=== PATIENT | male | born 1960 | race Caucasian/White ===

== ENCOUNTER 2017-02-09 11:28 | Emergency (ER) | payer OTHER, BC, MEDICARE ==
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
[2017-02-09 14:09] VITALS: BP 132/72; PULSE 70; RESP 18; TEMP 97.9
== END 2017-02-09 14:09 | disposition home or self-care (01) ==
LOC: EC 11:28
DX: S62.101A Fracture of unspecified carpal bone, right wrist, initial encounter for closed fracture (principal); E11.9 Type 2 diabetes mellitus without complications; E78.5 Hyperlipidemia, unspecified; I10 Essential (primary) hypertension; F17.200 Nicotine dependence, unspecified, uncomplicated; Z79.82 Long term (current) use of aspirin; Z79.84 Long term (current) use of oral hypoglycemic drugs; Z79.899 Other long term (current) drug therapy; Z88.1 Allergy status to other antibiotic agents; Z88.5 Allergy status to narcotic agent; V29.40XA Motorcycle driver injured in collision with unspecified motor vehicles in traffic accident, initial encounter; Y92.410 Unspecified street and highway as the place of occurrence of the external cause
CPT/HCPCS: 29125; 99283

== ENCOUNTER 2018-05-29 07:56 | Inpatient (IN) | payer BC, MEDICARE ==
[2018-05-29] MEDS ORDERED: ASPIRIN 81 MG PO STA (08:04)
[2018-05-29] MEDS ORDERED: HYDROmorphone 0.5 MG/0.5 ML SYRINGE IVP STA (08:12)
[2018-05-29] MEDS: ONDANSETRON 4 MG/2 ML VIAL IVP STA ×2 (08:29→10:37)
--- NOTE | 2018-05-29 08:40 | XR ---
EXAMINATION TYPE: XR chest 1V portable DATE OF EXAM: 05/29/2018 HISTORY: Pain. REFERENCE: Previous study dated 03/25/2016. FINDINGS: There are patchy bilateral infiltrates. Heart size upper limits of normal. Pleural spaces a re clear. IMPRESSION: PATCHY BILATERAL INFILTRATES COMPATIBLE WITH BILATERAL AREAS OF PNEUMONIA.
--- NOTE | 2018-05-29 08:46 | ED ---
Chest Pain HPI - General Source: patient, RN notes reviewed Mode of arrival: wheelchair Limitations: no limitations <William Carl - Last Filed: 05/29/18 10:11> <Robbin Rhodes - Last Filed: 05/29/18 10:44> - General Chief Complaint: Chest Pain Stated Complaint: chest pain Time Seen by Provider: 05/29/18 08:04 - History of Present Illness Initial Comments: 57-year-old male presents emergency Department chief complaint of chest pain, back pain. Patient states started with some mid to low back pain last night developed chest pain, diaphoresis this morning. Patient states she just does not feel well. Patient states she's nauseated. Patient states he had a stent placed in his right RCA last year. 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 Young. Patient does admit to shortness of breath. Patient does have a history of hypertension , hyperlipidemia, diabetes, smoking history. Patient states these are similar symptoms to his prior heart attack. Patient denies any recent URI symptoms no fevers no chills. (William Carl) - Related Data Home Medications Medication Instructions Recorded Confirmed ALPRAZolam [Alprazolam] 0.25 mg PO QID 03/25/16 05/29/18 Aspirin EC [Ecotrin Low Dose] 81 mg PO DAILY 03/25/16 05/29/18 Hydrocodone/Acetaminophen 1 tab PO Q6H PRN 03/25/16 05/29/18 [Hydrocodone-Acetamin 7.5-325] Atorvastatin [Lipitor] 20 mg PO DAILY 02/09/17 05/29/18 Lisinopril [Zestril] 10 mg PO DAILY 02/09/17 05/29/18 Artificial Tears-Hypromellose 1 drop BOTH EYES QID PRN 05/29/18 05/29/18 [Artificial Tear Drops] Nitroglycerin Sl Tabs [Nitrostat] 0.4 mg PO DIRECTED 05/29/18 05/29/18 metFORMIN HCL [Glucophage] 500 mg PO BID 05/29/18 05/29/18 Previous Rx's Medication Instructions Recorded Metoprolol Tartrate [Lopressor] 50 mg PO BID #60 tab 03/28/16 Allergies Allergy/AdvReac Type Severity Reaction Status Date / Time cephalexin [From Keflex] Allergy Unknown Verified 05/29/18 10:37 meperidine [From Demerol] Allergy Unknown Verified 05/29/18 10:37 morphine Allergy Unknown Verified 05/29/18 10:37 Review of Systems ROS Other: All systems not noted in ROS Statement are negative. <William Carl - Last Filed: 05/29/18 10:11> ROS Other: All systems not noted in ROS Statement are negative. <Robbin Rhodes - Last Filed: 05/29/18 10:44> ROS Statement: Those systems with pertinent positive or pertinent negative responses have been documented in the HPI. EKG Findings - EKG Comments: EKG Findings:: EKG performed 8:14 normal sinus rhythm with nonspecific ST and T- wave abnormality with a rate of 88 OH 162 QRS 84 QT/QTC 374/452 normal intervals <William Carl - Last Filed: 05/29/18 10:11> Past Medical History Past Medical History: Diabetes Mellitus, Hyperlipidemia, Hypertension Additional Past Medical History / Comment(s): pericarditis History of Any Multi-Drug Resistant Organisms: None Reported Past Surgical History: Back Surgery, Orthopedic Surgery Additional Past Surgical History / Comment(s): B hip replacements Past Anesthesia/Blood Transfusion Reactions: No Reported Reaction Past Psychological History: Depression Smoking Status: Current every day smoker Past Alcohol Use History: None Reported Past Drug Use History: Marijuana - Past Family History Father History Unknown: Yes Mother Family Medical History: Diabetes Mellitus, Hypertension Additional Family Medical History / Comment(s): passed in '08 from complications r/t DM <William Carl - Last Filed: 05/29/18 10:11> General Exam Limitations: no limitations General appearance: alert, in no apparent distress, other (Diaphoretic) Head exam: Present: atraumatic, normocephalic, normal inspection Eye exam: Present: normal appearance, PERRL, EOMI. Absent: scleral icterus, conjunctival injection, periorbital swelling ENT exam: Present: normal exam, normal oropharynx, mucous membranes moist Neck exam: Present: normal inspection, full ROM. Absent: tenderness, meningismus, lymphadenopathy Respiratory exam: Present: normal lung sounds bilaterally. Absent: respiratory distress, wheezes, rales, rhonchi, stridor Cardiovascular Exam: Present: regular rate, normal rhythm, normal heart sounds. Absent: systolic murmur, diastolic murmur, rubs, gallop, clicks GI/Abdominal exam: Present: soft, normal bowel sounds. Absent: distended, tenderness, guarding, rebound, rigid Back exam: Present: full ROM. Absent: tenderness, paraspinal tenderness, vertebral tenderness Neurological exam: Present: alert, oriented X3, CN II-XII intact Skin exam: Present: warm, dry, intact, normal color. Absent: rash <William Carl - Last Filed: 05/29/18 10:11> Course <William Carl - Last Filed: 05/29/18 10:11> <Robbin Rhodes - Last Filed: 05/29/18 10:44> Vital Signs 05/29/18 05/29/18 05/29/18 07:59 08:30 08:45 Temperature 97.9 F Pulse Rate 84 84 84 Respiratory 18 11 L 24 Rate Blood Pressure 169/80 161/88 151/83 O2 Sat by Pulse 100 100 99 Oximetry 05/29/18 09:15 Temperature Pulse Rate 74 Respiratory Rate Blood Pressure 149/71 O2 Sat by Pulse 95 Oximetry - Reevaluation(s) Reevaluation #1: 05/29/18 10:04 Patient reevaluated and reexamined by myself, Dr. Rhodes. Patient resting comfortably in bed. Patient states discomfort has nearly resolved at this point. Patient does complain of some sciatic type pain. Patient has had previously. Patient states he did have chest discomfort started around 5 AM described as tightness with radiation to the upper back. Patient did have associated nausea and dyspnea and sweating. Patient still is mildly nauseated. Patient and family updated on results and plan. CT report reviewed. Case discussed in detail with Dr. Reeves, who will admit his patient. I did review and agree with truong findings. This includes all diagnostic interpretations and treatment plan. 05/29/18 10:44 Case was discussed with Dr. Hammond earlier. (Robbin Rhodes) Chest Pain MDM <William Carl - Last Filed: 05/29/18 10:11> <Robbin Rhodes - Last Filed: 05/29/18 10:44> - MDM 57-year-old male present emergency department for chest pain. Patient did have lab work, EKG, chest x-ray, CT of aorta. There is no evidence of dissection. Patient had chest x-ray shows bilateral pneumonia will be started on antibiotics. Patient also has a mild elevated troponin. There is no acute EKG changes. Patient has had prior stenting. Patient was started on heparin, aspirin was given. Patient is stable and will be admitted for cardiology evaluation and further treatment. (William Carl) Disposition <William Carl - Last Filed: 05/29/18 10:11> <Robbin Rhodes - Last Filed: 05/29/18 10:44> Clinical Impression: Chest pain, Elevated troponin, Bilateral pneumonia Disposition: ADMITTED IP TO THIS HOSP Condition: Fair
[2018-05-29 08:47] LABS: Basophils # (A) 0.1 k/uL (0-0.2); Basophils % (A) 0 %; Eosinophils # (A) 0.3 k/uL (0-0.7); Eosinophils % (A) 1 %; HCT 40.4 % (39.0-53.0); HGB 13.5 gm/dL (13.0-17.5); Lymphocytes # (A) 1.9 k/uL (1.0-4.8); Lymphocytes % (A) 10 %; MCH 31.2 pg (25.0-35.0); MCHC 33.5 g/dL (31.0-37.0); Mean Platelet Volume 7.3; Monocytes # (A) 0.6 k/uL (0-1.0); Monocytes % (A) 3 %; Neutrophils # (A) 15.9 k/uL (1.3-7.7); Neutrophils % (A) 85 %; Platelet Count 316 k/uL (150-450); RBC 4.33 m/uL (4.30-5.90); WBC 18.9 k/uL (3.8-10.6)
[2018-05-29 08:54] LABS: MCV 93.2 fL (80.0-100.0)
[2018-05-29 08:58] LABS: Albumin 4.6 g/dL (3.5-5.0); INR 0.9 (<1.2); Magnesium 1.9 mg/dL (1.6-2.3); Partial Thromboplastin Time 23.8 sec (22.0-30.0); Potassium 5.5 mmol/L (3.5-5.1); Prothrombin Time 9.7 sec (9.0-12.0); Total Bilirubin 0.7 mg/dL (0.2-1.3); Total Protein 7.7 g/dL (6.3-8.2)
[2018-05-29] MEDS ORDERED: SODIUM CHLORIDE 0.9% 1,000 ML IV ONE ×2 (09:11→23:55)
[2018-05-29 09:19] LABS: Creatine Kinase MB 1.6 ng/mL (0.0-2.4)
--- NOTE | 2018-05-29 09:47 | CT ---
EXAMINATION TYPE: CT angio thor/abd pel aorta DATE OF EXAM: 05/29/2018 COMPARISON: Previous CT scan of the abdomen and pelvis dated 03/25/2016. HISTORY: Chest pain, back pain, abdominal pain CT DLP: 1491.5 mGycm. Automated Exposure Control for Dose Reduction was Utilized. CONTRAST: CT scan of the thorax, abdomen and pelvis is performed with IV Contrast, patient injected with 370 mL of Isovue 300. FINDINGS: There is dependent atelectasis in the dependent portions of the lungs. There is some shotty adenopathy within the mediastinum. There is no definite hilar adenopathy. There is no evidence of pulmonary embolus. The aorta is normal in caliber without evidence of dissection. There is some eccentric thrombus withi n the distal thoracic aorta. There is also eccentric thrombus and calcification in the distal abdomin al aorta. There is no evidence of aneurysm. There is atheromatous irregularity of the common iliac ve ssels. Both the internal and external iliac vessels are patent. The celiac, SMA and EZRA vessels are patent. Both renal arteries are patent. The heart is not enlarged. There is a small, sliding hiatal hernia present. Within the abdomen, the liver, spleen and gallbladder are unremarkable. Both adrenal glands are normal. Both kidneys demonstrate function and appear morphologically normal. The pancreas is unremarkable. There is no significant retroperitoneal, iliac or inguinal adenopathy. Bilateral hip prostheses are causing moderate streak artifact within the pelvis. It does appear to be some calcification of the prostate gland. The bladder appears unremarkable. There are scattered diverticula present in the sigmoid region. There is no radiographic evidence of d iverticulitis. The appendix is not visualized with certainty. Small bowel loops are of normal caliber. There is no free fluid and no free air. There is mild degenerative disc disease, facet arthropathy and hypertrophic spondylosis within the sp ine. IMPRESSION: 1. NO EVIDENCE OF PULMONARY EMBOLUS. 2. MILD ATHEROMATOUS IRREGULARITY OF THE DISTAL ABDOMINAL AORTA AND ILIAC VESSELS. 3. NO EVIDENCE OF AORTIC ANEURYSM OR DISSECTION.
[2018-05-29 09:52] LABS: Troponin I 0.387 ng/mL (0.000-0.034)
[2018-05-29] MEDS ORDERED: HEPARIN SODIUM,PORCINE 5,000 UNIT/ML 1 ML VIAL IV ONE (09:58)
[2018-05-29] MEDS ORDERED: HEPARIN SODIUM,PORCINE 5,000 UNIT/ML 1 ML VIAL IV PRN (09:58)
[2018-05-29] MEDS ORDERED: HEPARIN SOD,PORK IN 0.45% NACL 25,000 UNIT in 0.45% NACL 1 250ML.BAG IV SCH (10:00)
[2018-05-29] MEDS ORDERED: LEVOFLOXACIN 750MG-D5W PMX 750 MG in DEXTROSE/WATER 1 150ML.BAG IVPB STA (10:02)
[2018-05-29] MEDS ORDERED: HYDROcodone/APAP 7.5-325MG 1 EACH TAB PO ONE (11:12)
[2018-05-29] MEDS ORDERED: fentaNYL (PF) 50 MCG/ML 2 ML AMP IV ONE ×2 (11:35→13:50)
--- NOTE | 2018-05-29 12:12 | CONS ---
CONSULTATION Mr. Bolton is a 57-year-old gentleman who came to the emergency room with a complaint of nausea, sweating and back pain as well as the left hip pain. The patient gives a history that this morning he woke up and he was sweaty and slightly nauseated. The patient also had been having hip pain and the back pain. He complained of also mild chest discomfort. At present, patient is not having any chest pain. The patient had a CT scan of the chest as well as abdomen which was unremarkable. Patient has a known history of coronary artery disease with a prior history of stent to the right coronary artery in 2016. The patient is being followed by Dr. Young. He still smokes about 1 pack per day. The patient denies any history of peptic ulcer disease, any blood in the stool or black stool. Patient claims he is taking his medications regularly. The EKG shows some minimal ST changes, not significantly changed from the previous EKG. The first troponin is 0.3. PAST MEDICAL HISTORY: Prior history of coronary artery disease with a history of a stent to the RCA. Patient has a calcified coronary artery disease. History of hypertension and hyperlipidemia. REVIEW OF SYSTEMS: The review of the system is otherwise unremarkable except the patient has been having back pain and hip pain. The patient has a past history of back surgery as well as a bilateral hip replacement. PHYSICAL EXAMINATION: Physical examination at present reveals a 57-year-old gentleman who is not in any acute distress. He is not having any chest pain. Blood pressure is 130/80 mmHg. Head/ENT examination is negative. Neck is supple. There is no increase in jugular venous pressure. Both the carotid pulses are felt. There is no bruit. Chest is symmetrical. HEART: The PMI is not felt. First and second heart sounds are normal. There is no evidence of any murmur. Lungs are clinically clear to auscultation and percussion. Abdomen is negative. EXTREMITIES: Peripheral pulses are 2+. The patient's CT scan of the abdomen and chest is negative. FINAL IMPRESSION: This patient is admitted with nausea, sweating, back pain and hip pain. The patient had mild chest discomfort. First troponin is 0.3. Rule out any evidence of acute coronary syndrome. RECOMMENDATIONS: We will continue the patient's cardiac medications. Serial EKGs and cardiac enzymes will be obtained. If the cardiac enzymes are suggestive of acute coronary syndrome, patient will be considered for further evaluation with a cardiac catheterization. Echo and Doppler study will be obtained. MMESTUARDO / KARLAN: [id number] /
[2018-05-29] MEDS ORDERED: VERAPAMIL SYRINGE (5 MG/10 ML) INTRAARTER ONE ×2 (12:53→13:53)
[2018-05-29] MEDS: NITROGLYCERIN SL TABS 0.4 MG TAB SUBLINGUAL PRN ×3 (13:01→13:11)
[2018-05-29] MEDS ORDERED: VERAPAMIL 2.5 MG/ML 2 ML AMP ONE (13:28)
[2018-05-29] MEDS ORDERED: LIDOCAINE 1% INJ 10MG/ML (20 ML MDV) ONE (13:28)
[2018-05-29] MEDS ORDERED: fentaNYL (PF) 50 MCG/ML 2 ML AMP ONE (13:47)
[2018-05-29] MEDS ORDERED: LIDOCAINE 1% INJ 10MG/ML (20 ML MDV) SQ ONE (13:52)
[2018-05-29] MEDS ORDERED: IV FLUID CONTINUATION 1,000 ML IV ONE (13:53)
[2018-05-29] MEDS ORDERED: HEPARIN SODIUM 1,000 UN/ML (10ML VL) IV ONE (14:01)
[2018-05-29] MEDS ORDERED: MIDAZOLAM 2 MG/2 ML VIAL IV ONE (14:05)
[2018-05-29] MEDS ORDERED: IOPAMIDOL-370 125ML BTL INJ ONE (14:12)
[2018-05-29] MEDS ORDERED: RX INFO: IV CONTRAST WAS GIVEN 1 EACH MISC MISCELLANE PRN (14:16)
[2018-05-29] MEDS ORDERED: SODIUM CHLORIDE 0.9% 1,000 ML IV SCH (14:30)
[2018-05-29 14:58] VITALS: BMI 24.3
--- NOTE | 2018-05-29 15:17 | P.HPIM ---
History of Present Illness H&P Date: 05/29/18 Johnson Bolton is a 57-year-old male who presented to [facility] emergency room with a chief complaint of chest pain patient describes a pressure in the middle of his chest with diaphoresis and shortness of breath he was evaluated in emergency room troponin level was elevated at 0.387 patient has a known history of coronary artery disease with previous history of angioplasty and stent placement to the right coronary artery last year, patient was started on IV heparin he was evaluated by cardiology and due to his elevated troponin they proceeded with cardiac catheterization which did not reveal any critical stenosis recommendation was to continue with medical management. On presentation patient had a chest x-ray that revealed evidence of patchy bilateral infiltrates suggestive of pneumonia his white blood count was elevated at 18.9 he was started on IV Levaquin in the emergency room Patient is admitted to telemetry floor for further evaluation and treatment Past Medical History Past Medical History: Diabetes Mellitus, Hyperlipidemia, Hypertension Additional Past Medical History / Comment(s): pericarditis History of Any Multi-Drug Resistant Organisms: None Reported Past Surgical History: Back Surgery, Orthopedic Surgery Additional Past Surgical History / Comment(s): B hip replacements Past Anesthesia/Blood Transfusion Reactions: No Reported Reaction Smoking Status: Current every day smoker - Past Family History Father History Unknown: Yes Mother Family Medical History: Diabetes Mellitus, Hypertension Additional Family Medical History / Comment(s): passed in from complications r/t DM Medications and Allergies Home Medications Medication Instructions Recorded Confirmed Type ALPRAZolam [Alprazolam] 0.25 mg PO QID 03/25/16 05/29/18 History Aspirin EC [Ecotrin Low Dose] 81 mg PO DAILY 03/25/16 05/29/18 History Hydrocodone/Acetaminophen 1 tab PO Q6H PRN 03/25/16 05/29/18 History [Hydrocodone-Acetamin 7.5-325] Metoprolol Tartrate [Lopressor] 50 mg PO BID #60 tab 03/28/16 05/29/18 Rx Atorvastatin [Lipitor] 20 mg PO DAILY 02/09/17 05/29/18 History Lisinopril [Zestril] 10 mg PO DAILY 02/09/17 05/29/18 History Artificial Tears-Hypromellose 1 drop BOTH EYES QID PRN 01/05/19 01/05/19 History [Artificial Tear Drops] Nitroglycerin Sl Tabs [Nitrostat] 0.4 mg PO DIRECTED 05/29/18 05/29/18 History metFORMIN HCL [Glucophage] 500 mg PO BID 05/29/18 05/29/18 History Allergies Allergy/AdvReac Type Severity Reaction Status Date / Time cephalexin [From Keflex] Allergy Unknown Verified 05/29/18 10:37 meperidine [From Demerol] Allergy Unknown Verified 05/29/18 10:37 morphine Allergy Unknown Verified 05/29/18 10:37 Physical Exam Vitals: Vital Signs Temp Pulse Pulse Resp BP BP Pulse Ox 05/29/18 14:44 99.3 F 122 H 16 164/91 90 L 05/29/18 13:00 97.8 F 111 H 22 175/95 95 05/29/18 12:00 99 16 148/93 94 L 05/29/18 10:00 82 18 162/92 95 05/29/18 09:15 74 149/71 95 05/29/18 08:45 84 24 151/83 99 05/29/18 08:30 84 11 L 161/88 100 05/29/18 07:59 97.9 F 84 18 169/80 100 Intake and Output 05/29/18 05/29/18 05/29/18 06:59 14:59 22:59 Intake Total 50 Balance 50 Intake: IV 50 Other: Weight 74.843 kg HEENT head normocephalic and atraumatic Neck is supple no JVD no goiter no lymphadenopathy Chest exam reveals a few scattered crackles bilaterally no wheezing Cardiac exam reveals regular heart sounds S1 and S2 no gallops no murmurs Abdomen is soft nontender no organomegaly with normal bowel sounds Extremity exam reveals no edema no cyanosis or clubbing Neurological examination reveals no gross focal deficit Results CBC & Chem 7: 05/29/18 08:17 05/29/18 08:17 Labs: Abnormal Lab Results - Last 24 Hours (Table) 05/29/18 05/29/18 05/29/18 Range/Units 08:17 08:17 08:17 WBC 18.9 H (3.8-10.6) k/uL Neutrophils # 15.9 H (1.3-7.7) k/uL Potassium 5.5 H (3.5-5.1) mmol/L BUN 31 H (9-20) mg/dL Creatinine 1.35 H (0.66-1.25) mg/dL Glucose 194 H (74-99) mg/dL Troponin I 0.387 H* (0.000-0.034) ng/mL Assessment and Plan Plan: #1 episode of chest pain, with elevated troponin level at 0.387 patient underwent cardiac catheterization on admission there was no evidence of any critical stenosis recommendation were to continue with medical management #2 evidence of bilateral pneumonia with patchy infiltrates in both lung guillen and leukocytosis patient was started on IV Levaquin will continue #3 underlying history of hypertension #4 underlying history of hyperlipidemia #5 chronic back pain with severe degenerative disc disease #6 acute kidney injury BUN 31 creatinine 1.35 baseline creatinine 0.8 Will hydrate patient gently and monitor blood pressure #7 underlying history of diabetes mellitus [id number] Will monitor glucose closely will check hemoglobin A1c Patient is admitted to telemetry floor cardiology and pulmonary consultation requested will follow closely
[2018-05-29 16:19] LABS: Creatine Kinase MB 9.3 ng/mL (0.0-2.4)
[2018-05-29 16:28] LABS: Troponin I 3.74 ng/mL (0.000-0.034)
[2018-05-29 16:47] LABS: Glucose,Whole Blood 156 mg/dL (75-99)
[2018-05-29] MEDS ORDERED: ONDANSETRON 4 MG/2 ML VIAL IVP PRN (19:44)
[2018-05-29] MEDS ORDERED: ONDANSETRON 4 MG/2 ML VIAL ONE (20:01)
[2018-05-29 20:03] LABS: Glucose,Whole Blood 201 mg/dL (75-99)
[2018-05-29] MEDS ORDERED: KETOROLAC 30 MG/ML 1 ML VIAL IVP STA (20:05)
[2018-05-29 20:44] LABS: Basophils # (A) 0.1 k/uL (0-0.2); Basophils % (A) 0 %; Eosinophils % (A) 0 %; HCT 44.3 % (39.0-53.0); HGB 13.8 gm/dL (13.0-17.5); Lymphocytes # (A) 1.7 k/uL (1.0-4.8); Lymphocytes % (A) 9 %; MCH 30.2 pg (25.0-35.0); MCHC 31.1 g/dL (31.0-37.0); MCV 97.1 fL (80.0-100.0); Monocytes # (A) 0.8 k/uL (0-1.0); Monocytes % (A) 4 %; Neutrophils # (A) 16.2 k/uL (1.3-7.7); Neutrophils % (A) 85 %; Platelet Count 358 k/uL (150-450); RBC 4.56 m/uL (4.30-5.90); RDW 13.1 % (11.5-15.5)
[2018-05-29 21:11] LABS: Creatine Kinase MB 13.5 ng/mL (0.0-2.4)
[2018-05-29 21:21] LABS: Troponin I 4.91 ng/mL (0.000-0.034)
[2018-05-29] MEDS: CLOPIDOGREL 75 MG TAB PO SCH (21:21)
[2018-05-29] MEDS: ALPRAZolam 0.25 MG TAB PO SCH (21:21)
[2018-05-29] MEDS: METOPROLOL TARTRATE 50 MG TAB PO SCH (21:21)
[2018-05-29] MEDS: HYDROcodone/APAP 7.5-325MG 1 EACH TAB PO PRN (21:21)
--- NOTE | 2018-05-29 21:21 | CC ---
CARDIAC CATHETERIZATION REPORT Mr. Bolton is a 57-year-old male with a known history of coronary artery disease status post stenting of the right coronary artery in 2016, history of hypertension, hyperlipidemia, chronic tobacco use and diabetes mellitus who presented with symptoms of back discomfort, chest discomfort, nausea and vomiting and had mild elevation of troponin with recurrent episode of chest discomfort. He was evaluated by Dr. Mar Hammond and recommendation was made regarding cardiac catheterization. The procedure as well as risks and complications were discussed with the patient who was in full understanding and agreement. 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 Using Xylocaine anesthesia and Seldinger, a 6-Sol[place] Islander sheath was introduced in the right radial artery, selective right and left coronary angiography was performed using 5-Sol[place] Islander 3 and half bend right and left Jyotsna catheter. Multiple views of the right coronary artery including hemiaxial views obtained. Following that, 5-[place] Islander tight pigtail catheter was introduced in the left ventricle and pressures were calculated. Following that, catheter and sheath were removed. Hemostasis was obtained with deployment of a TR band. There was no immediate complication. Patient was returned to his room in stable condition. Of note, the patient received 3000 units of intravenous heparin as well as intra-arterial verapamil. FINDINGS: Left main: This is a short size vessel bifurcating in the left circumflex, left anterior descending artery, left main coronary artery has no evidence of high-grade stenosis. Left anterior descending coronary artery: This is a large-sized vessel reaching toward the apex with a wraparound apex segment giving rise to two diagonal branches of moderate caliber. The left anterior descending artery as well as branches have no evidence of obstructive coronary artery disease. Left circumflex: This is a large nondominant vessel giving rise to a distal obtuse marginal branch. The left circumflex branch proximally has 20% plaque. The rest of the vessel has no high-grade stenosis. RIGHT CORONARY ARTERY: This is a large dominant vessel bifurcating distally into PDA and posterolateral segment branches. The right coronary artery in the proximal segment is stented and patent. There is about 10%-20% plaque distal to it without any evidence of high-grade stenosis. LEFT VENTRICULOGRAM: The ventriculogram was not performed. HEMODYNAMICS: There was no gradient across the aortic valve. The left ventricular end-diastolic pressure was 32 mmHg. CONCLUSION: 1. Mild obstructive disease involving the left circumflex and right coronary artery. 2. Patent stent to the right coronary artery. 3. Elevated left ventricular end-diastolic pressure. RECOMMENDATION: In view of findings and anatomy, I recommended continuing medical therapy with the aggressive coronary risk modifications that have been initiated. Those findings and recommendations were discussed with the patient and his family who are in full understanding and agreement. Duration of procedure is 15 minutes. MMESTUARDO / KARLAN: [id number] /
[2018-05-29] MEDS ORDERED: METOPROLOL TARTRATE 25 MG TAB PO STA (22:15)
[2018-05-29 23:14] LABS: Hemoglobin A1C 6.6 % (4.0-6.0)
[2018-05-29] MEDS: DILTIAZEM ORAL 30 MG TAB PO SCH (23:34)
--- NOTE | 2018-05-30 00:26 | XR ---
EXAMINATION TYPE: XR chest 1V portable DATE OF EXAM: 05/30/2018 COMPARISON: 05/29/2018 HISTORY: Vomiting TECHNIQUE: Single frontal view of the chest is obtained. FINDINGS: Heart and mediastinum are normal. There are chest leads. There is coarse pulmonary interst itial infiltrates and subsegmental atelectasis. There is no sign of pleural effusion. IMPRESSION: There is increasing pulmonary interstitial edema compared to yesterday. This could be de veloping RDS or heart failure.
[2018-05-30] MEDS ORDERED: FUROSEMIDE 10 MG/ML 4 ML VIAL IV STA (00:48)
[2018-05-30 00:59] LABS: Glucose,Whole Blood 201 mg/dL (75-99)
[2018-05-30] MEDS: ALPRAZolam 0.25 MG TAB PO SCH ×4 (02:29→21:16)
[2018-05-30 03:50] LABS: Basophils % (A) 0 %; Eosinophils # (A) 0.1 k/uL (0-0.7); Eosinophils % (A) 0 %; HCT 47.6 % (39.0-53.0); HGB 15.1 gm/dL (13.0-17.5); Lymphocytes # (A) 1.5 k/uL (1.0-4.8); Lymphocytes % (A) 6 %; MCH 30.5 pg (25.0-35.0); MCHC 31.6 g/dL (31.0-37.0); MCV 96.5 fL (80.0-100.0); Mean Platelet Volume 7.2; Monocytes # (A) 1.1 k/uL (0-1.0); Monocytes % (A) 4 %; Neutrophils # (A) 23.5 k/uL (1.3-7.7); Neutrophils % (A) 90 %; Platelet Count 340 k/uL (150-450); RBC 4.93 m/uL (4.30-5.90); RDW 13.3 % (11.5-15.5); WBC 26.2 k/uL (3.8-10.6)
[2018-05-30] MEDS ORDERED: NALOXONE 0.4 MG/ML 1 ML VIAL IV PRN (03:59)
[2018-05-30 04:00] LABS: Albumin 4.2 g/dL (3.5-5.0); Calcium 8.9 mg/dL (8.4-10.2); Total Bilirubin 0.7 mg/dL (0.2-1.3); Total Protein 7.3 g/dL (6.3-8.2)
[2018-05-30 04:23] LABS: Magnesium 1.9 mg/dL (1.6-2.3); Phosphorus 3.9 mg/dL (2.5-4.5)
[2018-05-30] MEDS: HYDROcodone/APAP 7.5-325MG 1 EACH TAB PO PRN ×3 (05:08→14:33)
[2018-05-30] MEDS: MAGNESIUM SULFATE-D5W PMX 1 GM in DEXTROSE/WATER 1 100ML.BAG IVPB SCH ×2 (06:57→10:06)
[2018-05-30 06:58] LABS: Glucose,Whole Blood 247 mg/dL (75-99)
--- NOTE | 2018-05-30 06:58 | XR ---
EXAMINATION TYPE: XR chest 1V DATE OF EXAM: 05/30/2018 HISTORY: shortness of breath. REFERENCE: Previous study dated 05/30/2018. FINDINGS: Lung volumes are prominent. Heart size is within normal limits. There is vascular congestio n and both interstitial and alveolar airspace disease. I cannot exclude a small left effusion. IMPRESSION: 1. COPD. 2. WORSENING CHANGES OF INTERSTITIAL EDEMA AND ALVEOLAR AIRSPACE DISEASE. THIS MAY BE SECONDARY TO CO NGESTIVE HEART FAILURE. OTHER INTERSTITIAL DISEASES SUCH ATYPICAL PNEUMONIA WOULD ALSO HAVE TO BE EXCLUDED.
[2018-05-30] MEDS ORDERED: INSULIN ASPART 100 UNIT/ML 1 ML 10 ML VIAL SQ SCH (07:30)
[2018-05-30 08:14] LABS: Appearance,Urine Clear (Clear); Bilirubin,Urine Negative (Negative); Blood,Urine Moderate (Negative); Color,Urine Yellow; Glucose,Urine (UA) 3+ (Negative); Hyaline Casts,Urine 7 /lpf (0-2); Leukocyte Esterase,Urine Trace (Negative); Mucus,Urine Few /hpf; Nitrite,Urine Negative (Negative); PH, Urine 5.5 (5.0-8.0); Protein,Urine 1+ (Negative); RBC,Urine 37 /hpf (0-5); Sperm,Urine Rare /hpf; Squamous Epithelial Cell,Urine <1 /hpf (0-4); Urobilinogen,Urine <2.0 mg/dL (<2.0)
[2018-05-30 08:22] LABS: Ketones,Urine 2+ (Negative)
--- NOTE | 2018-05-30 08:27 | P.PN ---
Subjective Progress Note Date: 05/30/18 Principal diagnosis: Pneumonia Johnson Bolton is a 57-year-old male who presented to [facility] emergency room with a chief complaint of chest pain patient describes a pressure in the middle of his chest with diaphoresis and shortness of breath he was evaluated in emergency room troponin level was elevated at 0.387 patient has a known history of coronary artery disease with previous history of angioplasty and stent placement to the right coronary artery last year, patient was started on IV heparin he was evaluated by cardiology and due to his elevated troponin they proceeded with cardiac catheterization which did not reveal any critical stenosis recommendation was to continue with medical management. On presentation patient had a chest x-ray that revealed evidence of patchy bilateral infiltrates suggestive of pneumonia his white blood count was elevated at 18.9 he was started on IV Levaquin in the emergency room Patient is admitted to telemetry floor for further evaluation and treatment. On 05/30/2018 patient was seen and examined in ICU he is alert and oriented 3 , currently maintained on BiPAP, he had significant difficulty throughout the night with worsening shortness of breath, hypotension and tachycardia lactic acid was elevated at 3.7 he received IV fluid boluses and was transferred to intensive care unit. Patient is still complaining of shortness of breath he is complaining of cough, there is no fever or chills no headache or dizziness no chest pain at this time no nausea or vomiting no abdominal pain no diarrhea and no urinary symptoms. Objective - Vital Signs Vital signs: Vital Signs Temp 98.3 F 05/30/18 08:00 Pulse 113 H 05/30/18 08:00 Resp 7 L 05/30/18 08:00 BP 118/84 05/30/18 08:00 Pulse Ox 95 05/30/18 08:00 Intake & Output 05/29/18 05/30/18 05/30/18 18:59 06:59 18:59 Intake Total 200 1374 75 Output Total 830 32 Balance 200 544 43 Weight 74.843 kg Intake: IV 50 1374 75 Sodium Chloride 0.9% 1, 375 75 000 ml @ 75 mls/hr IV . [id number] [facility] Rx#:[id number] Sodium Chloride 0.9% 1, 999 000 ml @ 999 mls/hr IV . Q1H1M [facility] Rx#:[id number] Intake, IV Titration 150 Amount Sodium Chloride 0.9% 1, 150 000 ml @ 75 mls/hr IV . [id number] [facility] Rx#:[id number] Oral 0 Output: Urine 830 32 Other: Voiding Method Indwelling Catheter - Exam HEENT head normocephalic and atraumatic Neck is supple no JVD no goiter no lymphadenopathy Chest exam reveals a few scattered crackles bilaterally no wheezing Cardiac exam reveals regular heart sounds S1 and S2 no gallops no murmurs Abdomen is soft nontender no organomegaly with normal bowel sounds Extremity exam reveals no edema no cyanosis or clubbing Neurological examination reveals no gross focal deficit - Labs CBC & Chem 7: 05/30/18 03:34 05/30/18 03:34 Labs: Abnormal Lab Results - Last 24 Hours (Table) 05/29/18 05/29/18 05/29/18 Range/Units 08:17 08:17 08:17 WBC 18.9 H (3.8-10.6) k/uL Neutrophils # 15.9 H (1.3-7.7) k/uL Monocytes # (0-1.0) k/uL APTT (22.0-30.0) sec D-Dimer (<0.60) mg/L FEU Potassium 5.5 H (3.5-5.1) mmol/L Chloride (98-107) mmol/L Carbon Dioxide (22-30) mmol/L BUN 31 H (9-20) mg/dL Creatinine 1.35 H (0.66-1.25) mg/dL Glucose 194 H (74-99) mg/dL POC Glucose (mg/dL) (75-99) mg/dL Hemoglobin A1c (4.0-6.0) % Plasma Lactic Acid Seamus (0.7-2.0) mmol/L Total Creatine Kinase (55-170) U/L CK-MB (CK-2) (0.0-2.4) ng/mL Troponin I 0.387 H* (0.000-0.034) ng/mL Urine Protein (Negative) Urine Glucose (UA) (Negative) Urine Blood (Negative) Ur Leukocyte Esterase (Negative) Urine RBC (0-5) /hpf Hyaline Casts (0-2) /lpf Urine Mucus (None) /hpf 05/29/18 05/29/18 05/29/18 Range/Units 15:14 15:14 16:42 WBC (3.8-10.6) k/uL Neutrophils # (1.3-7.7) k/uL Monocytes # (0-1.0) k/uL APTT 71.0 H (22.0-30.0) sec D-Dimer (<0.60) mg/L FEU Potassium (3.5-5.1) mmol/L Chloride (98-107) mmol/L Carbon Dioxide (22-30) mmol/L BUN (9-20) mg/dL Creatinine (0.66-1.25) mg/dL Glucose (74-99) mg/dL POC Glucose (mg/dL) 156 H (75-99) mg/dL Hemoglobin A1c (4.0-6.0) % Plasma Lactic Acid Seamus (0.7-2.0) mmol/L Total Creatine Kinase 187 H (55-170) U/L CK-MB (CK-2) 9.3 H (0.0-2.4) ng/mL Troponin I 3.740 H* (0.000-0.034) ng/mL Urine Protein (Negative) Urine Glucose (UA) (Negative) Urine Blood (Negative) Ur Leukocyte Esterase (Negative) Urine RBC (0-5) /hpf Hyaline Casts (0-2) /lpf Urine Mucus (None) /hpf 05/29/18 05/29/18 05/29/18 Range/Units 19:44 19:44 19:47 WBC (3.8-10.6) k/uL Neutrophils # (1.3-7.7) k/uL Monocytes # (0-1.0) k/uL APTT (22.0-30.0) sec D-Dimer (<0.60) mg/L FEU Potassium (3.5-5.1) mmol/L Chloride (98-107) mmol/L Carbon Dioxide (22-30) mmol/L BUN (9-20) mg/dL Creatinine (0.66-1.25) mg/dL Glucose (74-99) mg/dL POC Glucose (mg/dL) 201 H (75-99) mg/dL Hemoglobin A1c 6.6 H (4.0-6.0) % Plasma Lactic Acid Seamus (0.7-2.0) mmol/L Total Creatine Kinase 288 H (55-170) U/L CK-MB (CK-2) 13.5 H (0.0-2.4) ng/mL Troponin I 4.910 H* (0.000-0.034) ng/mL Urine Protein (Negative) Urine Glucose (UA) (Negative) Urine Blood (Negative) Ur Leukocyte Esterase (Negative) Urine RBC (0-5) /hpf Hyaline Casts (0-2) /lpf Urine Mucus (None) /hpf 05/29/18 05/29/18 05/29/18 Range/Units 20:00 20:00 20:00 WBC 19.0 H (3.8-10.6) k/uL Neutrophils # 16.2 H (1.3-7.7) k/uL Monocytes # (0-1.0) k/uL APTT (22.0-30.0) sec D-Dimer 1.50 H (<0.60) mg/L FEU Potassium (3.5-5.1) mmol/L Chloride (98-107) mmol/L Carbon Dioxide (22-30) mmol/L BUN (9-20) mg/dL Creatinine (0.66-1.25) mg/dL Glucose (74-99) mg/dL POC Glucose (mg/dL) (75-99) mg/dL Hemoglobin A1c (4.0-6.0) % Plasma Lactic Acid Seamus 3.7 H* (0.7-2.0) mmol/L Total Creatine Kinase (55-170) U/L CK-MB (CK-2) (0.0-2.4) ng/mL Troponin I (0.000-0.034) ng/mL Urine Protein (Negative) Urine Glucose (UA) (Negative) Urine Blood (Negative) Ur Leukocyte Esterase (Negative) Urine RBC (0-5) /hpf Hyaline Casts (0-2) /lpf Urine Mucus (None) /hpf 05/30/18 05/30/18 05/30/18 Range/Units 00:55 03:34 03:34 WBC 26.2 H (3.8-10.6) k/uL Neutrophils # 23.5 H (1.3-7.7) k/uL Monocytes # 1.1 H (0-1.0) k/uL APTT (22.0-30.0) sec D-Dimer (<0.60) mg/L FEU Potassium (3.5-5.1) mmol/L Chloride 111 H (98-107) mmol/L Carbon Dioxide 18 L (22-30) mmol/L BUN 37 H (9-20) mg/dL Creatinine 1.61 H (0.66-1.25) mg/dL Glucose 250 H (74-99) mg/dL POC Glucose (mg/dL) 201 H (75-99) mg/dL Hemoglobin A1c (4.0-6.0) % Plasma Lactic Acid Seamus (0.7-2.0) mmol/L Total Creatine Kinase (55-170) U/L CK-MB (CK-2) (0.0-2.4) ng/mL Troponin I (0.000-0.034) ng/mL Urine Protein (Negative) Urine Glucose (UA) (Negative) Urine Blood (Negative) Ur Leukocyte Esterase (Negative) Urine RBC (0-5) /hpf Hyaline Casts (0-2) /lpf Urine Mucus (None) /hpf 05/30/18 05/30/18 05/30/18 Range/Units 03:34 06:55 07:41 WBC (3.8-10.6) k/uL Neutrophils # (1.3-7.7) k/uL Monocytes # (0-1.0) k/uL APTT (22.0-30.0) sec D-Dimer (<0.60) mg/L FEU Potassium (3.5-5.1) mmol/L Chloride (98-107) mmol/L Carbon Dioxide (22-30) mmol/L BUN (9-20) mg/dL Creatinine (0.66-1.25) mg/dL Glucose (74-99) mg/dL POC Glucose (mg/dL) 247 H (75-99) mg/dL Hemoglobin A1c (4.0-6.0) % Plasma Lactic Acid Seamus 2.1 H* (0.7-2.0) mmol/L Total Creatine Kinase (55-170) U/L CK-MB (CK-2) (0.0-2.4) ng/mL Troponin I (0.000-0.034) ng/mL Urine Protein 1+ H (Negative) Urine Glucose (UA) 3+ H (Negative) Urine Blood Moderate H (Negative) Ur Leukocyte Esterase Trace H (Negative) Urine RBC 37 H (0-5) /hpf Hyaline Casts 7 H (0-2) /lpf Urine Mucus Few H (None) /hpf Microbiology - Last 24 Hours (Table) 05/30/18 00:30 Gram Stain - Preliminary Sputum Sputum Culture - Preliminary Assessment and Plan Plan: #1 episode of chest pain, with elevated troponin level at 0.387 patient underwent cardiac catheterization on admission there was no evidence of any critical stenosis recommendation were to continue with medical management #2 evidence of bilateral pneumonia with patchy infiltrates in both lung guillen and leukocytosis patient was started on IV Levaquin will continue #3 sepsis as evidenced by leukocytosis, hypotension, tachycardia, and elevated lactic acid patient received IV fluid boluses lactic acid came down from 3.7 to 2.1 currently maintained on IV Levaquin white blood count is more elevated today at 26.2 consultation for infectious disease for antibiotic management was initiated, blood culture urine culture and sputum culture were sent to the lab results are still pending #4 underlying history of hyperlipidemia #5 chronic back pain with severe degenerative disc disease #6 acute kidney injury BUN 31 creatinine 1.35 baseline creatinine 0.8 Will hydrate patient gently and monitor blood pressure, kidney function is worsening today with BUN up to 37 and creatinine up to 1.61 #7 underlying history of diabetes mellitus [id number] Will monitor glucose closely will check hemoglobin A1c #8 underlying history of hypertension Patient was transferred to ICU throughout last night due to difficulty breathing hypotension and tachycardia currently he is maintained on BiPAP he received IV fluid boluses throughout the night his condition has a [place] eyes this morning Consultations for cardiology, pulmonary critical care, and infectious disease in place
--- NOTE | 2018-05-30 08:30 | P.PN ---
Progress Note - Text Progress Note Date: 05/30/18 Records of family meeting: Date of meeting is 05/30/2018 time of meeting his 8:10 This morning I met with family of Mr. Johnson Bolton in the waiting room of the intensive care unit, patient was transferred to ICU last night due to shortness of breath, hypotension and tachycardia, he received fluid boluses and is maintained on BiPAP Condition explained to his family in details, questions answered to their satisfaction. At this time patient will remain in ICU, he does not require intubation or mechanical ventilation at this present moment, continue with current management. Consultations for pulmonary critical care, cardiology and infectious disease are in place.
[2018-05-30] MEDS ORDERED: ASPIRIN 325 MG TAB PO SCH (09:00)
[2018-05-30] MEDS: FUROSEMIDE 10 MG/ML 4 ML VIAL IV SCH ×2 (09:24→16:19)
[2018-05-30] MEDS: PANTOPRAZOLE 40 MG TABLET PO SCH (09:38)
[2018-05-30] MEDS: CLOPIDOGREL 75 MG TAB PO SCH (09:39)
[2018-05-30] MEDS: ASPIRIN 81 MG PO SCH (09:39)
[2018-05-30] MEDS: ATORVASTATIN 40 MG TAB PO SCH (09:39)
[2018-05-30] MEDS: METOPROLOL TARTRATE 50 MG TAB PO SCH ×2 (09:41→21:16)
[2018-05-30] MEDS: HYDROmorphone 0.5 MG/0.5 ML SYRINGE IVP PRN ×3 (09:43→22:17)
[2018-05-30] MEDS ORDERED: PIPERACILLIN-TAZOBACTAM 3.375 GM in SODIUM CHLORIDE 0.9% 100 ML IVPB SCH (09:45)
[2018-05-30] MEDS ORDERED: LEVOFLOXACIN 500MG-D5W PMX 500 MG in DEXTROSE/WATER 1 100ML.BAG IVPB SCH (10:00)
--- NOTE | 2018-05-30 11:09 | P.NPCON ---
History of Present Illness - Reason for Consult Consult date: 05/30/18 acute renal failure - Chief Complaint Acute kidney injury, status post cardiac cath and CTA - History of Present Illness This is a 57-year-old male who came in because of chest pain and slightly elevated troponins are 0.3 and underwent cardiac cath as well as CTA yesterday 05/29/2018. His creatinine is up slightly but is making fair amount of urine this morning. His chest x-ray has deteriorated from being normal to bilateral diffuse alveolar edema. A cardiac cath showed no significant disease, seems it was nearly normal coronary . CTA was normal. He is currently on BiPAP, overnight he has been given IV fluids and this morning he received 40 of Lasix IV and has put out about 700 mL of urine so for over the last 3-4 hours. He denies any chest pain fever chills cough nausea vomiting. No abdominal pain, no pain in his feet. His past history significant for diabetes hypertension and history of pericarditis. He had hip replacement back surgery. Chronic daily smoker. Past Medical History Past Medical History: Diabetes Mellitus, Hyperlipidemia, Hypertension Additional Past Medical History / Comment(s): pericarditis History of Any Multi-Drug Resistant Organisms: None Reported Past Surgical History: Back Surgery, Orthopedic Surgery Additional Past Surgical History / Comment(s): B hip replacements Past Anesthesia/Blood Transfusion Reactions: No Reported Reaction Past Psychological History: Depression Smoking Status: Current every day smoker Past Alcohol Use History: None Reported - Past Family History Father History Unknown: Yes Mother Family Medical History: Diabetes Mellitus, Hypertension Additional Family Medical History / Comment(s): passed in from complications r/t DM Medications and Allergies Home Medications Medication Instructions Recorded Confirmed Type ALPRAZolam [Alprazolam] 0.25 mg PO QID 03/25/16 05/29/18 History Aspirin EC [Ecotrin Low Dose] 81 mg PO DAILY 03/25/16 05/29/18 History Hydrocodone/Acetaminophen 1 tab PO Q6H PRN 03/25/16 05/29/18 History [Hydrocodone-Acetamin 7.5-325] Metoprolol Tartrate [Lopressor] 50 mg PO BID #60 tab 03/28/16 05/29/18 Rx Atorvastatin [Lipitor] 20 mg PO DAILY 02/09/17 05/29/18 History Lisinopril [Zestril] 10 mg PO DAILY 02/09/17 05/29/18 History Artificial Tears-Hypromellose 1 drop BOTH EYES QID PRN 05/29/18 05/29/18 History [Artificial Tear Drops] Nitroglycerin Sl Tabs [Nitrostat] 0.4 mg PO DIRECTED 05/29/18 05/29/18 History metFORMIN HCL [Glucophage] 500 mg PO BID 05/29/18 05/29/18 History Allergies Allergy/AdvReac Type Severity Reaction Status Date / Time cephalexin [From Keflex] Allergy Unknown Verified 05/29/18 10:37 meperidine [From Demerol] Allergy Unknown Verified 05/29/18 10:37 morphine Allergy Unknown Verified 05/29/18 10:37 Physical Exam Vitals: Vital Signs Temp Pulse Pulse Pulse Pulse Resp BP 05/30/18 10:00 109 H 14 111/81 05/30/18 09:00 102 H 9 L 106/84 05/30/18 08:00 98.3 F 113 H 7 L 118/84 05/30/18 07:00 121 H 31 H 125/86 05/30/18 06:00 124 H 30 H 122/98 05/30/18 05:00 128 H 28 H 123/87 05/30/18 04:00 98.4 F 134 H 122 H 30 H 148/106 05/30/18 03:00 137 H 36 H 147/104 05/30/18 02:00 98.7 F 142 H 36 H 157/112 05/30/18 01:21 131 H 49 H 141/105 05/30/18 01:00 152 H 36 H 05/29/18 23:13 149 H 22 05/29/18 23:09 97.9 F 149 H 22 05/29/18 20:21 126 H 20 05/29/18 20:11 132 H 19 05/29/18 20:00 126 H 20 05/29/18 19:55 139 H 19 05/29/18 19:50 98.2 F 130 H 19 05/29/18 18:01 110 H 16 05/29/18 16:53 103 H 16 05/29/18 16:01 116 H 16 05/29/18 16:00 16 05/29/18 15:31 114 H 16 05/29/18 15:01 115 H 16 05/29/18 14:44 99.3 F 122 H 16 05/29/18 13:00 97.8 F 111 H 22 175/95 05/29/18 12:00 99 16 148/93 BP Pulse Ox 05/30/18 10:00 97 05/30/18 09:00 97 05/30/18 08:00 95 05/30/18 07:00 96 05/30/18 06:00 96 05/30/18 05:00 96 05/30/18 04:00 97 05/30/18 03:00 96 05/30/18 02:00 97 05/30/18 01:21 99 05/30/18 01:00 05/29/18 23:13 05/29/18 23:09 157/96 90 L 05/29/18 20:21 158/99 91 L 05/29/18 20:11 153/96 91 L 05/29/18 20:00 159/96 92 L 05/29/18 19:55 168/96 92 L 05/29/18 19:50 170/92 93 L 05/29/18 18:01 124/73 05/29/18 16:53 129/78 05/29/18 16:01 126/72 05/29/18 16:00 05/29/18 15:31 129/55 05/29/18 15:01 154/91 05/29/18 14:44 164/91 90 L 05/29/18 13:00 95 05/29/18 12:00 94 L Intake and Output 05/29/18 05/30/18 05/30/18 22:59 06:59 14:59 Intake Total 150 1374 225 Output Total 830 332 Balance 150 544 -107 Intake: IV 1374 225 Sodium Chloride 0.9% 1, 375 225 000 ml @ 75 mls/hr IV . [id number] [facility] Rx#:[id number] Sodium Chloride 0.9% 1, 999 000 ml @ 999 mls/hr IV . Q1H1M [facility] Rx#:[id number] Intake, IV Titration 150 Amount Sodium Chloride 0.9% 1, 150 000 ml @ 75 mls/hr IV . [id number] [facility] Rx#:[id number] Oral 0 Output: Urine 830 332 Other: Voiding Method Toilet Indwelling Catheter Indwelling Catheter Urinal On examination is awake alert oriented. He is on BiPAP. Blood pressure is stable around 110, mean arterial pressure is around 80 His desaturating off of the BiPAP HEENT exam no JVP neck is supple no facial asymmetry Lungs are significant for bilateral end expiratory wheezing and occasional coarse crackles. Good air entry bilaterally Heart sounds are unremarkable for any murmur rub gallop He is in normal sinus rhythm Abdomen soft nontender no organomegaly ascites masses Extremity exam was no edema Neurologically awake alert oriented comfortable. Results - Lab Results Most recent lab results Calcium 8.9 mg/dL (8.4-10.2) 05/30/18 03:34 Phosphorus 3.9 mg/dL (2.5-4.5) 05/30/18 03:34 Magnesium 1.9 mg/dL (1.6-2.3) 05/30/18 03:34 05/30/18 03:34 05/30/18 03:34 Assessment and Plan Assessment: Impression 1. Acute kidney injury secondary to dye and ATN creatinine went up from 1.3- 1.6. He has good urine output after being given IV fluids and Lasix. 2. Chronic kidney disease stage II, nephrosclerosis with possible diabetic nephropathy. Baseline creatinine, 1.2, GFR is 60 mg/m dated 03/29/2018 and 1.1 dated 12/28/2017. Prior to this last creatinine available is from 03/28/2016 when it was 0.8. A urinalysis done this morning shows 1+ protein specific gravity 10:30. RBCs 37 WBC 7. 3. Mild degree of non-gap acidosis secondary to acute kidney injury, bicarb is 18 this morning with anion gap of 13 4. Acute lung injury versus pulmonary edema. 5. Status post cardiac cath and CTA which were negative dated 05/29/2018, 6. History of diabetes mellitus. 7. History of smoking. Recommendation. 1. Discussed with Dr. Smith him a will diurese him. 2. Discontinue IV fluids. 3. Reassess every few hours how much diuretic needs based on urine output blood pressure mean artery pressure and his respiratory status. 1. Cover with antibiotics for pneumonia as he has leukocytosis and watch for sepsis. 5. Avoid nephrotoxic medication and avoid his home medication that included metformin. 6. Hold MARKUS inhibitor is for right now. 7. Maintain blood pressure in the 110-120 range. Watch blood pressure medications not to be given if there is below 120
[2018-05-30] MEDS: LISINOPRIL 5 MG TAB PO SCH (11:19)
[2018-05-30] MEDS: DILTIAZEM ORAL 30 MG TAB PO SCH ×3 (11:19→21:17)
[2018-05-30 12:00] LABS: Glucose,Whole Blood 232 mg/dL (75-99)
[2018-05-30] MEDS: PIPERACILLIN-TAZOBACTAM 3.375 GM in SODIUM CHLORIDE 0.9% 100 ML IVPB SCH ×2 (12:10→21:16)
[2018-05-30] MEDS: INSULIN ASPART 100 UNIT/ML 1 ML 10 ML VIAL SQ SCH ×3 (12:12→21:16)
[2018-05-30] MEDS: SODIUM BICARBONATE TAB 650 MG TAB PO SCH ×3 (12:16→21:17)
--- NOTE | 2018-05-30 13:51 | P.CNPUL ---
History of Present Illness Consult date: 05/30/18 Requesting physician: Ayush Reeves Reason for consult: dyspnea Chief complaint: Chest pain and shortness of breath. History of present illness: This is a 57-year-old white male with history of hypertension, diabetes, hyperlipidemia, previous documented coronary artery disease and previous stent in the RCA. Patient presented to the ER with acute substernal chest pain. Described as pressure in the middle of the chest, he was also diaphoretic, and complaining of shortness of breath. Seen in the ER, his initial troponin was elevated at 0.387, patient was admitted, started on IV heparin for acute coronary syndrome, history troponin to a significant rise over a period of hours from admission, and the patient was having more pain. He was also developing more shortness of breath at night, and a chest x-ray showed worsening pulmonary edema. Patient underwent cardiac catheterization, and according to the inspector and adjuster golf club head there was no evidence of critical stenosis and recommended mostly medical management. Overnight, his pulmonary condition got worse, his chest x-ray showed interstitial edema, given Lasix, however the patient was developing a picture of acute kidney injury, leukocytosis, his urine was noted to be infected, and patient was felt to be possibly septic. At any rate admitted to the ICU, placed on BiPAP, fluid is at 75 mL/h, considering the worsening of his pulmonary status and his chest x-ray, more Lasix was given. He was seen by many consultants so far including nephrology, cardiology , and I saw him on consultation, reviewed his chest x-ray, and clearly felt that the patient has clearly pulmonary edema. And considering his elevated troponin, I felt this is cardiac unless for otherwise, although the possibility of noncardiogenic pulmonary edema is not entirely ruled out, but at this point it's felt to be less likely. My only concern is the patient does have bacteriuria and pyuria, he does have significant leukocytosis, and he is developing a picture of acute metabolic acidosis with elevated lactic acid. Hence antibiotics were added empirically, cultures were ordered, and all of them are pending. After evaluating the patient in the ICU, discussed his condition with his family, and I am interested to see the echocardiogram on this patient to evaluate his LV function. Practically speaking, patient developed worsening interstitial edema basically overnight. His initial CT of the chest did not show any significant abnormalities, and there was negative thromboembolic disease. During my evaluation, the patient had no headache no blurred vision no dizziness, denies any chest pain, no nausea no vomiting no abdominal pain, he does have some vague aches and pains. Denies any dysuria frequency urgency, no hematuria. Review of Systems 14 point review of systems were obtained, please refer to pertinent positives in HPI, otherwise remaining systems are negative. Past Medical History Past Medical History: Diabetes Mellitus, Hyperlipidemia, Hypertension Additional Past Medical History / Comment(s): pericarditis History of Any Multi-Drug Resistant Organisms: None Reported Past Surgical History: Back Surgery, Orthopedic Surgery Additional Past Surgical History / Comment(s): B hip replacements Past Anesthesia/Blood Transfusion Reactions: No Reported Reaction Past Psychological History: Depression Smoking Status: Current every day smoker Past Alcohol Use History: None Reported - Past Family History Father History Unknown: Yes Mother Family Medical History: Diabetes Mellitus, Hypertension Additional Family Medical History / Comment(s): passed in from complications r/t DM Medications and Allergies Home Medications Medication Instructions Recorded Confirmed Type ALPRAZolam [Alprazolam] 0.25 mg PO QID 03/25/16 05/29/18 History Aspirin EC [Ecotrin Low Dose] 81 mg PO DAILY 03/25/16 05/29/18 History Hydrocodone/Acetaminophen 1 tab PO Q6H PRN 03/25/16 05/29/18 History [Hydrocodone-Acetamin 7.5-325] Metoprolol Tartrate [Lopressor] 50 mg PO BID #60 tab 03/28/16 05/29/18 Rx Atorvastatin [Lipitor] 20 mg PO DAILY 02/09/17 05/29/18 History Lisinopril [Zestril] 10 mg PO DAILY 02/09/17 05/29/18 History Artificial Tears-Hypromellose 1 drop BOTH EYES QID PRN 05/29/18 05/29/18 History [Artificial Tear Drops] Nitroglycerin Sl Tabs [Nitrostat] 0.4 mg PO DIRECTED 05/29/18 05/29/18 History metFORMIN HCL [Glucophage] 500 mg PO BID 05/29/18 05/29/18 History Allergies Allergy/AdvReac Type Severity Reaction Status Date / Time cephalexin [From Keflex] Allergy Unknown Verified 05/29/18 10:37 meperidine [From Demerol] Allergy Unknown Verified 05/29/18 10:37 morphine Allergy Unknown Verified 05/29/18 10:37 Physical Exam Vitals: Vital Signs Temp Pulse Pulse Pulse Pulse Resp BP 05/30/18 13:00 90 8 L 102/72 05/30/18 12:00 98.1 F 88 8 L 95/72 05/30/18 11:00 98 12 103/77 05/30/18 10:00 109 H 14 111/81 05/30/18 09:00 102 H 9 L 106/84 05/30/18 08:00 98.3 F 113 H 7 L 118/84 05/30/18 07:00 121 H 31 H 125/86 05/30/18 06:00 124 H 30 H 122/98 05/30/18 05:00 128 H 28 H 123/87 05/30/18 04:00 98.4 F 134 H 122 H 30 H 148/106 05/30/18 03:00 137 H 36 H 147/104 05/30/18 02:00 98.7 F 142 H 36 H 157/112 05/30/18 01:21 131 H 49 H 141/105 05/30/18 01:00 152 H 36 H 05/29/18 23:13 149 H 22 05/29/18 23:09 97.9 F 149 H 22 05/29/18 20:21 126 H 20 05/29/18 20:11 132 H 19 05/29/18 20:00 126 H 20 05/29/18 19:55 139 H 19 05/29/18 19:50 98.2 F 130 H 19 05/29/18 18:01 110 H 16 05/29/18 16:53 103 H 16 05/29/18 16:01 116 H 16 05/29/18 16:00 16 05/29/18 15:31 114 H 16 05/29/18 15:01 115 H 16 05/29/18 14:44 99.3 F 122 H 16 BP Pulse Ox 05/30/18 13:00 96 05/30/18 12:00 96 05/30/18 11:00 96 05/30/18 10:00 97 05/30/18 09:00 97 05/30/18 08:00 95 05/30/18 07:00 96 05/30/18 06:00 96 05/30/18 05:00 96 05/30/18 04:00 97 05/30/18 03:00 96 05/30/18 02:00 97 05/30/18 01:21 99 05/30/18 01:00 05/29/18 23:13 05/29/18 23:09 157/96 90 L 05/29/18 20:21 158/99 91 L 05/29/18 20:11 153/96 91 L 05/29/18 20:00 159/96 92 L 05/29/18 19:55 168/96 92 L 05/29/18 19:50 170/92 93 L 05/29/18 18:01 124/73 05/29/18 16:53 129/78 05/29/18 16:01 126/72 05/29/18 16:00 05/29/18 15:31 129/55 05/29/18 15:01 154/91 05/29/18 14:44 164/91 90 L Intake and Output 05/29/18 05/30/18 05/30/18 22:59 06:59 14:59 Intake Total 150 1374 320 Output Total 830 832 Balance 150 544 -512 Intake: IV 1374 320 Sodium Chloride 0.9% 1, 375 320 000 ml @ 75 mls/hr IV . [id number] [facility] Rx#:[id number] Sodium Chloride 0.9% 1, 999 000 ml @ 999 mls/hr IV . Q1H1M [facility] Rx#:[id number] Intake, IV Titration 150 Amount Sodium Chloride 0.9% 1, 150 000 ml @ 75 mls/hr IV . [id number] [facility] Rx#:[id number] Oral 0 Output: Urine 830 832 Other: Voiding Method Toilet Indwelling Catheter Indwelling Catheter Urinal Physical Exam: Revealed a 57-year-old white male in no distress. On BiPAP at IPAP of 15 EPAP of 7, and 70% FiO2. Head: Atraumatic, normocephalic. HEENT:[Neck is supple.] [No neck masses.] [No thyromegaly.] [No JVD.] Chest: [Ackles and rhonchi at the bases bilaterally. Symmetrical chest expansion, no chest wall tenderness.] Cardiac Exam: [Normal S1 and S2, no S3 gallop, no murmur.] Abdomen: [Soft, nontender, no megaly, no rebound, no guarding, normal bowel sounds.] Extremities: [No clubbing, no edema, no cyanosis.] Neurological Exam: [No focal neurologic deficit.] Skin: No rashes. Psychiatric: Normal mood, affect and mental status examination. Results - Laboratory Findings CBC and BMP: 05/30/18 03:34 05/30/18 03:34 PT/INR, D-dimer PT 9.7 sec (9.0-12.0) 05/29/18 08:17 INR 0.9 (<1.2) 05/29/18 08:17 D-Dimer 1.50 mg/L FEU (<0.60) H 05/29/18 20:00 Abnormal lab findings: Abnormal Labs 05/29/18 05/29/18 05/29/18 08:17 08:17 08:17 WBC 18.9 H Neutrophils # 15.9 H Monocytes # APTT D-Dimer Potassium 5.5 H Chloride Carbon Dioxide BUN 31 H Creatinine 1.35 H Glucose 194 H POC Glucose (mg/dL) Hemoglobin A1c Plasma Lactic Acid [place] Total Creatine Kinase CK-MB (CK-2) Troponin I 0.387 H* Urine Protein Urine Glucose (UA) Urine Ketones Urine Blood Ur Leukocyte Esterase Urine RBC Urine WBC Hyaline Casts Urine Mucus 05/29/18 05/29/18 05/29/18 15:14 15:14 16:42 WBC Neutrophils # Monocytes # APTT 71.0 H D-Dimer Potassium Chloride Carbon Dioxide BUN Creatinine Glucose POC Glucose (mg/dL) 156 H Hemoglobin A1c Plasma Lactic Acid [place] Total Creatine Kinase 187 H CK-MB (CK-2) 9.3 H Troponin I 3.740 H* Urine Protein Urine Glucose (UA) Urine Ketones Urine Blood Ur Leukocyte Esterase Urine RBC Urine WBC Hyaline Casts Urine Mucus 05/29/18 05/29/18 05/29/18 19:44 19:44 19:47 WBC Neutrophils # Monocytes # APTT D-Dimer Potassium Chloride Carbon Dioxide BUN Creatinine Glucose POC Glucose (mg/dL) 201 H Hemoglobin A1c 6.6 H Plasma Lactic Acid [place] Total Creatine Kinase 288 H CK-MB (CK-2) 13.5 H Troponin I 4.910 H* Urine Protein Urine Glucose (UA) Urine Ketones Urine Blood Ur Leukocyte Esterase Urine RBC Urine WBC Hyaline Casts Urine Mucus 05/29/18 05/29/18 05/29/18 20:00 20:00 20:00 WBC 19.0 H Neutrophils # 16.2 H Monocytes # APTT D-Dimer 1.50 H Potassium Chloride Carbon Dioxide BUN Creatinine Glucose POC Glucose (mg/dL) Hemoglobin A1c Plasma Lactic Acid [place] 3.7 H* Total Creatine Kinase CK-MB (CK-2) Troponin I Urine Protein Urine Glucose (UA) Urine Ketones Urine Blood Ur Leukocyte Esterase Urine RBC Urine WBC Hyaline Casts Urine Mucus 05/30/18 05/30/18 05/30/18 00:55 03:34 03:34 WBC 26.2 H Neutrophils # 23.5 H Monocytes # 1.1 H APTT D-Dimer Potassium Chloride 111 H Carbon Dioxide 18 L BUN 37 H Creatinine 1.61 H Glucose 250 H POC Glucose (mg/dL) 201 H Hemoglobin A1c Plasma Lactic Acid [place] Total Creatine Kinase CK-MB (CK-2) Troponin I Urine Protein Urine Glucose (UA) Urine Ketones Urine Blood Ur Leukocyte Esterase Urine RBC Urine WBC Hyaline Casts Urine Mucus 05/30/18 05/30/18 05/30/18 03:34 06:55 07:41 WBC Neutrophils # Monocytes # APTT D-Dimer Potassium Chloride Carbon Dioxide BUN Creatinine Glucose POC Glucose (mg/dL) 247 H Hemoglobin A1c Plasma Lactic Acid [place] 2.1 H* Total Creatine Kinase CK-MB (CK-2) Troponin I Urine Protein 1+ H Urine Glucose (UA) 3+ H Urine Ketones 2+ H Urine Blood Moderate H Ur Leukocyte Esterase Trace H Urine RBC 37 H Urine WBC 7 H Hyaline Casts 7 H Urine Mucus Few H 05/30/18 11:57 WBC Neutrophils # Monocytes # APTT D-Dimer Potassium Chloride Carbon Dioxide BUN Creatinine Glucose POC Glucose (mg/dL) 232 H Hemoglobin A1c Plasma Lactic Acid [place] Total Creatine Kinase CK-MB (CK-2) Troponin I Urine Protein Urine Glucose (UA) Urine Ketones Urine Blood Ur Leukocyte Esterase Urine RBC Urine WBC Hyaline Casts Urine Mucus - Diagnostic Findings Chest x-ray: image reviewed (Chest x-ray is mostly consistent with pulmonary edema, could be cardiogenic, or noncardiogenic, possibility of underlying infiltrate is not entirely ruled out, but felt to be less likely since CT of the chest on admission was basically unremarkable.) Assessment and Plan Assessment: Impression: 1 acute hypoxic respiratory failure secondary to pulmonary edema, cardiogenic unless for otherwise, however the possible tilt noncardiogenic pulmonary edema secondary to sepsis is not entirely ruled out. 2 suspect sepsis with lactic acidosis, acute kidney injury, leukocytosis, likely sources could be urine, could be lungs, but this is felt to be less likely, or his lactic acidosis could be related to metformin. In the meantime I 'm recommending that we continue IV fluids, continue insulin as per protocol, may consider insulin drip, patient does have positive ketones in the urine. Continue antibiotics. 3 acute kidney injury secondary to sepsis although could be cardiorenal in nature. 4 history of diabetes and possible acute diabetic ketoacidosis 5 chronic back pain and severe degenerative disc disease. 6 history of hypertension. 7 acute kidney injury could be related to his cardiac catheterization and contrast media. 8 history of underlying COPD and smoking. 9 elevated troponins, possible acute non-ST elevation myocardial infarction. Recommendation: Continue diuretics, continue antibiotics, await echocardiogram report, avoid nephrotoxic drugs, check cultures including blood and urine, maintained the patient on BiPAP with IPAP of 15 and EPAP of 7, treat hyperglycemia with insulin drip if needed titrate the FiO2 accordingly. Reassess fluid status hourly, monitor urine output closely, discontinue metformin. Discussed his condition with family at bedside, it seems to be quite confusing to me that the patient had basically a normal cardiac catheterization, but the whole presentation was felt to be cardiac unless proven otherwise. The elevation in troponin is again cardiac unless proven otherwise. Cardiology is addressing this situation. Will monitor the patient closely in the ICU, discussed his condition with multiple consultants on the case. Time with Patient: Greater than 30
[2018-05-30 16:42] LABS: Glucose,Whole Blood 144 mg/dL (75-99)
--- NOTE | 2018-05-30 17:26 | ECHOF ---
Referral Reason:chest pain MEASUREMENTS -------- HEIGHT: 175.3 cm WEIGHT: 74.8 kg BP: 162/92 RVIDd: 3.5 cm (< 3.3) IVSd: 1.1 cm (0.6 - 1.1) LVIDd: 4.6 cm (3.9 - 5.3) LVPWd: 1.2 cm (0.6 - 1.1) IVSs: 1.4 cm LVIDs: 4.3 cm LVPWs: 1.4 cm LA Diam: 3.7 cm (2.7 - 3.8) LAESV Index (A-L): 29.48 ml/m Ao Diam: 3.2 cm (2.0 - 3.7) AV Cusp: 2.0 cm (1.5 - 2.6) EPSS: 1.6 cm MV E Jake: 1.40 m/s MV DecT: 88 ms MV A Jake: 0.56 m/s MV E/A Ratio: 2.49 AR PHT: 394 ms RAP: 5.00 mmHg RVSP: 48.97 mmHg MV EF SLOPE: 133.67 mm/s (70 - 150) MV EXCURSION: 1.24 cm (> 18.000) FINDINGS -------- Sinus rhythm. This was a technically adequate study. The left ventricular size is normal. There is borderline concentric left ventricular hypertrophy. Overall left ventricular systolic function is low-normal with, an EF between 50 - 55 %. Basal infe rior LV wall motion is hypokinetic. Basal inferoseptal LV wall motion is hypokinetic. The right ventricle is mildly enlarged. LA is midly dilated 29-33ml/m2. The right atrium is normal in size. There is mild aortic valve sclerosis. There is mild aortic regurgitation. [id number] mitral regurgitation is present. Mild tricuspid regurgitation present. There is moderate pulmonary hypertension. The right ventric ular systolic pressure, as measured by Doppler, is 48.97mmHg. Trace/mild (physiologic) pulmonic regurgitation. The aortic root size is normal. Normal inferior vena cava with normal inspiratory collapse consistent with estimated right atrial pre ssure of 5 mmHg. There is no pericardial effusion. CONCLUSIONS -------- 1. Sinus rhythm. 2. This was a technically adequate study. 3. The left ventricular size is normal. 4. There is borderline concentric left ventricular hypertrophy. 5. Overall left ventricular systolic function is low-normal with, an EF between 50 - 55 %. 6. Basal inferior LV wall motion is hypokinetic. 7. Basal inferoseptal LV wall motion is hypokinetic. 8. The right ventricle is mildly enlarged. 9. LA is midly dilated 29-33ml/m2. 10. The right atrium is normal in size. 11. There is mild aortic valve sclerosis. 12. There is mild aortic regurgitation. 13. Klgljkmy-mi-viocpm mitral regurgitation is present. 14. Mild tricuspid regurgitation present. 15. There is moderate pulmonary hypertension. 16. The right ventricular systolic pressure, as measured by Doppler, is 48.97mmHg. 17. Trace/mild (physiologic) pulmonic regurgitation. 18. The aortic root size is normal. 19. Normal inferior vena cava with normal inspiratory collapse consistent with estimated right atrial pressure of 5 mmHg. 20. There is no pericardial effusion. ROLLER VARNISHER: GENEVIEVE Jimenez
--- NOTE | 2018-05-30 18:58 | CONS ---
CONSULTATION DATE OF SERVICE: 05/30/2018 REASON FOR CONSULTATION: Infectious disease. HISTORY OF PRESENT ILLNESS: The patient is a 57-year-old male with a past medical history significant for coronary artery disease. The patient is status post PTCA and stenting to the RCA. The patient presenting to the ER at [facility] yesterday morning with chief complaints of increasing shortness of breath and chest pain. The patient describes the pain to be in the middle of the chest, more of a sharp, at times, pressure-like with this almost 5 to 6/10, and no radiation. The patient did have an episode of nausea and vomiting along with a course of diaphoresis. The patient did have a chronic cough from his smoking and bringing up some sputum, but denies having any hemoptysis. No nausea. No diarrhea. No abdominal pain. With these symptoms, the patient presented to the ER. On arrival to the ER, the patient has been afebrile. Subsequently he did have a low grade fever of 99.3 on admission. The patient initial white count was 18.2, however, that is up to 26.2. The patient also had a UA that shows trace leukocyte esterase, . The patient did have influenza serology that was negative. The patient noticed to have a jump in his 3rd troponin that the patient was taken to the clinical lab assistant and status post cardiac cath. However, apparently no evidence of any obstruction. All night the patient went into respiratory distress and had to be transferred down to the ICU with repeat x-ray done early this morning did show worsening changes of interstitial edema and space disease secondary to congestive heart failure or other interstitial disease such as atypical pneumonia would be a consideration. The patient has been treated with Zosyn and Levaquin. Infectious Disease was consulted for further recommendations regarding antibiotic therapy. At the time of my evaluation, the patient breathing has improved. He has been taken off the BiPAP. The patient denies any further chest pain to me at this point. The main thing symptoms has remained to be cough at times bringing up some sputum. No further nausea or vomiting. No abdominal pain and no diarrhea. REVIEW OF SYSTEMS: CONSTITUTIONAL: Positive for weakness and some cold sweat but no high-grade fever. EYES: No complaint. ENT: No complaint. RESPIRATORY: As per HPI. CARDIOVASCULAR as per HPI. GENITOURINARY: No complaint. GASTROINTESTINAL: As per HPI. MUSCULOSKELETAL: No clubbing deformity. INTEGUMENTARY: No complaint. PSYCHOLOGICAL: No complaint. ENDOCRINE: No complaint. NEUROLOGIC no complaint. PAST MEDICAL HISTORY: Diabetes mellitus, hypertension, hyperlipidemia, pericarditis, coronary artery disease. PAST SURGICAL HISTORY: Bilateral hip replacement, did have a PTCA and stenting to the RCA. SOCIAL HISTORY: Patient current everyday smoker with more than 40 pack smoker. Denies drinking or drug use. FAMILY HISTORY: Father history of diabetes and hypertension. ALLERGIES: TO CEPHALEXIN, MEPERIDINE, and MORPHINE. MEDICATION: Medications include the patient currently on [place], Xanax, aspirin, Lipitor, Plavix, diltiazem, Dilaudid, NovoLog, Levaquin 500 daily. He is on Zestril, Lopressor, Narcan, Nitrostat, Zofran, Protonix, and Zosyn. PHYSICAL EXAMINATION: Blood pressure is 110/60 with a pulse of 83, temperature 98. He is 93% on 6 L nasal cannula. General description is a middle-aged male lying in bed in no distress. No tachypnea or accessory muscles of respiration use. HEENT: Shows no pallor or scleral icterus. Oral mucosal membranes are dry. No pharyngeal erythema or thrush. NECK: Trachea central. No thyromegaly. LUNGS unlabored breathing with few crackles at the bases bilaterally. No wheeze. Heart S1, S2. Regular rate and rhythm. ABDOMEN: Soft, no tenderness. No guarding. No rigidity. EXTREMITIES: No edema of the feet. Skin examination: No rash or mass palpable. NEUROLOGICAL: Patient is awake, alert, oriented times three. Mood and affect normal. LABS: Hemoglobin is 15.9, white count 6.2, BUN of 37, creatinine 1.61. Electrolytes have been normal. Lactic acid 2.1. [place] [address]. Urine with trace leukocyte esterases, only 7 WBC. Influenza serology has been negative. Chest x- ray report as mentioned earlier. DIAGNOSTIC IMPRESSION AND PLAN: Patient with significant leukocytosis in this patient admitted to the hospital with chest pain, shortness of breath. The patient did have rather acute worsening of his x- ray findings with concern for possible cardiogenic edema with likely reactive leukocytosis. However underlying pneumonia not entirely excluded. The patient did have mildly positive UA however no significant urinary symptoms. Underlying urinary tract infection less likely responsible for his symptomatology. PLAN: 1. We will obtain sputum for Gram stain culture and sensitivity. 2. Obtain urine for Legionella antigen. 3. Zosyn 3.375 q.8 along with Levaquin to provide adequate coverage for underlying pneumonia, or atypical. 4. We will follow up on his clinical condition and culture to further adjust medication if needed. Thank you for this consultation. We will follow the patient along with you. MMODL / IJN: [id number] /
[2018-05-30 21:05] LABS: Glucose,Whole Blood 174 mg/dL (75-99)
[2018-05-30 23:45] LABS: Glucose,Whole Blood 116 mg/dL (75-99)
[2018-05-31] MEDS: INSULIN ASPART 100 UNIT/ML 1 ML 10 ML VIAL SQ SCH ×6 (00:59→20:51)
[2018-05-31] MEDS: NICOTINE 21MG/24HR PATCH TRANSDERM SCH ×2 (01:03→08:04)
[2018-05-31] MEDS: PIPERACILLIN-TAZOBACTAM 3.375 GM in SODIUM CHLORIDE 0.9% 100 ML IVPB SCH (04:20)
[2018-05-31 04:28] LABS: Glucose,Whole Blood 123 mg/dL (75-99)
[2018-05-31 05:43] LABS: Basophils % (A) 0 %; Eosinophils # (A) 0.2 k/uL (0-0.7); Eosinophils % (A) 1 %; HGB 12.5 gm/dL (13.0-17.5); Lymphocytes # (A) 2.1 k/uL (1.0-4.8); Lymphocytes % (A) 16 %; MCH 30.3 pg (25.0-35.0); MCHC 32.1 g/dL (31.0-37.0); MCV 94.4 fL (80.0-100.0); Mean Platelet Volume 7.4; Monocytes # (A) 0.7 k/uL (0-1.0); Monocytes % (A) 5 %; Neutrophils # (A) 9.7 k/uL (1.3-7.7); Neutrophils % (A) 75 %; Platelet Count 278 k/uL (150-450); RBC 4.14 m/uL (4.30-5.90); RDW 13.3 % (11.5-15.5)
[2018-05-31 06:03] LABS: Calcium 8.3 mg/dL (8.4-10.2); Magnesium 2.3 mg/dL (1.6-2.3); Phosphorus 3.3 mg/dL (2.5-4.5); Potassium 3.4 mmol/L (3.5-5.1)
[2018-05-31] MEDS: HYDROcodone/APAP 7.5-325MG 1 EACH TAB PO PRN ×2 (06:41→16:05)
[2018-05-31] MEDS: POTASSIUM CHLORIDE ER 20 MEQ TAB.ER PO SCH ×2 (06:41→08:12)
--- NOTE | 2018-05-31 07:32 | XR ---
EXAMINATION TYPE: XR chest 1V DATE OF EXAM: 05/31/2018 CLINICAL HISTORY: Difficulty breathing progress study. TECHNIQUE: Single AP portable upright view of the chest is obtained. COMPARISON: Chest x-ray from one day earlier and older studies. FINDINGS: There is interval improvement in bilateral alveolar and interstitial opacities. No large p leural effusion or pneumothorax is evident. Cardiac silhouette size is stable and within normal limit s. Osseous structures are intact. IMPRESSION: Improving bilateral alveolar and interstitial edema and/or infiltrates.
[2018-05-31 07:56] LABS: Glucose,Whole Blood 208 mg/dL (75-99)
[2018-05-31] MEDS: SODIUM BICARBONATE TAB 650 MG TAB PO SCH ×4 (08:04→22:09)
[2018-05-31] MEDS: METOPROLOL TARTRATE 50 MG TAB PO SCH ×2 (08:04→20:51)
[2018-05-31] MEDS: PANTOPRAZOLE 40 MG TABLET PO SCH (08:04)
[2018-05-31] MEDS: DILTIAZEM ORAL 30 MG TAB PO SCH (08:04)
[2018-05-31] MEDS: ASPIRIN 81 MG PO SCH (08:04)
[2018-05-31] MEDS: ATORVASTATIN 40 MG TAB PO SCH (08:04)
[2018-05-31] MEDS: CLOPIDOGREL 75 MG TAB PO SCH (08:04)
[2018-05-31] MEDS: ALPRAZolam 0.25 MG TAB PO SCH ×4 (08:04→22:09)
[2018-05-31] MEDS: LISINOPRIL 5 MG TAB PO SCH (08:04)
[2018-05-31] MEDS: HYDROmorphone 0.5 MG/0.5 ML SYRINGE IVP PRN ×3 (08:58→22:10)
--- NOTE | 2018-05-31 09:37 | P.PN ---
Subjective Progress Note Date: 05/31/18 Principal diagnosis: Acute hypoxic respiratory failure secondary to pulmonary edema likely cardiogenic This is a 57-year-old white male with history of hypertension, diabetes, hyperlipidemia, previous documented coronary artery disease and previous stent in the RCA. Patient presented to the ER with acute substernal chest pain. Described as pressure in the middle of the chest, he was also diaphoretic, and complaining of shortness of breath. Seen in the ER, his initial troponin was elevated at 0.387, patient was admitted, started on IV heparin for acute coronary syndrome, history troponin to a significant rise over a period of hours from admission, and the patient was having more pain. He was also developing more shortness of breath at night, and a chest x-ray showed worsening pulmonary edema. Patient underwent cardiac catheterization, and according to the oncologist there was no evidence of critical stenosis and recommended mostly medical management. Overnight, his pulmonary condition got worse, his chest x-ray showed interstitial edema, given Lasix, however the patient was developing a picture of acute kidney injury, leukocytosis, his urine was noted to be infected, and patient was felt to be possibly septic. At any rate admitted to the ICU, placed on BiPAP, fluid is at 75 mL/h, considering the worsening of his pulmonary status and his chest x-ray, more Lasix was given. He was seen by many consultants so far including nephrology, cardiology , and I saw him on consultation, reviewed his chest x-ray, and clearly felt that the patient has clearly pulmonary edema. And considering his elevated troponin, I felt this is cardiac unless for otherwise, although the possibility of noncardiogenic pulmonary edema is not entirely ruled out, but at this point it's felt to be less likely. My only concern is the patient does have bacteriuria and pyuria, he does have significant leukocytosis, and he is developing a picture of acute metabolic acidosis with elevated lactic acid. Hence antibiotics were added empirically, cultures were ordered, and all of them are pending. After evaluating the patient in the ICU, discussed his condition with his family, and I am interested to see the echocardiogram on this patient to evaluate his LV function. Practically speaking, patient developed worsening interstitial edema basically overnight. His initial CT of the chest did not show any significant abnormalities, and there was negative thromboembolic disease. During my evaluation, the patient had no headache no blurred vision no dizziness, denies any chest pain, no nausea no vomiting no abdominal pain, he does have some vague aches and pains. Denies any dysuria frequency urgency, no hematuria. On 10/29/2018 patient seen in follow-up in the intensive care unit. He is awake and alert, in no acute distress, currently on 6 L per nasal cannula with a pulse ox of 96%, he is afebrile, hemodynamically stable, denies any difficulty breathing, denies any chest pain. Patient had a heart catheterization yesterday which showed mild obstructive disease involving the left circumflex and right coronary artery, patent stent to the right coronary artery, and elevated left ventricular end-diastolic pressure. His chest x-ray has been reviewed with Dr. Johnson, shows improving bilateral alveolar and interstitial edema and/or infiltrates. Patient did receive a dose of IV Lasix yesterday, he did require BiPAP support, with improvement of his respiratory status, currently tolerating nasal cannula, no acute distress, she was -1817 mL over the last 24 hours, blood, sputum and urine cultures are negative thus far , final cultures are pending, no fever or chills, lung sounds are positive for crackles and rhonchi at the bases bilaterally. Occasional nonproductive cough, he is on empiric antibiotic coverage in the form of Zosyn and Levaquin. Objective - Vital Signs Vital signs: Vital Signs Temp 97.9 F 05/31/18 08:00 Pulse 90 05/31/18 09:00 Resp 9 L 05/31/18 09:00 BP 93/51 05/31/18 09:00 Pulse Ox 96 05/31/18 08:00 Intake & Output 05/30/18 05/31/18 05/31/18 18:59 06:59 18:59 Intake Total 440 220 240 Output Total 1752 725 60 Balance -1312 -505 180 Weight 75.1 kg Intake: IV 440 220 40 Sodium Chloride 0.9% 1, 440 000 ml @ 75 mls/hr IV . [id number] ESPERANZA Rx#:[id number] normal saline 220 40 Intake, IV Titration 100 Amount Piperacillin-Tazobactam 3 100 .375 gm In Sodium Chloride 0.9% 100 ml @ 25 mls/hr IVPB Q8H ESPERANZA Rx#: [id number] Oral 100 Output: Urine 1752 725 60 Other: Voiding Method Indwelling Catheter Indwelling Catheter Indwelling Catheter - Exam Physical Exam: Revealed a 57-year-old white male in no distress. On BiPAP at IPAP of 15 EPAP of 7, and 70% FiO2. Head: Atraumatic, normocephalic. HEENT:[Neck is supple.] [No neck masses.] [No thyromegaly.] [No JVD.] Chest: [Ackles and rhonchi at the bases bilaterally. Symmetrical chest expansion, no chest wall tenderness.] Cardiac Exam: [Normal S1 and S2, no S3 gallop, no murmur.] Abdomen: [Soft, nontender, no megaly, no rebound, no guarding, normal bowel sounds.] Extremities: [No clubbing, no edema, no cyanosis.] Neurological Exam: [No focal neurologic deficit.] Skin: No rashes. Psychiatric: Normal mood, affect and mental status examination. - Labs CBC & Chem 7: 05/31/18 04:44 05/31/18 04:44 Labs: Abnormal Lab Results - Last 24 Hours (Table) 05/30/18 05/30/18 05/30/18 Range/Units 11:57 16:22 21:02 WBC (3.8-10.6) k/uL RBC (4.30-5.90) m/uL Hgb (13.0-17.5) gm/dL Neutrophils # (1.3-7.7) k/uL Potassium (3.5-5.1) mmol/L BUN (9-20) mg/dL Creatinine (0.66-1.25) mg/dL Glucose (74-99) mg/dL POC Glucose (mg/dL) 232 H 144 H 174 H (75-99) mg/dL Calcium (8.4-10.2) mg/dL 05/30/18 05/31/18 05/31/18 Range/Units 23:43 04:13 04:44 WBC 13.0 H (3.8-10.6) k/uL RBC 4.14 L (4.30-5.90) m/uL Hgb 12.5 L (13.0-17.5) gm/dL Neutrophils # 9.7 H (1.3-7.7) k/uL Potassium (3.5-5.1) mmol/L BUN (9-20) mg/dL Creatinine (0.66-1.25) mg/dL Glucose (74-99) mg/dL POC Glucose (mg/dL) 116 H 123 H (75-99) mg/dL Calcium (8.4-10.2) mg/dL 05/31/18 05/31/18 Range/Units 04:44 07:53 WBC (3.8-10.6) k/uL RBC (4.30-5.90) m/uL Hgb (13.0-17.5) gm/dL Neutrophils # (1.3-7.7) k/uL Potassium 3.4 L (3.5-5.1) mmol/L BUN 43 H (9-20) mg/dL Creatinine 1.43 H (0.66-1.25) mg/dL Glucose 120 H (74-99) mg/dL POC Glucose (mg/dL) 208 H (75-99) mg/dL Calcium 8.3 L (8.4-10.2) mg/dL Microbiology - Last 24 Hours (Table) 05/29/18 20:00 Blood Culture - Preliminary Blood No Growth after 24 hours 05/30/18 07:41 Urine Culture - Preliminary Urine,Voided 05/30/18 00:30 Gram Stain - Preliminary Sputum Sputum Culture - Preliminary Assessment and Plan Plan: 1 acute hypoxic respiratory failure secondary to pulmonary edema, cardiogenic unless for otherwise, however the possible tilt noncardiogenic pulmonary edema secondary to sepsis is not entirely ruled out. 2 suspect sepsis with lactic acidosis, acute kidney injury, leukocytosis, likely sources could be urine, could be lungs, but this is felt to be less likely, or his lactic acidosis could be related to metformin. In the meantime I 'm recommending that we continue IV fluids, continue insulin as per protocol, may consider insulin drip, patient does have positive ketones in the urine. Continue antibiotics. 3 acute kidney injury secondary to sepsis although could be cardiorenal in nature. 4 history of diabetes and possible acute diabetic ketoacidosis 5 chronic back pain and severe degenerative disc disease. 6 history of hypertension. 7 acute kidney injury could be related to his cardiac catheterization and contrast media. 8 history of underlying COPD and smoking. 9 elevated troponins, possible acute non-ST elevation myocardial infarction. Plan: Patient breathing easier, tolerating nasal cannula, did require BiPAP support yesterday, he is diuresed with a dose of Lasix, today's chest x-ray was reviewed with Dr. Cee, showed improving bilateral alveolar and interstitial edema and/or infiltrates. Fever or chills, no further cultures are negative, we will de-escalate his antibiotics, and continue with oral Levaquin only, discontinue Zosyn, continue nebulized bronchodilators. From pulmonary perspective patient is stable to go out of intensive care to selective care today. I performed a history & physical examination of the patient and discussed their management with my nurse practitioner, Heather Ramos. I reviewed the nurse practitioner's note and agree with the documented findings and plan of care. Lung sounds are positive for diffuse rhonchi and crackles. The findings and the impression was discussed with the patient. I attest to the documentation by the nurse practitioner. Time with Patient: Less than 30
[2018-05-31] MEDS: FUROSEMIDE 20 MG TAB PO SCH (10:59)
[2018-05-31] MEDS: LEVOFLOXACIN 500 MG TAB PO SCH (10:59)
--- NOTE | 2018-05-31 11:59 | CDI ---
Documentation Clarification Form Date: 05/31/2018 11:33:05 AM From: Shivani Rachel RN, CCDS Admit Date: 05/29/2018 10:01:00 AM Patient Name: Johnson Bolton Visit Number: [id number] ATTENTION: The Clinical Documentation Specialists (CDI) and [facility] Coding Staff appreciate your assistance in clarifying documentation. Please respond to the clarification below the line at the bottom and electronically sign. The CDI & [facility] Coding staff will review the response and follow-up if needed. Please note: Queries are made part of the Legal Health Record. If you have any questions, please contact the author of this message via ITS. Dr. Ayush Reeves History/Risk Factors: DM2, HTN, Stent to RCA, pericarditis, smoker Clinical Indicators: 05/30 ID: HPI: "congestive heart failure or other interstitial disease such as atypical pneumonia would be a consideration." 05/31 Pulmonary Progress Note: "Acute hypoxic respiratory failure secondary to pulmonary edema likely cardiogenic He was also developing more shortness of breath at night, and a chest x-ray showed worsening pulmonary edema. Acute hypoxic respiratory failure secondary to pulmonary edema, cardiogenic unless for otherwise, however the possible tilt noncardiogenic pulmonary edema secondary to sepsis is not entirely ruled out. " VS/Pulse OX: temp 97.9, HR 89, RR 18, B/P 169/80, spo2 100% ra BNP: 17,800 05/29 Echocardiogram Results: "EF 50-55%, basal inferior and inferioseptal LV wall motion is hypokinetic. Moderate pulmonary HTN." 05/30/17 Chest X Ray:"THIS MAY BE SECONDARY TO CONGESTIVE HEART FAILURE." Treatment: Lasix 40 mg IVP x 1 followed by 20 mg IVP q 8 hrs, changed to 20 po daily today 05/29 Pt received 2 L IVF bolus In your professional opinion, can you please clarify the acuity and type of CHF if known? Systolic Heart Failure: Acute Chronic Acute on Chronic Diastolic Heart Failure: Acute Chronic Acute on Chronic Systolic & Diastolic Heart Failure: Acute Chronic Acute on Chronic Heart Failure Unable to Determine Other, please specify (Last Revision: August 2017) MTDD
[2018-05-31 12:21] LABS: Glucose,Whole Blood 119 mg/dL (75-99)
--- NOTE | 2018-05-31 12:27 | CDI ---
Documentation Clarification Form Date: 05/31/2018 12:01:13 PM From: Shivani Rachel RN, CCDS Admit Date: 05/29/2018 10:01:00 AM Patient Name: Johnson Bolton Visit Number: [id number] ATTENTION: The Clinical Documentation Specialists (CDI) and [facility] Coding Staff appreciate your assistance in clarifying documentation. Please respond to the clarification below the line at the bottom and electronically sign. The CDI & [facility] Coding staff will review the response and follow-up if needed. Please note: Queries are made part of the Legal Health Record. If you have any questions, please contact the author of this message via ITS. Dr. Mary Tirado Pneumonia was documented in the H&P, Consults, and Progress Notes and requires further specificity. History/Risk Factors: DM2, CAD with stent, HTN Clinical Indicators: 05/30 ID Consult: congestive heart failure or other interstitial disease such as atypical pneumonia would be a consideration. DIAGNOSTIC IMPRESSION AND PLAN: However underlying pneumonia not entirely excluded. PLAN: Zosyn 3.375 q.8 along with Levaquin to provide adequate coverage for underlying pneumonia, or atypical. 05/30 Nephro Consult: "Cover with antibiotics for pneumonia as he has leukocytosis and watch for sepsis." Vital signs: Temp 97.9, hr 84, RR 18, B/P 169/80, spo2 100% ra WBC: 19/26.2/13 Left shift: 16.2/23.5/9.7 CXR: "bilateral alveolar and interstitial edema and/or infiltrates." 05/31 Pulmonary: Lung/Breathing assessment: Chest: "Crackles and rhonchi at the bases bilaterally. Symmetrical chest expansion, no chest wall tenderness." Treatment: Antibiotics: Zosyn 3.375 gm IVPB Q 8 hrs x 3 doses, Levaquin 750 mg IVPB x 1 dose followed by 500 mg Q 24 hrs, changed to PO Today O2: room air, increased to 2L nasal cannula to 100% bipap weaned back down to 5L nasal cannula Breathing TX: none ordered In order to capture the severity of condition, please clarify if the condition signifies and you are treating for: Aspiration Pneumonia, identify if: Due to solids or liquids Bacterial Pneumonia, specify causal organism (if known) Gram Negative Pneumonia Due to Strep Due to Staph Due to E. coli Other bacteria (please specify) Viral Pneumonia, specify casual organism (if known) Other, please specify Unable to determine (Last Revision: August 2017) MTDD
--- NOTE | 2018-05-31 13:04 | P.PN ---
Subjective Progress Note Date: 05/31/18 Johnson Bolton is a 57-year-old male who presented to [facility] emergency room with a chief complaint of chest pain patient describes a pressure in the middle of his chest with diaphoresis and shortness of breath he was evaluated in emergency room troponin level was elevated at 0.387 patient has a known history of coronary artery disease with previous history of angioplasty and stent placement to the right coronary artery last year, patient was started on IV heparin he was evaluated by cardiology and due to his elevated troponin they proceeded with cardiac catheterization which did not reveal any critical stenosis recommendation was to continue with medical management. On presentation patient had a chest x-ray that revealed evidence of patchy bilateral infiltrates suggestive of pneumonia his white blood count was elevated at 18.9 he was started on IV Levaquin in the emergency room Patient is admitted to telemetry floor for further evaluation and treatment. On 05/30/2018 patient was seen and examined in ICU he is alert and oriented 3 , currently maintained on BiPAP, he had significant difficulty throughout the night with worsening shortness of breath, hypotension and tachycardia lactic acid was elevated at 3.7 he received IV fluid boluses and was transferred to intensive care unit. Patient is still complaining of shortness of breath he is complaining of cough, there is no fever or chills no headache or dizziness no chest pain at this time no nausea or vomiting no abdominal pain no diarrhea and no urinary symptoms. 05/31/2018 patient currently remains in the ICU. He is on 6 L of oxygen satting at 96%. He has not required BiPAP through the night or this morning. White count has decreased from 26.2 down to 13.0 creatinine improved from 1.61 down to 1.43. Urine culture and sputum culture are pending. Pulmonary has discontinue the Zosyn and place patient on Levaquin. Influenza screen is negative. Chest x-ray showing improving edema and/or infiltrate. Lactic acid down to 2.1. Patient lying in bed comfortably. Still having some wheezing and coarse breath sounds. Denies any chest pain. Denies any nausea or vomiting. Reports one bowel movement yesterday. Has Golden catheter in place. Did receive a dose of IV Lasix yesterday. Patient will possibly transferred out of the ICU later today. Potassium was replaced. Objective - Vital Signs Vital signs: Vital Signs Temp 97.9 F 05/31/18 12:00 Pulse 79 05/31/18 12:00 Resp 25 H 05/31/18 12:00 BP 89/56 05/31/18 12:00 Pulse Ox 96 05/31/18 12:00 Intake & Output 05/30/18 05/31/18 05/31/18 18:59 06:59 18:59 Intake Total 440 220 300 Output Total 1752 725 320 Balance -1312 -505 -20 Weight 75.1 kg Intake: IV 440 220 100 Sodium Chloride 0.9% 1, 440 000 ml @ 75 mls/hr IV . [id number] ESPERANZA Rx#:[id number] normal saline 220 100 Intake, IV Titration 100 Amount Piperacillin-Tazobactam 3 100 .375 gm In Sodium Chloride 0.9% 100 ml @ 25 mls/hr IVPB Q8H ESPERANZA Rx#: [id number] Oral 100 Output: Urine 1752 725 320 Other: Voiding Method Indwelling Catheter Indwelling Catheter Indwelling Catheter - Exam Head normocephalic Neck supple Lungs wheezing and coarse breath sounds noted bilaterally Heart regular rate and rhythm S1-S2, no rub or gallop Abdomen is soft nontender nondistended positive bowel sounds no hepatosplenomegaly Extremities no edema Neuro alert and orientated to 3 - Labs CBC & Chem 7: 05/31/18 04:44 05/31/18 04:44 Labs: Abnormal Lab Results - Last 24 Hours (Table) 05/30/18 05/30/18 05/30/18 Range/Units 16:22 21:02 23:43 WBC (3.8-10.6) k/uL RBC (4.30-5.90) m/uL Hgb (13.0-17.5) gm/dL Neutrophils # (1.3-7.7) k/uL Potassium (3.5-5.1) mmol/L BUN (9-20) mg/dL Creatinine (0.66-1.25) mg/dL Glucose (74-99) mg/dL POC Glucose (mg/dL) 144 H 174 H 116 H (75-99) mg/dL Calcium (8.4-10.2) mg/dL 05/31/18 05/31/18 05/31/18 Range/Units 04:13 04:44 04:44 WBC 13.0 H (3.8-10.6) k/uL RBC 4.14 L (4.30-5.90) m/uL Hgb 12.5 L (13.0-17.5) gm/dL Neutrophils # 9.7 H (1.3-7.7) k/uL Potassium 3.4 L (3.5-5.1) mmol/L BUN 43 H (9-20) mg/dL Creatinine 1.43 H (0.66-1.25) mg/dL Glucose 120 H (74-99) mg/dL POC Glucose (mg/dL) 123 H (75-99) mg/dL Calcium 8.3 L (8.4-10.2) mg/dL 05/31/18 05/31/18 Range/Units 07:53 12:18 WBC (3.8-10.6) k/uL RBC (4.30-5.90) m/uL Hgb (13.0-17.5) gm/dL Neutrophils # (1.3-7.7) k/uL Potassium (3.5-5.1) mmol/L BUN (9-20) mg/dL Creatinine (0.66-1.25) mg/dL Glucose (74-99) mg/dL POC Glucose (mg/dL) 208 H 119 H (75-99) mg/dL Calcium (8.4-10.2) mg/dL Microbiology - Last 24 Hours (Table) 05/30/18 07:41 Urine Culture - Final Urine,Voided 05/29/18 20:00 Blood Culture - Preliminary Blood No Growth after 24 hours 05/30/18 00:30 Gram Stain - Preliminary Sputum Sputum Culture - Preliminary Assessment and Plan Assessment: #1 episode of chest pain, with elevated troponin level at 0.387 patient underwent cardiac catheterization on admission there was no evidence of any critical stenosis recommendation were to continue with medical management. Computed tomography scan showed no evidence of PE #2 acute hypoxic respiratory failure secondary to pulmonary edema. Patient did receive a dose of IV Lasix. Currently on 6 L nasal cannula. No longer requiring BiPAP. #3 evidence of possible bilateral bacterial pneumonia : Chest x-ray showing improvement. White count trending down. Awaiting sputum culture. Continue Levaquin. #4 sepsis possibly due to UTI or pneumonia. Continue antibiotics. She monitoring blood cultures. ID following. Patient currently on Levaquin. Lactic acid has shown improvement. White count trending down. #4 underlying history of hyperlipidemia #5 chronic back pain with severe degenerative disc disease #6 acute kidney injury : Secondary to dye from heart catheterization and CAT scan and ATN. Creatinine improving down to 1.43. Nephrology following. Currently off of IV fluids. metformin on hold #7 underlying history of diabetes mellitus 2, [id number] . A1c 6.6. Continue sliding scale coverage #8 underlying history of hypertension #9 chronic kidney disease stage II. #10 metabolic acidosis secondary to acute kidney injury. Nephrology has placed patient on sodium bicarb. #11 hypokalemia. Patient receiving potassium supplement. Continue to monitor #12 acute diastolic CHF exacerbation contributing to patient's pulmonary edema. Patient was given a dose of IV Lasix. Echo shows an EF of 50-55% GI prophylaxis Protonix and DVT prophylaxis DVT prophylaxis subcu heparin I performed an examination of the patient and discussed their management with the physician Bank Note Designer. I have reviewed the Physician Bank Note Designer's notes and agree with the documented findings and plan of care
--- NOTE | 2018-05-31 14:40 | US ---
EXAMINATION TYPE: US gallbladder DATE OF EXAM: 05/31/2018 COMPARISON: CTA aorta 2 days ago. CLINICAL HISTORY: r/o infection. Patient states having an infection but doesn't know where EXAM MEASUREMENTS: Liver Length: 14.5 cm Gallbladder Wall: 0.2 cm CBD: 0.4 cm CHD: 0.4 cm Right Kidney: 10.5 x 5.3 x 6.0 cm Pancreas: Appears heterogenous. Head and tail obscured by overlying bowel gas. Main pancreatic duct - 2.6 mm. Liver: wnl Gallbladder: Possible focal wall thickening at fundal region = 4.6 mm Evidence for sonographic Reina's sign: neg CBD: wnl CHD: wnl Right Kidney: Prominent pyramids Visualized portion of pancreas is heterogeneous without suspicious mass or ductal dilatation. Visuali zed liver is homogeneous without worrisome mass or ductal dilatation. Small scattered calcifications on CT are less well seen on ultrasound images saved. Gallbladder is identified without mobile shadowi ng gallstones. Focal thickening gallbladder wall responders could reflect focal adenomyosis. IMPRESSION: No shadowing mobile gallstones or secondary ultrasound evidence for acute cholecystitis.
--- NOTE | 2018-05-31 15:13 | PN ---
PROGRESS NOTE Johnson is a 57-year-old gentleman who was admitted to hospital with chest pain and had elevated troponin. Underwent cardiac catheterization by Dr. Connolly that revealed mild nonobstructive coronary artery disease with patent stent of the right coronary artery. After the heart catheterization patient became unstable, became short of breath, fluid overloaded and developed lactic acidosis. He was transferred to ICU. He initially was on a BiPAP, received IV Lasix with significant improvement in his symptoms. Pulmonary Critical Care doctors believed that his symptom complex was related to fluid overload and hypoxia. They do not believe he had any infection. Lactic acid is getting better. He was on IV antibiotics initially but they switched him to p.o. Levaquin. From cardiac standpoint he is feeling better. Oxygenation is improving. He is currently on 6 L of nasal O2 and O2 sat is 96%. On exam heart rate is 80 beats per minute, blood pressure is 96/67. Chest exam reveals good air entry bilaterally. No crackles or rhonchi. Heart exam reveals first and second heart sounds. No gallop. Exam of extremities did not reveal any edema. Peripheral pulses are felt. Labs show a hemoglobin of 12.5, platelet count is 278, potassium is 3.4, creatinine is 1.48. ASSESSMENT: 1. Acute respiratory failure probably secondary to pulmonary edema related to fluid overload. 2. Non ST-segment elevation myocardial infarction status post catheterization. No significant coronary artery disease. PLAN: Patient will continue with the current medical therapy. He is stable to be transferred to selective care once oxygenation settles down. MMODL / IJN: [id number] /
--- NOTE | 2018-05-31 15:34 | PN ---
PROGRESS NOTE DATE OF SERVICE: 05/30/2018 This patient was admitted yesterday with complaint of nausea, vomiting, chest discomfort, back pain and hip pain. The patient underwent cardiac catheterization. The stent was patent and there was no significant obstructive coronary artery disease detected. The patient was advised medical treatment. Subsequent lab tests showed that the patient had a evidence of lactic acid of 3.7, suggestive of possible underlying sepsis. The patient was treated with intravenous fluids. This morning patient is short of breath and requires BiPAP. Chest x-ray is suggestive of congestive cardiac failure. The patient's white count on admission was 19,000. Patient's CT scan of the chest and abdomen is negative for any infectious process. Exact etiology of the patient's sepsis is unclear. The patient is comfortable. He denies any chest pain. Patient was tachycardic yesterday, but now the heart rate is in 90s. Blood pressure is 100/80 mmHg. First and second heart sounds are normal. Lungs examination reveals bilateral scattered rhonchi and wheezes. Chest x-ray suggestive of congestive cardiac failure. ASSESSMENT AND PLAN: 1. The patient is admitted with chest pain. No significant obstructive coronary artery disease was detected. The patient's maximum troponin is 4.0, which could be secondary to type 2 myocardial infarction associated with either sepsis exact etiology. Underlying infectious process is unclear. 2. Patient has developed now heart failure which may be secondary to fluid overload. Patient's echocardiogram reveals a small area of inferior basal hypokinesia with a moderate degree of mitral regurgitation. RECOMMENDATIONS: The patient's blood cultures are pending. Patient is currently getting IV antibiotics. We will also do the ultrasound of the gallbladder and depending upon the patient's course, further recommendations will be made. MMODL / IJN: [id number] /
[2018-05-31 16:05] LABS: Glucose,Whole Blood 219 mg/dL (75-99)
--- NOTE | 2018-05-31 16:59 | PN ---
PROGRESS NOTE Patient is awake, comfortable. He is being seen for followup for acute kidney injury. He denies any significant complaints. Patient is currently being treated with antibiotics for pneumonia. He also had IV Lasix for CHF. Patient is not on any IV fluids. Lasix is 20 mg p.o. daily. He is maintained on small dose of MARKUS inhibitors as well. Yesterday the Lasix was at 40 mg q.8 hours. On examination today, blood pressure was this morning 93/51, heart rate of about 80 per minute. Patient is afebrile. EXAMINATION OF THE HEART: S1, S2. EXAMINATION OF LUNGS: Bilateral breath sounds are heard. ABDOMEN: Soft, non-tender. Examination of lower extremities shows no significant edema. 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 Labs show sodium 138, potassium 3.4, chloride 100, BUN 43, serum creatinine 1.43 , hemoglobin 12.5 g/dL. ASSESSMENT: 1. Acute kidney injury secondary to contrast nephropathy, currently improved. Creatinine stable at about 1.4. Patient has good urine output. Lasix has been switched from IV to p.o., which is appropriate. 2. Chronic kidney disease, stage II, secondary to nephrosclerosis and diabetic nephropathy. Previous creatinine has been 1.1 to 1.2 mg/dL. 3. Mild non-gap metabolic acidosis secondary to renal failure, maintained on oral sodium bicarb. 4. Status post cardiac catheterization done on 05/29/2018. PLAN: Continue with oral diuretics. Repeat labs in a.m. MMODL / IJN: [id number] / MTDD
[2018-05-31 20:15] LABS: Glucose,Whole Blood 150 mg/dL (75-99)
[2018-05-31] MEDS: HEPARIN SODIUM,PORCINE 5,000 UNIT/ML 1 ML VIAL SQ SCH (20:51)
--- NOTE | 2018-05-31 22:38 | PN ---
PROGRESS NOTE DATE OF SERVICE: 05/31/2018. REASON FOR FOLLOWUP: Possible pneumonia. INTERVAL HISTORY: The patient is currently afebrile. He is breathing more comfortably. The patient did have a cough with some blood-tinged sputum. No nausea, no vomiting. No abdominal pain. No diarrhea. PHYSICAL EXAMINATION: His blood pressure is 120/83, pulse 81, temperature 97.7. He is 93% on 1 L nasal cannula. GENERAL DESCRIPTION: A middle-aged male lying in bed in no distress. RESPIRATORY SYSTEM: Unlabored breathing with decreased breath sounds in the bases. No wheeze. HEART: S1, S2. Regular rate and rhythm. ABDOMEN: Soft, no tenderness. EXTREMITIES: No edema of the feet. LABS: Hemoglobin 12.5, white count now 13,000 with a BUN of 43, creatinine 1.43. Sputum cultures are currently pending. Blood culture has been negative. DIAGNOSTIC IMPRESSION AND PLAN: Patient with leukocytosis. The patient did have possible thrush and pulmonary edema, however, component of pneumonia not entirely excluded with significant and sputum. The patient is currently on Levaquin. Zosyn was discontinued by pulmonary. We will watch sputum culture closely. Family present at bedside. Continue supportive care. MMODL / IJN: [id number] /
[2018-06-01 00:23] LABS: Glucose,Whole Blood 98 mg/dL (75-99)
[2018-06-01] MEDS: INSULIN ASPART 100 UNIT/ML 1 ML 10 ML VIAL SQ SCH ×6 (00:26→21:20)
[2018-06-01] MEDS: HYDROcodone/APAP 7.5-325MG 1 EACH TAB PO PRN ×3 (00:30→15:19)
[2018-06-01] MEDS: HYDROmorphone 0.5 MG/0.5 ML SYRINGE IVP PRN ×2 (03:03→12:14)
[2018-06-01 04:01] LABS: Glucose,Whole Blood 104 mg/dL (75-99)
[2018-06-01] MEDS: PANTOPRAZOLE 40 MG TABLET PO SCH (07:05)
[2018-06-01 07:57] LABS: Basophils # (A) 0.1 k/uL (0-0.2); Basophils % (A) 1 %; Eosinophils # (A) 0.6 k/uL (0-0.7); Eosinophils % (A) 8 %; HCT 34.1 % (39.0-53.0); HGB 11.6 gm/dL (13.0-17.5); Lymphocytes # (A) 1.9 k/uL (1.0-4.8); Lymphocytes % (A) 23 %; MCH 31.7 pg (25.0-35.0); MCHC 33.9 g/dL (31.0-37.0); MCV 93.4 fL (80.0-100.0); Mean Platelet Volume 7.3; Monocytes # (A) 0.6 k/uL (0-1.0); Monocytes % (A) 7 %; Neutrophils # (A) 4.7 k/uL (1.3-7.7); Neutrophils % (A) 58 %; Platelet Count 219 k/uL (150-450); RBC 3.65 m/uL (4.30-5.90); RDW 13.3 % (11.5-15.5)
[2018-06-01 08:09] LABS: Glucose,Whole Blood 101 mg/dL (75-99)
[2018-06-01 08:11] LABS: Calcium 8.3 mg/dL (8.4-10.2); Magnesium 2.3 mg/dL (1.6-2.3); Phosphorus 2.6 mg/dL (2.5-4.5); Potassium 4.2 mmol/L (3.5-5.1)
[2018-06-01] MEDS: SODIUM BICARBONATE TAB 650 MG TAB PO SCH ×4 (08:59→21:20)
[2018-06-01] MEDS: METOPROLOL TARTRATE 50 MG TAB PO SCH ×2 (08:59→21:20)
[2018-06-01] MEDS: HEPARIN SODIUM,PORCINE 5,000 UNIT/ML 1 ML VIAL SQ SCH ×2 (08:59→21:20)
[2018-06-01] MEDS: NICOTINE 21MG/24HR PATCH TRANSDERM SCH (08:59)
[2018-06-01] MEDS: CLOPIDOGREL 75 MG TAB PO SCH (08:59)
[2018-06-01] MEDS: ATORVASTATIN 40 MG TAB PO SCH (08:59)
[2018-06-01] MEDS: FUROSEMIDE 20 MG TAB PO SCH (08:59)
[2018-06-01] MEDS: ALPRAZolam 0.25 MG TAB PO SCH ×4 (08:59→21:20)
[2018-06-01] MEDS: ASPIRIN 81 MG PO SCH (08:59)
[2018-06-01] MEDS: LISINOPRIL 5 MG TAB PO SCH (08:59)
--- NOTE | 2018-06-01 10:05 | XR ---
EXAMINATION TYPE: XR chest 1V DATE OF EXAM: 06/01/2018 COMPARISON: 05/31/2018 HISTORY: 57 year-old male shortness of breath TECHNIQUE: Single frontal view of the chest is obtained. FINDINGS: Heart normal size. Mild hyperinflation and mild interstitial prominence is unchanged. There is new pa tchy left basilar opacity with trace left effusion. IMPRESSION: Possible underlying COPD. There is new trace left pleural effusion with patchy left basilar atelectas is or infiltrate.
--- NOTE | 2018-06-01 11:47 | CDI ---
Documentation Clarification Form 2nd Request Date: 05/31/2018 11:33:05 AM From: Shivani Rachel RN, CCDS Admit Date: 05/29/2018 10:01:00 AM Patient Name: Johnson Bolton Visit Number: [id number] ATTENTION: The Clinical Documentation Specialists (CDI) and [facility] Coding Staff appreciate your assistance in clarifying documentation. Please respond to the clarification below the line at the bottom and electronically sign. The CDI & [facility] Coding staff will review the response and follow-up if needed. Please note: Queries are made part of the Legal Health Record. If you have any questions, please contact the author of this message via ITS. Dr. Ayush Reeves History/Risk Factors: DM2, HTN, Stent to RCA, pericarditis, smoker Clinical Indicators: 05/30 ID: HPI: "congestive heart failure or other interstitial disease such as atypical pneumonia would be a consideration." 05/31 Pulmonary Progress Note: "Acute hypoxic respiratory failure secondary to pulmonary edema likely cardiogenic He was also developing more shortness of breath at night, and a chest x-ray showed worsening pulmonary edema. Acute hypoxic respiratory failure secondary to pulmonary edema, cardiogenic unless for otherwise, however the possible tilt noncardiogenic pulmonary edema secondary to sepsis is not entirely ruled out. " VS/Pulse OX: temp 97.9, HR 89, RR 18, B/P 169/80, spo2 100% ra BNP: 17,800 05/29 Echocardiogram Results: "EF 50-55%, basal inferior and inferioseptal LV wall motion is hypokinetic. Moderate pulmonary HTN." 05/30/17 Chest X Ray:"THIS MAY BE SECONDARY TO CONGESTIVE HEART FAILURE." Treatment: Lasix 40 mg IVP x 1 followed by 20 mg IVP q 8 hrs, changed to 20 po daily today 05/29 Pt received 2 L IVF bolus In your professional opinion, can you please clarify the acuity and type of CHF if known? Systolic Heart Failure: Acute Chronic Acute on Chronic Diastolic Heart Failure: Acute Chronic Acute on Chronic Systolic & Diastolic Heart Failure: Acute Chronic Acute on Chronic Heart Failure Unable to Determine Other, please specify (Last Revision: August 2017) MTDD
[2018-06-01 11:51] LABS: Glucose,Whole Blood 109 mg/dL (75-99)
[2018-06-01] MEDS: LEVOFLOXACIN 500 MG TAB PO SCH (12:15)
--- NOTE | 2018-06-01 12:38 | P.PN ---
Subjective Progress Note Date: 06/01/18 This is a 57-year-old gentleman who initially presented to the hospital with symptoms of nausea vomiting and chest discomfort. He also had associated back pain and hip pain. He underwent a cardiac catheterization which revealed a patent stent with no significant obstructive coronary artery disease detected. He was advised medical treatment, subsequent blood tests revealed lactic acid of 3.7 stress of possible underlying sepsis. He was treated with IV fluids. Patient then developed significant difficulty in breathing. Chest x-ray was suggestive of congestive heart failure. Echocardiogram with Doppler study was performed which revealed a small area of inferior basal hypokinesia with moderate degree of mitral regurgitation. Blood cultures have remained negative. Sputum culture showed few gram-positive cocci , rare Gram negative bacilli and rare gram-positive bacilli. Repeat chest x- ray of today showed underlying COPD with new trace left pleural effusion, patchy left basilar atelectasis and infiltrate. Gallbladder ultrasound was performed which did not reveal any gallstones or evidence of cholecystitis. Patient was seen and examined this morning, lying comfortably in bed. Continues to have some wheezing and coarse breath sounds. Denies any chest discomfort. Objective - Vital Signs Vital signs: Vital Signs Temp 97.6 F 06/01/18 11:17 Pulse 74 06/01/18 11:17 Resp 16 06/01/18 11:17 BP 101/45 06/01/18 12:07 Pulse Ox 98 06/01/18 11:17 Intake & Output 05/31/18 06/01/18 06/01/18 18:59 06:59 18:59 Intake Total 740 200 Output Total 795 190 Balance -55 10 Intake: IV 240 80 normal saline 240 80 Intake, IV Titration 100 Amount Piperacillin-Tazobactam 3 100 .375 gm In Sodium Chloride 0.9% 100 ml @ 25 mls/hr IVPB Q8H [facility] Rx#: [id number] Oral 400 120 Output: Urine 795 190 Other: Voiding Method Indwelling Catheter Indwelling Catheter - Exam Physical Exam: Revealed a 57-year-old white male in no distress. On BiPAP at IPAP of 15 EPAP of 7, and 70% FiO2. Head: Atraumatic, normocephalic. HEENT:[Neck is supple.] [No neck masses.] [No thyromegaly.] [No JVD.] Chest: [Ackles and rhonchi at the bases bilaterally. Symmetrical chest expansion, no chest wall tenderness.] Cardiac Exam: [Normal S1 and S2, no S3 gallop, no murmur.] Abdomen: [Soft, nontender, no megaly, no rebound, no guarding, normal bowel sounds.] Extremities: [No clubbing, no edema, no cyanosis.] Neurological Exam: [No focal neurologic deficit.] Skin: No rashes. Psychiatric: Normal mood, affect and mental status examination. - Labs CBC & Chem 7: 06/01/18 07:06 06/01/18 07:06 Labs: Abnormal Lab Results - Last 24 Hours (Table) 05/31/18 05/31/18 05/31/18 Range/Units 12:18 16:01 20:11 RBC (4.30-5.90) m/uL Hgb (13.0-17.5) gm/dL Hct (39.0-53.0) % BUN (9-20) mg/dL POC Glucose (mg/dL) 119 H 219 H 150 H (75-99) mg/dL Calcium (8.4-10.2) mg/dL 06/01/18 06/01/18 06/01/18 Range/Units 03:59 07:06 07:06 RBC 3.65 L (4.30-5.90) m/uL Hgb 11.6 L (13.0-17.5) gm/dL Hct 34.1 L (39.0-53.0) % BUN 35 H (9-20) mg/dL POC Glucose (mg/dL) 104 H (75-99) mg/dL Calcium 8.3 L (8.4-10.2) mg/dL 06/01/18 06/01/18 Range/Units 07:41 11:45 RBC (4.30-5.90) m/uL Hgb (13.0-17.5) gm/dL Hct (39.0-53.0) % BUN (9-20) mg/dL POC Glucose (mg/dL) 101 H 109 H (75-99) mg/dL Calcium (8.4-10.2) mg/dL Microbiology - Last 24 Hours (Table) 05/30/18 00:30 Gram Stain - Final Sputum Sputum Culture - Final 05/29/18 20:00 Blood Culture - Preliminary Blood No Growth after 48 hours 05/30/18 07:41 Urine Culture - Final Urine,Voided Assessment and Plan Plan: Assessment and plan: #1 episode of chest pain, with elevated troponin level at 0.387 patient underwent cardiac catheterization on admission there was no evidence of any significant obstructive coronary artery disease , continue with medical management. Computed tomography scan showed no evidence of PE #2 acute hypoxic respiratory failure secondary to pulmonary edema. Patient did receive a dose of IV Lasix. Currently on 6 L nasal cannula. #3 evidence of possible bilateral bacterial pneumonia : Chest x-ray showing improvement. White count trending down. #4 sepsis possibly due to UTI or pneumonia. Blood cultures negative #4 underlying history of hyperlipidemia #5 chronic back pain with severe degenerative disc disease #6 acute kidney injury #7 underlying history of diabetes mellitus 2, [id number] #8 underlying history of hypertension #9 chronic kidney disease stage II. #10 metabolic acidosis secondary to acute kidney injury. Nephrology following. #11 hypokalemia. Patient receiving potassium supplement. #12 acute diastolic CHF exacerbation contributing to patient's pulmonary edema. A dose of IV Lasix was given. Echo shows an EF of 50-55%. Plan From cardiology's perspective, we'll continue the patient on his current medications. DNP note has been reviewed, I agree with a documented findings and plan of care. Patient was seen and examined.
--- NOTE | 2018-06-01 13:56 | P.PN ---
Subjective Progress Note Date: 06/01/18 Johnson Bolton is a 57-year-old male who presented to [facility] emergency room with a chief complaint of chest pain patient describes a pressure in the middle of his chest with diaphoresis and shortness of breath he was evaluated in emergency room troponin level was elevated at 0.387 patient has a known history of coronary artery disease with previous history of angioplasty and stent placement to the right coronary artery last year, patient was started on IV heparin he was evaluated by cardiology and due to his elevated troponin they proceeded with cardiac catheterization which did not reveal any critical stenosis recommendation was to continue with medical management. On presentation patient had a chest x-ray that revealed evidence of patchy bilateral infiltrates suggestive of pneumonia his white blood count was elevated at 18.9 he was started on IV Levaquin in the emergency room Patient is admitted to telemetry floor for further evaluation and treatment. On 05/30/2018 patient was seen and examined in ICU he is alert and oriented 3 , currently maintained on BiPAP, he had significant difficulty throughout the night with worsening shortness of breath, hypotension and tachycardia lactic acid was elevated at 3.7 he received IV fluid boluses and was transferred to intensive care unit. Patient is still complaining of shortness of breath he is complaining of cough, there is no fever or chills no headache or dizziness no chest pain at this time no nausea or vomiting no abdominal pain no diarrhea and no urinary symptoms. 05/31/2018 patient currently remains in the ICU. He is on 6 L of oxygen satting at 96%. He has not required BiPAP through the night or this morning. White count has decreased from 26.2 down to 13.0 creatinine improved from 1.61 down to 1.43. Urine culture and sputum culture are pending. Pulmonary has discontinue the Zosyn and place patient on Levaquin. Influenza screen is negative. Chest x-ray showing improving edema and/or infiltrate. Lactic acid down to 2.1. Patient lying in bed comfortably. Still having some wheezing and coarse breath sounds. Denies any chest pain. Denies any nausea or vomiting. Reports one bowel movement yesterday. Has Golden catheter in place. Did receive a dose of IV Lasix yesterday. Patient will possibly transferred out of the ICU later today. Potassium was replaced. 06/01/2018 patient was transferred out of the ICU yesterday. He is complaining of lower back pain and left hip pain with pain radiating down the left leg as well as numbness going down the leg and onto the top of the foot. Patient also reports when he went to walk that he felt that his left foot was kind of flapping. X-ray of the lumbar spine and left hip have been ordered. Consult placed for Dr. siddharth jasso. Patient's white count has improved from 13 down to 8. Kidney functions have improved from 1.43-1.21. He is currently on oral Lasix. Currently on Levaquin for possible pneumonia and UTI. He did have some hypotension earlier with a blood pressure of 87/40 5 repeat blood pressures are showing improvement of 101/45. Patient denies any dental dizziness, chest pain , shortness of breath. Denies any nausea or vomiting. Reports having bowel movements. Denies any difficulty urinating. Objective - Vital Signs Vital signs: Vital Signs Temp 97.6 F 06/01/18 11:17 Pulse 74 06/01/18 11:17 Resp 16 06/01/18 11:17 BP 101/45 06/01/18 12:07 Pulse Ox 98 06/01/18 11:17 Intake & Output 05/31/18 06/01/18 06/01/18 18:59 06:59 18:59 Intake Total 740 200 Output Total 795 190 Balance -55 10 Intake: IV 240 80 normal saline 240 80 Intake, IV Titration 100 Amount Piperacillin-Tazobactam 3 100 .375 gm In Sodium Chloride 0.9% 100 ml @ 25 mls/hr IVPB Q8H [facility] Rx#: [id number] Oral 400 120 Output: Urine 795 190 Other: Voiding Method Indwelling Catheter Indwelling Catheter - Exam Head normocephalic Neck supple Lungs wheezing and coarse breath sounds noted bilaterally Heart regular rate and rhythm S1-S2, no rub or gallop Abdomen is soft nontender nondistended positive bowel sounds no hepatosplenomegaly Extremities no edema Neuro alert and orientated to 3 - Labs CBC & Chem 7: 06/01/18 07:06 06/01/18 07:06 Labs: Abnormal Lab Results - Last 24 Hours (Table) 05/31/18 05/31/18 06/01/18 Range/Units 16:01 20:11 03:59 RBC (4.30-5.90) m/uL Hgb (13.0-17.5) gm/dL Hct (39.0-53.0) % BUN (9-20) mg/dL POC Glucose (mg/dL) 219 H 150 H 104 H (75-99) mg/dL Calcium (8.4-10.2) mg/dL 06/01/18 06/01/18 06/01/18 Range/Units 07:06 07:06 07:41 RBC 3.65 L (4.30-5.90) m/uL Hgb 11.6 L (13.0-17.5) gm/dL Hct 34.1 L (39.0-53.0) % BUN 35 H (9-20) mg/dL POC Glucose (mg/dL) 101 H (75-99) mg/dL Calcium 8.3 L (8.4-10.2) mg/dL 06/01/18 Range/Units 11:45 RBC (4.30-5.90) m/uL Hgb (13.0-17.5) gm/dL Hct (39.0-53.0) % BUN (9-20) mg/dL POC Glucose (mg/dL) 109 H (75-99) mg/dL Calcium (8.4-10.2) mg/dL Microbiology - Last 24 Hours (Table) 05/30/18 00:30 Gram Stain - Final Sputum Sputum Culture - Final 05/29/18 20:00 Blood Culture - Preliminary Blood No Growth after 48 hours 05/30/18 07:41 Urine Culture - Final Urine,Voided Assessment and Plan Assessment: #1 episode of chest pain, with elevated troponin level at 0.387 patient underwent cardiac catheterization on admission there was no evidence of any critical stenosis recommendation were to continue with medical management. Computed tomography scan showed no evidence of PE #2 acute hypoxic respiratory failure secondary to pulmonary edema. Patient did receive a dose of IV Lasix. Currently on oral Lasix 20 mg daily. Off of nasal cannula and on room air. #3 evidence of possible bilateral bacterial pneumonia : Chest x-ray showing improvement. Check sputum culture #4 sepsis possibly due to UTI or pneumonia. Continue antibiotics. She monitoring blood cultures. ID following. Patient currently on Levaquin. Lactic acid has shown improvement. White count normalized. Urine culture negative. Sputum culture normal respiratory renetta #4 underlying history of hyperlipidemia #5 chronic back pain with severe degenerative disc disease #6 acute kidney injury : Secondary to dye from heart catheterization and CAT scan and ATN. Creatinine improving down to 1.21. Nephrology following. Currently off of IV fluids. metformin on hold #7 underlying history of diabetes mellitus 2, [id number] . A1c 6.6. Continue sliding scale coverage #8 underlying history of hypertension #9 chronic kidney disease stage II. #10 metabolic acidosis secondary to acute kidney injury. Nephrology has placed patient on sodium bicarb. #11 hypokalemia. Resolved after supplement #12 acute diastolic CHF exacerbation contributing to patient's pulmonary edema. Patient was given a dose of IV Lasix. Echo shows an EF of 50-55%. Continue Lasix 20 mg by mouth daily #13 mild non-anion gap metabolic acidosis secondary to renal failure. Currently on sodium bicarbonate. Nephrology following #14 lower back pain and left hip pain radiating down the left leg with numbness and tingling. X-ray of the lumbar spine and left hip ordered. Consult Dr. Dickerson. Continue Marston for pain control GI prophylaxis Protonix and DVT prophylaxis DVT prophylaxis subcu heparin I performed an examination of the patient and discussed their management with the physician Innersole Maker. I have reviewed the Physician Innersole Maker's notes and agree with the documented findings and plan of care
--- NOTE | 2018-06-01 14:27 | PN ---
PROGRESS NOTE Patient is seen for followup for acute kidney injury, he is currently doing well. Patient denies any significant complaints. This morning, blood pressure was 101/45, which was a low blood pressure documented at 87/45 and a heart rate 74 per minute. Patient denies any significant complaints. PHYSICAL EXAMINATION: Examination of the heart, S1, S2. Examination of the lungs, bilateral breath sounds are heard. Abdomen is soft, nontender. Examination of the lower extremities shows no evidence of edema. 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 LABS: Show sodium of 139, potassium 4.2, chloride 105, BUN 35, serum creatinine 1.2, hemoglobin 11.6 g/dL. ASSESSMENT: 1. Acute kidney injury secondary to contrast nephropathy, currently improved. Patient is maintained on oral Lasix, which we can continue. 2. Chronic kidney disease stage II secondary to nephrosclerosis and diabetic nephropathy. Baseline creatinine 1.1-1.2 mg/dL. 3. Status post cardiac catheterization. 4. Acute diastolic heart failure. Ejection fraction 50%-55% Currently improved. Continue with current dose of Lasix. PLAN: To continue with the oral diuretics. Patient is stable for discharge from Nephrology standpoint. MMODL / IJN: [id number] /
[2018-06-01 16:37] LABS: Glucose,Whole Blood 132 mg/dL (75-99)
--- NOTE | 2018-06-01 16:49 | XR ---
EXAMINATION TYPE: XR lumbar spine 3V, XR Hip Complete 2 views LT DATE OF EXAM: 06/01/2018 COMPARISON: NONE HISTORY: 57-year-old male with pain FINDINGS: Lumbar spine: 5 lumbar type vertebral bodies. Status post laminectomy changes L4-L5 levels. Mild to moderate degene rative disc disease mid to lower lumbar spine with mild disc space narrowing and endplate spondylosis . Trace grade 1 retrolisthesis at L3-L4. Facet arthropathy lower lumbar spine. Vertebral body heights are preserved. Left hip: Acetabular cup and femoral stem components of the prosthesis appear well seated without perinephric f racture. There is 3 mm of lucency along the stem component at the level of the greater trochanter on the frog-leg lateral view. Alignment grossly anatomic. IMPRESSION: 1. Lumbar spine: Status post L4 and L5 laminectomies. Mild to moderate multilevel degenerative disc d isease. Facet arthropathy lower lumbar spine. Trace grade 1 retrolisthesis at L3-L4. No vertebral com pression collapse. 2. Left hip: Left hip total arthroplasty without periprosthetic fracture. There is small amount of 3 mm lucency along the stem component at the level of the greater trochanter. This may be normal posts urgical appearance in this patient. Correlate with any available outside priors to ensure stability a nd exclude early lucency such as relating to particle disease.
--- NOTE | 2018-06-01 16:57 | P.PN ---
Subjective Progress Note Date: 06/01/18 Principal diagnosis: Acute hypoxic respiratory failure secondary to pulmonary edema likely cardiogenic This is a 57-year-old white male with history of hypertension, diabetes, hyperlipidemia, previous documented coronary artery disease and previous stent in the RCA. Patient presented to the ER with acute substernal chest pain. Described as pressure in the middle of the chest, he was also diaphoretic, and complaining of shortness of breath. Seen in the ER, his initial troponin was elevated at 0.387, patient was admitted, started on IV heparin for acute coronary syndrome, history troponin to a significant rise over a period of hours from admission, and the patient was having more pain. He was also developing more shortness of breath at night, and a chest x-ray showed worsening pulmonary edema. Patient underwent cardiac catheterization, and according to the cyber ops planner there was no evidence of critical stenosis and recommended mostly medical management. Overnight, his pulmonary condition got worse, his chest x-ray showed interstitial edema, given Lasix, however the patient was developing a picture of acute kidney injury, leukocytosis, his urine was noted to be infected, and patient was felt to be possibly septic. At any rate admitted to the ICU, placed on BiPAP, fluid is at 75 mL/h, considering the worsening of his pulmonary status and his chest x-ray, more Lasix was given. He was seen by many consultants so far including nephrology, cardiology , and I saw him on consultation, reviewed his chest x-ray, and clearly felt that the patient has clearly pulmonary edema. And considering his elevated troponin, I felt this is cardiac unless for otherwise, although the possibility of noncardiogenic pulmonary edema is not entirely ruled out, but at this point it's felt to be less likely. My only concern is the patient does have bacteriuria and pyuria, he does have significant leukocytosis, and he is developing a picture of acute metabolic acidosis with elevated lactic acid. Hence antibiotics were added empirically, cultures were ordered, and all of them are pending. After evaluating the patient in the ICU, discussed his condition with his family, and I am interested to see the echocardiogram on this patient to evaluate his LV function. Practically speaking, patient developed worsening interstitial edema basically overnight. His initial CT of the chest did not show any significant abnormalities, and there was negative thromboembolic disease. During my evaluation, the patient had no headache no blurred vision no dizziness, denies any chest pain, no nausea no vomiting no abdominal pain, he does have some vague aches and pains. Denies any dysuria frequency urgency, no hematuria. On 10/29/2018 patient seen in follow-up in the intensive care unit. He is awake and alert, in no acute distress, currently on 6 L per nasal cannula with a pulse ox of 96%, he is afebrile, hemodynamically stable, denies any difficulty breathing, denies any chest pain. Patient had a heart catheterization yesterday which showed mild obstructive disease involving the left circumflex and right coronary artery, patent stent to the right coronary artery, and elevated left ventricular end-diastolic pressure. His chest x-ray has been reviewed with Dr. Johnson, shows improving bilateral alveolar and interstitial edema and/or infiltrates. Patient did receive a dose of IV Lasix yesterday, he did require BiPAP support, with improvement of his respiratory status, currently tolerating nasal cannula, no acute distress, she was -1817 mL over the last 24 hours, blood, sputum and urine cultures are negative thus far , final cultures are pending, no fever or chills, lung sounds are positive for crackles and rhonchi at the bases bilaterally. Occasional nonproductive cough, he is on empiric antibiotic coverage in the form of Zosyn and Levaquin. On 06/01/2018 patient seen in follow-up on selective care unit, he is awake and alert, resting comfortably in the chair, in no acute distress, denies any chest pain or dyspnea. Room air pulse ox is 94%, he is afebrile, hemodynamically stable. Today's labs were reviewed, white blood cell count is 8.0, hemoglobin was 11.6, electrolyte are within normal limits, BUN is 35 and creatinine is 1.21. No fever or chills, patient is on Levaquin for antibiotic coverage, sputum, blood and urine showed no growth. Lung sounds reveal a few rhonchi, overall much improved, no significant wheezing. Objective - Vital Signs Vital signs: Vital Signs Temp 97.7 F 06/01/18 15:56 Pulse 79 06/01/18 15:56 Resp 16 06/01/18 15:56 BP 95/59 06/01/18 15:56 Pulse Ox 94 L 06/01/18 15:56 Intake & Output 0106/01/18 06/01/18 18:59 06:59 18:59 Intake Total 740 200 Output Total 795 190 Balance -55 10 Intake: IV 240 80 normal saline 240 80 Intake, IV Titration 100 Amount Piperacillin-Tazobactam 3 100 .375 gm In Sodium Chloride 0.9% 100 ml @ 25 mls/hr IVPB Q8H [facility] Rx#: [id number] Oral 400 120 Output: Urine 795 190 Other: Voiding Method Indwelling Catheter Indwelling Catheter - Exam Physical Exam: Revealed a 57-year-old white male in no distress. Currently on room air Head: Atraumatic, normocephalic. HEENT:[Neck is supple.] [No neck masses.] [No thyromegaly.] [No JVD.] Chest: [ rhonchi at the bases bilaterally. Symmetrical chest expansion, no chest wall tenderness.] Cardiac Exam: [Normal S1 and S2, no S3 gallop, no murmur.] Abdomen: [Soft, nontender, no megaly, no rebound, no guarding, normal bowel sounds.] Extremities: [No clubbing, no edema, no cyanosis.] Neurological Exam: [No focal neurologic deficit.] Skin: No rashes. Psychiatric: Normal mood, affect and mental status examination. - Labs CBC & Chem 7: 06/01/18 07:06 06/01/18 07:06 Labs: Abnormal Lab Results - Last 24 Hours (Table) 05/31/18 06/01/18 06/01/18 Range/Units 20:11 03:59 07:06 RBC 3.65 L (4.30-5.90) m/uL Hgb 11.6 L (13.0-17.5) gm/dL Hct 34.1 L (39.0-53.0) % BUN (9-20) mg/dL POC Glucose (mg/dL) 150 H 104 H (75-99) mg/dL Calcium (8.4-10.2) mg/dL 06/01/18 06/01/18 06/01/18 Range/Units 07:06 07:41 11:45 RBC (4.30-5.90) m/uL Hgb (13.0-17.5) gm/dL Hct (39.0-53.0) % BUN 35 H (9-20) mg/dL POC Glucose (mg/dL) 101 H 109 H (75-99) mg/dL Calcium 8.3 L (8.4-10.2) mg/dL 06/01/18 Range/Units 16:27 RBC (4.30-5.90) m/uL Hgb (13.0-17.5) gm/dL Hct (39.0-53.0) % BUN (9-20) mg/dL POC Glucose (mg/dL) 132 H (75-99) mg/dL Calcium (8.4-10.2) mg/dL Microbiology - Last 24 Hours (Table) 05/30/18 00:30 Gram Stain - Final Sputum Sputum Culture - Final 05/29/18 20:00 Blood Culture - Preliminary Blood No Growth after 48 hours 05/30/18 07:41 Urine Culture - Final Urine,Voided Assessment and Plan Plan: 1 acute hypoxic respiratory failure secondary to pulmonary edema, cardiogenic unless for otherwise, however the possible noncardiogenic pulmonary edema secondary to sepsis is not entirely ruled out. 2 suspect sepsis with lactic acidosis, acute kidney injury, leukocytosis, likely sources could be urine, could be lungs, but this is felt to be less likely, or his lactic acidosis could be related to metformin. In the meantime I 'm recommending that we continue IV fluids, continue insulin as per protocol, may consider insulin drip, patient does have positive ketones in the urine. Continue antibiotics. 3 acute kidney injury secondary to sepsis although could be cardiorenal in nature. 4 history of diabetes and possible acute diabetic ketoacidosis 5 chronic back pain and severe degenerative disc disease. 6 history of hypertension. 7 acute kidney injury could be related to his cardiac catheterization and contrast media. 8 history of underlying COPD and smoking. 9 elevated troponins, possible acute non-ST elevation myocardial infarction. Plan: Patient is doing well, afebrile, denies any dyspnea, denies any chest discomfort , continue with oral Levaquin, sputum, urine and blood cultures are negative thus far, patient was started on oral Lasix, continue with nebulized bronchodilators. From pulmonary perspective patient is stable for discharge home once cleared by cardiology. We'll follow on as-needed basis, although per Dr. Smith in the office. I performed a history & physical examination of the patient and discussed their management with my nurse practitioner, Heather Ramos. I reviewed the nurse practitioner's note and agree with the documented findings and plan of care. Lung sounds are positive for scattered rhonchi. The findings and the impression was discussed with the patient. I attest to the documentation by the nurse practitioner. Time with Patient: Less than 30
[2018-06-01 20:50] LABS: Glucose,Whole Blood 160 mg/dL (75-99)
--- NOTE | 2018-06-02 03:12 | PN ---
PROGRESS NOTE DATE OF SERVICE: 06/01/2018 REASON FOR FOLLOWUP: Possible pneumonia. INTERVAL HISTORY: The patient is afebrile. He is breathing more comfortably. He continues to have some cough and bringing up some blood-streaked sputum, but no chest pain, no abdominal pain, no diarrhea. PHYSICAL EXAMINATION: Blood pressure 95/59, pulse of 79, temperature is 97.7. He is 94% on room air. General description is a middle-aged male lying in bed in no distress. RESPIRATORY SYSTEM: Unlabored breathing with decreased intensity of breath sounds. No wheeze. HEART: S1, S2. Regular rate and rhythm. ABDOMEN: Soft. No tenderness. LABS: Hemoglobin is 11.6, white count 8.0, BUN of 35, creatinine is 1.21. The sputum is so far negative. DIAGNOSTIC IMPRESSION AND PLAN: Patient admitted to hospital with acute respiratory symptoms which are likely multifactorial with possible fluid overload. Pneumonia less likely but not entirely excluded. Currently on oral Levaquin, to continue for another few days to finish his course of therapy. Family present at the bedside. Questions were answered. MMODL / IJN: [id number] /
[2018-06-02 03:13] LABS: Glucose,Whole Blood 111 mg/dL (75-99)
[2018-06-02] MEDS: INSULIN ASPART 100 UNIT/ML 1 ML 10 ML VIAL SQ SCH ×3 (04:00→07:45)
[2018-06-02 05:23] LABS: Glucose,Whole Blood 125 mg/dL (75-99)
[2018-06-02 06:33] LABS: Basophils % (A) 0 %; Eosinophils # (A) 0.7 k/uL (0-0.7); Eosinophils % (A) 10 %; HCT 35.3 % (39.0-53.0); HGB 12.1 gm/dL (13.0-17.5); Lymphocytes # (A) 1.4 k/uL (1.0-4.8); Lymphocytes % (A) 20 %; MCH 32.2 pg (25.0-35.0); MCHC 34.2 g/dL (31.0-37.0); MCV 94.1 fL (80.0-100.0); Mean Platelet Volume 7.2; Monocytes # (A) 0.5 k/uL (0-1.0); Monocytes % (A) 7 %; Neutrophils # (A) 4.4 k/uL (1.3-7.7); Neutrophils % (A) 61 %; Platelet Count 203 k/uL (150-450); RBC 3.75 m/uL (4.30-5.90); RDW 13.2 % (11.5-15.5); WBC 7.3 k/uL (3.8-10.6)
[2018-06-02 06:54] LABS: Calcium 8.6 mg/dL (8.4-10.2); Magnesium 2.2 mg/dL (1.6-2.3); Phosphorus 3.3 mg/dL (2.5-4.5); Potassium 4.4 mmol/L (3.5-5.1)
--- NOTE | 2018-06-02 07:26 | XR ---
EXAMINATION TYPE: XR chest 1V DATE OF EXAM: 06/02/2018 COMPARISON: 06/01/2018 HISTORY: Shortness of breath TECHNIQUE: Single frontal view of the chest is obtained. FINDINGS: There is no focal consolidation, pleural effusion, or pneumothorax seen. There is redemon stration of interstitial prominence. Pulmonary hyperinflation suggests underlying COPD. Left basilar atelectasis tents the hemidiaphragm. Along the left heart border there is a curvilinear density that could represent a spiculated pulmonary nodule or atelectasis. Attention on follow-up exams. The cardi ac silhouette size is within normal limits. The osseous structures are intact. IMPRESSION: 1. Stable diffuse interstitial prominence may relate to underlying interstitial lung disease. 2. Curvilinear density along the left cardiac border could represent atelectasis as other areas of le ft basilar subsegmental atelectasis are seen, or pulmonary nodule. Attention on follow-up exams.
[2018-06-02] MEDS: ASPIRIN 81 MG PO SCH (07:53)
[2018-06-02] MEDS: ATORVASTATIN 40 MG TAB PO SCH (07:53)
[2018-06-02] MEDS: HYDROcodone/APAP 7.5-325MG 1 EACH TAB PO PRN (07:53)
[2018-06-02] MEDS: CLOPIDOGREL 75 MG TAB PO SCH (07:53)
[2018-06-02] MEDS: PANTOPRAZOLE 40 MG TABLET PO SCH (07:54)
[2018-06-02] MEDS: NICOTINE 21MG/24HR PATCH TRANSDERM SCH (07:54)
[2018-06-02] MEDS: LISINOPRIL 5 MG TAB PO SCH (07:54)
[2018-06-02] MEDS: FUROSEMIDE 20 MG TAB PO SCH (07:54)
[2018-06-02] MEDS: ALPRAZolam 0.25 MG TAB PO SCH ×2 (07:54→12:30)
[2018-06-02] MEDS: METOPROLOL TARTRATE 50 MG TAB PO SCH (07:54)
[2018-06-02] MEDS: SODIUM BICARBONATE TAB 650 MG TAB PO SCH ×2 (07:54→12:30)
[2018-06-02] MEDS: HEPARIN SODIUM,PORCINE 5,000 UNIT/ML 1 ML VIAL SQ SCH (07:54)
[2018-06-02 08:55] LABS: Glucose,Whole Blood 235 mg/dL (75-99)
[2018-06-02 09:17] VITALS: RESP 18
[2018-06-02 11:16] LABS: Glucose,Whole Blood 140 mg/dL (75-99)
[2018-06-02 11:35] VITALS: BP 135/65; PULSE 79; TEMP 96.4
--- NOTE | 2018-06-02 11:50 | P.CNOR ---
History of Present Illness - [facility] Consult date: 06/02/18 Requesting physician: Azeb Tyson Consult reason: low back pain, other (Left lower extremity radiculopathy with weakness) History of present illness: Patient is a pleasant 57-year-old male who is seen and examined at the bedside after consultation was placed for low back pain and left lower extremity radiculopathy with weakness. Patient states on 05/28/2018 he bent forward in his house to pick something up and experienced a sharp pain radiating down the left lower extremity. He states the pain radiates from the buttock down the posterior thigh, towards the calf and radiating over the top of the left foot. Since that time he has had increased weakness of the left lower extremity. He states his foot has been slapping the floor during ambulation. He states he did not have difficulty with weakness prior to this time. He does have a history of previous multilevel laminectomy performed at L4-5 and L5-S1 at [facility] approximately 30 years ago. Since that time he has been able to continue managing his low back pain. He denies any right lower extremity radiculopathy or weakness. He denies specific injury other than when he was bending forward to pick something up. He denies any falls. X-rays of the lumbosacral spine were taken during his admission to the hospital. He originally presented to the emergency department on 05/29/2018 with chest pain and back pain. At his presentation to the hospital he was found to have EKG abnormality as well as elevated troponin level. He also had elevated plasma lactic acid. He has been seen and examined by cardiology, pulmonology and medicine. He was in the ICU during this admission and is currently in selective care. Patient does have a history of stent placement in the RCA last year. He continues to follow with Dr. Young in cardiology. He has a history of bilateral total hip arthroplasty performed by Dr. Rehman. He is being worked up for possible bilateral pneumonia. He has been using a cane to aid in ambulation and has been working with therapy. Past Medical History Past Medical History: Diabetes Mellitus, Hyperlipidemia, Hypertension Additional Past Medical History / Comment(s): pericarditis History of Any Multi-Drug Resistant Organisms: None Reported Past Surgical History: Back Surgery, Orthopedic Surgery Additional Past Surgical History / Comment(s): B hip replacements Past Anesthesia/Blood Transfusion Reactions: No Reported Reaction Past Psychological History: Depression Smoking Status: Current every day smoker Past Alcohol Use History: None Reported - Past Family History Father History Unknown: Yes Mother Family Medical History: Diabetes Mellitus, Hypertension Additional Family Medical History / Comment(s): passed in ' from complications r/t DM Medications and Allergies Home Medications Medication Instructions Recorded Confirmed Type ALPRAZolam [Alprazolam] 0.25 mg PO QID 03/25/16 05/29/18 History Aspirin EC [Ecotrin Low Dose] 81 mg PO DAILY 03/25/16 05/29/18 History Hydrocodone/Acetaminophen 1 tab PO Q6H PRN 03/25/16 05/29/18 History [Hydrocodone-Acetamin 7.5-325] Metoprolol Tartrate [Lopressor] 50 mg PO BID #60 tab 03/28/16 05/29/18 Rx Atorvastatin [Lipitor] 20 mg PO DAILY 02/09/17 05/29/18 History Lisinopril [Zestril] 10 mg PO DAILY 02/09/17 05/29/18 History Artificial Tears-Hypromellose 1 drop BOTH EYES QID PRN 05/29/18 05/29/18 History [Artificial Tear Drops] Nitroglycerin Sl Tabs [Nitrostat] 0.4 mg PO DIRECTED 05/29/18 05/29/18 History metFORMIN HCL [Glucophage] 500 mg PO BID 05/29/18 05/29/18 History Allergies Allergy/AdvReac Type Severity Reaction Status Date / Time cephalexin [From Keflex] Allergy Unknown Verified 05/29/18 10:37 meperidine [From Demerol] Allergy Unknown Verified 05/29/18 10:37 morphine Allergy Unknown Verified 05/29/18 10:37 Physical Examination Physical exam: Patient is awake, alert, and oriented 3 Vital signs stable Good chest excursion with deep inspiration and expiration Examination of lumbar spine reveals skin is intact with no abrasions, lacerations, or bruises; no erythema, purulence or signs of infection No significant pain with palpation of the lumbosacral spine Evidence of a well-healed incision along the midline of the lumbosacral spine Dorsiflexion, plantarflexion, and extensor hallucis longus positive sustained bilaterally Lower extremity strength 5/5 on the right Left lower extremity strength 5/5 including hip flexion and knee extension Patient is able to lift legs off the bed independently without significant difficulty Motor strength of the lower extremity is 3/5 including dorsiflexion Motor strength of the lower extremity is 4-/5 including extensor hallucis longus Motor strength of the lower extremity is 4/5 including plantarflexion Patellar reflex 1+ bilaterally and Achilles reflexes 0+ bilaterally No lower extremity hyperreflexia bilaterally Straight leg test negative bilateral lower extremities Negative Lasegue's test bilaterally No signs or symptoms of DVT; no calf pain No pain with internal and external rotation of the hips bilaterally Neurovascularly intact Results Pertinent studies: X-rays of the lumbosacral spine: X-rays of laminectomy defect at L4 and L5; overall alignment appears to be fairly well maintained; mild to moderate degenerative disc disease mid to lower lumbar spine; facet arthropathy lower lumbar spine; no evidence of vertebral body compression fracture X-rays left hip taken on 06/02/2018: Evidence of left total hip arthroplasty without periprosthetic fracture - Labs Labs: Abnormal Lab Results - Last 24 Hours (Table) 06/01/18 06/01/18 06/01/18 Range/Units 11:45 16:27 20:49 RBC (4.30-5.90) m/uL Hgb (13.0-17.5) gm/dL Hct (39.0-53.0) % BUN (9-20) mg/dL Glucose (74-99) mg/dL POC Glucose (mg/dL) 109 H 132 H 160 H (75-99) mg/dL 06/02/18 06/02/18 06/02/18 Range/Units 00:25 05:22 05:22 RBC 3.75 L (4.30-5.90) m/uL Hgb 12.1 L (13.0-17.5) gm/dL Hct 35.3 L (39.0-53.0) % BUN 31 H (9-20) mg/dL Glucose 115 H (74-99) mg/dL POC Glucose (mg/dL) 111 H (75-99) mg/dL 06/02/18 06/02/18 06/02/18 Range/Units 05:22 08:09 11:13 RBC (4.30-5.90) m/uL Hgb (13.0-17.5) gm/dL Hct (39.0-53.0) % BUN (9-20) mg/dL Glucose (74-99) mg/dL POC Glucose (mg/dL) 125 H 235 H 140 H (75-99) mg/dL Microbiology - Last 24 Hours (Table) 05/29/18 20:00 Blood Culture - Preliminary Blood No Growth after 72 hours 05/30/18 00:30 Gram Stain - Final Sputum Sputum Culture - Final H & H 05/29/18 05/29/18 05/30/18 Range/Units 08:17 20:00 03:34 Hgb 13.5 13.8 15.1 (13.0-17.5) gm/dL Hct 40.4 44.3 47.6 (39.0-53.0) % 05/31/18 06/01/18 06/02/18 Range/Units 04:44 07:06 05:22 Hgb 12.5 L 11.6 L 12.1 L (13.0-17.5) gm/dL Hct 39.0 34.1 L 35.3 L (39.0-53.0) % Coagulation 05/29/18 Range/Units 08:17 INR 0.9 (<1.2) Result Diagrams: 06/02/18 05:22 06/02/18 05:22 Assessment and Plan Assessment: Assessment: Low back pain Left lower extremity radiculopathy with weakness Lumbar degenerative disc disease Lumbar facet spondylosis History of multilevel laminectomies with laminectomy defect at L4 and L5 History of bilateral total hip arthroplasty Acute hypoxic respiratory failure secondary to pulmonary edema Evidence of possible bilateral axial pneumonia Elevated troponins Suspected sepsis with lactic acidosis, acute kidney injury, and leukocytosis History of COPD History of hypertension History of diabetes mellitus (1) Left leg weakness Current Visit: Yes Status: Acute Code(s): R29.898 - OTH SYMPTOMS AND SIGNS INVOLVING THE MUSCULOSKELETAL SYSTEM SNOMED Code(s): 749176764 (2) Lumbar back pain with radiculopathy affecting left lower extremity Current Visit: Yes Status: Acute Code(s): M54.16 - RADICULOPATHY, LUMBAR REGION SNOMED Code(s): 796582380 (3) Lumbar degenerative disc disease Current Visit: Yes Status: Acute Code(s): M51.36 - OTHER INTERVERTEBRAL DISC DEGENERATION, LUMBAR REGION SNOMED Code(s): 17083495 (4) Lumbar facet arthropathy Current Visit: Yes Status: Acute Code(s): M47.816 - SPONDYLOSIS W/O MYELOPATHY OR RADICULOPATHY, LUMBAR REGION SNOMED Code(s): 735426306 (5) History of lumbar laminectomy Current Visit: Yes Status: Acute Code(s): Z98.890 - OTHER SPECIFIED POSTPROCEDURAL STATES SNOMED Code(s): 901103986 (6) History of hip replacement, total Current Visit: Yes Status: Acute Code(s): Z96.649 - PRESENCE OF UNSPECIFIED ARTIFICIAL HIP JOINT SNOMED Code(s): 540097152839 (7) History of COPD Current Visit: Yes Status: Acute Code(s): Z87.09 - PERSONAL HISTORY OF OTHER DISEASES OF THE RESPIRATORY SYSTEM SNOMED Code(s): 783723389 (8) History of hypertension Current Visit: Yes Status: Acute Code(s): Z86.79 - PERSONAL HISTORY OF OTHER DISEASES OF THE CIRCULATORY SYSTEM SNOMED Code(s): 738449823 (9) Elevated troponin Current Visit: Yes Status: Acute Code(s): R74.8 - ABNORMAL LEVELS OF OTHER SERUM ENZYMES SNOMED Code(s): 114273208 (10) Type 2 diabetes mellitus Current Visit: Yes Status: Acute Code(s): E11.9 - TYPE 2 DIABETES MELLITUS WITHOUT COMPLICATIONS SNOMED Code(s): 27514829 Plan: Plan: 1. In regards to his lumbosacral spine, patient does have evidence of degenerative changes at his lumbosacral spine with history of multilevel laminectomy and decompression performed at L4-5 and L5-S1. On 05/28/2018 patient began to experience acute symptoms with significant left lower extremity radiculopathy radiating down the posterior leg, to the calf, and over the top of the left foot along with weakness with the left lower extremity. He is having increased difficulty with ambulation due to his weakness. He states his foot slaps the ground during ambulation. He has been using a cane to aid in ambulation. We discussed given his acute symptoms including significant lower extremity weakness and lower extremity radiculopathy with a history of previous surgical intervention, we would plan to obtain an MRI of the lumbar spine for further evaluation. He states he has been told he is planning for discharge home as early as today. He states he would like to be discharged and follow-up in the outpatient setting to get further workup at that time. We discussed our plan to see him in the office in approximately 1 week after discharge and that time we will plan to obtain an MRI of the lumbar spine for further treatment and evaluation. Patient feels this is a good plan of care. We also discussed he should continue using a cane to aid in ambulation. He states he was told he will be provided a cane at discharge. 2. Patient will continue to be seen by medicine, cardiology, pulmonology, and other medical providers for his other significant medical diagnoses 3. Following discharge, patient may follow-up with Juan David Sherwood PA-C or Dr. Gianni Dickerson at [facility] in approximately 1 week for further evaluation 4. Patient has been discussed in detail with Dr. Gianni Dickerson and he agrees with this plan Time with Patient: Less than 30
[2018-06-02] MEDS: LEVOFLOXACIN 500 MG TAB PO SCH (12:30)
--- NOTE | 2018-06-02 12:33 | P.PN ---
Subjective Progress Note Date: 06/02/18 This is a 57-year-old gentleman who initially presented to the hospital with symptoms of nausea vomiting and chest discomfort. He also had associated back pain and hip pain. He underwent a cardiac catheterization which revealed a patent stent with no significant obstructive coronary artery disease detected. He was advised medical treatment, subsequent blood tests revealed lactic acid of 3.7 stress of possible underlying sepsis. He was treated with IV fluids. Patient then developed significant difficulty in breathing. Chest x-ray was suggestive of congestive heart failure. Echocardiogram with Doppler study was performed which revealed a small area of inferior basal hypokinesia with moderate degree of mitral regurgitation. Blood cultures have remained negative. Sputum culture showed few gram-positive cocci , rare Gram negative bacilli and rare gram-positive bacilli. Repeat chest x- ray of today showed underlying COPD with new trace left pleural effusion, patchy left basilar atelectasis and infiltrate. Gallbladder ultrasound was performed which did not reveal any gallstones or evidence of cholecystitis. Patient was seen and examined this morning, lying comfortably in bed. Continues to have some wheezing and coarse breath sounds. Denies any chest discomfort. 06/02/2018 Patient seen and examined this morning, overall doing well. No complaints. Denies any chest pain in his breathing is stable. Blood pressure 134/60 with a heart rate in the 70s, 96% on room air. White blood cell count 7.3, hemoglobin 12.1, platelet count 203. Sodium 137, potassium 4.4, BUN 31 and creatinine 1.1 , magnesium 2.2. Objective - Vital Signs Vital signs: Vital Signs Temp 96.4 F L 06/02/18 11:33 Pulse 79 06/02/18 11:33 Resp 18 06/02/18 11:33 BP 135/65 06/02/18 11:33 Pulse Ox 96 06/02/18 11:33 Intake & Output 06/01/18 06/02/18 06/02/18 18:59 06:59 18:59 Other: Voiding Method Indwelling Catheter Indwelling Catheter - Exam Physical Exam: Revealed a 57-year-old white male in no distress. On BiPAP at IPAP of 15 EPAP of 7, and 70% FiO2. Head: Atraumatic, normocephalic. HEENT:[Neck is supple.] [No neck masses.] [No thyromegaly.] [No JVD.] Chest: [Ackles and rhonchi at the bases bilaterally. Symmetrical chest expansion, no chest wall tenderness.] Cardiac Exam: [Normal S1 and S2, no S3 gallop, no murmur.] Abdomen: [Soft, nontender, no megaly, no rebound, no guarding, normal bowel sounds.] Extremities: [No clubbing, no edema, no cyanosis.] Neurological Exam: [No focal neurologic deficit.] Skin: No rashes. Psychiatric: Normal mood, affect and mental status examination. - Labs CBC & Chem 7: 06/02/18 05:22 06/02/18 05:22 Labs: Abnormal Lab Results - Last 24 Hours (Table) 06/01/18 06/01/18 06/02/18 Range/Units 16:27 20:49 00:25 RBC (4.30-5.90) m/uL Hgb (13.0-17.5) gm/dL Hct (39.0-53.0) % BUN (9-20) mg/dL Glucose (74-99) mg/dL POC Glucose (mg/dL) 132 H 160 H 111 H (75-99) mg/dL 06/02/18 06/02/18 06/02/18 Range/Units 05:22 05:22 05:22 RBC 3.75 L (4.30-5.90) m/uL Hgb 12.1 L (13.0-17.5) gm/dL Hct 35.3 L (39.0-53.0) % BUN 31 H (9-20) mg/dL Glucose 115 H (74-99) mg/dL POC Glucose (mg/dL) 125 H (75-99) mg/dL 06/02/18 06/02/18 Range/Units 08:09 11:13 RBC (4.30-5.90) m/uL Hgb (13.0-17.5) gm/dL Hct (39.0-53.0) % BUN (9-20) mg/dL Glucose (74-99) mg/dL POC Glucose (mg/dL) 235 H 140 H (75-99) mg/dL Microbiology - Last 24 Hours (Table) 05/29/18 20:00 Blood Culture - Preliminary Blood No Growth after 72 hours 05/30/18 00:30 Gram Stain - Final Sputum Sputum Culture - Final Assessment and Plan Plan: Assessment and plan: #1 episode of chest pain, with elevated troponin level at 0.387 patient underwent cardiac catheterization on admission there was no evidence of any significant obstructive coronary artery disease , continue with medical management. Computed tomography scan showed no evidence of PE #2 acute hypoxic respiratory failure secondary to pulmonary edema. Patient did receive a dose of IV Lasix. Currently on 6 L nasal cannula. #3 evidence of possible bilateral bacterial pneumonia : Chest x-ray showing improvement. White count trending down. #4 sepsis possibly due to UTI or pneumonia. Blood cultures negative #4 underlying history of hyperlipidemia #5 chronic back pain with severe degenerative disc disease #6 acute kidney injury #7 underlying history of diabetes mellitus 2, [id number] #8 underlying history of hypertension #9 chronic kidney disease stage II. #10 metabolic acidosis secondary to acute kidney injury. Nephrology following. #11 hypokalemia. Patient receiving potassium supplement. #12 acute diastolic CHF exacerbation contributing to patient's pulmonary edema. A dose of IV Lasix was given. Echo shows an EF of 50-55%. Plan From cardiology's perspective, we'll continue the patient on his current medications. He may be able to be discharged home, follow-up appointment will be made in the office post discharge. DNP note has been reviewed, I agree with a documented findings and plan of care. Patient was seen and examined.
--- NOTE | 2018-06-02 13:40 | P.DS ---
Providers Date of admission: 05/29/18 10:01 Expected date of discharge: 06/02/18 Attending physician: Ayush Reeves Consults: 05/29/18 10:01 Consult Physician Urgent Consulting Provider: Anderson Young Consult Reason/Comments: chest pain Do you want consulting provider notified?: Yes 05/29/18 15:09 Consult Physician Routine Consulting Provider: Rudolph Hernandez Consult Reason/Comments: pneumonia Do you want consulting provider notified?: Yes 05/30/18 09:28 Consult Physician Routine Consulting Provider: Toña Kelley Consult Reason/Comments: kye Do you want consulting provider notified?: Yes, Notify in am 05/30/18 16:41 Consult Physician Urgent Consulting Provider: Crispin Simons Consult Reason/Comments: infectous disease Do you want consulting provider notified?: Already Contacted 06/01/18 13:45 Consult Physician Routine Consulting Provider: Dung Dickerson Consult Reason/Comments: lower back and left leg pain with numbness Do you want consulting provider notified?: Yes Primary care physician: Ayush Reeves Hospital Course: Discharge Diagnosis #1 episode of chest pain, with elevated troponin level at 0.387 patient underwent cardiac catheterization on admission there was no evidence of any critical stenosis recommendation were to continue with medical management. Computed tomography scan showed no evidence of PE. Patient has been cleared for discharge from cardiology. Cardiac meds per cardiology services. #2 acute hypoxic respiratory failure secondary to pulmonary edema. Patient did receive a dose of IV Lasix. Currently on oral Lasix 20 mg daily. Off of nasal cannula and on room air. #3 evidence of possible bilateral bacterial pneumonia : repeat chest x-ray showing stable diffuse interstitial prominence may relate to underlying interstitial lung disease. Cortisone the near density along the left cardiac border could represent atelectasis other areas of left basilar subsegmental atelectasis are seen, or pulmonary nodule. Patient will follow-up outpatient with primary care provider and consulting providers. Discussed case with infectious disease. Patient will be DC'd on Levaquin for 5 more days #4 sepsis possibly due to UTI or pneumonia. Continue antibiotics. She monitoring blood cultures. ID following. Patient currently on Levaquin. Lactic acid has shown improvement. White count normalized. Urine culture negative. Sputum culture normal respiratory renetta. discussed case with ID. Patient will be DC'd on Levaquin for 5 more days #4 underlying history of hyperlipidemia #5 chronic back pain with severe degenerative disc disease #6 acute kidney injury : Secondary to dye from heart catheterization and CAT scan and ATN. Creatinine improving down to 1.21. Nephrology following. Currently off of IV fluids. creat improving to 1.17. metformin to restart on Thursday #7 underlying history of diabetes mellitus 2, [id number] . A1c 6.6. Continue sliding scale coverage. metformin to peak restarted 06/04/18. #8 underlying history of hypertension #9 chronic kidney disease stage II. #10 metabolic acidosis secondary to acute kidney injury. Nephrology has placed patient on sodium bicarb. #11 hypokalemia. Resolved after supplement #12 acute diastolic CHF exacerbation contributing to patient's pulmonary edema. Patient was given a dose of IV Lasix. Echo shows an EF of 50-55%. Continue Lasix 20 mg by mouth daily #13 mild non-anion gap metabolic acidosis secondary to renal failure. Currently on sodium bicarbonate. Nephrology following #14 lower back pain and left hip pain radiating down the left leg with numbness and tingling. X-ray of the lumbar spine and left hip ordered. Consult Dr. Dickerson. Continue [place] for pain control. per orthopedic services will plan to obtain MRI of the lumbar spine for further treatment and evaluation. Patient to follow-up outpatient Hospital course Johnson Bolton is a 57-year-old male who presented to [facility] emergency room with a chief complaint of chest pain patient describes a pressure in the middle of his chest with diaphoresis and shortness of breath he was evaluated in emergency room troponin level was elevated at 0.387 patient has a known history of coronary artery disease with previous history of angioplasty and stent placement to the right coronary artery last year, patient was started on IV heparin he was evaluated by cardiology and due to his elevated troponin they proceeded with cardiac catheterization which did not reveal any critical stenosis recommendation was to continue with medical management. On presentation patient had a chest x-ray that revealed evidence of patchy bilateral infiltrates suggestive of pneumonia his white blood count was elevated at 18.9 he was started on IV Levaquin in the emergency room Patient is admitted to telemetry floor for further evaluation and treatment. On 05/30/2018 patient was seen and examined in ICU he is alert and oriented 3 , currently maintained on BiPAP, he had significant difficulty throughout the night with worsening shortness of breath, hypotension and tachycardia lactic acid was elevated at 3.7 he received IV fluid boluses and was transferred to intensive care unit. Patient is still complaining of shortness of breath he is complaining of cough, there is no fever or chills no headache or dizziness no chest pain at this time no nausea or vomiting no abdominal pain no diarrhea and no urinary symptoms. 05/31/2018 patient currently remains in the ICU. He is on 6 L of oxygen satting at 96%. He has not required BiPAP through the night or this morning. White count has decreased from 26.2 down to 13.0 creatinine improved from 1.61 down to 1.43. Urine culture and sputum culture are pending. Pulmonary has discontinue the Zosyn and place patient on Levaquin. Influenza screen is negative. Chest x-ray showing improving edema and/or infiltrate. Lactic acid down to 2.1. Patient lying in bed comfortably. Still having some wheezing and coarse breath sounds. Denies any chest pain. Denies any nausea or vomiting. Reports one bowel movement yesterday. Has Golden catheter in place. Did receive a dose of IV Lasix yesterday. Patient will possibly transferred out of the ICU later today. Potassium was replaced. 06/01/2018 patient was transferred out of the ICU yesterday. He is complaining of lower back pain and left hip pain with pain radiating down the left leg as well as numbness going down the leg and onto the top of the foot. Patient also reports when he went to walk that he felt that his left foot was kind of flapping. X-ray of the lumbar spine and left hip have been ordered. Consult placed for Dr. messina up. Patient's white count has improved from 13 down to 8. Kidney functions have improved from 1.43-1.21. He is currently on oral Lasix. Currently on Levaquin for possible pneumonia and UTI. He did have some hypotension earlier with a blood pressure of 87/40 5 repeat blood pressures are showing improvement of 101/45. Patient denies any dental dizziness, chest pain , shortness of breath. Denies any nausea or vomiting. Reports having bowel movements. Denies any difficulty urinating. on 06/02/2018 patient is currently resting comfortably in bed. Patient has been up ambulating on room air. Patient has been cleared by cardiology, respiratory and infectious disease. cardiac meds per cardiology services. Patient will be DC'd on Levaquin for 5 more days. Patient also started on Lasix 20 mg daily. Creatinine has normalized. Patient to follow-up with primary care provider and consulting providers. Patient denies chest pain or shortness breath. Patient denies nausea vomiting or diarrhea. Patient denies any urinary burning or frequency. repeat chest x-ray06/02/18 completed showing stable diffuse interstitial prominence may relate to underlying interstitial lung disease. Curvilinear density along the left cardiac border could represent atelectasis with other areas of left basilar subsegmental atelectasis are seen, or pulmonary nodule. follow-up with PCP and pulmonary services I performed an examination of the patient and discussed their management with the Nurse Practitioner. I have reviewed the Nurse Practitioner's notes and agree with the documented findings and plan of care Patient Condition at Discharge: Stable Plan - Discharge Summary New Discharge Prescriptions: New Atorvastatin [Lipitor] 40 mg PO DAILY #30 tab Clopidogrel [Plavix] 75 mg PO DAILY #30 tab Lisinopril [Zestril] 5 mg PO DAILY #30 tab Nicotine 21Mg/24Hr Patch [Habitrol] 1 patch TRANSDERM DAILY #30 patch Furosemide [Lasix] 20 mg PO DAILY 30 Days #30 tab Levofloxacin [Levaquin] 500 mg PO Q24H 5 Days #5 tab Continue Hydrocodone/Acetaminophen [Hydrocodone-Acetamin 7.5-325] 1 tab PO Q6H PRN PRN Reason: Pain Aspirin EC [Ecotrin Low Dose] 81 mg PO DAILY ALPRAZolam [Alprazolam] 0.25 mg PO QID Metoprolol Tartrate [Lopressor] 50 mg PO BID #60 tab Artificial Tears-Hypromellose [Artificial Tear Drops] 1 drop BOTH EYES QID PRN PRN Reason: DRY EYES Nitroglycerin Sl Tabs [Nitrostat] 0.4 mg PO DIRECTED #25 tab metFORMIN HCL [Glucophage] 500 mg PO BID #0 Discontinued Atorvastatin [Lipitor] 20 mg PO DAILY Lisinopril [Zestril] 10 mg PO DAILY Discharge Medication List ALPRAZolam [Alprazolam] 0.25 mg PO QID 03/25/16 [History] Aspirin EC [Ecotrin Low Dose] 81 mg PO DAILY 11/01/16 [History] Hydrocodone/Acetaminophen [Hydrocodone-Acetamin 7.5-325] 1 tab PO Q6H PRN [History] Metoprolol Tartrate [Lopressor] 50 mg PO BID #60 tab 03/28/16 [Rx] Artificial Tears-Hypromellose [Artificial Tear Drops] 1 drop BOTH EYES QID PRN 05/29/18 [History] Atorvastatin [Lipitor] 40 mg PO DAILY #30 tab 06/02/18 [Rx] Clopidogrel [Plavix] 75 mg PO DAILY #30 tab 06/02/18 [Rx] Furosemide [Lasix] 20 mg PO DAILY 30 Days #30 tab 06/02/18 [Rx] Levofloxacin [Levaquin] 500 mg PO Q24H 5 Days #5 tab 06/02/18 [Rx] Lisinopril [Zestril] 5 mg PO DAILY #30 tab 06/02/18 [Rx] Nicotine 21Mg/24Hr Patch [Habitrol] 1 patch TRANSDERM DAILY #30 patch 06/02/18 [ Rx] Nitroglycerin Sl Tabs [Nitrostat] 0.4 mg PO DIRECTED #25 tab 06/02/18 [Rx] metFORMIN HCL [Glucophage] 500 mg PO BID #0 06/02/18 [Rx] Follow up Appointment(s)/Referral(s): Rudolph Hernandez MD [STAFF PHYSICIAN] - 1 Week (No answer. Please call to make appointment) Dung Dickerson DO [Doctor of Osteopathic Medicine] - 1 Week Anderson Young MD [STAFF PHYSICIAN] - 06/07/18 3:45 pm (Thursday) [facility] [NON-STAFF] - 1 Week [facility], [NON-STAFF] - 1-2 Days Ayush Reeves MD [Primary Care Provider] - 06/07/18 4:00 pm (Thursday) Activity/Diet/Wound Care/Special Instructions: MRI to be done outpatient after follow-up with Dr. Dickerson Please hold metformin until thursday diet heart healthy activity as tolerated. Discharge Disposition: HOME SELF-CARE
--- NOTE | 2018-06-02 16:25 | PN ---
PROGRESS NOTE DATE OF SERVICE: 06/02/2018 REASON FOR FOLLOWUP: Possible pneumonia. INTERVAL HISTORY: The patient was seen on rounds earlier this afternoon. The patient has been afebrile. He is breathing more comfortably on room air. The patient does have a cough and is bringing up some sputum; however, it is clearing out now with no more blood in it. No chest pain. No abdominal pain. No diarrhea. PHYSICAL EXAMINATION: Blood pressure is 135/65, pulse of 79, temperature 96.4. He is 96% on room air. General description is a middle-aged male lying in bed in no distress. RESPIRATORY SYSTEM: Unlabored breathing. Clear to auscultation anteriorly. HEART: S1, S2. Regular rate and rhythm. ABDOMEN: Soft. No tenderness. LABS: Hemoglobin 12.9, white count 7.3, BUN of 31, creatinine 1.17. Sputum has been usual respiratory renetta. Blood culture has been negative. DIAGNOSTIC IMPRESSION AND PLAN: Patient with component of pneumonia, likely community-acquired. Sputum has been negative for any resistant pathogen. To finish therapy with a short course of oral Levaquin and close outpatient followup. Plan of care was discussed with the nurse practitioner for the primary team. MMODL / IJN: [id number] /
== END 2018-06-02 14:35 | disposition home or self-care (01) | DRG 871 ==
LOC: EC 07:56 → 3SCARD 10:01 → 2SICU 05-30 01:01 → 3SCARD 05-31 23:44
PROVIDERS: ADMIT Internal Medicine; ATTEND Internal Medicine
PROC: 4A023N7 Measurement of Cardiac Sampling and Pressure, Left Heart, Percutaneous Approach (ICD-10-PCS; principal; 2018-05-29 13:20)
PROC: B2111ZZ Fluoroscopy of Multiple Coronary Arteries using Low Osmolar Contrast (ICD-10-PCS; principal; 2018-05-29 13:20)
DX: A41.9 Sepsis, unspecified organism (principal); I50.33 Acute on chronic diastolic (congestive) heart failure; J96.01 Acute respiratory failure with hypoxia; N17.0 Acute kidney failure with tubular necrosis; I21.A1 Myocardial infarction type 2; J15.9 Unspecified bacterial pneumonia; E87.2 Acidosis; I13.0 Hypertensive heart and chronic kidney disease with heart failure and stage 1 through stage 4 chronic kidney disease, or unspecified chronic kidney disease; J44.0 Chronic obstructive pulmonary disease with (acute) lower respiratory infection; J84.9 Interstitial pulmonary disease, unspecified; M51.06 Intervertebral disc disorders with myelopathy, lumbar region; N39.0 Urinary tract infection, site not specified; E11.21 Type 2 diabetes mellitus with diabetic nephropathy; E11.22 Type 2 diabetes mellitus with diabetic chronic kidney disease; E78.5 Hyperlipidemia, unspecified; E87.6 Hypokalemia; F17.210 Nicotine dependence, cigarettes, uncomplicated; G89.29 Other chronic pain; I25.10 Atherosclerotic heart disease of native coronary artery without angina pectoris; I25.2 Old myocardial infarction; I34.0 Nonrheumatic mitral (valve) insufficiency; M46.96 Unspecified inflammatory spondylopathy, lumbar region; M47.9 Spondylosis, unspecified; M51.16 Intervertebral disc disorders with radiculopathy, lumbar region; N14.1 Nephropathy induced by other drugs, medicaments and biological substances; N18.2 Chronic kidney disease, stage 2 (mild); T50.8X5A Adverse effect of diagnostic agents, initial encounter; Z79.82 Long term (current) use of aspirin; Z79.84 Long term (current) use of oral hypoglycemic drugs; Z79.899 Other long term (current) drug therapy; Z82.49 Family history of ischemic heart disease and other diseases of the circulatory system; Z83.3 Family history of diabetes mellitus; Z95.5 Presence of coronary angioplasty implant and graft; Z96.643 Presence of artificial hip joint, bilateral; Z88.1 Allergy status to other antibiotic agents; Z88.5 Allergy status to narcotic agent
CPT/HCPCS: 36415; 71045; 71275; 72100; 73502; 74174; 76705; 80048; 80053; 80061; 81001; 82550; 82553; 83036; 83605; 83735; 83880; 84100; 84132; 84484; 85025; 85379; 85610; 85730; 87040; 87070; 87086; 87205; 87449; 87502; 93005; 93306; 93458; 94660; 96361; 96365; 96366; 96368; 96374; 96375; 96376; 99285

== ENCOUNTER 2019-05-05 12:43 | Inpatient (IN) | payer MEDICARE, OTHER ==
[2019-05-05] MEDS ORDERED: PANTOPRAZOLE 40 MG/10 ML VIAL IVP STA (12:56)
[2019-05-05] MEDS ORDERED: HYDROmorphone 1 MG/ML 1 ML SYRINGE IVP STA ×2 (12:56→15:15)
[2019-05-05] MEDS ORDERED: ONDANSETRON 4 MG/2 ML VIAL IVP STA (12:56)
--- NOTE | 2019-05-05 13:12 | ED ---
General Adult HPI - General Chief complaint: Chest Pain Stated complaint: CHEST PAIN Time Seen by Provider: 05/05/19 12:44 Source: patient, RN notes reviewed, old records reviewed Mode of arrival: EMS Limitations: no limitations - History of Present Illness Initial comments: 58-year-old male history of CAD and COPD as well as current smoker presenting f or evaluation of chest pain and abdominal pain. Symptoms began this morning has bilateral upper chest pain. He felt generalized abdominal pain with nausea and vomiting. He vomited approximately 10 times. He has some persistent abdominal discomfort and nausea. Denies any symptoms in the preceding days. He has been on Plavix which she takes for previous diagnosed CAD with stenting. He has his tory of COPD and reports baseline mild cough and dyspnea. No fever or chills. Denies diarrhea. States his last bowel movement was yesterday and was normal. - Related Data Home Medications Medication Instructions Recorded Confirmed ALPRAZolam [Alprazolam] 0.25 mg PO Q6H 03/25/16 05/05/19 Aspirin EC [Ecotrin Low Dose] 81 mg PO DAILY 03/25/16 05/05/19 Hydrocodone/Acetaminophen 1 tab PO Q6H PRN 03/25/16 05/05/19 [Hydrocodone-Acetamin 7.5-325] Atorvastatin [Lipitor] 40 mg PO HS 05/05/19 05/05/19 Lisinopril [Zestril] 2.5 mg PO DAILY 05/05/19 05/05/19 Metoprolol Tartrate [Lopressor] 50 mg PO DAILY 05/05/19 05/05/19 Nitroglycerin Sl Tabs [Nitrostat] 0.4 mg PO Q5M PRN 05/05/19 05/05/19 Previous Rx's Medication Instructions Recorded Clopidogrel [Plavix] 75 mg PO DAILY #30 tab 06/02/18 Furosemide [Lasix] 20 mg PO DAILY 30 Days #30 tab 06/02/18 Nicotine 21Mg/24Hr Patch [Habitrol] 1 patch TRANSDERM DAILY #30 patch 06/02/18 metFORMIN HCL [Glucophage] 500 mg PO BID #0 06/02/18 Allergies Allergy/AdvReac Type Severity Reaction Status Date / Time cephalexin [From Keflex] Allergy Unknown Verified 05/05/19 13:35 meperidine [From Demerol] Allergy Unknown Verified 05/05/19 13:35 morphine Allergy Unknown Verified 05/05/19 13:35 Review of Systems ROS Statement: Those systems with pertinent positive or pertinent negative responses have been documented in the HPI. ROS Other: All systems not noted in ROS Statement are negative. Past Medical History Past Medical History: Diabetes Mellitus, Hyperlipidemia, Hypertension, Myocardial Infarction ([place]) Additional Past Medical History / Comment(s): pericarditis History of Any Multi-Drug Resistant Organisms: None Reported Past Surgical History: Back Surgery, Heart Catheterization With Stent, Orthopedic Surgery Additional Past Surgical History / Comment(s): B hip replacements Past Anesthesia/Blood Transfusion Reactions: No Reported Reaction Past Psychological History: Anxiety, Depression Smoking Status: Current every day smoker Past Alcohol Use History: None Reported Past Drug Use History: None Reported - Past Family History Father History Unknown: Yes Mother Family Medical History: Diabetes Mellitus, Hypertension Additional Family Medical History / Comment(s): passed in ' from complications r/t DM General Exam Limitations: no limitations General appearance: alert, in no apparent distress Head exam: Present: atraumatic, normocephalic Eye exam: Present: normal appearance, PERRL, EOMI ENT exam: Present: mucous membranes dry Neck exam: Present: normal inspection. Absent: tenderness, meningismus Respiratory exam: Present: wheezes, decreased breath sounds. Absent: respiratory distress Cardiovascular Exam: Present: regular rate, normal rhythm GI/Abdominal exam: Present: soft. Absent: distended, tenderness Extremities exam: Present: normal inspection, normal capillary refill, other (Bilateral radial pulses 2+, symmetric, lower extremities warm, normal cap refill). Absent: pedal edema Neurological exam: Present: alert, oriented X3, CN II-XII intact. Absent: motor sensory deficit Psychiatric exam: Present: normal affect, normal mood Skin exam: Present: warm, dry, intact. Absent: cyanosis, diaphoretic Course Vital Signs 05/05/19 05/05/19 12:48 13:05 Temperature 97.9 F Pulse Rate 84 86 Respiratory 20 20 Rate Blood Pressure 158/110 188/88 O2 Sat by Pulse 100 100 Oximetry EKG Findings - EKG Comments: EKG Findings:: EKG: Normal sinus rhythm, rate 74, NC interval 156, QRS duration 74, QTC 477, no ST segment elevation Medical Decision Making - Medical Decision Making 58-year-old male presenting with chest pain, abdominal pain and vomiting. Patient initially is significantly hypertensive, given his acute onset of symptoms, CT angiography is obtained in the emergency department which is negative for dissection. Patient has EKG showing sinus rhythm with no ST segment elevation. Chest x-ray negative for acute cardiopulmonary disease. Mild leukocytosis, hemoglobin 12.9 which is improved from previous. Mild lactic acid of 2.5. Initial troponin negative. Patient has upper bilateral chest pressure. He is given aspirin, nitroglycerin, started on heparin. He will be admitted for serial cardiac enzymes, cardiology consultation. Diagnosis: Chest pain, unstable angina - Lab Data Result diagrams: 05/05/19 13:00 05/05/19 13:00 Lab Results 05/05/19 05/05/19 05/05/19 Range/Units 13:00 13:00 13:00 WBC 11.4 H (3.8-10.6) k/uL RBC 4.15 L (4.30-5.90) m/uL Hgb 12.9 L (13.0-17.5) gm/dL Hct 38.2 L (39.0-53.0) % MCV 92.0 (80.0-100.0) fL MCH 31.0 (25.0-35.0) pg MCHC 33.8 (31.0-37.0) g/dL RDW 13.0 (11.5-15.5) % Plt Count 321 (150-450) k/uL Neutrophils % 84 % Lymphocytes % 11 % Monocytes % 3 % Eosinophils % 1 % Basophils % 0 % Neutrophils # 9.5 H (1.3-7.7) k/uL Lymphocytes # 1.3 (1.0-4.8) k/uL Monocytes # 0.4 (0-1.0) k/uL Eosinophils # 0.1 (0-0.7) k/uL Basophils # 0.0 (0-0.2) k/uL PT (9.0-12.0) sec INR (<1.2) APTT (22.0-30.0) sec Sodium 141 (137-145) mmol/L Potassium 4.6 (3.5-5.1) mmol/L Chloride 103 (98-107) mmol/L Carbon Dioxide 22 (22-30) mmol/L Anion Gap 16 mmol/L BUN 40 H (9-20) mg/dL Creatinine 1.18 (0.66-1.25) mg/dL Est GFR (CKD-EPI)AfAm 77 (>60 ml/min/1.73 sqM) Est GFR (CKD-EPI)NonAf 67 (>60 ml/min/1.73 sqM) Glucose 179 H (74-99) mg/dL Plasma Lactic Acid Seamus 2.5 H* (0.7-2.0) mmol/L Calcium 10.4 H (8.4-10.2) mg/dL Magnesium 1.9 (1.6-2.3) mg/dL Total Bilirubin 0.8 (0.2-1.3) mg/dL AST 20 (17-59) U/L ALT 15 (4-49) U/L Alkaline Phosphatase 78 (38-126) U/L Troponin I (0.000-0.034) ng/mL NT-Pro-B Natriuret Pep pg/mL Total Protein 7.9 (6.3-8.2) g/dL Albumin 4.9 (3.5-5.0) g/dL Lipase 66 (23-300) U/L 05/05/19 05/05/19 05/05/19 Range/Units 13:00 13:00 13:00 WBC (3.8-10.6) k/uL RBC (4.30-5.90) m/uL Hgb (13.0-17.5) gm/dL Hct (39.0-53.0) % MCV (80.0-100.0) fL MCH (25.0-35.0) pg MCHC (31.0-37.0) g/dL RDW (11.5-15.5) % Plt Count (150-450) k/uL Neutrophils % % Lymphocytes % % Monocytes % % Eosinophils % % Basophils % % Neutrophils # (1.3-7.7) k/uL Lymphocytes # (1.0-4.8) k/uL Monocytes # (0-1.0) k/uL Eosinophils # (0-0.7) k/uL Basophils # (0-0.2) k/uL PT 9.8 (9.0-12.0) sec INR 0.9 (<1.2) APTT 23.7 (22.0-30.0) sec Sodium (137-145) mmol/L Potassium (3.5-5.1) mmol/L Chloride (98-107) mmol/L Carbon Dioxide (22-30) mmol/L Anion Gap mmol/L BUN (9-20) mg/dL Creatinine (0.66-1.25) mg/dL Est GFR (CKD-EPI)AfAm (>60 ml/min/1.73 sqM) Est GFR (CKD-EPI)NonAf (>60 ml/min/1.73 sqM) Glucose (74-99) mg/dL Plasma Lactic Acid [place] (0.7-2.0) mmol/L Calcium (8.4-10.2) mg/dL Magnesium (1.6-2.3) mg/dL Total Bilirubin (0.2-1.3) mg/dL AST (17-59) U/L ALT (4-49) U/L Alkaline Phosphatase (38-126) U/L Troponin I <0.012 (0.000-0.034) ng/mL NT-Pro-B Natriuret Pep 185 pg/mL Total Protein (6.3-8.2) g/dL Albumin (3.5-5.0) g/dL Lipase (23-300) U/L Critical Care Time Critical Care Time: Yes Total Critical Care Time: 35 Disposition Clinical Impression: Hypertensive crisis, History of COPD, Unstable angina pectoris Disposition: ADMITTED IP TO THIS [facility] Condition: Stable Is patient prescribed a controlled substance at d/c from ED?: No Referrals: Ayush Reeves MD [Primary Care Provider] - 1-2 days Decision to Admit Reason: Admit from EC Decision Date: 05/05/19 Decision Time: 15:20
[2019-05-05 13:21] LABS: Basophils % (A) 0 %; Eosinophils # (A) 0.1 k/uL (0-0.7); Eosinophils % (A) 1 %; HCT 38.2 % (39.0-53.0); HGB 12.9 gm/dL (13.0-17.5); Lymphocytes # (A) 1.3 k/uL (1.0-4.8); Lymphocytes % (A) 11 %; MCHC 33.8 g/dL (31.0-37.0); Mean Platelet Volume 7.6; Monocytes # (A) 0.4 k/uL (0-1.0); Monocytes % (A) 3 %; Neutrophils # (A) 9.5 k/uL (1.3-7.7); Neutrophils % (A) 84 %; Platelet Count 321 k/uL (150-450); RBC 4.15 m/uL (4.30-5.90); WBC 11.4 k/uL (3.8-10.6)
[2019-05-05 13:37] LABS: Albumin 4.9 g/dL (3.5-5.0); Calcium 10.4 mg/dL (8.4-10.2); Magnesium 1.9 mg/dL (1.6-2.3); Potassium 4.6 mmol/L (3.5-5.1); Total Bilirubin 0.8 mg/dL (0.2-1.3); Total Protein 7.9 g/dL (6.3-8.2)
[2019-05-05] MEDS ORDERED: SODIUM CHLORIDE 0.9% 500 ML 500 ML IV ONE ×2 (13:40→19:12)
--- NOTE | 2019-05-05 13:40 | XR ---
EXAMINATION TYPE: XR chest 1V portable DATE OF EXAM: 05/05/2019 HISTORY: Shortness of breath. COMPARISON: 06/02/2018 TECHNIQUE: Single view of the chest is submitted. FINDINGS: Demonstrated are scattered senescent parenchymal change. There is no evidence for focal infiltrate. The heart is stable. Hilar and mediastinal structures are within normal limits. Degenerative changes are seen of the dorsal spine. IMPRESSION: 1. Chronic changes without evidence for acute pulmonary disease.
[2019-05-05 13:49] LABS: INR 0.9 (<1.2); Partial Thromboplastin Time 23.7 sec (22.0-30.0); Prothrombin Time 9.8 sec (9.0-12.0)
--- NOTE | 2019-05-05 14:57 | CT ---
EXAMINATION TYPE: CT angio thor/abd pel aorta DATE OF EXAM: 05/05/2019 COMPARISON: CT angiogram thoracic and abdominal aorta 05/29/2018 HISTORY: Chest pain, Dissection CT DLP: 1215.6 mGycm. Automated Exposure Control for Dose Reduction was Utilized. CONTRAST: CT scan of the thorax, abdomen and pelvis is performed without and with IV Contrast, patient injected with 100 ml mL of Isovue 370. Three-dimensional reconstructions on an alternate workstation. FINDINGS: LUNGS: The lungs are grossly clear, there is no concerning parenchymal mass or nodule identified. T here is no pleural effusion or pneumothorax seen. The tracheobronchial tree is patent. MEDIASTINUM: There are no greater than 1 cm hilar or mediastinal lymph nodes. No pericardial effusi on is seen. There are coronary calcifications. The aorta shows no dissection. Atheromatous changes are present within the aorta and iliac vasculatur e. Aorta is patent. The superior mesenteric artery, celiac axis, renal arteries are patent. The infer ior mesenteric artery may be occluded proximally and reconstituted, partial enhancement is noted. Lum inal plaque is present within the aortoiliac distribution. The common iliac, internal and extra iliac arteries are patent. The common femoral, proximal deep and superficial femoral arteries are patent. No evident thoracic aortic aneurysm. For super in branch vessels are present. LIVER/GB: No significant interval change is appreciated. PANCREAS: No significant abnormality is seen. SPLEEN: No significant abnormality is seen. ADRENALS: No significant abnormality is seen. KIDNEYS: No significant abnormality is seen. BOWEL: No significant abnormality is seen. Small hiatal hernia noted. Appendix is normal. GENITAL ORGANS: No gross abnormality seen. LYMPH NODES: No greater than 1cm abdominal or pelvic lymph nodes are appreciated. OSSEOUS STRUCTURES: Postop changes are noted to the hips. OTHER: No significant additional abnormalit y is seen. IMPRESSION: No evident aortic aneurysm or dissection, findings essentially stable compared to prior C T angiogram 05/29/2018
[2019-05-05] MEDS ORDERED: ASPIRIN 325 MG TAB PO STA ×2 (15:03→15:15)
[2019-05-05] MEDS: SODIUM CHLORIDE 0.9% 1,000 ML IV SCH (15:04)
[2019-05-05] MEDS ORDERED: NITROGLYCERIN OINT 1 INCH/GM PACKET TOPICAL STA (15:04)
[2019-05-05] MEDS ORDERED: DEXAMETHASONE SOD PHOSPHATE 10 MG/ML 1 ML VIAL IV STA (15:15)
[2019-05-05] MEDS ORDERED: NALOXONE 0.4 MG/ML 1 ML VIAL IV PRN (15:16)
[2019-05-05] MEDS ORDERED: HEPARIN SODIUM,PORCINE 5,000 UNIT/ML 1 ML VIAL IV ONE (15:16)
[2019-05-05] MEDS ORDERED: HEPARIN SODIUM,PORCINE 5,000 UNIT/ML 1 ML VIAL IV PRN (15:16)
[2019-05-05] MEDS ORDERED: ACETAMINOPHEN TAB 325 MG TAB PO PRN (15:16)
[2019-05-05] MEDS ORDERED: ONDANSETRON 4 MG/2 ML VIAL IVP PRN (15:16)
[2019-05-05] MEDS ORDERED: ALBUTEROL NEBULIZED 2.5 MG/3 ML INHALATION STA (15:23)
[2019-05-05] MEDS: HEPARIN SOD,PORK IN 0.45% NACL 25,000 UNIT in 0.45% NACL 1 250ML.BAG IV SCH (15:30)
[2019-05-05 17:00] LABS: Glucose,Whole Blood 186 mg/dL (75-99)
[2019-05-05] MEDS: ALPRAZolam 0.25 MG TAB PO SCH ×2 (18:02→22:12)
[2019-05-05] MEDS: HYDROcodone/APAP 7.5-325MG 1 EACH TAB PO PRN ×2 (18:02→22:12)
[2019-05-05] MEDS ORDERED: LEVOFLOXACIN 500MG-D5W PMX 500 MG in DEXTROSE/WATER 1 100ML.BAG IVPB SCH (20:00)
[2019-05-05 20:07] LABS: Glucose,Whole Blood 257 mg/dL (75-99)
[2019-05-05] MEDS: INSULIN ASPART (NovoLOG) 100 UNIT/ML VIAL SQ SCH (21:16)
[2019-05-05] MEDS: ATORVASTATIN 40 MG TAB PO SCH (21:16)
[2019-05-05] MEDS: ALBUTEROL NEBULIZED 2.5 MG/3 ML INHALATION PRN (22:01)
[2019-05-05 23:00] LABS: Appearance,Urine Clear (Clear); Bilirubin,Urine Negative (Negative); Blood,Urine Negative (Negative); Color,Urine Yellow; Glucose,Urine (UA) 4+ (Negative); Ketones,Urine 1+ (Negative); Leukocyte Esterase,Urine Negative (Negative); Nitrite,Urine Negative (Negative); PH, Urine 6.5 (5.0-8.0); Protein,Urine Trace (Negative); Urobilinogen,Urine <2.0 mg/dL (<2.0)
[2019-05-06] MEDS: ALPRAZolam 0.25 MG TAB PO SCH ×4 (05:04→22:39)
[2019-05-06] MEDS: SODIUM CHLORIDE 0.9% 1,000 ML IV SCH ×2 (05:05→16:59)
[2019-05-06 06:43] LABS: Basophils % (A) 0 %; Eosinophils % (A) 0 %; HCT 32.9 % (39.0-53.0); HGB 10.9 gm/dL (13.0-17.5); Lymphocytes # (A) 1.3 k/uL (1.0-4.8); Lymphocytes % (A) 9 %; MCH 31.2 pg (25.0-35.0); MCHC 33.2 g/dL (31.0-37.0); MCV 93.9 fL (80.0-100.0); Mean Platelet Volume 7.6; Monocytes # (A) 0.9 k/uL (0-1.0); Monocytes % (A) 6 %; Neutrophils # (A) 12.5 k/uL (1.3-7.7); Neutrophils % (A) 84 %; Platelet Count 272 k/uL (150-450); RDW 12.9 % (11.5-15.5); WBC 14.8 k/uL (3.8-10.6)
[2019-05-06 07:11] LABS: Glucose,Whole Blood 161 mg/dL (75-99)
[2019-05-06] MEDS: INSULIN ASPART (NovoLOG) 100 UNIT/ML VIAL SQ SCH ×4 (08:02→21:34)
--- NOTE | 2019-05-06 08:03 | P.CRDCN ---
History of Present Illness Consult date: 05/06/19 Chief complaint: chest pain/abdominal pain History of present illness: This is a pleasant 58-year-old gentleman with a past medical history significant for coronary artery disease and prior stenting of the RCA, diabetes, hypertension, dyslipidemia, and history of smoking, presented to the hospital complaining of chest discomfort. He was in his usual state of health until yesterday when he woke up in the morning complaining of abdominal discomfort to start with subsequently chest discomfort. The symptoms were associated with cold sweats. No dizziness or lightheadedness or syncope. The EKG showed sinus rhythm without any ischemic ST or T-wave abnormalities. The first set of troponin came in to be unremarkable but the toe subsequent 2 sets came in to be abnormal and consistent with acute coronary event. The patient underwent heart catheterizationin May 2018 when he presented with a chest discomfort and at that point the heart catheterization revealed patent stent in the RCA was mild disease. Currently the patient is chest pain-free. He is in process of getting an ultrasound of the abdomen to rule out intra-abdominal process. Beside that he is on heparin IV. He stated that he cut down on smoking significantly. Past Medical History Past Medical History: Diabetes Mellitus, Hyperlipidemia, Hypertension, Myocardial Infarction ([place]) Additional Past Medical History / Comment(s): pericarditis, left side carotid stenosis Last Myocardial Infarction Date:: 03/2016 History of Any Multi-Drug Resistant Organisms: None Reported Past Surgical History: Back Surgery, Heart Catheterization With Stent, Orthopedic Surgery Additional Past Surgical History / Comment(s): [place] hip replacements, 1 cardiac stent, leaky valve per pt. Past Anesthesia/Blood Transfusion Reactions: No Reported Reaction Date of Last Stent Placement:: 03/2016 Past Psychological History: Anxiety, Depression Smoking Status: Current every day smoker Past Alcohol Use History: None Reported Past Drug Use History: None Reported - Past Family History Father History Unknown: Yes Mother Family Medical History: Diabetes Mellitus, Hypertension Additional Family Medical History / Comment(s): passed in from complications r/t DM Medications and Allergies Home Medications Medication Instructions Recorded Confirmed Type ALPRAZolam [Alprazolam] 0.25 mg PO Q6H 03/25/16 05/05/19 History Aspirin EC [Ecotrin Low Dose] 81 mg PO DAILY 03/25/16 05/05/19 History Hydrocodone/Acetaminophen 1 tab PO Q6H PRN 03/25/16 05/05/19 History [Hydrocodone-Acetamin 7.5-325] Clopidogrel [Plavix] 75 mg PO DAILY #30 tab 06/02/18 05/05/19 Rx Furosemide [Lasix] 20 mg PO DAILY 30 Days #30 tab 06/02/18 05/05/19 Rx Nicotine 21Mg/24Hr Patch [Habitrol] 1 patch TRANSDERM DAILY #30 patch 06/02/18 05/05/19 Rx metFORMIN HCL [Glucophage] 500 mg PO BID #0 06/02/18 05/05/19 Rx Atorvastatin [Lipitor] 40 mg PO HS 05/05/19 05/05/19 History Lisinopril [Zestril] 2.5 mg PO DAILY 05/05/19 05/05/19 History Metoprolol Tartrate [Lopressor] 50 mg PO DAILY 05/05/19 05/05/19 History Nitroglycerin Sl Tabs [Nitrostat] 0.4 mg PO Q5M PRN 05/05/19 05/05/19 History Allergies Allergy/AdvReac Type Severity Reaction Status Date / Time cephalexin [From Keflex] Allergy Unknown Verified 05/05/19 13:35 meperidine [From Demerol] Allergy Unknown Verified 05/05/19 13:35 morphine Allergy Unknown Verified 05/05/19 13:35 Physical Exam Vitals: Vital Signs Temp Pulse Pulse Resp BP BP BP 05/06/19 07:57 97.9 F 95 18 154/72 05/06/19 04:00 98.3 F 88 18 147/67 05/05/19 23:44 98.5 F 112 H 18 123/68 05/05/19 22:09 100 16 05/05/19 22:01 110 H 16 05/05/19 19:24 97.9 F 94 18 132/66 05/05/19 17:19 97.8 F 53 L 18 104/49 05/05/19 16:30 98.4 F 98 18 110/72 05/05/19 16:00 98 18 111/62 05/05/19 15:57 114 H 16 05/05/19 15:49 101 H 18 05/05/19 15:00 98 18 174/86 05/05/19 14:00 99 18 177/92 05/05/19 13:05 86 20 188/88 05/05/19 13:00 90 18 158/110 05/05/19 12:48 97.9 F 84 20 158/110 05/05/19 12:47 85 18 Pulse Ox 05/06/19 07:57 99 05/06/19 04:00 98 05/05/19 23:44 98 05/05/19 22:09 05/05/19 22:01 05/05/19 19:24 99 05/05/19 17:19 94 L 05/05/19 16:30 98 05/05/19 16:00 98 05/05/19 15:57 05/05/19 15:49 05/05/19 15:00 100 05/05/19 14:00 100 05/05/19 13:05 100 05/05/19 13:00 100 05/05/19 12:48 100 05/05/19 12:47 100 Intake and Output 05/05/19 05/06/19 05/06/19 22:59 06:59 14:59 Intake Total 58.205 Balance 58.205 Intake: Intake, IV Titration 58.205 Amount Heparin Sod,Pork in 0.45% 58.205 NaCl 25,000 unit In 0.45 % NaCl 1 250ml.bag @ 12 UNITS/KG/HR 8.709 mls/hr IV .Q24H [facility] Rx#: [id number] Other: Voiding Method Toilet Toilet # Voids 1 1 Weight 72.575 kg - Constitutional General appearance: no acute distress - Respiratory Respiratory: bilateral: CTA - Cardiovascular Rhythm: regular Heart sounds: normal: S1, S2 Results 05/06/19 05:34 05/05/19 15:30 Cardiac Enzymes 05/05/19 05/05/19 05/05/19 Range/Units 13:00 13:00 15:30 AST 20 34 (17-59) U/L Troponin I <0.012 (0.000-0.034) ng/mL 05/05/19 05/06/19 Range/Units 18:04 00:40 AST (17-59) U/L Troponin I 0.062 H* 0.078 H* (0.000-0.034) ng/mL Coagulation 05/05/19 05/05/19 05/06/19 Range/Units 13:00 21:04 05:34 PT 9.8 (9.0-12.0) sec APTT 23.7 44.3 H 51.7 H (22.0-30.0) sec Lipids 05/05/19 Range/Units 15:30 Triglycerides 95 (<150) mg/dL Cholesterol 256 H (<200) mg/dL HDL Cholesterol 64 H (40-60) mg/dL CBC 05/05/19 05/06/19 Range/Units 13:00 05:34 WBC 11.4 H 14.8 H (3.8-10.6) k/uL RBC 4.15 L 3.50 L (4.30-5.90) m/uL Hgb 12.9 L 10.9 L (13.0-17.5) gm/dL Hct 38.2 L 32.9 L (39.0-53.0) % Plt Count 321 272 (150-450) k/uL Comprehensive Metabolic Panel 05/05/19 05/05/19 Range/Units 13:00 15:30 Sodium 141 139 (137-145) mmol/L Potassium 4.6 5.0 (3.5-5.1) mmol/L Chloride 103 105 (98-107) mmol/L Carbon Dioxide 22 29 (22-30) mmol/L BUN 40 H 18 (9-20) mg/dL Creatinine 1.18 0.99 (0.66-1.25) mg/dL Glucose 179 H 97 (74-99) mg/dL Calcium 10.4 H 10.3 H (8.4-10.2) mg/dL AST 20 34 (17-59) U/L ALT 15 31 (4-49) U/L Alkaline Phosphatase 78 71 (38-126) U/L Total Protein 7.9 7.4 (6.3-8.2) g/dL Albumin 4.9 4.7 (3.5-5.0) g/dL Current Medications Generic Name Dose Route Start Last Admin Trade Name Freq PRN Reason Stop Dose Admin Acetaminophen 650 mg 05/05/19 15:16 Tylenol Tab PO Q6HR PRN Mild Pain or Fever > 100.5 Hydrocodone Bitart/Acetaminophen 1 each 05/05/19 17:30 05/05/19 22:12 [place] 7.5-325 PO 1 each Q6H PRN Administration Pain Albuterol Sulfate 2.5 mg 05/05/19 15:24 05/05/19 22:01 Ventolin Nebulized INHALATION 2.5 mg RT-Q2H PRN Administration Shortness Of Breath Or Wheezing Alprazolam 0.25 mg 05/05/19 17:30 05/06/19 05:04 Xanax PO 0.25 mg Q6H ESPERANZA Administration Atorvastatin Calcium 40 mg 05/05/19 21:00 05/05/19 21:16 Lipitor PO 40 mg HS ESPERANZA Administration Clopidogrel Bisulfate 75 mg 05/06/19 09:00 Plavix PO DAILY [facility] Furosemide 20 mg 05/06/19 09:00 Lasix PO DAILY [facility] Heparin Sodium (Porcine) 0 unit 05/05/19 15:16 05/05/19 22:10 Heparin IV 1,800 unit PER PROTOCOL PRN Administration Low PTT Protocol Hydromorphone HCl 0.5 mg 05/05/19 15:16 Dilaudid IVP Q3HR PRN Moderate Pain Sodium Chloride 1,000 mls @ 75 mls/hr 05/05/19 13:45 05/06/19 05:05 Saline 0.9% IV 75 mls/hr .[id number] ESPERANZA Administration Heparin Sodium/Sodium Chloride 250 mls @ 8.709 mls/hr 05/05/19 15:30 05/05/19 22:11 25,000 unit/ Sodium Chloride IV 14 units/kg/hr .Q24H [facility]ERAN[facility] 10.161 mls/hr Titration Protocol 12 UNITS/KG/HR Levofloxacin 500 mg/ IV 100 mls @ 100 mls/hr 05/05/19 20:00 05/05/19 21:16 Solution IVPB 100 mls/hr Q24H ESPERANZA Administration Insulin Aspart 0 unit 05/05/19 21:00 05/05/19 21:16 Novolog SQ 4 unit ACHS ESPERANZA Administration Protocol Lisinopril 2.5 mg 05/06/19 09:00 Zestril PO DAILY [facility] Metoprolol Tartrate 50 mg 05/06/19 09:00 Lopressor PO DAILY [facility] Naloxone HCl 0.2 mg 05/05/19 15:16 Narcan IV Q2M PRN Opioid Reversal Nicotine 1 patch 05/06/19 09:00 Habitrol 21mg/24hr Patch TRANSDERM DAILY [facility] Ondansetron HCl 4 mg 05/05/19 15:16 05/05/19 15:37 Zofran IVP 4 mg Q8HR PRN Administration Nausea And Vomiting Intake and Output 05/05/19 05/06/19 05/06/19 22:59 06:59 14:59 Intake Total 58.205 Balance 58.205 Intake: Intake, IV Titration 58.205 Amount Heparin Sod,Pork in 0.45% 58.205 NaCl 25,000 unit In 0.45 % NaCl 1 250ml.bag @ 12 UNITS/KG/HR 8.709 mls/hr IV .Q24H [facility] Rx#: [id number] Other: Voiding Method Toilet Toilet # Voids 1 1 Weight 72.575 kg 05/06/19 05:34 05/05/19 15:30 Assessment and Plan Assessment: assessment #1 acute non-ST deviation [place] #2 known history of CAD and prior stenting of the RCA #3 significant history of smoking. The patient is working on smoking cessation #4 multiple comorbid conditions including diabetes, hypertension, dyslipidemia U Plan #1 the patient ruled in for acute coronary event #2 I would recommend proceeding with coronary angiogram, giving his prior history #3 before that acute intra-abdominal process to be ruled out. He is in process of getting an ultrasound #4 obtain an echocardiogram was Doppler #5 follow-up with the patient
[2019-05-06] MEDS ORDERED: NITROGLYCERIN SL TABS 0.4 MG TAB SUBLINGUAL PRN (08:10)
[2019-05-06] MEDS: CLOPIDOGREL 75 MG TAB PO SCH (08:30)
[2019-05-06] MEDS: METOPROLOL TARTRATE 50 MG TAB PO SCH (08:30)
[2019-05-06] MEDS: LISINOPRIL 5 MG TAB PO SCH (08:30)
[2019-05-06] MEDS: FUROSEMIDE 20 MG TAB PO SCH (08:30)
[2019-05-06] MEDS: NICOTINE 21MG/24HR PATCH TRANSDERM SCH (08:31)
[2019-05-06] MEDS: HYDROcodone/APAP 7.5-325MG 1 EACH TAB PO PRN ×3 (08:40→22:42)
[2019-05-06] MEDS ORDERED: LISINOPRIL 2.5 MG TAB PO SCH (09:00)
[2019-05-06] MEDS ORDERED: ASPIRIN 325 MG TAB PO STA (09:24)
--- NOTE | 2019-05-06 10:03 | US ---
EXAMINATION TYPE: US abdomen complete DATE OF EXAM: 05/06/2019 COMPARISON: CT 05/05/2019 CLINICAL HISTORY: abd pain. Abdomen pain and N/V x couple days, exam done portable. EXAM MEASUREMENTS: Liver Length: 14.6 cm Gallbladder Wall: 0.2 cm CBD: 0.6 cm Spleen: 9.4 cm Right Kidney: 10.3 x 5.9 x 5.4 cm Left Kidney: 11.1 x 5.7 x 4.4 cm Pancreas: visualized portions wnl, limited by overlying midline bowel gas Liver: wnl Gallbladder: Slight haziness of the gallbladder wall although nonthickened. Evidence for sonographic Reina's sign: no CBD: borderline dilated, limited distally by overlying bowel gas Spleen: wnl Right Kidney: wnl Left Kidney: wnl Upper IVC: wnl Abd Aorta: visualized portions wnl, proximal portion obscured by overlying midline bowel gas The liver is homogenous. The intrahepatic portion of the IVC is within normal limits. There is no e vidence of cholelithiasis. Common bile duct is upper limits of normal. The visualized portions of t he pancreas are homogenous. The spleen is unremarkable. Kidneys are symmetric and free of hydroneph rosis. No renal lesions are seen. IMPRESSION: 1. Gallbladder wall appears slightly hazy and heterogenous although remains nonthickened and no other evidence of acute cholecystitis is seen. Common bile duct is upper limits of normal. If clinical fin dings and laboratory values are fitting HIDA scan with CCK could evaluate for biliary dyskinesia or c hronic cholecystitis. 2. Suboptimal visualization of the pancreas and aorta.
--- NOTE | 2019-05-06 10:05 | P.HPIM ---
History of Present Illness H&P Date: 05/06/19 Chief Complaint: chest pain this is a 58-year-old male patient who presented to ER with complaints of chest pain. patient also reports associated abdominal discomfort. Patient reports nausea and vomiting over the past 12 hours patient reports that he started to develop chest pain that was similar to previous episode with his heart attack. patient also reports that he's had upper respiratory symptoms over the past few days with chills. Patient does have past medical history of coronary artery disease with previous stent to RCA currently on Plavix, COPD, nicotine depende nce, diabetes mellitus, hyperlipidemia, pericarditis anxiety and depression. chest x-ray completed showing chronic changes without evidence for acute pulmonary disease. thoracic CT completed showing no evidence of aortic aneurysm or dissection. Findings essentially stable compared to prior CT angiogram.EKG completed showing normal sinus rhythm normal EKG.initial troponin 0.012. Repeat troponin 0.062 and 0.078. initial white blood cell 11.4. Patient did receive Decadron in the ER for increased wheezing. At this time cardiology services will be. influenza ordered. At this time patient reports feels significantly improved. patient denies chest pain or shortness of breath at this time. P atient denies nausea vomiting or diarrhea. Patient denies any urinary burning or frequency. Review of Systems please refer to HPI otherwise unremarkable Past Medical History Past Medical History: Diabetes Mellitus, Hyperlipidemia, Hypertension, Myocardial Infarction ([place]) Additional Past Medical History / Comment(s): pericarditis, left side carotid stenosis Last Myocardial Infarction Date:: 03/2016 History of Any Multi-Drug Resistant Organisms: None Reported Past Surgical History: Back Surgery, Heart Catheterization With Stent, Orthopedic Surgery Additional Past Surgical History / Comment(s): Biltat hip replacements, 1 cardiac stent, leaky valve per pt. Past Anesthesia/Blood Transfusion Reactions: No Reported Reaction Date of Last Stent Placement:: 03/2016 Past Psychological History: Anxiety, Depression Smoking Status: Current every day smoker Past Alcohol Use History: None Reported Past Drug Use History: None Reported - Past Family History Father History Unknown: Yes Mother Family Medical History: Diabetes Mellitus, Hypertension Additional Family Medical History / Comment(s): passed in '08 from complications r/t DM Medications and Allergies Home Medications Medication Instructions Recorded Confirmed Type ALPRAZolam [Alprazolam] 0.25 mg PO Q6H 03/25/16 05/05/19 History Aspirin EC [Ecotrin Low Dose] 81 mg PO DAILY 03/25/16 05/05/19 History Hydrocodone/Acetaminophen 1 tab PO Q6H PRN 03/25/16 05/05/19 History [Hydrocodone-Acetamin 7.5-325] Clopidogrel [Plavix] 75 mg PO DAILY #30 tab 06/02/18 05/05/19 Rx Furosemide [Lasix] 20 mg PO DAILY 30 Days #30 tab 06/02/18 05/05/19 Rx Nicotine 21Mg/24Hr Patch [Habitrol] 1 patch TRANSDERM DAILY #30 patch 06/02/18 05/05/19 Rx metFORMIN HCL [Glucophage] 500 mg PO BID #0 06/02/18 05/05/19 Rx Atorvastatin [Lipitor] 40 mg PO HS 05/05/19 05/05/19 History Lisinopril [Zestril] 2.5 mg PO DAILY 05/05/19 05/05/19 History Metoprolol Tartrate [Lopressor] 50 mg PO DAILY 05/05/19 05/05/19 History Nitroglycerin Sl Tabs [Nitrostat] 0.4 mg PO Q5M PRN 05/05/19 05/05/19 History Allergies Allergy/AdvReac Type Severity Reaction Status Date / Time cephalexin [From Keflex] Allergy Unknown Verified 05/05/19 13:35 meperidine [From Demerol] Allergy Unknown Verified 05/05/19 13:35 morphine Allergy Unknown Verified 05/05/19 13:35 Physical Exam Vitals: Vital Signs Temp Pulse Pulse Resp BP BP BP 05/06/19 08:00 95 18 05/06/19 07:57 97.9 F 95 18 154/72 05/06/19 04:00 98.3 F 88 18 147/67 05/05/19 23:44 98.5 F 112 H 18 123/68 05/05/19 22:09 100 16 05/05/19 22:01 110 H 16 05/05/19 19:24 97.9 F 94 18 132/66 05/05/19 17:19 97.8 F 53 L 18 104/49 05/05/19 16:30 98.4 F 98 18 110/72 05/05/19 16:00 98 18 111/62 05/05/19 15:57 114 H 16 05/05/19 15:49 101 H 18 05/05/19 15:00 98 18 174/86 05/05/19 14:00 99 18 177/92 05/05/19 13:05 86 20 188/88 05/05/19 13:00 90 18 158/110 05/05/19 12:48 97.9 F 84 20 158/110 05/05/19 12:47 85 18 Pulse Ox 05/06/19 08:00 05/06/19 07:57 99 05/06/19 04:00 98 05/05/19 23:44 98 05/05/19 22:09 05/05/19 22:01 05/05/19 19:24 99 05/05/19 17:19 94 L 05/05/19 16:30 98 05/05/19 16:00 98 05/05/19 15:57 05/05/19 15:49 05/05/19 15:00 100 05/05/19 14:00 100 05/05/19 13:05 100 05/05/19 13:00 100 05/05/19 12:48 100 05/05/19 12:47 100 Intake and Output 05/05/19 05/06/19 05/06/19 22:59 06:59 14:59 Intake Total 58.205 Balance 58.205 Intake: Intake, IV Titration 58.205 Amount Heparin Sod,Pork in 0.45% 58.205 NaCl 25,000 unit In 0.45 % NaCl 1 250ml.bag @ 12 UNITS/KG/HR 8.709 mls/hr IV .Q24H [facility] Rx#: [id number] Other: Voiding Method Toilet Toilet Toilet # Voids 1 1 1 Weight 72.575 kg Head normocephalic Neck supple Lungs clear to auscultation bilaterally no wheezing or crackles Heart regular rate and rhythm S1-S2, no rub or gallop Abdomen is soft nontender nondistended positive bowel sounds no hepatosplenomegaly Extremities no edema Neuro alert and orientated to 3 Results CBC & Chem 7: 05/06/19 05:34 05/05/19 15:30 Labs: Abnormal Lab Results - Last 24 Hours (Table) 05/05/19 05/05/19 05/05/19 Range/Units 13:00 13:00 13:00 WBC 11.4 H (3.8-10.6) k/uL RBC 4.15 L (4.30-5.90) m/uL Hgb 12.9 L (13.0-17.5) gm/dL Hct 38.2 L (39.0-53.0) % Neutrophils # 9.5 H (1.3-7.7) k/uL APTT (22.0-30.0) sec BUN 40 H (9-20) mg/dL Glucose 179 H (74-99) mg/dL POC Glucose (mg/dL) (75-99) mg/dL Plasma Lactic Acid Seamus 2.5 H* (0.7-2.0) mmol/L Calcium 10.4 H (8.4-10.2) mg/dL Troponin I (0.000-0.034) ng/mL Cholesterol (<200) mg/dL LDL Cholesterol, Calc (0-99) mg/dL HDL Cholesterol (40-60) mg/dL Ur Specific [place] (1.001-1.035) Urine Protein (Negative) Urine Glucose (UA) (Negative) Urine Ketones (Negative) 05/05/19 05/05/19 05/05/19 Range/Units 15:30 16:58 18:04 WBC (3.8-10.6) k/uL RBC (4.30-5.90) m/uL Hgb (13.0-17.5) gm/dL Hct (39.0-53.0) % Neutrophils # (1.3-7.7) k/uL APTT (22.0-30.0) sec BUN (9-20) mg/dL Glucose (74-99) mg/dL POC Glucose (mg/dL) 186 H (75-99) mg/dL Plasma Lactic Acid Seamus (0.7-2.0) mmol/L Calcium 10.3 H (8.4-10.2) mg/dL Troponin I 0.062 H* (0.000-0.034) ng/mL Cholesterol 256 H (<200) mg/dL LDL Cholesterol, Calc 173 H (0-99) mg/dL HDL Cholesterol 64 H (40-60) mg/dL Ur Specific [place] (1.001-1.035) Urine Protein (Negative) Urine Glucose (UA) (Negative) Urine Ketones (Negative) 05/05/19 05/05/19 05/05/19 Range/Units 18:04 20:06 21:04 WBC (3.8-10.6) k/uL RBC (4.30-5.90) m/uL Hgb (13.0-17.5) gm/dL Hct (39.0-53.0) % Neutrophils # (1.3-7.7) k/uL APTT 44.3 H (22.0-30.0) sec BUN (9-20) mg/dL Glucose (74-99) mg/dL POC Glucose (mg/dL) 257 H (75-99) mg/dL Plasma Lactic Acid Seamus 2.2 H* (0.7-2.0) mmol/L Calcium (8.4-10.2) mg/dL Troponin I (0.000-0.034) ng/mL Cholesterol (<200) mg/dL LDL Cholesterol, Calc (0-99) mg/dL HDL Cholesterol (40-60) mg/dL Ur Specific [place] (1.001-1.035) Urine Protein (Negative) Urine Glucose (UA) (Negative) Urine Ketones (Negative) 05/05/19 05/06/19 05/06/19 Range/Units 22:25 00:40 05:34 WBC 14.8 H (3.8-10.6) k/uL RBC 3.50 L (4.30-5.90) m/uL Hgb 10.9 L (13.0-17.5) gm/dL Hct 32.9 L (39.0-53.0) % Neutrophils # 12.5 H (1.3-7.7) k/uL APTT (22.0-30.0) sec BUN (9-20) mg/dL Glucose (74-99) mg/dL POC Glucose (mg/dL) (75-99) mg/dL Plasma Lactic Acid Seamus (0.7-2.0) mmol/L Calcium (8.4-10.2) mg/dL Troponin I 0.078 H* (0.000-0.034) ng/mL Cholesterol (<200) mg/dL LDL Cholesterol, Calc (0-99) mg/dL HDL Cholesterol (40-60) mg/dL Ur Specific [place] 1.040 H (1.001-1.035) Urine Protein Trace H (Negative) Urine Glucose (UA) 4+ H (Negative) Urine Ketones 1+ H (Negative) 05/06/19 05/06/19 Range/Units 05:34 07:10 WBC (3.8-10.6) k/uL RBC (4.30-5.90) m/uL Hgb (13.0-17.5) gm/dL Hct (39.0-53.0) % Neutrophils # (1.3-7.7) k/uL APTT 51.7 H (22.0-30.0) sec BUN (9-20) mg/dL Glucose (74-99) mg/dL POC Glucose (mg/dL) 161 H (75-99) mg/dL Plasma Lactic Acid Seamus (0.7-2.0) mmol/L Calcium (8.4-10.2) mg/dL Troponin I (0.000-0.034) ng/mL Cholesterol (<200) mg/dL LDL Cholesterol, Calc (0-99) mg/dL HDL Cholesterol (40-60) mg/dL Ur Specific [place] (1.001-1.035) Urine Protein (Negative) Urine Glucose (UA) (Negative) Urine Ketones (Negative) Thrombosis Risk Factor Assmnt - Choose All That Apply Any of the Below Risk Factors Present?: Yes Each Factor Represents 1 point: Age 41-60 years Other Risk Factors: No Thrombosis Risk Factor Assessment Total Risk Factor Score: 1 Thrombosis Risk Factor Assessment Level: Low Risk Assessment and Plan Assessment: 1. Chest pain secondary to acute non-ST deviation [place] .initial troponin 0.012, 0.062 0.078. Cardiology services have been consulted planning cardiac vera terization today. Patient started on heparin drip 2. Nausea vomiting and abdominal pain. Abdominal ultrasound has been ordered 3. Fever and chills at home. Influenza has been ordered. Patient started on Levaquin. Patient has been complaining of upper respiratory symptoms. Initial white blood cell 11.4. Patient did receive Decadron in ER for wheezing. Repeat WBC 14.8. Lactic acid 1.5. UA negative. chest x-ray completed showing chronic changes without evidence for acute pulmonary disease. 4. known history of coronary artery disease with prior stenting of the RCA. Patient attained on Plavix 5. Nicotine dependence. Patient educated greater then 3 minutes on smoking cessation. Nicotine patch ordered 6. History of diabetes mellitus type 2. Metformin on hold. Sliding scale insulin ordered 7. Essential hypertension. home meds ordered 8. Hyperlipidemia maintained on statin 9. History of pericarditis Time with Patient: Greater than 30 (Greater than 60% of the total time spent in counseling and coordination of care. I performed an examination of the patient and discussed their management with the Nurse Practitioner. I have reviewed the Nurse Practitioner's notes and agree with the documented findings and plan of care)
[2019-05-06 11:44] LABS: Glucose,Whole Blood 210 mg/dL (75-99)
[2019-05-06] MEDS: ALBUTEROL NEBULIZED 2.5 MG/3 ML INHALATION PRN ×2 (11:49→19:43)
[2019-05-06 17:21] LABS: Glucose,Whole Blood 261 mg/dL (75-99)
[2019-05-06] MEDS ORDERED: LEVOFLOXACIN 500 MG TAB PO SCH (20:00)
[2019-05-06] MEDS: HEPARIN SOD,PORK IN 0.45% NACL 25,000 UNIT in 0.45% NACL 1 250ML.BAG IV SCH (20:23)
[2019-05-06] MEDS: ATORVASTATIN 40 MG TAB PO SCH (20:23)
[2019-05-06 20:53] LABS: Glucose,Whole Blood 102 mg/dL (75-99)
[2019-05-07] MEDS: HYDROmorphone 0.5 MG/0.5 ML SYRINGE IVP PRN ×3 (01:12→07:17)
[2019-05-07 05:18] LABS: Basophils % (A) 0 %; Eosinophils # (A) 0.3 k/uL (0-0.7); Eosinophils % (A) 4 %; HCT 31.2 % (39.0-53.0); HGB 10.6 gm/dL (13.0-17.5); Lymphocytes # (A) 1.8 k/uL (1.0-4.8); Lymphocytes % (A) 21 %; MCH 31.8 pg (25.0-35.0); MCHC 33.9 g/dL (31.0-37.0); Mean Platelet Volume 7.8; Monocytes # (A) 0.5 k/uL (0-1.0); Monocytes % (A) 6 %; Neutrophils # (A) 5.9 k/uL (1.3-7.7); Neutrophils % (A) 69 %; Platelet Count 230 k/uL (150-450); RBC 3.32 m/uL (4.30-5.90); RDW 13.2 % (11.5-15.5); WBC 8.5 k/uL (3.8-10.6)
[2019-05-07] MEDS: FUROSEMIDE 20 MG TAB PO SCH (06:30)
[2019-05-07] MEDS: INSULIN ASPART (NovoLOG) 100 UNIT/ML VIAL SQ SCH ×3 (06:30→16:06)
[2019-05-07 06:32] LABS: Glucose,Whole Blood 140 mg/dL (75-99)
[2019-05-07] MEDS: ALPRAZolam 0.25 MG TAB PO SCH ×3 (06:33→16:06)
[2019-05-07] MEDS: METOPROLOL TARTRATE 50 MG TAB PO SCH (06:33)
[2019-05-07] MEDS: SODIUM CHLORIDE 0.9% 1,000 ML IV SCH ×2 (06:33→16:06)
[2019-05-07] MEDS: CLOPIDOGREL 75 MG TAB PO SCH (06:33)
[2019-05-07] MEDS: LISINOPRIL 5 MG TAB PO SCH (06:34)
[2019-05-07] MEDS ORDERED: PANTOPRAZOLE 40 MG TABLET PO SCH (07:30)
[2019-05-07] MEDS: NICOTINE 21MG/24HR PATCH TRANSDERM SCH (08:55)
[2019-05-07] MEDS: HYDROcodone/APAP 7.5-325MG 1 EACH TAB PO PRN ×2 (09:00→16:17)
[2019-05-07] MEDS ORDERED: ASPIRIN 325 MG TAB PO STA (11:12)
[2019-05-07] MEDS ORDERED: ATORVASTATIN 80 MG TAB PO STA (11:12)
[2019-05-07] MEDS ORDERED: IV FLUID CONTINUATION 1,000 ML IV ONE (11:30)
[2019-05-07] MEDS ORDERED: VERAPAMIL 2.5 MG/ML 2 ML AMP ONE (11:42)
[2019-05-07] MEDS ORDERED: LIDOCAINE 1% INJ 10MG/ML (20 ML MDV) ONE (11:42)
[2019-05-07] MEDS ORDERED: MIDAZOLAM 2 MG/2 ML VIAL IV ONE (12:07)
[2019-05-07] MEDS ORDERED: LIDOCAINE 1% INJ 10MG/ML (20 ML MDV) SQ ONE (12:08)
[2019-05-07] MEDS ORDERED: HEPARIN SODIUM 1,000 UN/ML (10ML VL) IV ONE (12:09)
[2019-05-07] MEDS ORDERED: HEPARIN SODIUM 1,000 UN/ML (10ML VL) ONE (12:09)
[2019-05-07] MEDS ORDERED: VERAPAMIL SYRINGE (5 MG/10 ML) INTRAARTER ONE ×2 (12:09→12:19)
[2019-05-07 12:13] VITALS: TEMP 98
[2019-05-07] MEDS ORDERED: IOPAMIDOL-370 125ML BTL INJ ONE (12:16)
[2019-05-07] MEDS ORDERED: RX INFO: IV CONTRAST WAS GIVEN 1 EACH MISC MISCELLANE PRN (12:21)
[2019-05-07] MEDS ORDERED: SODIUM CHLORIDE 0.9% 1,000 ML IV SCH (12:30)
[2019-05-07 14:19] VITALS: RESP 16
--- NOTE | 2019-05-07 14:19 | P.DS ---
Providers Date of admission: 05/06/19 10:26 Expected date of discharge: 05/07/19 Attending physician: Ayush Reeves Consults: 05/05/19 15:17 Consult Physician Routine Consulting Provider: Shelley Hammond Consult Reason/Comments: UA Do you want consulting provider notified?: Yes Primary care physician: Ayush Lala [facility] Course: Diagnosis on discharge: 1. Chest pain secondary to acute non-ST deviation [place] .initial troponin 0.012, 0.062 0.078. Cardiology services have been consulted planning cardiac catheterization today. Patient started on heparin drip. Cardiac catheterization done on 05/07/2019 there was no evidence of any coronary artery disease that requires intervention at this time patient was cleared by cardiology for discharge. 2. Nausea vomiting and abdominal pain. Abdominal ultrasound has been ordered, no significant abnormality found symptoms resolved. 3. Fever and chills at home. Influenza has been ordered and was negative. Patient started on Levaquin. Patient has been complaining of upper respiratory symptoms. Initial white blood cell 11.4. Patient did receive Decadron in ER for wheezing. Repeat WBC 14.8. Lactic acid 1.5. UA negative. chest x-ray completed showing chronic changes without evidence for acute pulmonary disease. Patient received Levaquin during this admission, he was given Levaquin 500 mg once daily for 5 more days at the time of discharge 4. known history of coronary artery disease with prior stenting of the RCA. Patient attained on Plavix 5. Nicotine dependence. Patient educated greater then 3 minutes on smoking cessation. Nicotine patch ordered 6. History of diabetes mellitus type 2. Metformin on hold. Sliding scale insulin ordered 7. Essential hypertension. home meds ordered 8. Hyperlipidemia maintained on statin 9. History of pericarditis. Hospital course: this is a 58-year-old male patient who presented to ER with complaints of chest pain. patient also reports associated abdominal discomfort. Patient reports nausea and vomiting over the past 12 hours patient reports that he started to develop chest pain that was similar to previous episode with his heart attack. patient also reports that he's had upper respiratory symptoms over the past few days with chills. Patient does have past medical history of coronary artery disease with previous stent to RCA currently on Plavix, COPD, nicotine dependence, diabetes mellitus, hyperlipidemia, pericarditis anxiety and depression. chest x-ray completed showing chronic changes without evidence for acute pulmonary disease. thoracic CT completed showing no evidence of aortic aneurysm or dissection. Findings essentially stable compared to prior CT angiogram.EKG completed showing normal sinus rhythm normal EKG.initial troponin 0.012. Repeat troponin 0.062 and 0.078. initial white blood cell 11.4. Patient did receive Decadron in the ER for increased wheezing. At this time cardiology services will be. influenza ordered. At this time patient reports feels significantly improved. patient denies chest pain or shortness of breath at this time. Patient denies nausea vomiting or diarrhea. Patient denies any urinary burning or frequency. On 05/07/2019 patient was seen and examined on the telemetry floor he is alert and oriented 3 in no apparent distress he underwent cardiac catheterization today, no intervention was necessary at this time patient was cleared by cardiology for discharge patient felt well and denies any symptoms he was requesting to be discharged today, medication were reviewed patient was given a prescription for Levaquin 500 milligram 1 daily for 5 more days for acute bronchitis labs reviewed and white blood count has come down to normal he was told to hold metformin for 2 days he will be followed in our office in 2-3 days Patient Condition at Discharge: Stable Plan - Discharge Summary Discharge Rx Participant: No New Discharge Prescriptions: New Levofloxacin [Levaquin] 500 mg PO Q24H tab Continue Hydrocodone/Acetaminophen [Hydrocodone-Acetamin 7.5-325] 1 tab PO Q6H PRN PRN Reason: Pain Aspirin EC [Ecotrin Low Dose] 81 mg PO DAILY ALPRAZolam [Alprazolam] 0.25 mg PO Q6H Clopidogrel [Plavix] 75 mg PO DAILY #30 tab Nicotine 21Mg/24Hr Patch [Habitrol] 1 patch TRANSDERM DAILY #30 patch Furosemide [Lasix] 20 mg PO DAILY 30 Days #30 tab Nitroglycerin Sl Tabs [Nitrostat] 0.4 mg PO Q5M PRN PRN Reason: Chest Pain Metoprolol Tartrate [Lopressor] 50 mg PO DAILY Lisinopril [Zestril] 2.5 mg PO DAILY Atorvastatin [Lipitor] 40 mg PO HS Discontinued metFORMIN HCL [Glucophage] 500 mg PO BID #0 Discharge Medication List ALPRAZolam [Alprazolam] 0.25 mg PO Q6H 03/25/16 [History] Aspirin EC [Ecotrin Low Dose] 81 mg PO DAILY 03/25/16 [History] Hydrocodone/Acetaminophen [Hydrocodone-Acetamin 7.5-325] 1 tab PO Q6H PRN 03/25/16 [History] Clopidogrel [Plavix] 75 mg PO DAILY #30 tab 06/02/18 [Rx] Furosemide [Lasix] 20 mg PO DAILY 30 Days #30 tab 06/02/18 [Rx] Nicotine 21Mg/24Hr Patch [Habitrol] 1 patch TRANSDERM DAILY #30 patch 06/02/18 [Rx] Atorvastatin [Lipitor] 40 mg PO HS 05/05/19 [History] Lisinopril [Zestril] 2.5 mg PO DAILY 05/05/19 [History] Metoprolol Tartrate [Lopressor] 50 mg PO DAILY 05/05/19 [History] Nitroglycerin Sl Tabs [Nitrostat] 0.4 mg PO Q5M PRN 05/05/19 [History] Levofloxacin [Levaquin] 500 mg PO Q24H tab 05/07/19 [Rx] Follow up Appointment(s)/Referral(s): Ayush Reeves MD [Primary Care Provider] - 1-2 days
--- NOTE | 2019-05-07 14:20 | P.PN ---
Subjective Progress Note Date: 05/07/19 this is a 58-year-old male patient who presented to ER with complaints of chest pain. patient also reports associated abdominal discomfort. Patient reports nausea and vomiting over the past 12 hours patient reports that he started to develop chest pain that was similar to previous episode with his heart attack. patient also reports that he's had upper respiratory symptoms over the past few days with chills. Patient does have past medical history of coronary artery disease with previous stent to RCA currently on Plavix, COPD, nicotine dependence, diabetes mellitus, hyperlipidemia, pericarditis anxiety and depression. chest x-ray completed showing chronic changes without evidence for acute pulmonary disease. thoracic CT completed showing no evidence of aortic aneurysm or dissection. Findings essentially stable compared to prior CT angiogram.EKG completed showing normal sinus rhythm normal EKG.initial troponin 0.012. Repeat troponin 0.062 and 0.078. initial white blood cell 11.4. Patient did receive Decadron in the ER for increased wheezing. At this time cardiology services will be. influenza ordered. At this time patient reports feels significantly improved. patient denies chest pain or shortness of breath at this time. Patient denies nausea vomiting or diarrhea. Patient denies any urinary burning or frequency. On 05/07/2019 patient was seen and examined on the telemetry floor he is alert and oriented 3 in no apparent distress, he denies any symptoms at this time there is no fever or chills no headache or dizziness no chest pain no shortness of breath no cough no nausea or vomiting no abdominal pain no diarrhea no burning with urination no frequency or urgency and no hematuria he is scheduled for cardiac catheterization today Will follow procedure Objective - Vital Signs Vital signs: Vital Signs Temp 98.0 F 05/07/19 12:07 Pulse 85 05/07/19 12:07 Resp 18 05/07/19 12:07 BP 126/62 05/07/19 12:07 Pulse Ox 98 05/07/19 12:07 Intake & Output 05/06/19 05/07/19 05/07/19 18:59 06:59 18:59 Intake Total 801.763 6868.851 Output Total 400 Balance 266.795 637.851 Intake: Intake, IV Titration 887.359 7461.851 Amount Heparin Sod,Pork in 0.45% 191.795 137.851 NaCl 25,000 unit In 0.45 % NaCl 1 250ml.bag @ 12 UNITS/KG/HR 8.709 mls/hr IV .Q24H [facility] Rx#: [id number] Sodium Chloride 0.9% 1, 75 900 000 ml @ 75 mls/hr IV . [id number] [facility] Rx#:[id number] Output: Urine 400 Other: Voiding Method Toilet Toilet Bedside Commode # Voids 1 2 1 - Exam Head normocephalic Neck supple Lungs clear to auscultation bilaterally no wheezing or crackles Heart regular rate and rhythm S1-S2, no rub or gallop Abdomen is soft nontender nondistended positive bowel sounds no hepatosplenomegaly Extremities no edema Neuro alert and orientated to 3 - Labs CBC & Chem 7: 05/07/19 04:49 05/05/19 15:30 Labs: Abnormal Lab Results - Last 24 Hours (Table) 05/06/19 05/06/19 05/07/19 Range/Units 16:52 20:52 04:49 RBC 3.32 L (4.30-5.90) m/uL Hgb 10.6 L (13.0-17.5) gm/dL Hct 31.2 L (39.0-53.0) % APTT (22.0-30.0) sec POC Glucose (mg/dL) 261 H 102 H (75-99) mg/dL 05/07/19 05/07/19 Range/Units 04:49 06:31 RBC (4.30-5.90) m/uL Hgb (13.0-17.5) gm/dL Hct (39.0-53.0) % APTT 51.8 H (22.0-30.0) sec POC Glucose (mg/dL) 140 H (75-99) mg/dL Microbiology - Last 24 Hours (Table) 05/05/19 19:32 Blood Culture - Preliminary Blood No Growth after 24 hours Assessment and Plan Plan: 1. Chest pain secondary to acute non-ST deviation [place] .initial troponin 0.012, 0.062 0.078. Cardiology services have been consulted planning cardiac catheterization today. Patient started on heparin drip 2. Nausea vomiting and abdominal pain. Abdominal ultrasound has been ordered 3. Fever and chills at home. Influenza has been ordered. Patient started on Levaquin. Patient has been complaining of upper respiratory symptoms. Initial white blood cell 11.4. Patient did receive Decadron in ER for wheezing. Repeat WBC 14.8. Lactic acid 1.5. UA negative. chest x-ray completed showing chronic changes without evidence for acute pulmonary disease. 4. known history of coronary artery disease with prior stenting of the RCA. Patient attained on Plavix 5. Nicotine dependence. Patient educated greater then 3 minutes on smoking cessation. Nicotine patch ordered 6. History of diabetes mellitus type 2. Metformin on hold. Sliding scale insulin ordered 7. Essential hypertension. home meds ordered 8. Hyperlipidemia maintained on statin 9. History of pericarditis
--- NOTE | 2019-05-07 14:33 | CC ---
CARDIAC CATHETERIZATION REPORT DATE OF SERVICE: May 07, 2019 PERFORMING PHYSICIAN: Anderson Young MD. PROCEDURE PERFORMED: 1. Selective right and left coronary angiogram. 2. Left heart catheterization. INDICATION: This is a 58-year-old gentleman with history of coronary artery disease and prior stenting of the RCA as well as hypertension and dyslipidemia, was admitted to the hospital with chest discomfort and ruled in for acute [id number] myocardial infarction. Because of that, a heart catheterization was advised. APPROACH: Right radial artery. COMPLICATION: None. LEVEL OF SEDATION: Moderate with sedation length of 12 minutes. 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 The right radial artery was cannulated using micropuncture technique, the micropuncture wire passed easily then I placed a 5-Ecuadorean sheath in the right radial artery. After that I gave the patient 2 mg of verapamil IA and 10,000 units of heparin IV. Selective right and left coronary angiogram performed using JR4 and JL3.5 catheter. Left heart catheterization was performed using 5-Ecuadorean pigtail catheter. The procedure was completed without any complication. SELECTIVE CORONARY ANGIOGRAM: 1. The right coronary artery is a large caliber vessel and is a dominant vessel. The RCA is stented in the midportion and the stent is patent. 2. The left main is angiographically normal. It bifurcates into left circumflex and left anterior descending artery. 3. The left circumflex is a large caliber vessel. It is a codominant vessel. The left circumflex has mild disease in the midportion. 4. The LAD: The proximal LAD is normal. The mid LAD is normal and the LAD distally appeared to be normal as well. The LAD gives rise into 2 diagonal branches both appeared to be angiographically normal. HEMODYNAMICS: The LVEDP was 10 mmHg without significant gradient across the aortic valve. CONCLUSION: 1. Patent stent in the mid RCA. 2. Mild to moderate nonobstructive disease involving the left coronary system. POSTPROCEDURE MANAGEMENT: 1. Medical treatment. 2. Follow up with the patient. MMODL / IJN: [id number] /
[2019-05-07 15:25] VITALS: BP 124/67; PULSE 86
== END 2019-05-07 16:30 | disposition home or self-care (01) | DRG 281 ==
LOC: EC 12:43 → 1SOBS 15:16 → OBSVTOIN 05-06 10:26 → 3SCARD 05-06 15:00
PROVIDERS: ADMIT Internal Medicine; ATTEND Internal Medicine
PROC: B2151ZZ Fluoroscopy of Left Heart using Low Osmolar Contrast (ICD-10-PCS; principal; 2019-05-07 11:30)
PROC: 4A023N7 Measurement of Cardiac Sampling and Pressure, Left Heart, Percutaneous Approach (ICD-10-PCS; principal; 2019-05-07 11:30)
PROC: B2111ZZ Fluoroscopy of Multiple Coronary Arteries using Low Osmolar Contrast (ICD-10-PCS; principal; 2019-05-07 11:30)
DX: I21.4 Non-ST elevation (NSTEMI) myocardial infarction (principal); I16.9 Hypertensive crisis, unspecified; J44.0 Chronic obstructive pulmonary disease with (acute) lower respiratory infection; E11.9 Type 2 diabetes mellitus without complications; E78.5 Hyperlipidemia, unspecified; F17.200 Nicotine dependence, unspecified, uncomplicated; F32.9 Major depressive disorder, single episode, unspecified; F41.9 Anxiety disorder, unspecified; I10 Essential (primary) hypertension; I25.110 Atherosclerotic heart disease of native coronary artery with unstable angina pectoris; J20.9 Acute bronchitis, unspecified; Z79.02 Long term (current) use of antithrombotics/antiplatelets; Z79.82 Long term (current) use of aspirin; Z79.84 Long term (current) use of oral hypoglycemic drugs; Z79.899 Other long term (current) drug therapy; Z82.49 Family history of ischemic heart disease and other diseases of the circulatory system; Z83.3 Family history of diabetes mellitus; Z95.5 Presence of coronary angioplasty implant and graft; Z96.643 Presence of artificial hip joint, bilateral; Z88.1 Allergy status to other antibiotic agents; Z88.5 Allergy status to narcotic agent
CPT/HCPCS: 36415; 71045; 71275; 74174; 76700; 80053; 80061; 81003; 82306; 83036; 83605; 83690; 83735; 83880; 84443; 84484; 85025; 85610; 85730; 87040; 87502; 93005; 93458; 94640; 96365; 96375; 96376; 99291

== ENCOUNTER 2019-10-18 13:34 | Inpatient (IN) | payer MEDICARE, OTHER ==
[2019-10-18] MEDS ORDERED: ONDANSETRON 4 MG/2 ML VIAL IVP STA (14:12)
[2019-10-18 14:17] LABS: Basophils # (A) 0.1 k/uL (0-0.2); Basophils % (A) 0 %; Eosinophils # (A) 0.1 k/uL (0-0.7); Eosinophils % (A) 1 %; HCT 40.2 % (39.0-53.0); Lymphocytes % (A) 8 %; MCH 30.2 pg (25.0-35.0); MCHC 32.4 g/dL (31.0-37.0); MCV 93.3 fL (80.0-100.0); Mean Platelet Volume 7.5; Monocytes # (A) 0.2 k/uL (0-1.0); Monocytes % (A) 2 %; Neutrophils # (A) 10.6 k/uL (1.3-7.7); Neutrophils % (A) 89 %; Platelet Count 340 k/uL (150-450); RBC 4.31 m/uL (4.30-5.90); RDW 13.2 % (11.5-15.5)
[2019-10-18 14:34] LABS: Albumin 4.6 g/dL (3.5-5.0); Potassium 4.2 mmol/L (3.5-5.1); Total Bilirubin 0.4 mg/dL (0.2-1.3); Total Protein 7.6 g/dL (6.3-8.2)
--- NOTE | 2019-10-18 14:42 | ED ---
General Adult HPI - General Chief complaint: Nausea/Vomiting/Diarrhea Stated complaint: Nausea,vomiting Time Seen by Provider: 10/18/19 13:38 Source: EMS Mode of arrival: EMS Limitations: no limitations - History of Present Illness Initial comments: Patient is 59-year-old male with history of diabetes, hyperlipidemia, hypertension and previous ID presenting to the emergency department with a chief complaint of nausea vomiting and abdominal pain. States this initially started early this morning with sudden onset of nausea and multiple episodes of no nbilious, nonbloody vomiting. States most of the pain is located in the lower abdomen. Does also report some chest discomfort but it is mild. Denies any focal neural deficits. She also reported shortness of breath with exertion. States she is feeling lightheaded and dizzy where the room was spinning around him. Patient does have history of smoking. Patient does report hematemesis while in the ED. Denies history of previous abdominal surgeries. - Related Data Home Medications Medication Instructions Recorded Confirmed ALPRAZolam [Alprazolam] 0.25 mg PO Q6H 03/25/16 05/05/19 Aspirin EC [Ecotrin Low Dose] 81 mg PO DAILY 03/25/16 05/05/19 Hydrocodone/Acetaminophen 1 tab PO Q6H PRN 03/25/16 05/05/19 [Hydrocodone-Acetamin 7.5-325] Atorvastatin [Lipitor] 40 mg PO HS 05/05/19 05/05/19 Lisinopril [Zestril] 2.5 mg PO DAILY 05/05/19 05/05/19 Metoprolol Tartrate [Lopressor] 50 mg PO DAILY 05/05/19 05/05/19 Nitroglycerin Sl Tabs [Nitrostat] 0.4 mg PO Q5M PRN 05/05/19 05/05/19 Previous Rx's Medication Instructions Recorded Clopidogrel [Plavix] 75 mg PO DAILY #30 tab 06/02/18 Furosemide [Lasix] 20 mg PO DAILY 30 Days #30 tab 06/02/18 Nicotine 21Mg/24Hr Patch [Habitrol] 1 patch TRANSDERM DAILY #30 patch 06/02/18 Levofloxacin [Levaquin] 500 mg PO Q24H tab 05/07/19 Allergies Allergy/AdvReac Type Severity Reaction Status Date / Time cephalexin [From Keflex] Allergy Unknown Verified 10/18/19 13:59 meperidine [From Demerol] Allergy Unknown Verified 10/18/19 13:59 morphine Allergy Unknown Verified 10/18/19 13:59 Review of Systems ROS Statement: Those systems with pertinent positive or pertinent negative responses have been documented in the HPI. ROS Other: All systems not noted in ROS Statement are negative. Past Medical History Past Medical History: Diabetes Mellitus, Hyperlipidemia, Hypertension, Myocardial Infarction ([place]) Additional Past Medical History / Comment(s): pericarditis, left side carotid stenosis Last Myocardial Infarction Date:: 03/2016 History of Any Multi-Drug Resistant Organisms: None Reported Past Surgical History: Back Surgery, Heart Catheterization With Stent, Orthopedic Surgery Additional Past Surgical History / Comment(s): Biltat hip replacements, 1 cardiac stent, leaky valve per pt. Past Anesthesia/Blood Transfusion Reactions: No Reported Reaction Date of Last Stent Placement:: 03/2016 Past Psychological History: Anxiety, Depression Smoking Status: Current every day smoker Past Alcohol Use History: None Reported Past Drug Use History: None Reported - Past Family History Father History Unknown: Yes Mother Family Medical History: Diabetes Mellitus, Hypertension Additional Family Medical History / Comment(s): passed in '08 from complications r/t DM General Exam Limitations: no limitations General appearance: alert, in no apparent distress Head exam: Present: atraumatic, normocephalic, normal inspection Eye exam: Present: normal appearance, PERRL, EOMI Pupils: Present: normal accommodation ENT exam: Present: normal exam, normal oropharynx, mucous membranes dry Neck exam: Present: normal inspection, full ROM Respiratory exam: Present: normal lung sounds bilaterally. Absent: respiratory distress, wheezes, rales Cardiovascular Exam: Present: regular rate, normal rhythm, normal heart sounds GI/Abdominal exam: Present: soft, tenderness (Very mild lower abdominal tenderness. Negative Andre point.), normal bowel sounds. Absent: distended, guarding, rebound, rigid Extremities exam: Present: normal inspection, full ROM, normal capillary refill, other (+2 ulnar and radial pulses bilaterally. +2 dorsalis pedis and posterior tibialis bilaterally.) Back exam: Present: normal inspection, full ROM Neurological exam: Present: alert, oriented X3 Psychiatric exam: Present: normal affect, normal mood Skin exam: Present: warm, dry, intact, normal color Course Vital Signs 10/18/19 10/18/19 13:40 15:39 Temperature 96.9 F L Pulse Rate 71 85 Respiratory 20 20 Rate Blood Pressure 165/75 145/69 O2 Sat by Pulse 99 99 Oximetry EKG Findings - EKG Comments: EKG Findings:: Sinus rhythm, no ST changes or T-wave changes. Ventricular rate 60, SC 140, QRS 84, QTC 469. Medical Decision Making - Medical Decision Making Patient is 59-year-old male presenting to the emergency department with a chief complaint of nausea vomiting abdominal pain. Exam patient has very mild lower abdominal tenderness. He also reported some chest discomfort along with shortness of breath on exertion. Denies any focal neuro deficits. EKG shows sinus rhythm and no ST or T-wave changes. Chest x-ray is unremarkable. Patient continues to have chills in the ED. He was given antiemetics and fluids with no improvement in nausea. Patient was given Benadryl Reglan. CBC shows mild leukocytosis just suspect is secondary to the vomiting. Coags unremarkable. CMP is unremarkable. UA pending. Initial troponin negative. Vital stable. Pulses equal bilaterally on the upper and lower extremities. Patient will be admitted for further medical management. Case discussed with Dr. Rhodes. Admitting physician is . - Lab Data Result diagrams: 10/18/19 13:59 10/18/19 13:59 Lab Results 10/18/19 10/18/19 10/18/19 Range/Units 13:59 13:59 13:59 WBC 12.0 H (3.8-10.6) k/uL RBC 4.31 (4.30-5.90) m/uL Hgb 13.0 (13.0-17.5) gm/dL Hct 40.2 (39.0-53.0) % MCV 93.3 (80.0-100.0) fL MCH 30.2 (25.0-35.0) pg MCHC 32.4 (31.0-37.0) g/dL RDW 13.2 (11.5-15.5) % Plt Count 340 (150-450) k/uL Neutrophils % 89 % Lymphocytes % 8 % Monocytes % 2 % Eosinophils % 1 % Basophils % 0 % Neutrophils # 10.6 H (1.3-7.7) k/uL Lymphocytes # 1.0 (1.0-4.8) k/uL Monocytes # 0.2 (0-1.0) k/uL Eosinophils # 0.1 (0-0.7) k/uL Basophils # 0.1 (0-0.2) k/uL PT (9.0-12.0) sec INR (<1.2) APTT (22.0-30.0) sec Sodium 137 (137-145) mmol/L Potassium 4.2 (3.5-5.1) mmol/L Chloride 101 (98-107) mmol/L Carbon Dioxide 26 (22-30) mmol/L Anion Gap 10 mmol/L BUN 32 H (9-20) mg/dL Creatinine 1.06 (0.66-1.25) mg/dL Est GFR (CKD-EPI)AfAm 88 (>60 ml/min/1.73 sqM) Est GFR (CKD-EPI)NonAf 76 (>60 ml/min/1.73 sqM) Glucose 199 H (74-99) mg/dL Plasma Lactic Acid Seamus 1.5 (0.7-2.0) mmol/L Calcium 10.0 (8.4-10.2) mg/dL Magnesium (1.6-2.3) mg/dL Total Bilirubin 0.4 (0.2-1.3) mg/dL AST 21 (17-59) U/L ALT 16 (4-49) U/L Alkaline Phosphatase 70 (38-126) U/L Troponin I (0.000-0.034) ng/mL Total Protein 7.6 (6.3-8.2) g/dL Albumin 4.6 (3.5-5.0) g/dL Amylase 72 (30-110) U/L Lipase 38 (23-300) U/L 10/18/19 10/18/19 10/18/19 Range/Units 13:59 13:59 13:59 WBC (3.8-10.6) k/uL RBC (4.30-5.90) m/uL Hgb (13.0-17.5) gm/dL Hct (39.0-53.0) % MCV (80.0-100.0) fL MCH (25.0-35.0) pg MCHC (31.0-37.0) g/dL RDW (11.5-15.5) % Plt Count (150-450) k/uL Neutrophils % % Lymphocytes % % Monocytes % % Eosinophils % % Basophils % % Neutrophils # (1.3-7.7) k/uL Lymphocytes # (1.0-4.8) k/uL Monocytes # (0-1.0) k/uL Eosinophils # (0-0.7) k/uL Basophils # (0-0.2) k/uL PT 9.7 (9.0-12.0) sec INR 0.9 (<1.2) APTT 22.5 (22.0-30.0) sec Sodium (137-145) mmol/L Potassium (3.5-5.1) mmol/L Chloride (98-107) mmol/L Carbon Dioxide (22-30) mmol/L Anion Gap mmol/L BUN (9-20) mg/dL Creatinine (0.66-1.25) mg/dL Est GFR (CKD-EPI)AfAm (>60 ml/min/1.73 sqM) Est GFR (CKD-EPI)NonAf (>60 ml/min/1.73 sqM) Glucose (74-99) mg/dL Plasma Lactic Acid Seamus (0.7-2.0) mmol/L Calcium (8.4-10.2) mg/dL Magnesium 1.9 (1.6-2.3) mg/dL Total Bilirubin (0.2-1.3) mg/dL AST (17-59) U/L ALT (4-49) U/L Alkaline Phosphatase (38-126) U/L Troponin I <0.012 (0.000-0.034) ng/mL Total Protein (6.3-8.2) g/dL Albumin (3.5-5.0) g/dL Amylase (30-110) U/L Lipase (23-300) U/L Disposition Clinical Impression: Chest pain, Shortness of breath, Nausea & vomiting, Abdominal pain Disposition: ADMITTED IP TO THIS HOSP Condition: Fair Is patient prescribed a controlled substance at d/c from ED?: No Referrals: Ayush Reeves MD [Primary Care Provider] - 1-2 days Time of Disposition: 15:57
[2019-10-18 14:49] LABS: INR 0.9 (<1.2); Partial Thromboplastin Time 22.5 sec (22.0-30.0); Prothrombin Time 9.7 sec (9.0-12.0)
--- NOTE | 2019-10-18 15:03 | XR ---
EXAMINATION TYPE: XR chest 2V DATE OF EXAM: 10/18/2019 COMPARISON: Prior chest 05/05/2019 HISTORY: Chest pain, nausea and vomiting TECHNIQUE: Frontal and lateral views of the chest are obtained. FINDINGS: There is no focal air space opacity, pleural effusion, or pneumothorax seen. The cardiac silhouette size is within normal limits. The osseous structures are intact. IMPRESSION: No acute cardiopulmonary process.
[2019-10-18] MEDS ORDERED: diphenhydrAMINE 50 MG/ML 1 ML VIAL IVP STA (15:39)
[2019-10-18] MEDS ORDERED: METOCLOPRAMIDE 5 MG/ML 2 ML VIAL IVP STA (15:39)
[2019-10-18] MEDS ORDERED: NALOXONE 0.4 MG/ML 1 ML VIAL IV PRN (15:41)
[2019-10-18] MEDS ORDERED: SODIUM CHLORIDE 0.9% 1,000 ML IV STA (15:43)
[2019-10-18] MEDS ORDERED: ASPIRIN 81 MG PO STA (15:45)
[2019-10-18] MEDS ORDERED: NITROGLYCERIN SL TABS 0.4 MG TAB SUBLINGUAL PRN (15:45)
[2019-10-18 15:57] LABS: Appearance,Urine Cloudy (Clear); Bilirubin,Urine Negative (Negative); Blood,Urine Negative (Negative); Color,Urine Yellow; Glucose,Urine (UA) 3+ (Negative); Hyaline Casts,Urine 2 /lpf (0-2); Ketones,Urine 1+ (Negative); Leukocyte Esterase,Urine Negative (Negative); Mucus,Urine Many /hpf; Nitrite,Urine Negative (Negative); PH, Urine 5.5 (5.0-8.0); Protein,Urine 1+ (Negative); RBC,Urine 1 /hpf (0-5); Specific Gravity,Urine 1.031 (1.001-1.035); Sperm,Urine Rare /hpf; WBC,Urine 3 /hpf (0-5)
--- NOTE | 2019-10-18 16:00 | XR ---
EXAMINATION TYPE: XR abdomen 1V DATE OF EXAM: 10/18/2019 3:55 PM CLINICAL HISTORY: Nausea and vomiting TECHNIQUE: Single upright image of the abdomen is obtained. COMPARISON: None. FINDINGS: Lung bases are well aerated. Very mild dextroscoliosis of the lower lumbar spine. Mild to m oderate degenerative change of the spine. Bilateral hip arthroplasties noted. No dilated large or sma ll bowel. No suspicious calcification in the abdomen or pelvis. IMPRESSION: Nonobstructive bowel gas pattern.
[2019-10-18] MEDS ORDERED: ALPRAZolam 0.25 MG TAB PO STA (16:49)
[2019-10-18] MEDS: SODIUM CHLORIDE 0.9% 1,000 ML IV SCH (17:11)
[2019-10-18] MEDS ORDERED: NITROGLYCERIN OINT 1 INCH/GM PACKET TOPICAL SCH (18:00)
[2019-10-18] MEDS ORDERED: MORPHINE SULFATE 4 MG/ML SYRINGE IVP STA (19:31)
[2019-10-18] MEDS ORDERED: HEPARIN SODIUM,PORCINE 5,000 UNIT/ML 1 ML VIAL IV ONE (21:09)
[2019-10-18] MEDS ORDERED: HEPARIN SODIUM,PORCINE 5,000 UNIT/ML 1 ML VIAL IV PRN (21:09)
[2019-10-18] MEDS: NITROGLYCERIN-D5W PMX 50 MG in DEXTROSE/WATER 1 250ML.BAG IV SCH (21:53)
[2019-10-18] MEDS: HEPARIN SOD,PORK IN 0.45% NACL 25,000 UNIT in 0.45% NACL 1 250ML.BAG IV SCH (21:56)
[2019-10-19 04:25] LABS: Cholesterol 108 mg/dL (<200); HDL Cholesterol 45 mg/dL (40-60); LDL Cholesterol,Calculated 51 mg/dL (0-99); Triglycerides 59 mg/dL (<150)
[2019-10-19] MEDS: ASPIRIN 325 MG TAB PO SCH ×2 (09:33→09:34)
[2019-10-19] MEDS: ALPRAZolam 0.25 MG TAB PO PRN (09:33)
[2019-10-19] MEDS: HYDROcodone/APAP 7.5-325MG 1 EACH TAB PO PRN ×3 (09:34→22:16)
--- NOTE | 2019-10-19 12:08 | P.CRDCN ---
History of Present Illness Consult date: 10/19/19 Chief complaint: Chest pain History of present illness: This is a very pleasant 59-year-old gentleman with a past medical history significant for coronary artery disease and prior stenting of the RCA as well as hypertension and dyslipidemia who presented to the hospital complaining of symptoms of nausea and vomiting as well as abdominal and chest discomfort. The patient was in his usual state of health yesterday when he was working on his c ar and started experiencing symptoms of nausea and vomiting and after that he was having chest discomfort. Currently the patient is chest pain-free. No dizziness or lightheadedness, heart racing or fluttering, or syncope. No sweating was associated with chest discomfort. We involved in the care of the patient because of the abnormal troponin. He had similar admission back in April 2019 and at that point she underwent a coronary angiogram which revealed patent stent in the RCA was mild disease involving the left coronary system. Currently the patient is chest pain-free and he is on heparin IV. I advised the patient to undergo coronary angiogram again to rule out severe underlying coronary artery disease but the patient would like to wait until tomorrow. Meanwhile I would continue the current medical regimen including heparin IV. I would also obtain an echocardiogram was Doppler to assess for any wall motion abnormalities. We'll continue following up with the patient. Also I will obtain ultrasound of the abdomen to rule out any intra-abdominal process before we pursue with coronary angiogram Past Medical History Past Medical History: Diabetes Mellitus, Hyperlipidemia, Hypertension, Myocardial Infarction ([place]) Additional Past Medical History / Comment(s): pericarditis, left side carotid stenosis Last Myocardial Infarction Date:: 03/2016 History of Any Multi-Drug Resistant Organisms: None Reported Past Surgical History: Back Surgery, Heart Catheterization With Stent, Orthopedic Surgery Additional Past Surgical History / Comment(s): Biltat hip replacements, 1 cardiac stent, leaky valve per pt. Past Anesthesia/Blood Transfusion Reactions: No Reported Reaction Date of Last Stent Placement:: 03/2016 Past Psychological History: Anxiety, Depression Smoking Status: Current every day smoker Past Alcohol Use History: None Reported Past Drug Use History: None Reported - Past Family History Father History Unknown: Yes Mother Family Medical History: Diabetes Mellitus, Hypertension Additional Family Medical History / Comment(s): passed in from complications r/t DM Medications and Allergies Home Medications Medication Instructions Recorded Confirmed Type ALPRAZolam [Alprazolam] 0.25 mg PO Q6H 03/25/16 05/05/19 History Aspirin EC [Ecotrin Low Dose] 81 mg PO DAILY 03/25/16 05/05/19 History Hydrocodone/Acetaminophen 1 tab PO Q6H PRN 03/25/16 05/05/19 History [Hydrocodone-Acetamin 7.5-325] Clopidogrel [Plavix] 75 mg PO DAILY #30 tab 06/02/18 05/05/19 Rx Furosemide [Lasix] 20 mg PO DAILY 30 Days #30 tab 06/02/18 05/05/19 Rx Nicotine 21Mg/24Hr Patch [Habitrol] 1 patch TRANSDERM DAILY #30 patch 06/02/18 05/05/19 Rx Atorvastatin [Lipitor] 40 mg PO HS 05/05/19 05/05/19 History Lisinopril [Zestril] 2.5 mg PO DAILY 05/05/19 05/05/19 History Metoprolol Tartrate [Lopressor] 50 mg PO DAILY 05/05/19 05/05/19 History Nitroglycerin Sl Tabs [Nitrostat] 0.4 mg PO Q5M PRN 05/05/19 05/05/19 History Levofloxacin [Levaquin] 500 mg PO Q24H tab 05/07/19 Rx Allergies Allergy/AdvReac Type Severity Reaction Status Date / Time cephalexin [From Keflex] Allergy Unknown Verified 10/18/19 13:59 meperidine [From Demerol] Allergy Unknown Verified 10/18/19 13:59 Physical Exam Vitals: Vital Signs Temp Pulse Resp BP Pulse Ox 10/19/19 10:54 81 18 149/72 97 10/19/19 09:35 97 18 152/74 97 10/19/19 09:05 87 18 143/84 97 10/19/19 07:38 96 18 130/74 98 10/19/19 03:28 97.9 F 80 17 121/58 97 10/19/19 01:00 84 14 177/92 10/19/19 00:30 107 H 14 174/81 10/19/19 00:00 90 24 122/56 10/18/19 23:50 89 18 122/56 10/18/19 23:30 88 18 116/58 10/18/19 23:28 18 116/58 10/18/19 23:00 86 18 10/18/19 22:30 88 23 154/57 10/18/19 22:01 92 19 10/18/19 21:02 75 18 180/70 10/18/19 19:00 98.0 F 88 20 169/89 98 10/18/19 17:53 90 20 169/75 96 10/18/19 15:39 85 20 145/69 99 10/18/19 13:40 96.9 F L 71 20 165/75 99 Intake and Output 10/18/19 10/19/19 10/19/19 22:59 06:59 14:59 Intake Total 112.056 Balance 112.056 Intake: Intake, IV Titration 112.056 Amount Heparin Sod,Pork in 0.45% 112.056 NaCl 25,000 unit In 0.45 % NaCl 1 250ml.bag @ 12 UNITS/KG/HR 8.709 mls/hr IV .Q24H [facility] Rx#: [id number] - Constitutional General appearance: no acute distress - Respiratory Respiratory: bilateral: CTA - Cardiovascular Rhythm: regular Heart sounds: normal: S1, S2 Results 10/18/19 13:59 10/18/19 13:59 Cardiac Enzymes 10/18/19 10/18/19 10/18/19 Range/Units 13:59 13:59 20:18 AST 21 (17-59) U/L Troponin I <0.012 0.057 H* (0.000-0.034) ng/mL 10/19/19 Range/Units 02:56 AST (17-59) U/L Troponin I 0.152 H* (0.000-0.034) ng/mL Coagulation 10/18/19 10/19/19 10/19/19 Range/Units 13:59 02:56 09:30 PT 9.7 (9.0-12.0) sec APTT 22.5 44.3 H 36.9 H (22.0-30.0) sec Lipids 10/19/19 Range/Units 02:56 Triglycerides 59 (<150) mg/dL Cholesterol 108 (<200) mg/dL HDL Cholesterol 45 (40-60) mg/dL CBC 10/18/19 Range/Units 13:59 WBC 12.0 H (3.8-10.6) k/uL RBC 4.31 (4.30-5.90) m/uL Hgb 13.0 (13.0-17.5) gm/dL Hct 40.2 (39.0-53.0) % Plt Count 340 (150-450) k/uL Comprehensive Metabolic Panel 10/18/19 Range/Units 13:59 Sodium 137 (137-145) mmol/L Potassium 4.2 (3.5-5.1) mmol/L Chloride 101 (98-107) mmol/L Carbon Dioxide 26 (22-30) mmol/L BUN 32 H (9-20) mg/dL Creatinine 1.06 (0.66-1.25) mg/dL Glucose 199 H (74-99) mg/dL Calcium 10.0 (8.4-10.2) mg/dL AST 21 (17-59) U/L ALT 16 (4-49) U/L Alkaline Phosphatase 70 (38-126) U/L Total Protein 7.6 (6.3-8.2) g/dL Albumin 4.6 (3.5-5.0) g/dL Current Medications Generic Name Dose Route Start Last Admin Trade Name Freq PRN Reason Stop Dose Admin Hydrocodone Bitart/Acetaminophen 1 each 10/19/19 06:55 10/19/19 09:34 Marvell 7.5-325 PO 1 each Q6H PRN Administration Pain Alprazolam 0.25 mg 10/19/19 06:56 10/19/19 09:33 Xanax PO 0.25 mg Q6HR PRN Administration Anxiety Aspirin 325 mg 10/19/19 09:00 10/19/19 09:34 Aspirin PO 325 mg DAILY ESPERANZA Administration Heparin Sodium (Porcine) 0 unit 10/18/19 21:09 10/19/19 10:53 Heparin IV 1,814.25 unit PER PROTOCOL PRN Administration Low PTT Protocol Sodium Chloride 1,000 mls @ 75 mls/hr 10/18/19 15:45 10/18/19 17:11 Saline 0.9% IV 75 mls/hr .[id number] ESPERANZA Administration Nitroglycerin/Dextrose 50 mg/ 250 mls @ 1.5 mls/hr 10/18/19 21:15 10/18/19 21:53 IV Solution IV 5 mcg/min .Q24H ESPERANZA 1.5 mls/hr Administration Protocol 5 MCG/MIN Heparin Sodium/Sodium Chloride 250 mls @ 8.709 mls/hr 10/18/19 21:15 10/19/19 10:48 25,000 unit/ Sodium Chloride IV 14 units/kg/hr .Q24H ESPERANZA 10.161 mls/hr Titration Protocol 12 UNITS/KG/HR Naloxone HCl 0.2 mg 10/18/19 15:41 Narcan IV Q2M PRN Opioid Reversal Nitroglycerin 0.4 mg 10/18/19 15:45 Nitrostat SUBLINGUAL Q5M PRN Chest Pain Intake and Output 10/18/19 10/19/19 10/19/19 22:59 06:59 14:59 Intake Total 112.056 Balance 112.056 Intake: Intake, IV Titration 112.056 Amount Heparin Sod,Pork in 0.45% 112.056 NaCl 25,000 unit In 0.45 % NaCl 1 250ml.bag @ 12 UNITS/KG/HR 8.709 mls/hr IV .Q24H [facility] Rx#: [id number] 10/18/19 13:59 10/18/19 13:59 Assessment and Plan Assessment: Assessment Mildly abnormal cardiac enzymes Coronary artery disease and prior stenting of the RCA Hypertension Dyslipidemia Chest discomfort Abdominal discomfort Plan Continue current medical regimen Rule out intra-abdominal process. We'll obtain an ultrasound of the abdomen If there is no evidence of any acute abdominal process I would consider proceeding with coronary angiogram Follow-up with the patient
[2019-10-19] MEDS ORDERED: ALPRAZolam 0.25 MG TAB PO PRN (15:13)
[2019-10-19] MEDS ORDERED: NITROGLYCERIN SL TABS 0.4 MG TAB SUBLINGUAL PRN (15:13)
[2019-10-19] MEDS ORDERED: SODIUM CHLORIDE 0.9% 1,000 ML in EMPTY BAG 1 BAG IV ONE (15:13)
[2019-10-19] MEDS: ALPRAZolam 0.5 MG TAB PO PRN ×2 (16:11→22:19)
[2019-10-19] MEDS: SODIUM CHLORIDE 0.9% 1,000 ML IV SCH (16:12)
[2019-10-19 17:14] LABS: Glucose,Whole Blood 137 mg/dL (75-99)
[2019-10-19 20:08] LABS: Glucose,Whole Blood 186 mg/dL (75-99)
--- NOTE | 2019-10-19 22:32 | P.HPIM ---
History of Present Illness H&P Date: 10/19/19 Please note that on 10/19/2019 computer system was down for several hours which led to delay in dictation. Patient was seen and examined on time Johnson Bolton is a 59-year-old male who presented to [facility] emergency room, with symptoms of chest discomfort, nausea vomiting abdominal pain and diaphoresis, patient stated that his symptoms were similar to a previous admission in April 2019 at that time he underwent cardiac catheterization and had evidence of significant stenosis in the RCA and underwent angioplasty and stent placement . Today , he was evaluated in the emergency room his troponin level was slightly elevated, he was admitted to telemetry floor for further evaluation and treatment, cardiology consultation was requested. Patient has a known history of hypertension, hyperlipidemia, diabetes mellitus, coronary artery disease was previous history of myocardial infarction he also has known history of left sided carotid stenosis. Past Medical History Past Medical History: Diabetes Mellitus, Hyperlipidemia, Hypertension, Myocardial Infarction ([place]) Additional Past Medical History / Comment(s): pericarditis, left side carotid stenosis Last Myocardial Infarction Date:: 03/2016 History of Any Multi-Drug Resistant Organisms: None Reported Past Surgical History: Back Surgery, Heart Catheterization With Stent, Orthopedic Surgery Additional Past Surgical History / Comment(s): Biltat hip replacements, 1 cardiac stent, leaky valve per pt. Past Anesthesia/Blood Transfusion Reactions: No Reported Reaction Date of Last Stent Placement:: 03/2016 Past Psychological History: Anxiety, Depression Smoking Status: Current every day smoker Past Alcohol Use History: None Reported Past Drug Use History: None Reported - Past Family History Father History Unknown: Yes Mother Family Medical History: Diabetes Mellitus, Hypertension Additional Family Medical History / Comment(s): passed in ' from complications r/t DM Medications and Allergies Home Medications Medication Instructions Recorded Confirmed Type ALPRAZolam [Alprazolam] 0.25 mg PO Q6H 03/25/16 10/19/19 History Aspirin EC [Ecotrin Low Dose] 81 mg PO DAILY 03/25/16 10/19/19 History Clopidogrel [Plavix] 75 mg PO DAILY #30 tab 06/02/18 10/19/19 Rx Furosemide [Lasix] 20 mg PO DAILY 30 Days #30 tab 06/02/18 10/19/19 Rx Metoprolol Tartrate [Lopressor] 50 mg PO BID 05/05/19 10/19/19 History Nitroglycerin Sl Tabs [Nitrostat] 0.4 mg PO Q5M PRN 05/05/19 10/19/19 History Atorvastatin Calcium [Lipitor] 80 mg PO HS 10/19/19 10/19/19 History HYDROcodone/APAP 10-325MG [[place] 1 tab PO Q6H PRN 10/19/19 10/19/19 History 10-325] metFORMIN HCL 1,000 mg PO BID 10/19/19 10/19/19 History Allergies Allergy/AdvReac Type Severity Reaction Status Date / Time cephalexin [From Keflex] Allergy Unknown Verified 10/19/19 14:32 meperidine [From Demerol] Allergy Unknown Verified 10/19/19 14:32 Physical Exam Vitals: Vital Signs Temp Pulse Pulse Resp BP BP Pulse Ox 10/19/19 20:00 97.8 F 82 18 151/79 98 10/19/19 16:46 98.2 F 71 18 144/79 98 10/19/19 12:06 100 18 152/84 97 10/19/19 10:54 81 18 149/72 97 10/19/19 09:35 97 18 152/74 97 10/19/19 09:05 87 18 143/84 97 10/19/19 07:38 96 18 130/74 98 10/19/19 03:28 97.9 F 80 17 121/58 97 10/19/19 01:00 84 14 177/92 10/19/19 00:30 107 H 14 174/81 10/19/19 00:00 90 24 122/56 10/18/19 23:50 89 18 122/56 10/18/19 23:30 88 18 116/58 10/18/19 23:28 18 116/58 10/18/19 23:00 86 18 10/18/19 22:30 88 23 154/57 Intake and Output 10/19/19 10/19/19 10/19/19 06:59 14:59 22:59 Intake Total 112.056 Balance 112.056 Intake: Intake, IV Titration 112.056 Amount Heparin Sod,Pork in 0.45% 112.056 NaCl 25,000 unit In 0.45 % NaCl 1 250ml.bag @ 12 UNITS/KG/HR 8.709 mls/hr IV .Q24H [facility] Rx#: [id number] In general patient is alert and oriented 3 in no apparent distress HEENT head normocephalic and atraumatic Neck is supple no JVD no goiter no lymphadenopathy Chest exam reveals a few scattered crackles bilaterally no wheezing Cardiac exam reveals regular heart sounds S1 and S2 no gallops no murmurs Abdomen is soft nontender no organomegaly with normal bowel sounds Extremity exam reveals no edema no cyanosis or clubbing Neurological examination reveals no gross focal deficit Results CBC & Chem 7: 10/18/19 13:59 10/18/19 13:59 Labs: Abnormal Lab Results - Last 24 Hours (Table) 10/19/19 10/19/19 10/19/19 Range/Units 02:56 02:56 09:30 APTT 44.3 H 36.9 H (22.0-30.0) sec POC Glucose (mg/dL) (75-99) mg/dL Troponin I 0.152 H* (0.000-0.034) ng/mL 10/19/19 10/19/19 10/19/19 Range/Units 15:56 17:13 20:06 APTT 58.2 H (22.0-30.0) sec POC Glucose (mg/dL) 137 H 186 H (75-99) mg/dL Troponin I (0.000-0.034) ng/mL Assessment and Plan Plan: 1. Chest discomfort with nausea vomiting and diaphoresis with slight elevation in troponin level patient is admitted to telemetry floor cardiology consultation was requested 2. Abdominal pain improved at this time, if symptoms not resolving in a.m. we will proceed with further evaluation of the abdomen. 3. Underlying history of hypertension 4. Underlying history of hyperlipidemia 5. Underlying history of diabetes Mellitus 6. Underlying history of coronary artery disease with history of myocardial infarction in the past 7. Underlying history of carotid stenosis At this time patient is admitted to telemetry floor cardiology consultation was requested Lanese to proceed with cardiac catheterization tomorrow Will reassess in a.m.
[2019-10-20] MEDS: SODIUM CHLORIDE 0.9% 1,000 ML IV SCH ×4 (00:29→14:26)
[2019-10-20] MEDS: HEPARIN SOD,PORK IN 0.45% NACL 25,000 UNIT in 0.45% NACL 1 250ML.BAG IV SCH (00:30)
[2019-10-20] MEDS: NITROGLYCERIN-D5W PMX 50 MG in DEXTROSE/WATER 1 250ML.BAG IV SCH (00:32)
[2019-10-20] MEDS ORDERED: ONDANSETRON 4 MG/2 ML VIAL IVP PRN (05:09)
[2019-10-20] MEDS ORDERED: HYDROmorphone 0.5 MG/0.5 ML SYRINGE IVP STA (05:09)
[2019-10-20] MEDS: METOPROLOL TARTRATE 50 MG TAB PO SCH ×2 (05:22→21:20)
[2019-10-20 05:52] LABS: Glucose,Whole Blood 206 mg/dL (75-99)
[2019-10-20] MEDS ORDERED: ATORVASTATIN 80 MG TAB PO ONE (06:00)
[2019-10-20] MEDS ORDERED: ASPIRIN 325 MG TAB PO ONE (06:00)
[2019-10-20] MEDS ORDERED: LIDOCAINE 1% INJ 10MG/ML (20 ML MDV) ONE (06:43)
[2019-10-20] MEDS ORDERED: fentaNYL (PF) 50 MCG/ML 2 ML AMP ONE (06:43)
[2019-10-20] MEDS ORDERED: LIDOCAINE 1% INJ 10MG/ML (20 ML MDV) SQ ONE (07:04)
[2019-10-20] MEDS: fentaNYL (PF) 50 MCG/ML 2 ML AMP IV ONE ×2 (07:05→07:09)
[2019-10-20] MEDS: MIDAZOLAM 2 MG/2 ML VIAL IV ONE ×2 (07:05→07:09)
[2019-10-20] MEDS ORDERED: hydrALAZINE HCL 20 MG/ML 1 ML VIAL ONE (07:12)
[2019-10-20] MEDS ORDERED: hydrALAZINE HCL 20 MG/ML 1 ML VIAL IV ONE (07:15)
[2019-10-20] MEDS ORDERED: IOPAMIDOL-370 125ML BTL INJ ONE (07:15)
[2019-10-20] MEDS ORDERED: IV FLUID CONTINUATION 800 ML IV ONE (07:15)
[2019-10-20] MEDS ORDERED: RX INFO: IV CONTRAST WAS GIVEN 1 EACH MISC MISCELLANE PRN (07:22)
[2019-10-20] MEDS: ALPRAZolam 0.25 MG TAB PO PRN ×2 (08:17→14:23)
[2019-10-20] MEDS: HYDROcodone/APAP 7.5-325MG 1 EACH TAB PO PRN ×3 (08:17→21:21)
[2019-10-20 08:34] LABS: Glucose,Whole Blood 205 mg/dL (75-99)
[2019-10-20] MEDS: INSULIN ASPART (NovoLOG) 100 UNIT/ML VIAL SQ SCH ×4 (08:34→22:54)
--- NOTE | 2019-10-20 10:01 | CC ---
CARDIAC CATHETERIZATION REPORT DATE OF SERVICE: 10/20/2019 PERFORMING PHYSICIAN: Anderson Young MD. PROCEDURE PERFORMED: 1. Selective right and left coronary angiogram. 2. Left heart catheterization. INDICATION: This is a very pleasant 59-year-old gentleman with history of coronary artery disease and prior stenting of the RCA who was admitted to the hospital with chest discomfort and continues to have ongoing chest discomfort. Because of that, he was brought today to undergo a heart catheterization. APPROACH: Right common femoral artery. COMPLICATION: None. LEVEL OF SEDATION: Moderate with sedation length of 15 minutes. PROCEDURE DESCRIPTION: After obtaining an informed consent, the patient was brought to the cardiac custodial laborer. The right common femoral artery was cannulated using micropuncture technique and a micropuncture wire passed easily, then I placed a 6-Samoan sheath at the right common femoral artery. Selective right and left coronary angiogram performed using JR4 and JL4 catheters. Left heart catheterization was performed using 6-Samoan pigtail catheter. The left heart catheterization was performed using the JR4 which crossed the aortic valve then I did pullback across the valve. The procedure was completed without any complication. SELECTIVE CORONARY ANGIOGRAM: 1. The right coronary artery is a large caliber vessel. It is a dominant vessel. The proximal RCA is angiographically normal. The mid RCA is stented and the stent is patent. The mid RCA distal to the stent appeared to have a lesion in the range of 20%-30%.. Appeared to be unchanged compared to before. The RCA distally is normal and bifurcates into PDA and PLV branches both appeared to be angiographically normal. 2. The left main is angiographically normal it bifurcates into LCX and LAD. 3. The LCX is a large caliber vessel, it is a nondominant vessel. It is a codominant vessel. The left circumflex itself is angiographically normal, it distally bifurcates into PDA and PLV branches, both appeared to be angiographically normal. 4. The LAD. The proximal LAD appeared to be normal. The mid and distal LAD are normal as well. The LAD gives rise into multiple diagonal branches, they are all appeared to be angiographically normal. HEMODYNAMICS: The LVEDP was 16 mmHg without significant gradient across aortic valve. CONCLUSION: 1. Patent stent in the mid RCA. Mild disease involving the RCA distal to the stented segment. 2. Normal left coronary system. 3. Mildly elevated LVEDP. POSTPROCEDURE MANAGEMENT: 1. Medical treatment. 2. Follow up with the patient. GERALD / KARLAN: [id number] /
[2019-10-20 15:15] LABS: Glucose,Whole Blood 144 mg/dL (75-99)
[2019-10-20] MEDS ORDERED: amLODIPine 5 MG TAB PO STA (15:39)
--- NOTE | 2019-10-20 15:40 | US ---
EXAMINATION TYPE: US abdomen complete DATE OF EXAM: 10/20/2019 COMPARISON: CLINICAL HISTORY: pain. chest pain, npo EXAM MEASUREMENTS: Liver Length: 15.7 cm Gallbladder Wall: 0.2 cm CBD: 0.5 cm Spleen: 10.0 cm Right Kidney: 10.2 x 5.7 x 6.7 cm Left Kidney: 11.2 x 4.7 x 5.6 cm Pancreas: Main pancreatic duct = 3.3 mm. Limited visualization of tail due to overlying bowel gas Liver: wnl Gallbladder: Fold seen. Limited visualization of fundus due to overlying bowel gas Evidence for sonographic Reina's sign: neg CBD: wnl Spleen: wnl Right Kidney: No hydronephrosis or masses seen. Prominent pyramids Left Kidney: No hydronephrosis or masses seen Upper IVC: wnl Abd Aorta: Limited visualization of distal Aorta due to overlying bowel gas The liver is homogenous. The intrahepatic portion of the IVC and proximal abdominal aorta are within normal limits. There is no evidence of cholelithiasis. Common bile duct is unremarkable. The visu alized portions of the pancreas are homogenous. The spleen is unremarkable. Kidneys are symmetric a nd free of hydronephrosis. No renal lesions are seen. IMPRESSION: 1. No sonographic evidence of cholelithiasis or acute cholecystitis. 2. Main pancreatic duct is slightly prominent. MRCP could be considered for further evaluation.
[2019-10-20 16:57] LABS: Glucose,Whole Blood 194 mg/dL (75-99)
--- NOTE | 2019-10-20 18:00 | ECHOF ---
Referral Reason:NSTEMI MEASUREMENTS -------- HEIGHT: 172.7 cm WEIGHT: 72.6 kg BP: 149/72 IVSd: 1.2 cm (0.6 - 1.1) LVIDd: 4.4 cm (3.9 - 5.3) LVPWd: 1.1 cm (0.6 - 1.1) IVSs: 1.6 cm LVIDs: 2.9 cm LVPWs: 1.6 cm LA Diam: 3.7 cm (2.7 - 3.8) RVIDd: 3.1 cm (< 3.3) LAESV Index (A-L): 21.78 ml/m Ao Diam: 3.0 cm (2.0 - 3.7) AV Cusp: 2.1 cm (1.5 - 2.6) EPSS: 0.3 cm MV E Jake: 1.19 m/s MV DecT: 178 ms MV A Jake: 0.96 m/s MV E/A Ratio: 1.24 AR PHT: 354 ms MV EF SLOPE: 113.75 mm/s (70 - 150) MV EXCURSION: 15.29 mm (> 18.000) FINDINGS -------- Sinus rhythm. This was a technically good study. The left ventricular size is normal. There is borderline concentric left ventricular hypertrophy. Overall left ventricular systolic function is normal with, an EF between 60 - 65 %. The right ventricle is normal in size. Normal LA size by volume 22+/-6 ml/m2. The right atrium is normal in size. Interatrial and interventricular septum intact. There is mild aortic valve sclerosis. There is mild aortic regurgitation. The mitral valve leaflets are mildly thickened. Mild mitral annular calcification present. Mild m itral regurgitation is present. Trace tricuspid regurgitation present. Trace/mild (physiologic) pulmonic regurgitation. The aortic root size is normal. Normal inferior vena cava with normal inspiratory collapse consistent with estimated right atrial pre ssure of 5 mmHg. There is no pericardial effusion. CONCLUSIONS -------- 1. Sinus rhythm. 2. This was a technically good study. 3. The left ventricular size is normal. 4. There is borderline concentric left ventricular hypertrophy. 5. Overall left ventricular systolic function is normal with, an EF between 60 - 65 %. 6. The right ventricle is normal in size. 7. Normal LA size by volume 22+/-6 ml/m2. 8. The right atrium is normal in size. 9. Interatrial and interventricular septum intact. 10. There is mild aortic valve sclerosis. 11. There is mild aortic regurgitation. 12. The mitral valve leaflets are mildly thickened. 13. Mild mitral annular calcification present. 14. Mild mitral regurgitation is present. 15. Trace tricuspid regurgitation present. 16. Trace/mild (physiologic) pulmonic regurgitation. 17. The aortic root size is normal. 18. Normal inferior vena cava with normal inspiratory collapse consistent with estimated right atrial pressure of 5 mmHg. 19. There is no pericardial effusion. PARTS DEPARTMENT SUPERVISOR: Minoo Gregorio RDCS
[2019-10-20 20:23] LABS: Glucose,Whole Blood 135 mg/dL (75-99)
[2019-10-20] MEDS ORDERED: ATORVASTATIN 80 MG TAB PO SCH (21:00)
[2019-10-20] MEDS: ALPRAZolam 0.5 MG TAB PO PRN (21:20)
[2019-10-21 06:31] LABS: Glucose,Whole Blood 146 mg/dL (75-99)
[2019-10-21] MEDS: ALPRAZolam 0.25 MG TAB PO PRN ×2 (06:31→12:06)
[2019-10-21] MEDS: HYDROcodone/APAP 7.5-325MG 1 EACH TAB PO PRN ×2 (06:31→12:06)
[2019-10-21] MEDS: INSULIN ASPART (NovoLOG) 100 UNIT/ML VIAL SQ SCH ×2 (06:32→12:06)
[2019-10-21 06:53] LABS: Basophils % (A) 0 %; Eosinophils # (A) 0.3 k/uL (0-0.7); Eosinophils % (A) 3 %; HCT 33.4 % (39.0-53.0); HGB 11.4 gm/dL (13.0-17.5); Lymphocytes # (A) 2.5 k/uL (1.0-4.8); Lymphocytes % (A) 27 %; MCH 31.9 pg (25.0-35.0); MCHC 34.2 g/dL (31.0-37.0); MCV 93.2 fL (80.0-100.0); Mean Platelet Volume 7.9; Monocytes # (A) 0.5 k/uL (0-1.0); Monocytes % (A) 5 %; Neutrophils # (A) 5.8 k/uL (1.3-7.7); Neutrophils % (A) 63 %; Platelet Count 260 k/uL (150-450); RBC 3.58 m/uL (4.30-5.90); RDW 13.3 % (11.5-15.5); WBC 9.3 k/uL (3.8-10.6)
[2019-10-21 06:56] LABS: African American GFR (CKD) >90 (>60 ml/min/1.73 sqM); Anion Gap 6 mmol/L; Blood Urea Nitrogen 20 mg/dL (9-20); Calcium 8.8 mg/dL (8.4-10.2); Carbon Dioxide 25 mmol/L (22-30); Chloride 105 mmol/L (98-107); Glucose 146 mg/dL (74-99); Non-African American GFR(CKD) >90 (>60 ml/min/1.73 sqM); Potassium 3.9 mmol/L (3.5-5.1); Sodium 136 mmol/L (137-145)
[2019-10-21 08:19] VITALS: RESP 20
[2019-10-21] MEDS: METOPROLOL TARTRATE 50 MG TAB PO SCH (09:06)
[2019-10-21 11:31] VITALS: BP 145/72; PULSE 58; TEMP 97.9
[2019-10-21 11:50] LABS: Glucose,Whole Blood 128 mg/dL (75-99)
--- NOTE | 2019-10-21 13:48 | P.PN ---
Subjective Progress Note Date: 10/20/19 Johnson Bolton is a 59-year-old male who presented to [facility] emergency room, with symptoms of chest discomfort, nausea vomiting abdominal pain and diaphoresis, patient stated that his symptoms were similar to a previous admission in April 2019 at that time he underwent cardiac cat heterization and had evidence of significant stenosis in the RCA and underwent angioplasty and stent placement . Today , he was evaluated in the emergency room his troponin level was slightly elevated, he was admitted to telemetry floor for further evaluation and treatment, cardiology consultation was requested. Patient has a known history of hypertension, hyperlipidemia, diabetes mellitus, coronary artery disease was previous history of myocardial infarction he also has known history of left sided carotid stenosis. On 10/20 2019 patient was seen and examined on the telemetry floor he is alert and oriented 3 in no apparent distress he is still complaining of epigastric discomfort otherwise he denies any complaints there is no fever or chills no headache or dizziness no chest pain no shortness of breath no cough no nausea or vomiting no diarrhea no burning with urination no frequency or urgency and no hematuria Objective - Vital Signs Vital signs: Vital Signs Temp 98.1 F 10/21/19 08:00 Pulse 80 10/21/19 08:00 Resp 20 10/21/19 08:00 BP 145/67 10/21/19 08:00 Pulse Ox 97 10/21/19 08:00 Intake & Output 10/20/19 10/21/19 10/21/19 18:59 06:59 18:59 Intake Total 1585 480 Output Total 600 300 Balance 985 -300 480 Weight 64 kg Intake: IV 1225 Sodium Chloride 0.9% 1, 525 000 ml @ 75 mls/hr IV . [id number] [facility] Rx#:[id number] Oral 360 480 Output: Urine 600 300 Other: Voiding Method Urinal Urinal Toilet Urinal # Voids 0 2 - Exam In general patient is alert and oriented 3 in no apparent distress HEENT head normocephalic and atraumatic Neck is supple no JVD no goiter no lymphadenopathy Chest exam reveals a few scattered crackles bilaterally no wheezing Cardiac exam reveals regular heart sounds S1 and S2 no gallops no murmurs Abdomen is soft nontender no organomegaly with normal bowel sounds Extremity exam reveals no edema no cyanosis or clubbing Neurological examination reveals no gross focal deficit - Labs CBC & Chem 7: 10/21/19 06:08 10/21/19 06:08 Labs: Abnormal Lab Results - Last 24 Hours (Table) 10/20/19 10/20/19 10/20/19 Range/Units 15:13 16:49 20:22 RBC (4.30-5.90) m/uL Hgb (13.0-17.5) gm/dL Hct (39.0-53.0) % Sodium (137-145) mmol/L Glucose (74-99) mg/dL POC Glucose (mg/dL) 144 H 194 H 135 H (75-99) mg/dL 10/21/19 10/21/19 10/21/19 Range/Units 06:08 06:08 06:29 RBC 3.58 L (4.30-5.90) m/uL Hgb 11.4 L (13.0-17.5) gm/dL Hct 33.4 L (39.0-53.0) % Sodium 136 L (137-145) mmol/L Glucose 146 H (74-99) mg/dL POC Glucose (mg/dL) 146 H (75-99) mg/dL Assessment and Plan Plan: 1. Chest discomfort with nausea vomiting and diaphoresis with slight elevation in troponin level patient is admitted to telemetry floor cardiology consultation was requested 2. Abdominal pain ultrasound of the abdomen ordered will follow closely 3. Underlying history of hypertension 4. Underlying history of hyperlipidemia 5. Underlying history of diabetes Mellitus 6. Underlying history of coronary artery disease with history of myocardial infarction in the past 7. Underlying history of carotid stenosis At this time patient is admitted to telemetry floor cardiology consultation was requested Lanese to proceed with cardiac catheterization tomorrow Will reassess in a.m.
[2019-10-21] MEDS ORDERED: LOSARTAN 25 MG TAB PO SCH (14:00)
[2019-10-21 14:01] LABS: Hemoglobin A1C 6.7 % (4.0-6.0)
--- NOTE | 2019-10-21 14:17 | P.DS ---
Providers Date of admission: 10/19/19 13:08 Expected date of discharge: 10/21/19 Attending physician: Ayush Reeves Consults: 10/18/19 15:46 Consult Physician Urgent Consulting Provider: Anderson Young Consult Reason/Comments: cp Do you want consulting provider notified?: Yes Primary care physician: Ayush Lala [facility] Course: Diagnosis on discharge: 1. Chest discomfort with nausea vomiting and diaphoresis with slight elevation in troponin level patient is admitted to telemetry floor cardiology consultation was requested 2. Abdominal pain improved at this time, if symptoms not resolving in a.m. we will proceed with further evaluation of the abdomen. 3. Underlying history of hypertension 4. Underlying history of hyperlipidemia 5. Underlying history of diabetes Mellitus 6. Underlying history of coronary artery disease with history of myocardial infarction in the past 7. Underlying history of carotid stenosis 8. Slight enlargement in the pancreatic duct, recommendation for MRCP this will be arranged as outpatient Hospital course: Johnson Bolton is a 59-year-old male who presented to [facility] emergency room, with symptoms of chest discomfort, nausea vomiting abdominal pain and diaphoresis, patient stated that his symptoms were similar to a previous admission in April 2019 at that time he underwent cardiac catheterization and had evidence of significant stenosis in the RCA and underwent angioplasty and stent placement . Today , he was evaluated in the emergency room his troponin level was slightly elevated, he was admitted to telemetry floor for further evaluation and treatment, cardiology consultation was requested. Patient has a known history of hypertension, hyperlipidemia, diabetes mellitus, coronary artery disease was previous history of myocardial infarction he also has known history of left sided carotid stenosis. On 10/20 2019 patient was seen and examined on the telemetry floor he is alert and oriented 3 in no apparent distress he is still complaining of epigastric discomfort otherwise he denies any complaints there is no fever or chills no headache or dizziness no chest pain no shortness of breath no cough no nausea or vomiting no diarrhea no burning with urination no frequency or urgency and no hematuria On 10/21/2019 patient was seen and examined on the telemetry floor he is alert and oriented 3 in no apparent distress there is no fever or chills no headache or dizziness no chest pain no shortness of breath no cough no abdominal pain no nausea or vomiting no diarrhea no burning was urination no frequency or urgency no hematuria. Patient feels well he was cleared by cardiology to be discharged home. Ultrasound of the abdomen revealed normal gallbladder, however there was possibility of enlarged pancreatic duct, recommendation were for MRCP which will be arranged as outpatient. Patient will be seen in our office within one week for further evaluation Patient Condition at Discharge: Fair Plan - Discharge Summary New Discharge Prescriptions: New Losartan [Cozaar] 25 mg PO DAILY tab Continue Aspirin EC [Ecotrin Low Dose] 81 mg PO DAILY ALPRAZolam [Alprazolam] 0.25 mg PO Q6H Clopidogrel [Plavix] 75 mg PO DAILY #30 tab Furosemide [Lasix] 20 mg PO DAILY 30 Days #30 tab Nitroglycerin Sl Tabs [Nitrostat] 0.4 mg PO Q5M PRN PRN Reason: Chest Pain Metoprolol Tartrate [Lopressor] 50 mg PO BID metFORMIN HCL 1,000 mg PO BID HYDROcodone/APAP 10-325MG [Dutton 10-325] 1 tab PO Q6H PRN PRN Reason: Pain Atorvastatin Calcium [Lipitor] 80 mg PO HS Discharge Medication List ALPRAZolam [Alprazolam] 0.25 mg PO Q6H 03/25/16 [History] Aspirin EC [Ecotrin Low Dose] 81 mg PO DAILY 03/25/16 [History] Clopidogrel [Plavix] 75 mg PO DAILY #30 tab 06/02/18 [Rx] Furosemide [Lasix] 20 mg PO DAILY 30 Days #30 tab 06/02/18 [Rx] Metoprolol Tartrate [Lopressor] 50 mg PO BID 05/05/19 [History] Nitroglycerin Sl Tabs [Nitrostat] 0.4 mg PO Q5M PRN 05/05/19 [History] Atorvastatin Calcium [Lipitor] 80 mg PO HS 10/19/19 [History] HYDROcodone/APAP 10-325MG [Dutton 10-325] 1 tab PO Q6H PRN 10/19/19 [History] metFORMIN HCL 1,000 mg PO BID 10/19/19 [History] Losartan [Cozaar] 25 mg PO DAILY tab 10/21/19 [Rx] Follow up Appointment(s)/Referral(s): Anderson Young MD [STAFF PHYSICIAN] - 1 Week Ayush Reeves MD [Primary Care Provider] - 1-2 days Patient Instructions/Handouts: *Surgery [facility] - After Heart Catheterization - Business Services Manager Instructions, Heart Healthy Diet (DC)
--- NOTE | 2019-10-21 15:26 | P.PN ---
Subjective Progress Note Date: 10/21/19 This is a pleasant 59-year-old gentleman with known history of coronary artery disease and prior stenting of the RCA as well as hypertension, hyperlipidemia, who presented to the hospital with symptoms of nausea and vomiting as well as chest discomfort. Patient underwent a cardiac catheterization which revealed a patent stent in the mid RCA, mild disease involving the RCA distal to the stented segment, normal left coronary system, mildly elevated LVEDP. Medical therapy advised. Patient was seen and examined this morning up ambulating in his room, denied any chest discomfort, breathing was stable. Denied any nausea. I pressure stable 140/70 with a heart rate in the 50s, 96% on room air. Objective - Vital Signs Vital signs: Vital Signs Temp 97.9 F 10/21/19 11:30 Pulse 58 L 10/21/19 11:30 Resp 20 10/21/19 11:30 BP 145/72 10/21/19 11:30 Pulse Ox 96 10/21/19 11:30 Intake & Output 10/20/19 10/21/19 10/21/19 18:59 06:59 18:59 Intake Total 1585 960 Output Total 600 300 Balance 985 -300 960 Weight 64 kg Intake: IV 1225 Sodium Chloride 0.9% 1, 525 000 ml @ 75 mls/hr IV . [id number] [facility] Rx#:[id number] Oral 360 960 Output: Urine 600 300 Other: Voiding Method Urinal Urinal Toilet Urinal # Voids 0 2 2 - Exam PHYSICAL EXAMINATION: GENERAL: 59-year-old gentleman in no acute distress at the time of my examination HEENT: Head is atraumatic, normocephalic. Pupils equal, round. Sclera anicteric. Conjunctiva are clear. Mucous membranes of the mouth are moist. Neck is supple. There is no elevated jugular venous pressure.] bruit is heard. HEART EXAMINATION: Heart S1, S2 normal. No murmur or gallop heard. CHEST EXAMINATION: Lungs are clear to auscultation and precussion. No chest wall tenderness is noted on palpation or with deep breathing. ABDOMEN: Soft, nontender. Bowel sounds are heard. No organomegaly noted. EXTREMITIES: 2+ peripheral pulses with no evidence of peripheral edema and no calf tenderness noted. Right groin soft, no evidence of any hematoma. NEUROLOGIC patient is awake, alert and oriented ?-3. . - Labs CBC & Chem 7: 10/21/19 06:08 10/21/19 06:08 Labs: Abnormal Lab Results - Last 24 Hours (Table) 10/20/19 10/20/19 10/21/19 Range/Units 16:49 20:22 06:08 RBC (4.30-5.90) m/uL Hgb (13.0-17.5) gm/dL Hct (39.0-53.0) % Sodium (137-145) mmol/L Glucose (74-99) mg/dL POC Glucose (mg/dL) 194 H 135 H (75-99) mg/dL Hemoglobin A1c 6.7 H (4.0-6.0) % 10/21/19 10/21/19 10/21/19 Range/Units 06:08 06:08 06:29 RBC 3.58 L (4.30-5.90) m/uL Hgb 11.4 L (13.0-17.5) gm/dL Hct 33.4 L (39.0-53.0) % Sodium 136 L (137-145) mmol/L Glucose 146 H (74-99) mg/dL POC Glucose (mg/dL) 146 H (75-99) mg/dL Hemoglobin A1c (4.0-6.0) % 10/21/19 Range/Units 11:49 RBC (4.30-5.90) m/uL Hgb (13.0-17.5) gm/dL Hct (39.0-53.0) % Sodium (137-145) mmol/L Glucose (74-99) mg/dL POC Glucose (mg/dL) 128 H (75-99) mg/dL Hemoglobin A1c (4.0-6.0) % Assessment and Plan Plan: Assessment and plan #1 mildly abnormal cardiac enzymes, status post cardiac catheterization which revealed a patent stent in the RCA #2 coronary artery disease with prior RCA stenting #3 hypertension #4 hyperlipidemia #5 abdominal discomfort with associated nausea and vomiting Plan Ultrasound of the abdomen did not reveal any sonographic evidence of cholelithiasis or acute cholecystitis. Main pancreatic duct was slightly prominent. From cardiology's perspective, the patient may be able to be discharged home today, we'll make him a follow-up appointment to see Dr. Solomon in the office post discharge. DNP note has been reviewed, I agree with a documented findings and plan of care. Patient was seen and examined.
== END 2019-10-21 16:45 | disposition home or self-care (01) | DRG 287 ==
LOC: EC 13:34 → 3SCARD 15:46 → OBSVTOIN 10-19 13:08 → 3SCARD 10-19 17:03
PROVIDERS: ADMIT Internal Medicine; ATTEND Internal Medicine
PROC: B2111ZZ Fluoroscopy of Multiple Coronary Arteries using Low Osmolar Contrast (ICD-10-PCS; principal; 2019-10-20 07:30)
PROC: 4A023N7 Measurement of Cardiac Sampling and Pressure, Left Heart, Percutaneous Approach (ICD-10-PCS; principal; 2019-10-20 07:30)
DX: R07.89 Other chest pain (principal); E78.5 Hyperlipidemia, unspecified; E11.9 Type 2 diabetes mellitus without complications; F17.200 Nicotine dependence, unspecified, uncomplicated; F32.9 Major depressive disorder, single episode, unspecified; F41.9 Anxiety disorder, unspecified; I10 Essential (primary) hypertension; R74.8 Abnormal levels of other serum enzymes; I65.22 Occlusion and stenosis of left carotid artery; R10.9 Unspecified abdominal pain; I25.10 Atherosclerotic heart disease of native coronary artery without angina pectoris; Z96.643 Presence of artificial hip joint, bilateral; I25.2 Old myocardial infarction; Z11.59 Encounter for screening for other viral diseases; Z79.02 Long term (current) use of antithrombotics/antiplatelets; Z79.82 Long term (current) use of aspirin; Z79.84 Long term (current) use of oral hypoglycemic drugs; Z79.899 Other long term (current) drug therapy; Z88.1 Allergy status to other antibiotic agents; Z88.5 Allergy status to narcotic agent; Z88.8 Allergy status to other drugs, medicaments and biological substances; Z95.5 Presence of coronary angioplasty implant and graft; Z98.890 Other specified postprocedural states; Z83.3 Family history of diabetes mellitus; Z82.49 Family history of ischemic heart disease and other diseases of the circulatory system
CPT/HCPCS: 36415; 71046; 74018; 76700; 80048; 80053; 80061; 81001; 82150; 83036; 83605; 83690; 83735; 84484; 85025; 85610; 85730; 87635; 93005; 93306; 93458; 96360; 96361; 96365; 96366; 96368; 96375; 96376; 99285

== ENCOUNTER → 2019-11-07 | Outpatient (CLI) | payer MEDICARE, OTHER ==
--- NOTE | 2019-11-07 11:05 | MR ---
MRCP History: Dilated pancreatic duct Multiplanar multisequence imaging through the abdomen with three-dimensional reconstructions through the biliary system. Correlation to ultrasound 10/20/2019, CT 05/05/2019 Multiple T2 bright foci are scattered within the liver which are statistically likely to represent cy sts. Gallbladder is unremarkable. At the head of the pancreas in the uncinate osseous region there is a multilocular cystic appearance which is more conspicuous than on CT, lesion approximately 2 cm in greatest transverse dimension with T2 low signal, T2 bright signal, there is prominence of the pancre atic duct. No filling defect identified within the biliary ducts. Common bile duct is not dilated. The adrenal glands are unremarkable. There is no ascites. No retroperitoneal adenopathy. Kidneys and spleen are within normal limits. There is no bowel obstruction. Lung bases are clear. IMPRESSION: Findings may represent serous cystadenoma of the pancreas, mucinous cystic neoplasm of th e pancreas or intraductal papillary mucinous tumor, follow-up to assess is recommended, consider alayna roenterology consult. Consider gastroenterology consult.
== END | disposition home or self-care (01) ==
LOC: RADMRIMAIN 07:26
PROVIDERS: ATTEND Internal Medicine
DX: K86.89 Other specified diseases of pancreas (principal)
CPT/HCPCS: 74181

== ENCOUNTER 2020-10-15 12:25 | Emergency (ER) | payer MEDICARE, OTHER ==
[2020-10-15 12:34] VITALS: RESP 18
[2020-10-15] MEDS ORDERED: SODIUM CHLORIDE 0.9% 1,000 ML IV STA (12:41)
--- NOTE | 2020-10-15 12:48 | ED ---
General Adult HPI - General Chief complaint: Nausea/Vomiting/Diarrhea Stated complaint: Nauseau, vomiting Time Seen by Provider: 10/15/20 12:30 Source: patient, EMS, RN notes reviewed, old records reviewed Mode of arrival: EMS - History of Present Illness Initial comments: This is a 60-year-old male who presents emergency Department with a past medical history significant for pancreatic cyst. Patient states he has pain today in the lower abdomen. Patient states the pain radiates to his back a little. Patient also states he has some right sided lateral chest pain earlier today. Patient denies any difficulty breathing or shortness of breath. Patient denies any fever chills per patient states the pain started this morning. Patient states he did have some nausea and vomited once. Patient had Zofran away and he states he feels better now. Patient denies any diarrhea. Patient denies dysuria hematuria urinary frequency. - Related Data Home Medications Medication Instructions Recorded Confirmed ALPRAZolam [Alprazolam] 0.25 mg PO Q6H PRN 03/25/16 10/15/20 Aspirin EC [Ecotrin Low Dose] 81 mg PO DAILY 03/25/16 10/15/20 Metoprolol Tartrate [Lopressor] 50 mg PO BID 05/05/19 10/15/20 Nitroglycerin Sl Tabs [Nitrostat] 0.4 mg PO Q5M PRN 05/05/19 10/15/20 Atorvastatin Calcium [Lipitor] 80 mg PO HS 10/19/19 10/15/20 HYDROcodone/APAP 10-325MG [Johnson 1 tab PO Q6H PRN 10/19/19 10/15/20 10-325] metFORMIN HCL 1,000 mg PO BID 10/19/19 10/15/20 Pantoprazole Sodium 40 mg PO DAILY 10/15/20 10/15/20 Previous Rx's Medication Instructions Recorded Clopidogrel [Plavix] 75 mg PO DAILY #30 tab 06/02/18 Furosemide [Lasix] 20 mg PO DAILY 30 Days #30 tab 06/02/18 Losartan [Cozaar] 25 mg PO DAILY tab 10/21/19 Allergies Allergy/AdvReac Type Severity Reaction Status Date / Time cephalexin [From Keflex] Allergy Unknown Verified 10/15/20 13:45 codeine Allergy Unknown Verified 10/15/20 13:53 meperidine [From Demerol] Allergy Unknown Verified 10/15/20 13:45 morphine Allergy Unknown Verified 10/15/20 13:53 Review of Systems ROS Statement: Those systems with pertinent positive or pertinent negative responses have been documented in the HPI. ROS Other: All systems not noted in ROS Statement are negative. Past Medical History Past Medical History: Diabetes Mellitus, Hyperlipidemia, Hypertension, Myocardial Infarction ([place]) Additional Past Medical History / Comment(s): pericarditis, left side carotid st enosis Last Myocardial Infarction Date:: 03/2016 History of Any Multi-Drug Resistant Organisms: None Reported Past Surgical History: Back Surgery, Heart Catheterization With Stent, Orthopedic Surgery Additional Past Surgical History / Comment(s): Bilat hip replacements, 1 cardiac stent, leaky valve per pt. Past Anesthesia/Blood Transfusion Reactions: No Reported Reaction Date of Last Stent Placement:: 03/2016 Past Psychological History: Anxiety, Depression Smoking Status: Current every day smoker Past Alcohol Use History: None Reported Past Drug Use History: None Reported - Past Family History Father History Unknown: Yes Mother Family Medical History: Diabetes Mellitus, Hypertension Additional Family Medical History / Comment(s): passed in '08 from complications r/t DM General Exam - General Exam Comments Initial Comments: GENERAL: Patient is well-developed and well-nourished. Patient is nontoxic and well- hydrated and is in mild distress. ENT: Neck is soft and supple. No significant lymphadenopathy is noted. Oropharynx is clear. Moist mucous membranes. Neck has full range of motion without eliciting any pain. EYES: The sclera were anicteric and conjunctiva were pink and moist. Extraocular movements were intact and pupils were equal round and reactive to light. Eyelids were unremarkable. PULMONARY: Unlabored respirations. Good breath sounds bilaterally. No audible rales rhonchi or wheezing was noted. CARDIOVASCULAR: There is a regular rate and rhythm without any murmurs gallops or rubs. ABDOMEN: Patient has some pain in the lower abdominal area more on the left side of the right. Patient has no rebound or guarding SKIN: Skin is clear with no lesions or rashes and otherwise unremarkable. NEUROLOGIC: Patient is alert and oriented x3. Cranial nerves II through XII are grossly intact. Motor and sensory are also intact. Normal speech, volume and content. Symmetrical smile. MUSCULOSKELETAL: Normal extremities with adequate strength and full range of motion. LYMPHATICS: No significant lymphadenopathy is noted PSYCHIATRIC: Normal psychiatric evaluation. Course Vital Signs 10/15/20 10/15/20 12:30 15:08 Pulse Rate 76 84 Respiratory 18 18 Rate Blood Pressure 181/85 120/78 O2 Sat by Pulse 100 98 Oximetry Medical Decision Making - Medical Decision Making EKG shows normal sinus rhythm at 80 bpm WV interval 274 tresses 86 Q-T intervals 422 QTC is 486. Patient's EKG shows no ST segment elevation or depression. Computed tomography scan showed a gallbladder looked somewhat abnormal could be consistent with acute cholecystitis. I went back in the room patient had no tenderness in the upper quadrant. Patient had no abdominal pain whatsoever. I suggested the patient should stay in the emergency department because his abdominal pain was pretty significantly had no femoral cause patient refused to stay his was in agreement patient was discharged. I spoke with Dr. Reeves he is aware the patient is leaving AGAINST MEDICAL ADVICE and he will follow-up with patient. - Lab Data Result diagrams: 10/15/20 13:02 10/15/20 13:02 Lab Results 10/15/20 10/15/20 10/15/20 Range/Units 13:02 13:02 13:02 WBC 13.5 H (3.8-10.6) k/uL RBC 4.01 L (4.30-5.90) m/uL Hgb 12.7 L (13.0-17.5) gm/dL Hct 36.7 L (39.0-53.0) % MCV 91.6 (80.0-100.0) fL MCH 31.6 (25.0-35.0) pg MCHC 34.5 (31.0-37.0) g/dL RDW 13.5 (11.5-15.5) % Plt Count 306 (150-450) k/uL MPV 7.5 Neutrophils % 90 % Lymphocytes % 7 % Monocytes % 2 % Eosinophils % 0 % Basophils % 0 % Neutrophils # 12.1 H (1.3-7.7) k/uL Lymphocytes # 1.0 (1.0-4.8) k/uL Monocytes # 0.3 (0-1.0) k/uL Eosinophils # 0.1 (0-0.7) k/uL Basophils # 0.0 (0-0.2) k/uL PT 10.4 (9.0-12.0) sec INR 1.0 (<1.2) APTT 20.9 L (22.0-30.0) sec Sodium 141 (137-145) mmol/L Potassium 3.9 (3.5-5.1) mmol/L Chloride 105 (98-107) mmol/L Carbon Dioxide 23 (22-30) mmol/L Anion Gap 13 mmol/L BUN 33 H (9-20) mg/dL Creatinine 1.21 (0.66-1.25) mg/dL Est GFR (CKD-EPI)AfAm 74 (>60 ml/min/1.73 sqM) Est GFR (CKD-EPI)NonAf 64 (>60 ml/min/1.73 sqM) Glucose 202 H (74-99) mg/dL Plasma Lactic Acid [place] (0.7-2.0) mmol/L Calcium 9.7 (8.4-10.2) mg/dL Total Bilirubin 0.4 (0.2-1.3) mg/dL AST 19 (17-59) U/L ALT 15 (4-49) U/L Alkaline Phosphatase 72 (38-126) U/L Troponin I (0.000-0.034) ng/mL Total Protein 7.3 (6.3-8.2) g/dL Albumin 4.7 (3.5-5.0) g/dL Amylase 64 (30-110) U/L Lipase 33 (23-300) U/L Urine Color Urine Appearance (Clear) Urine pH (5.0-8.0) Ur Specific [place] (1.001-1.035) Urine Protein (Negative) Urine Glucose (UA) (Negative) Urine Ketones (Negative) Urine Blood (Negative) Urine Nitrite (Negative) Urine Bilirubin (Negative) Urine Urobilinogen (<2.0) mg/dL Ur Leukocyte Esterase (Negative) Urine RBC (0-5) /hpf Hyaline Casts (0-2) /lpf Urine Mucus (None) /hpf 10/15/20 10/15/20 10/15/20 Range/Units 13:02 13:02 15:10 WBC (3.8-10.6) k/uL RBC (4.30-5.90) m/uL Hgb (13.0-17.5) gm/dL Hct (39.0-53.0) % MCV (80.0-100.0) fL MCH (25.0-35.0) pg MCHC (31.0-37.0) g/dL RDW (11.5-15.5) % Plt Count (150-450) k/uL MPV Neutrophils % % Lymphocytes % % Monocytes % % Eosinophils % % Basophils % % Neutrophils # (1.3-7.7) k/uL Lymphocytes # (1.0-4.8) k/uL Monocytes # (0-1.0) k/uL Eosinophils # (0-0.7) k/uL Basophils # (0-0.2) k/uL PT (9.0-12.0) sec INR (<1.2) APTT (22.0-30.0) sec Sodium (137-145) mmol/L Potassium (3.5-5.1) mmol/L Chloride (98-107) mmol/L Carbon Dioxide (22-30) mmol/L Anion Gap mmol/L BUN (9-20) mg/dL Creatinine (0.66-1.25) mg/dL Est GFR (CKD-EPI)AfAm (>60 ml/min/1.73 sqM) Est GFR (CKD-EPI)NonAf (>60 ml/min/1.73 sqM) Glucose (74-99) mg/dL Plasma Lactic Acid [place] 1.8 (0.7-2.0) mmol/L Calcium (8.4-10.2) mg/dL Total Bilirubin (0.2-1.3) mg/dL AST (17-59) U/L ALT (4-49) U/L Alkaline Phosphatase (38-126) U/L Troponin I <0.012 (0.000-0.034) ng/mL Total Protein (6.3-8.2) g/dL Albumin (3.5-5.0) g/dL Amylase (30-110) U/L Lipase (23-300) U/L Urine Color Light Yellow Urine Appearance Clear (Clear) Urine pH 5.0 (5.0-8.0) Ur Specific [place] 1.015 (1.001-1.035) Urine Protein Negative (Negative) Urine Glucose (UA) Trace H (Negative) Urine Ketones Negative (Negative) Urine Blood Trace H (Negative) Urine Nitrite Negative (Negative) Urine Bilirubin Negative (Negative) Urine Urobilinogen <2.0 (<2.0) mg/dL Ur Leukocyte Esterase Negative (Negative) Urine RBC <1 (0-5) /hpf Hyaline Casts 1 (0-2) /lpf Urine Mucus Rare H (None) /hpf Disposition Clinical Impression: Abdominal pain Disposition: HOME SELF-CARE Instructions (If sedation given, give patient instructions): Abdominal Pain (ED) Is patient prescribed a controlled substance at d/c from ED?: No Referrals: Ayush Reeves MD [Primary Care Provider] - 1-2 days Time of Disposition: 16:41
[2020-10-15 13:26] LABS: Albumin 4.7 g/dL (3.5-5.0); Calcium 9.7 mg/dL (8.4-10.2); Potassium 3.9 mmol/L (3.5-5.1); Total Bilirubin 0.4 mg/dL (0.2-1.3); Total Protein 7.3 g/dL (6.3-8.2)
[2020-10-15 13:31] LABS: Basophils % (A) 0 %; Eosinophils # (A) 0.1 k/uL (0-0.7); Eosinophils % (A) 0 %; HCT 36.7 % (39.0-53.0); HGB 12.7 gm/dL (13.0-17.5); Lymphocytes % (A) 7 %; MCH 31.6 pg (25.0-35.0); MCHC 34.5 g/dL (31.0-37.0); MCV 91.6 fL (80.0-100.0); Mean Platelet Volume 7.5; Monocytes # (A) 0.3 k/uL (0-1.0); Monocytes % (A) 2 %; Neutrophils # (A) 12.1 k/uL (1.3-7.7); Neutrophils % (A) 90 %; Platelet Count 306 k/uL (150-450); RBC 4.01 m/uL (4.30-5.90); RDW 13.5 % (11.5-15.5); WBC 13.5 k/uL (3.8-10.6)
[2020-10-15 13:38] LABS: Prothrombin Time 10.4 sec (9.0-12.0)
[2020-10-15] MEDS ORDERED: HYDROmorphone 0.5 MG/0.5 ML SYRINGE IVP STA (13:39)
[2020-10-15 13:52] LABS: Partial Thromboplastin Time 20.9 sec (22.0-30.0)
--- NOTE | 2020-10-15 13:56 | CT ---
EXAMINATION TYPE: CT abdomen pelvis wo con DATE OF EXAM: 10/15/2020 HISTORY: Abdominal pain with nausea and vomiting. CT DLP: 482.2 mGycm. Automated Exposure Control for Dose Reduction was Utilized. TECHNIQUE: CT scan of the abdomen and pelvis is performed without oral or IV contrast. COMPARISON: MRCP November 07, 2019. CTA aorta February 03, 2019 FINDINGS: Within the limitations of a non-contrast study, the following observations are made. LUNG BASES: No significant abnormality is appreciated. LIVER/GB: There are a few Scattered punctate calcifications throughout the liver. Abnormal appearance to the gallbladder with poorly defined wall suggesting new surrounding inflammatory change. No CT de nse intraluminal gallstones. No biliary dilatation. PANCREAS: No significant abnormality is seen. SPLEEN: No significant abnormality is seen. ADRENALS: No significant abnormality is seen. KIDNEYS: No renal stones or hydronephrosis is present bilaterally. BOWEL: Stable small size hiatal hernia. No suspicious small or large bowel dilatation. GENITAL ORGANS: Likely within normal limits prostate. LYMPH NODES: No greater than 1cm abdominal or pelvic lymph nodes are appreciated. OSSEOUS STRUCTURES: Metallic hardware from bilateral hip arthroplasty causes streak artifact limiting evaluation of pelvic structures. Posterior decompression changes lower lumbar spine are redemonstrat ed. OTHER: Moderate to severe calcified plaque of the aorta extends into branch vessels IMPRESSION: New poor Definition of gallbladder wall suggesting fluid and/or inflammatory change. Cons ider acute cholecystitis. Clinical correlation advised.
[2020-10-15 15:09] VITALS: BP 120/78; PULSE 84
[2020-10-15 15:26] LABS: Appearance,Urine Clear (Clear); Bilirubin,Urine Negative (Negative); Blood,Urine Trace (Negative); Color,Urine Light Yellow; Glucose,Urine (UA) Trace (Negative); Hyaline Casts,Urine 1 /lpf (0-2); Ketones,Urine Negative (Negative); Leukocyte Esterase,Urine Negative (Negative); Mucus,Urine Rare /hpf; Nitrite,Urine Negative (Negative); Protein,Urine Negative (Negative); RBC,Urine <1 /hpf (0-5); Specific Gravity,Urine 1.015 (1.001-1.035); Urobilinogen,Urine <2.0 mg/dL (<2.0)
--- NOTE | 2020-10-15 16:25 | XR ---
EXAMINATION TYPE: XR KUB DATE OF EXAM: 10/15/2020 4:02 PM CLINICAL HISTORY: Abdominal pain. TECHNIQUE: Two Upright KUB images of the abdomen are obtained. COMPARISON: CT abdomen and pelvis earlier today. FINDINGS: Scattered gas is seen in non-distended small bowel loops. Gas and fecal material is seen in non-distended colon and rectum. Metallic hardware from bilateral hip arthroplasties partially imaged . Lung bases are clear. No free air is seen. Mild vascular calcification bilateral pelvis. IMPRESSION: Overall nonobstructive bowel gas pattern redemonstrated.
== END 2020-10-15 16:53 | disposition home or self-care (01) ==
LOC: EC 12:25
DX: R10.32 Left lower quadrant pain (principal); R11.2 Nausea with vomiting, unspecified; E11.9 Type 2 diabetes mellitus without complications; I10 Essential (primary) hypertension; E78.5 Hyperlipidemia, unspecified; I21.9 Acute myocardial infarction, unspecified; F17.200 Nicotine dependence, unspecified, uncomplicated; Z79.4 Long term (current) use of insulin
CPT/HCPCS: 36415; 93005; 80053; 82150; 83605; 83690; 84484; 85025; 85610; 85730; 81001; 74018; 74176; 99284; 96374; 96361 ×4; J1170

== ENCOUNTER 2021-01-21 12:16 | Inpatient (IN) | payer MEDICARE, OTHER ==
[2021-01-21] MEDS ORDERED: ONDANSETRON 4 MG/2 ML VIAL IVP STA ×2 (12:45→19:31)
[2021-01-21] MEDS ORDERED: ASPIRIN 81 MG PO STA (12:45)
--- NOTE | 2021-01-21 12:51 | ED ---
General Adult HPI - General Source: patient, family, RN notes reviewed Mode of arrival: ambulatory Limitations: no limitations - History of Present Illness -: hour(s) (6) Location: chest, back Radiation: non-radiation Severity scale (1-10): 10 Quality: aching, constant Consistency: constant Improves with: none Worsens with: none Associated Symptoms: chest pain, diaphoresis, fever/chills, nausea/vomiting Treatments Prior to Arrival: none <Adriano Peters - Last Filed: 01/21/21 19:36> <Cliff Dinero - Last Filed: 01/21/21 23:21> - General Chief complaint: Chest Pain Stated complaint: vomiting, chest pain - History of Present Illness Initial comments: 60-year-old white male, alert and oriented 4, presents to the emergency room with complaints of waking up with nausea and vomiting at 6 AM. Patient states that he has also developed some chest pain and fever and chills. He states that he has had low back pain for over a week but denies injury. He does have a history of degenerative disc disease. He is a pack-a-day smoker. He does have a history of cardiac stents states he was in the ICU in September of last year. Family bedside states that this morning when he was complaining of chest pain he did appear pale. Tried to take his medications this morning but vomited them all up. Also, has been watery and yellow in color. (Adriano Peters) - Related Data Home Medications Medication Instructions Recorded Confirmed ALPRAZolam [Alprazolam] 0.25 mg PO Q6H PRN 03/25/16 01/21/21 Aspirin EC [Ecotrin Low Dose] 81 mg PO DAILY 03/25/16 01/21/21 Metoprolol Tartrate [Lopressor] 50 mg PO BID 05/05/19 01/21/21 Nitroglycerin Sl Tabs [Nitrostat] 0.4 mg PO Q5M PRN 05/05/19 01/21/21 Atorvastatin Calcium [Lipitor] 80 mg PO HS 10/19/19 01/21/21 HYDROcodone/APAP 10-325MG [Coral 1 tab PO Q6H PRN 10/19/19 01/21/21 10-325] metFORMIN HCL 1,000 mg PO BID 10/19/19 01/21/21 Pantoprazole Sodium 40 mg PO DAILY 10/15/20 01/21/21 Dicyclomine [Bentyl] 10 mg PO ACHS 01/21/21 01/21/21 Previous Rx's Medication Instructions Recorded Clopidogrel [Plavix] 75 mg PO DAILY #30 tab 06/02/18 Furosemide [Lasix] 20 mg PO DAILY 30 Days #30 tab 06/02/18 Losartan [Cozaar] 25 mg PO DAILY tab 10/21/19 Allergies Allergy/AdvReac Type Severity Reaction Status Date / Time cephalexin [From Keflex] Allergy Unknown Verified 01/21/21 13:26 codeine Allergy Unknown Verified 01/21/21 13:26 meperidine [From Demerol] Allergy Unknown Verified 01/21/21 13:26 morphine Allergy Unknown Verified 01/21/21 13:26 Review of Systems ROS Other: All systems not noted in ROS Statement are negative. <Adriano Peters - Last Filed: 01/21/21 19:36> ROS Other: All systems not noted in ROS Statement are negative. <Cliff Dinero - Last Filed: 01/21/21 23:21> ROS Statement: Those systems with pertinent positive or pertinent negative responses have been documented in the HPI. Past Medical History Past Medical History: Diabetes Mellitus, Hyperlipidemia, Hypertension, Myocardial Infarction ([place]) Additional Past Medical History / Comment(s): pericarditis, left side carotid stenosis Last Myocardial Infarction Date:: 03/2016 History of Any Multi-Drug Resistant Organisms: None Reported Past Surgical History: Back Surgery, Heart Catheterization With Stent, Orthopedic Surgery Additional Past Surgical History / Comment(s): Bilat hip replacements, 1 cardiac stent, leaky valve per pt. Past Anesthesia/Blood Transfusion Reactions: No Reported Reaction Date of Last Stent Placement:: 03/2016 Past Psychological History: Anxiety, Depression Smoking Status: Current every day smoker Past Alcohol Use History: None Reported Past Drug Use History: None Reported - Past Family History Father History Unknown: Yes Mother Family Medical History: Diabetes Mellitus, Hypertension Additional Family Medical History / Comment(s): passed in from complications r/t DM <Adriano Peters - Last Filed: 01/21/21 19:36> General Exam Limitations: no limitations General appearance: alert, in no apparent distress Head exam: Present: atraumatic, normocephalic, normal inspection Eye exam: Present: normal appearance, PERRL, EOMI. Absent: scleral icterus, conjunctival injection, periorbital swelling ENT exam: Present: normal exam, normal oropharynx, mucous membranes moist, other (Nicotine stained tongue) Neck exam: Present: normal inspection, full ROM. Absent: tenderness, meningismus, lymphadenopathy Respiratory exam: Present: normal lung sounds bilaterally. Absent: respiratory distress, wheezes, rales, rhonchi, stridor, chest wall tenderness, accessory muscle use Cardiovascular Exam: Present: regular rate, normal rhythm, normal heart sounds. Absent: systolic murmur, diastolic murmur, rubs, gallop, clicks GI/Abdominal exam: Present: soft, tenderness (Diffuse), normal bowel sounds. Absent: distended, guarding, rebound, rigid, mass, hernia Extremities exam: Present: normal inspection, full ROM, normal capillary refill. Absent: tenderness, pedal edema, joint swelling, calf tenderness Back exam: Present: normal inspection, full ROM, other (Yellow area of ecchymosis on the left lower flank). Absent: tenderness, CVA tenderness (R), CVA tenderness (L), muscle spasm, paraspinal tenderness Neurological exam: Present: alert, oriented X3, CN II-XII intact Psychiatric exam: Present: normal affect, normal mood Skin exam: Present: warm, intact, normal color, diaphoretic. Absent: rash, cyanosis, erythema, petechiae, pallor, mottled <Adriano Peters - Last Filed: 01/21/21 19:36> Course - Reevaluation(s) Time: 19:35 <Adriano Peters - Last Filed: 01/21/21 19:36> Vital Signs 01/21/21 01/21/21 12:20 16:23 Temperature 98.1 F Pulse Rate 77 76 Respiratory 18 18 Rate Blood Pressure 164/84 149/73 O2 Sat by Pulse 98 98 Oximetry - Reevaluation(s) Reevaluation #1: 01/21/21 19:35 Patient continues to have nausea but states that the Dilaudid has started he started helping his chest pain. CBC is still pending has not been drawn by the nursing staff. Lab was contacted and is sending a criminal investigative agent now. (Gonzalo Peters) EKG Findings - EKG Results: EKG: sinus rhythm (Ventricular rate 74, IA interval 0.150, QRS 0.88, QTc 0.452), not changed from: (10/15/20) <Adriano Peters - Last Filed: 01/21/21 19:36> Medical Decision Making - Lab Data Result diagrams: 01/21/21 12:45 <Adriano Peters - Last Filed: 01/21/21 19:36> - Lab Data Result diagrams: 01/21/21 19:49 01/21/21 12:45 <Cliff Dinero - Last Filed: 01/21/21 23:21> - Medical Decision Making Chest x-ray shows no acute cardiopulmonary process. CT the abdomen and pelvis shows no bowel obstruction. Nursing staff had difficulty obtaining labs therefore his initial troponin was resulted at 1815 and found elevated at 0.112, lactic acid 2.9, potassium is 5.2. I did speak with Dr. Tse who suggested that we start patient on heparin drip, give aspirin, Plavix and a half a m illigram of Dilaudid. Serial troponins were ordered. Second EKG shows ventricular rate of 83, IA interval 0.156, QRS of 0.78, QTC of 0.481. Patient continues to have nausea and a second dose of Zofran was ordered. He did state that the Dilaudid is already started helping with his pain. Patient will be admitted for ACS, nothing by mouth after midnight. Case was discussed with Dr. Dinero. (Adriano Peters) On reevaluation, patient states the pain is completely resolved with Dilaudid. Vital signs remained stable at this time. Repeat EKG showed no signs of acute ischemia. I spoke with Dr. Tse of cardiology over the phone and updated him on the patient's progress. He was in agreement with the plan to restart the patient's beta moisés as well as start him on heparin for his elevated troponin. He appears to have an and STEMI at this time. Patient will be admi tted to telemetry floor for further evaluation. I conveyed this to the patient and he was in agreement with this plan. Repeat troponins are still pending at this time. Also on evaluation of the admission orders placed by my mid-level provider, the patient was incorrectly admitted to cardiology. Cardiology should just be consult to them patient will be admitted to his PCP, Dr. Reeves. I spoke with Dr. Reeves over the phone who accepted the admission. (Cliff Dinero) - Lab Data Lab Results 01/21/21 01/21/21 01/21/21 Range/Units 12:45 12:45 12:45 WBC (3.8-10.6) k/uL RBC (4.30-5.90) m/uL Hgb (13.0-17.5) gm/dL Hct (39.0-53.0) % MCV (80.0-100.0) fL MCH (25.0-35.0) pg MCHC (31.0-37.0) g/dL RDW (11.5-15.5) % Plt Count (150-450) k/uL MPV Neutrophils % % Lymphocytes % % Monocytes % % Eosinophils % % Basophils % % Neutrophils # (1.3-7.7) k/uL Lymphocytes # (1.0-4.8) k/uL Monocytes # (0-1.0) k/uL Eosinophils # (0-0.7) k/uL Basophils # (0-0.2) k/uL PT 10.2 (9.0-12.0) sec INR 0.9 (<1.2) APTT 20.2 L (22.0-30.0) sec Sodium 139 (137-145) mmol/L Potassium 5.2 H (3.5-5.1) mmol/L Chloride 102 (98-107) mmol/L Carbon Dioxide 23 (22-30) mmol/L Anion Gap 14 mmol/L BUN 38 H (9-20) mg/dL Creatinine 1.27 H (0.66-1.25) mg/dL Est GFR (CKD-EPI)AfAm 70 (>60 ml/min/1.73 sqM) Est GFR (CKD-EPI)NonAf 60 (>60 ml/min/1.73 sqM) Glucose 178 H (74-99) mg/dL Lactic Ac Sepsis Rflx Plasma Lactic Acid Seamus (0.7-2.0) mmol/L Calcium 10.2 (8.4-10.2) mg/dL Magnesium 1.5 L (1.6-2.3) mg/dL Total Bilirubin 0.6 (0.2-1.3) mg/dL AST 28 (17-59) U/L ALT 11 (4-49) U/L Alkaline Phosphatase 71 (38-126) U/L Troponin I 0.112 H* (0.000-0.034) ng/mL Total Protein 7.9 (6.3-8.2) g/dL Albumin 5.0 (3.5-5.0) g/dL Urine Color Urine Appearance (Clear) Urine pH (5.0-8.0) Ur Specific [place] (1.001-1.035) Urine Protein (Negative) Urine Glucose (UA) (Negative) Urine Ketones (Negative) Urine Blood (Negative) Urine Nitrite (Negative) Urine Bilirubin (Negative) Urine Urobilinogen (<2.0) mg/dL Ur Leukocyte Esterase (Negative) Urine RBC (0-5) /hpf Urine WBC (0-5) /hpf Ur Squamous Epith Cells (0-4) /hpf Amorphous Sediment (None) /hpf Hyaline Casts (0-2) /lpf Urine Mucus (None) /hpf Coronavirus (PCR) (Not Detectd) 01/21/21 01/21/21 01/21/21 Range/Units 12:46 12:58 16:24 WBC (3.8-10.6) k/uL RBC (4.30-5.90) m/uL Hgb (13.0-17.5) gm/dL Hct (39.0-53.0) % MCV (80.0-100.0) fL MCH (25.0-35.0) pg MCHC (31.0-37.0) g/dL RDW (11.5-15.5) % Plt Count (150-450) k/uL MPV Neutrophils % % Lymphocytes % % Monocytes % % Eosinophils % % Basophils % % Neutrophils # (1.3-7.7) k/uL Lymphocytes # (1.0-4.8) k/uL Monocytes # (0-1.0) k/uL Eosinophils # (0-0.7) k/uL Basophils # (0-0.2) k/uL PT (9.0-12.0) sec INR (<1.2) APTT (22.0-30.0) sec Sodium (137-145) mmol/L Potassium (3.5-5.1) mmol/L Chloride (98-107) mmol/L Carbon Dioxide (22-30) mmol/L Anion Gap mmol/L BUN (9-20) mg/dL Creatinine (0.66-1.25) mg/dL Est GFR (CKD-EPI)AfAm (>60 ml/min/1.73 sqM) Est GFR (CKD-EPI)NonAf (>60 ml/min/1.73 sqM) Glucose (74-99) mg/dL Lactic Ac Sepsis Rflx Plasma Lactic Acid Seamus 2.9 H* (0.7-2.0) mmol/L Calcium (8.4-10.2) mg/dL Magnesium (1.6-2.3) mg/dL Total Bilirubin (0.2-1.3) mg/dL AST (17-59) U/L ALT (4-49) U/L Alkaline Phosphatase (38-126) U/L Troponin I (0.000-0.034) ng/mL Total Protein (6.3-8.2) g/dL Albumin (3.5-5.0) g/dL Urine Color Yellow Urine Appearance Clear (Clear) Urine pH 5.5 (5.0-8.0) Ur Specific [place] 1.025 (1.001-1.035) Urine Protein 1+ H (Negative) Urine Glucose (UA) Trace H (Negative) Urine Ketones 1+ H (Negative) Urine Blood Trace H (Negative) Urine Nitrite Negative (Negative) Urine Bilirubin Negative (Negative) Urine Urobilinogen <2.0 (<2.0) mg/dL Ur Leukocyte Esterase Negative (Negative) Urine RBC 2 (0-5) /hpf Urine WBC 1 (0-5) /hpf Ur Squamous Epith Cells <1 (0-4) /hpf Amorphous Sediment Rare H (None) /hpf Hyaline Casts 3 H (0-2) /lpf Urine Mucus Few H (None) /hpf Coronavirus (PCR) Not Detected (Not Detectd) 01/21/21 01/21/21 01/21/21 Range/Units 17:14 19:49 19:49 WBC 14.6 H (3.8-10.6) k/uL RBC 3.92 L (4.30-5.90) m/uL Hgb 12.5 L (13.0-17.5) gm/dL Hct 37.7 L (39.0-53.0) % MCV 96.2 (80.0-100.0) fL MCH 31.8 (25.0-35.0) pg MCHC 33.0 (31.0-37.0) g/dL RDW 14.7 (11.5-15.5) % Plt Count 315 (150-450) k/uL MPV 8.1 Neutrophils % 90 % Lymphocytes % 7 % Monocytes % 2 % Eosinophils % 0 % Basophils % 0 % Neutrophils # 13.1 H (1.3-7.7) k/uL Lymphocytes # 1.1 (1.0-4.8) k/uL Monocytes # 0.3 (0-1.0) k/uL Eosinophils # 0.1 (0-0.7) k/uL Basophils # 0.0 (0-0.2) k/uL PT (9.0-12.0) sec INR (<1.2) APTT (22.0-30.0) sec Sodium (137-145) mmol/L Potassium (3.5-5.1) mmol/L Chloride (98-107) mmol/L Carbon Dioxide (22-30) mmol/L Anion Gap mmol/L BUN (9-20) mg/dL Creatinine (0.66-1.25) mg/dL Est GFR (CKD-EPI)AfAm (>60 ml/min/1.73 sqM) Est GFR (CKD-EPI)NonAf (>60 ml/min/1.73 sqM) Glucose (74-99) mg/dL Lactic Ac Sepsis Rflx Y Plasma Lactic Acid Seamus (0.7-2.0) mmol/L Calcium (8.4-10.2) mg/dL Magnesium (1.6-2.3) mg/dL Total Bilirubin (0.2-1.3) mg/dL AST (17-59) U/L ALT (4-49) U/L Alkaline Phosphatase (38-126) U/L Troponin I 1.910 H* (0.000-0.034) ng/mL Total Protein (6.3-8.2) g/dL Albumin (3.5-5.0) g/dL Urine Color Urine Appearance (Clear) Urine pH (5.0-8.0) Ur Specific [place] (1.001-1.035) Urine Protein (Negative) Urine Glucose (UA) (Negative) Urine Ketones (Negative) Urine Blood (Negative) Urine Nitrite (Negative) Urine Bilirubin (Negative) Urine Urobilinogen (<2.0) mg/dL Ur Leukocyte Esterase (Negative) Urine RBC (0-5) /hpf Urine WBC (0-5) /hpf Ur Squamous Epith Cells (0-4) /hpf Amorphous Sediment (None) /hpf Hyaline Casts (0-2) /lpf Urine Mucus (None) /hpf Coronavirus (PCR) (Not Detectd) 01/21/21 Range/Units 19:49 WBC (3.8-10.6) k/uL RBC (4.30-5.90) m/uL Hgb (13.0-17.5) gm/dL Hct (39.0-53.0) % MCV (80.0-100.0) fL MCH (25.0-35.0) pg MCHC (31.0-37.0) g/dL RDW (11.5-15.5) % Plt Count (150-450) k/uL MPV Neutrophils % % Lymphocytes % % Monocytes % % Eosinophils % % Basophils % % Neutrophils # (1.3-7.7) k/uL Lymphocytes # (1.0-4.8) k/uL Monocytes # (0-1.0) k/uL Eosinophils # (0-0.7) k/uL Basophils # (0-0.2) k/uL PT (9.0-12.0) sec INR (<1.2) APTT (22.0-30.0) sec Sodium (137-145) mmol/L Potassium (3.5-5.1) mmol/L Chloride (98-107) mmol/L Carbon Dioxide (22-30) mmol/L Anion Gap mmol/L BUN (9-20) mg/dL Creatinine (0.66-1.25) mg/dL Est GFR (CKD-EPI)AfAm (>60 ml/min/1.73 sqM) Est GFR (CKD-EPI)NonAf (>60 ml/min/1.73 sqM) Glucose (74-99) mg/dL Lactic Ac Sepsis Rflx Plasma Lactic Acid Seamus 1.5 (0.7-2.0) mmol/L Calcium (8.4-10.2) mg/dL Magnesium (1.6-2.3) mg/dL Total Bilirubin (0.2-1.3) mg/dL AST (17-59) U/L ALT (4-49) U/L Alkaline Phosphatase (38-126) U/L Troponin I (0.000-0.034) ng/mL Total Protein (6.3-8.2) g/dL Albumin (3.5-5.0) g/dL Urine Color Urine Appearance (Clear) Urine pH (5.0-8.0) Ur Specific [place] (1.001-1.035) Urine Protein (Negative) Urine Glucose (UA) (Negative) Urine Ketones (Negative) Urine Blood (Negative) Urine Nitrite (Negative) Urine Bilirubin (Negative) Urine Urobilinogen (<2.0) mg/dL Ur Leukocyte Esterase (Negative) Urine RBC (0-5) /hpf Urine WBC (0-5) /hpf Ur Squamous Epith Cells (0-4) /hpf Amorphous Sediment (None) /hpf Hyaline Casts (0-2) /lpf Urine Mucus (None) /hpf Coronavirus (PCR) (Not Detectd) Disposition Decision Date: 01/21/21 Decision Time: 19:36 <Adriano Peters - Last Filed: 01/21/21 19:36> <Cliff Dinero - Last Filed: 01/21/21 23:21> Clinical Impression: ACS (acute coronary syndrome), NSTEMI (non-ST elevated myocardial infarction), Chest pain, Elevated troponin Disposition: ADMITTED IP TO THIS HOSP Condition: Fair
--- NOTE | 2021-01-21 13:28 | XR ---
EXAMINATION TYPE: XR chest 2V DATE OF EXAM: 01/21/2021 COMPARISON: Chest x-ray October 18, 2019 HISTORY: Chest pain. TECHNIQUE: Frontal and lateral views of the chest are obtained. FINDINGS: There is chronic parenchymal change without suspicious new focal air space opacity, pleur al effusion, or pneumothorax seen. The cardiac silhouette size is stable and within normal limits. M ultilevel spurring right mid to lower thoracic spine. IMPRESSION: No acute cardiopulmonary process. No significant change from prior.
--- NOTE | 2021-01-21 14:16 | CT ---
EXAMINATION TYPE: CT abdomen pelvis wo con DATE OF EXAM: 01/21/2021 HISTORY: Vomiting, fever, and pain CT DLP: 499.6 mGycm. Automated Exposure Control for Dose Reduction was Utilized. TECHNIQUE: CT scan of the abdomen and pelvis is performed without oral or IV contrast. COMPARISON: CT abdomen and pelvis October 15, 2020 and older studies. FINDINGS: Within the limitations of a non-contrast study, the following observations are made. LUNG BASES: Dependent atelectasis left lung base. Coronary artery calcification distal RCA distributi on redemonstrated. LIVER/GB: There are a few Scattered punctate calcifications throughout the liver redemonstrated. Impr alfred distention of gallbladder on current study. PANCREAS: No significant abnormality is seen. SPLEEN: No significant abnormality is seen. ADRENALS: No significant abnormality is seen. KIDNEYS: No renal stones or hydronephrosis is present bilaterally. BOWEL: Stable small size hiatal hernia. No suspicious small or large bowel dilatation. GENITAL ORGANS: Likely within normal limits prostate. Suboptimal evaluation. LYMPH NODES: No greater than 1cm abdominal or pelvic lymph nodes are appreciated. OSSEOUS STRUCTURES: Metallic hardware from bilateral hip arthroplasty causes streak artifact limiting evaluation of pelvic structures. Posterior decompression changes lower lumbar spine are redemonstrat ed. OTHER: Moderate to severe calcified plaque of the aorta extends into branch vessels IMPRESSION: No bowel obstruction. No new or acute findings identified.
[2021-01-21] MEDS ORDERED: SODIUM CHLORIDE 0.9% 500 ML 500 ML IV ONE (15:50)
[2021-01-21] MEDS: NITROGLYCERIN SL TABS 0.4 MG TAB SUBLINGUAL PRN (16:01)
[2021-01-21 17:10] LABS: Calcium 10.2 mg/dL (8.4-10.2); Magnesium 1.5 mg/dL (1.6-2.3); Total Bilirubin 0.6 mg/dL (0.2-1.3); Total Protein 7.9 g/dL (6.3-8.2)
[2021-01-21 17:14] LABS: Potassium 5.2 mmol/L (3.5-5.1)
[2021-01-21 17:19] LABS: INR 0.9 (<1.2); Partial Thromboplastin Time 20.2 sec (22.0-30.0); Prothrombin Time 10.2 sec (9.0-12.0)
[2021-01-21] MEDS ORDERED: SODIUM CHLORIDE 0.9% 500 ML 500 ML IV STA (18:14)
[2021-01-21] MEDS ORDERED: MAGNESIUM SULFATE-D5W PMX 1 GM in DEXTROSE/WATER 1 100ML.BAG IVPB ONE (18:15)
[2021-01-21] MEDS ORDERED: CLOPIDOGREL 75 MG TAB PO STA (18:59)
[2021-01-21] MEDS ORDERED: HEPARIN SODIUM 1,000 UN/ML (10ML VL) IV PRN (19:00)
[2021-01-21] MEDS ORDERED: HEPARIN SOD,PORK IN 0.45% NACL 25,000 UNIT in 0.45% NACL 1 250ML.BAG IV SCH (19:00)
[2021-01-21] MEDS ORDERED: HYDROmorphone 0.5 MG/0.5 ML SYRINGE IVP STA (19:00)
[2021-01-21] MEDS ORDERED: HEPARIN SODIUM 1,000 UN/ML (10ML VL) IV ONE (19:00)
[2021-01-21] MEDS ORDERED: ACETAMINOPHEN TAB 325 MG TAB PO PRN (19:07)
[2021-01-21] MEDS ORDERED: NALOXONE 0.4 MG/ML 1 ML VIAL IV PRN (19:07)
[2021-01-21] MEDS ORDERED: ALPRAZolam 0.25 MG TAB PO PRN (19:59)
[2021-01-21 20:05] LABS: Basophils % (A) 0 %; Eosinophils # (A) 0.1 k/uL (0-0.7); Eosinophils % (A) 0 %; HCT 37.7 % (39.0-53.0); HGB 12.5 gm/dL (13.0-17.5); Lymphocytes # (A) 1.1 k/uL (1.0-4.8); Lymphocytes % (A) 7 %; MCH 31.8 pg (25.0-35.0); MCV 96.2 fL (80.0-100.0); Mean Platelet Volume 8.1; Monocytes # (A) 0.3 k/uL (0-1.0); Monocytes % (A) 2 %; Neutrophils # (A) 13.1 k/uL (1.3-7.7); Neutrophils % (A) 90 %; Platelet Count 315 k/uL (150-450); RBC 3.92 m/uL (4.30-5.90); RDW 14.7 % (11.5-15.5); WBC 14.6 k/uL (3.8-10.6)
[2021-01-21] MEDS: SODIUM CHLORIDE 0.9% 1,000 ML IV SCH (20:24)
[2021-01-21 20:37] LABS: Amorphous Sediment,Urine Rare /hpf; Appearance,Urine Clear (Clear); Bilirubin,Urine Negative (Negative); Blood,Urine Trace (Negative); Color,Urine Yellow; Glucose,Urine (UA) Trace (Negative); Hyaline Casts,Urine 3 /lpf (0-2); Ketones,Urine 1+ (Negative); Leukocyte Esterase,Urine Negative (Negative); Mucus,Urine Few /hpf; Nitrite,Urine Negative (Negative); PH, Urine 5.5 (5.0-8.0); Protein,Urine 1+ (Negative); RBC,Urine 2 /hpf (0-5); Specific Gravity,Urine 1.025 (1.001-1.035); Squamous Epithelial Cell,Urine <1 /hpf (0-4); Urobilinogen,Urine <2.0 mg/dL (<2.0); WBC,Urine 1 /hpf (0-5)
[2021-01-21] MEDS ORDERED: ATORVASTATIN 80 MG TAB PO SCH (21:00)
[2021-01-21] MEDS ORDERED: metFORMIN 500 MG TAB PO SCH (21:00)
[2021-01-21] MEDS: METOPROLOL TARTRATE 50 MG TAB PO SCH (23:00)
[2021-01-21] MEDS: DICYCLOMINE 10 MG CAP PO SCH (23:00)
[2021-01-22] MEDS ORDERED: PROCHLORPERAZINE INJ 10 MG/2 ML VIAL IVP PRN
[2021-01-22] MEDS: NICOTINE 14MG/24HR PATCH TRANSDERM SCH ×2 (00:05→08:07)
[2021-01-22 03:36] LABS: Basophils % (A) 0 %; Eosinophils # (A) 0.1 k/uL (0-0.7); Eosinophils % (A) 0 %; HCT 37.3 % (39.0-53.0); HGB 12.3 gm/dL (13.0-17.5); Lymphocytes # (A) 2.1 k/uL (1.0-4.8); Lymphocytes % (A) 15 %; MCH 31.7 pg (25.0-35.0); MCV 96.1 fL (80.0-100.0); Mean Platelet Volume 8.1; Monocytes # (A) 0.7 k/uL (0-1.0); Monocytes % (A) 5 %; Neutrophils # (A) 10.6 k/uL (1.3-7.7); Neutrophils % (A) 77 %; Platelet Count 283 k/uL (150-450); RBC 3.88 m/uL (4.30-5.90); RDW 14.1 % (11.5-15.5); WBC 13.7 k/uL (3.8-10.6)
[2021-01-22] MEDS: HYDROmorphone 0.5 MG/0.5 ML SYRINGE IVP PRN ×3 (03:55→18:20)
[2021-01-22] MEDS: DICYCLOMINE 10 MG CAP PO SCH ×4 (06:08→19:57)
[2021-01-22] MEDS: PANTOPRAZOLE SODIUM 40 MG GRANULE PKT PO SCH (06:09)
[2021-01-22 07:50] LABS: Albumin 3.8 g/dL (3.5-5.0); Calcium 9.1 mg/dL (8.4-10.2); Magnesium 1.8 mg/dL (1.6-2.3); Potassium 3.8 mmol/L (3.5-5.1); Total Bilirubin 0.4 mg/dL (0.2-1.3); Total Protein 6.3 g/dL (6.3-8.2)
[2021-01-22] MEDS: NITROGLYCERIN SL TABS 0.4 MG TAB SUBLINGUAL PRN ×3 (08:00→11:38)
[2021-01-22] MEDS: SODIUM CHLORIDE 0.9% 1,000 ML IV SCH ×2 (08:01→22:07)
[2021-01-22] MEDS: METOPROLOL TARTRATE 50 MG TAB PO SCH ×2 (08:07→19:57)
[2021-01-22] MEDS: ASPIRIN 81 MG PO SCH (08:07)
[2021-01-22] MEDS: CLOPIDOGREL 75 MG TAB PO SCH (08:07)
[2021-01-22] MEDS ORDERED: ALPRAZolam 0.5 MG TAB PO PRN (10:34)
[2021-01-22] MEDS ORDERED: ASPIRIN 325 MG TAB PO STA (10:34)
[2021-01-22] MEDS ORDERED: NITROGLYCERIN SL TABS 0.4 MG TAB SUBLINGUAL PRN (10:34)
[2021-01-22] MEDS ORDERED: ALPRAZolam 0.25 MG TAB PO PRN (10:34)
[2021-01-22] MEDS ORDERED: ATORVASTATIN 80 MG TAB PO STA (10:34)
[2021-01-22] MEDS ORDERED: SODIUM CHLORIDE 0.9% 1,000 ML in EMPTY BAG 1 BAG IV ONE (10:34)
--- NOTE | 2021-01-22 10:38 | P.CRDCN ---
History of Present Illness Consult date: 01/22/21 History of present illness: HISTORY OF PRESENT ILLNESS: This is a 60-year-old male with a past medical history significant for coronary artery disease with previous PCI to RCA, hypertension, hyperlipidemia, diabetes, and nicotine dependence, and daily marijuana use. Patient follows in the office with Dr. Connolly. We have been asked to see the patient in consultation for elevated troponins. Patient examined at the bedside. Patient states yesterday he developed nausea and vomiting and was on his way to the hospital to get evaluated when he developed chest pain. He states the pain felt like a pressure and was across his whole chest. His at the bedside reports that he looked very pale yesterday as well. He states the pain persisted for approximately 6 hours and was relieved with Dilaudid. He states he was comfortable overnight and then developed chest pain again this morning. He received 2 nitro with improvement in his chest pain which he currently rates a 2/10. The patient is a current smoker and states he is smoking 1 pack per day. He also reports smoking marijuana on a daily basis. EKG reveals sinus mechanism with ST depression in inferior leads CT abdomen pelvis: No bowel obstruction. No acute findings. Chest xray no acute cardiopulmonary process. Laboratory data: WBC 13.7. Hemoglobin 12.3. Platelet count 283. Sodium 140. Potassium 3.8. BUN 34. Creatinine 1.03. Magnesium 1.8. Lactic acid 1.5. Troponin 1.910. 2.780. 2.300. Current home cardiac medications include metoprolol tartrate 50 mg twice a day, losartan 25 mg daily, Lasix 20 mg daily, Plavix 75 mg daily, Lipitor 80 mg daily, aspirin 81 mg daily Most recent echocardiogram obtained in September 2019 revealed ejection fraction 60- 65%. Mild aortic regurgitation. Mild tricuspid regurgitation. Trace tricuspid regurgitation. Cardiac catheterization history: September 2019 revealing patent stent in the mid RCA. Mild disease involving the RCA distal to the stented segment. REVIEW OF SYSTEMS: At the time of my exam: CONSTITUTIONAL: Denies fever or chills. HEENT: Denies blurred vision, vision changes, or eye pain. Denies hemoptysis CARDIOVASCULAR: Denies chest pain. Denies orthopnea. Denies PND. Denies palpitations RESPIRATORY: Denies shortness of breath. GASTROINTESTINAL: Denies abdominal pain. Denies nausea or vomiting. HEMATOLOGIC: Denies bleeding disorders. GENITOURINARY: Denies any blood in urine. SKIN: Denies pruitis. Denies rash. PHYSICAL EXAM: VITAL SIGNS: Reviewed. GENERAL: Well-developed in no acute distress. HEENT: Head is normocephalic. Pupils are equal, round. Sclerae anicteric. Mucous membranes of the mouth are moist. Neck supple. No JVD or thyromegaly LUNGS: Respirations even and unlabored. Lungs essentially clear to auscultation bilaterally. HEART: Regular rate and rhythm. S1 and S2 heard. ABDOMEN: Soft. Nondistended. Nontender. EXTREMITIES: Normal range of motion. No clubbing or cyanosis. Peripheral pulses intact. No lower extremity edema NEUROLOGIC: Awake and alert. Oriented x 3. ASSESSMENT: Non-STEMI Coronary artery disease with previous PCI to RCA Hypertension Hyperlipidemia Diabetes Nicotine dependence Daily marijuana use PLAN: Obtain 2-D echo to assess cardiac structure and function Resume home cardiac medications Continue IV heparin Patient to undergo cardiac catheterization today with Dr. Connolly Further recommendations pending patient course Nurse practitioner note has been reviewed by physician. Signing provider agrees with the documented findings, assessment, and plan of care. Past Medical History Past Medical History: Diabetes Mellitus, Hyperlipidemia, Hypertension, Myocardial Infarction ([place]) Additional Past Medical History / Comment(s): pericarditis, left side carotid stenosis Last Myocardial Infarction Date:: 03/2016 History of Any Multi-Drug Resistant Organisms: None Reported Past Surgical History: Back Surgery, Heart Catheterization With Stent, Orthopedic Surgery Additional Past Surgical History / Comment(s): Bilat hip replacements, 1 cardiac stent, leaky valve per pt. Past Anesthesia/Blood Transfusion Reactions: No Reported Reaction Date of Last Stent Placement:: 03/2016 Past Psychological History: Anxiety, Depression Smoking Status: Current every day smoker Past Alcohol Use History: None Reported Past Drug Use History: None Reported - Past Family History Father History Unknown: Yes Mother Family Medical History: Diabetes Mellitus, Hypertension Additional Family Medical History / Comment(s): passed in from complications r/t DM Medications and Allergies Home Medications Medication Instructions Recorded Confirmed Type ALPRAZolam [Alprazolam] 0.25 mg PO Q6H PRN 03/25/16 01/21/21 History Aspirin EC [Ecotrin Low Dose] 81 mg PO DAILY 03/25/16 01/21/21 History Clopidogrel [Plavix] 75 mg PO DAILY #30 tab 06/02/18 01/21/21 Rx Furosemide [Lasix] 20 mg PO DAILY 30 Days #30 tab 06/02/18 01/21/21 Rx Metoprolol Tartrate [Lopressor] 50 mg PO BID 05/05/19 01/21/21 History Nitroglycerin Sl Tabs [Nitrostat] 0.4 mg PO Q5M PRN 05/05/19 01/21/21 History Atorvastatin Calcium [Lipitor] 80 mg PO HS 10/19/19 01/21/21 History HYDROcodone/APAP 10-325MG [[place] 1 tab PO Q6H PRN 10/19/19 01/21/21 History 10-325] metFORMIN HCL 1,000 mg PO BID 10/19/19 01/21/21 History Losartan [Cozaar] 25 mg PO DAILY tab 10/21/19 01/21/21 Rx Pantoprazole Sodium 40 mg PO DAILY 10/15/20 01/21/21 History Dicyclomine [Bentyl] 10 mg PO ACHS 01/21/21 01/21/21 History Allergies Allergy/AdvReac Type Severity Reaction Status Date / Time cephalexin [From Keflex] Allergy Unknown Verified 01/21/21 13:26 codeine Allergy Unknown Verified 01/21/21 13:26 meperidine [From Demerol] Allergy Unknown Verified 01/21/21 13:26 morphine Allergy Unknown Verified 01/21/21 13:26 Physical Exam Vitals: Vital Signs Temp Pulse Pulse Pulse Resp BP BP 01/22/21 08:10 86 18 110/58 01/22/21 08:05 87 18 109/71 01/22/21 08:00 97.4 F L 71 18 118/61 01/22/21 03:52 97.6 F 86 18 128/70 01/21/21 23:58 97.9 F 100 18 117/61 01/21/21 21:44 97.9 F 96 16 143/73 01/21/21 21:40 78 18 133/88 01/21/21 20:29 90 18 149/73 01/21/21 16:23 76 18 149/73 01/21/21 12:20 98.1 F 77 18 164/84 Pulse Ox 01/22/21 08:10 98 01/22/21 08:05 97 01/22/21 08:00 95 01/22/21 03:52 98 01/21/21 23:58 100 01/21/21 21:44 97 01/21/21 21:40 96 01/21/21 20:29 98 01/21/21 16:23 98 01/21/21 12:20 98 Intake and Output 01/21/21 01/22/21 01/22/21 22:59 06:59 14:59 Intake Total 412.786 10 Balance 412.786 10 Intake: IV 10 Invasive Line 1 10 Intake, IV Titration 412.786 Amount Heparin Sod,Pork in 0.45% 112.786 NaCl 25,000 unit In 0.45 % NaCl 1 250ml.bag @ 18 UNITS/KG/HR 13.064 mls/hr IV .[id number] [facility] Rx#: [id number] Sodium Chloride 0.9% 1, 300 000 ml @ 75 mls/hr IV . [id number] [facility] Rx#:[id number] Other: # Voids 2 Weight 72.575 kg 67 kg Results 01/22/21 03:00 01/22/21 05:51 Cardiac Enzymes 01/21/21 01/21/21 01/21/21 Range/Units 12:45 12:45 19:49 AST 28 (17-59) U/L Troponin I 0.112 H* 1.910 H* (0.000-0.034) ng/mL 01/21/21 01/22/21 01/22/21 Range/Units 23:07 05:51 05:51 AST 33 (17-59) U/L Troponin I 2.780 H* 2.300 H* (0.000-0.034) ng/mL Coagulation 01/21/21 01/22/21 Range/Units 12:45 03:00 PT 10.2 (9.0-12.0) sec APTT 20.2 L 94.4 H (22.0-30.0) sec CBC 01/21/21 01/22/21 Range/Units 19:49 03:00 WBC 14.6 H 13.7 H (3.8-10.6) k/uL RBC 3.92 L 3.88 L (4.30-5.90) m/uL Hgb 12.5 L 12.3 L (13.0-17.5) gm/dL Hct 37.7 L 37.3 L (39.0-53.0) % Plt Count 315 283 (150-450) k/uL Comprehensive Metabolic Panel 01/21/21 01/22/21 Range/Units 12:45 05:51 Sodium 139 140 (137-145) mmol/L Potassium 5.2 H 3.8 (3.5-5.1) mmol/L Chloride 102 108 H (98-107) mmol/L Carbon Dioxide 23 25 (22-30) mmol/L BUN 38 H 34 H (9-20) mg/dL Creatinine 1.27 H 1.03 (0.66-1.25) mg/dL Glucose 178 H 147 H (74-99) mg/dL Calcium 10.2 9.1 (8.4-10.2) mg/dL AST 28 33 (17-59) U/L ALT 11 12 (4-49) U/L Alkaline Phosphatase 71 59 (38-126) U/L Total Protein 7.9 6.3 (6.3-8.2) g/dL Albumin 5.0 3.8 (3.5-5.0) g/dL Current Medications Generic Name Dose Route Start Last Admin Trade Name Freq PRN Reason Stop Dose Admin Acetaminophen 650 mg 01/21/21 19:07 Acetaminophen Tab 325 Mg Tab PO Q6HR PRN Mild Pain or Fever > 100.5 Alprazolam 0.25 mg 01/21/21 19:59 01/22/21 00:01 Alprazolam 0.25 Mg Tab PO 0.25 mg Q6H PRN Administration Anxiety Aspirin 81 mg 01/22/21 09:00 01/22/21 08:07 Aspirin 81 Mg PO 81 mg DAILY [facility] Administration Atorvastatin Calcium 80 mg 01/21/21 21:00 01/21/21 23:00 Atorvastatin 80 Mg Tab PO 80 mg HS [facility] Administration Clopidogrel Bisulfate 75 mg 01/22/21 09:00 01/22/21 08:07 Clopidogrel 75 Mg Tab PO 75 mg DAILY [facility] Administration Dicyclomine HCl 10 mg 01/21/21 21:00 01/22/21 06:08 Dicyclomine 10 Mg Cap PO 10 mg ACHS [facility] Administration Furosemide 20 mg 01/22/21 09:00 Furosemide 20 Mg Tab PO DAILY [facility] Heparin Sodium (Porcine) 0 unit 01/21/21 19:00 Heparin Sodium 1,000 Un/Ml (10ml Vl) IV PER PROTOCOL PRN Low PTT Protocol Hydromorphone HCl 0.5 mg 01/21/21 23:37 01/22/21 03:55 Hydromorphone 0.5 Mg/0.5 Ml Syringe IVP 0.5 mg Q6HR PRN Administration Pain Heparin Sodium/Sodium Chloride 250 mls @ 13.064 mls/hr 01/21/21 19:00 01/22/21 06:09 25,000 unit/ Sodium Chloride IV 15 units/kg/hr .Q19H9M [facility] 10.886 mls/hr Titration Protocol 18 UNITS/KG/HR Sodium Chloride 1,000 mls @ 75 mls/hr 01/21/21 19:15 01/22/21 08:01 Saline 0.9% IV 75 mls/hr .[id number] [facility] Administration Losartan Potassium 25 mg 01/22/21 09:00 Losartan 25 Mg Tab PO DAILY [facility] Metoprolol Tartrate 50 mg 01/21/21 21:00 01/22/21 08:07 Metoprolol Tartrate 50 Mg Tab PO 50 mg BID [facility] Administration Naloxone HCl 0.2 mg 01/21/21 19:07 Naloxone 0.4 Mg/Ml 1 Ml Vial IV Q2M PRN Opioid Reversal Nicotine 1 patch 01/21/21 23:45 01/22/21 08:07 Nicotine 14mg/24hr Patch TRANSDERM 1 patch DAILY [facility] Administration Nitroglycerin 0.4 mg 01/21/21 15:50 01/22/21 08:05 Nitroglycerin Sl Tabs 0.4 Mg Tab SUBLINGUAL 0.4 mg Q5M PRN Administration Chest Pain Pantoprazole Sodium 40 mg 01/22/21 07:30 01/22/21 06:09 Pantoprazole Sodium 40 Mg Granule Pkt PO Not Given DAILY@0730 [facility] Prochlorperazine Edisylate 5 mg 01/22/21 00:00 Prochlorperazine Inj 10 Mg/2 Ml Vial IVP Q6HR PRN Nausea And Vomiting Intake and Output 01/21/21 01/22/21 01/22/21 22:59 06:59 14:59 Intake Total 412.786 10 Balance 412.786 10 Intake: IV 10 Invasive Line 1 10 Intake, IV Titration 412.786 Amount Heparin Sod,Pork in 0.45% 112.786 NaCl 25,000 unit In 0.45 % NaCl 1 250ml.bag @ 18 UNITS/KG/HR 13.064 mls/hr IV .Q19H9M [facility] Rx#: [id number] Sodium Chloride 0.9% 1, 300 000 ml @ 75 mls/hr IV . [id number] [facility] Rx#:[id number] Other: # Voids 2 Weight 72.575 kg 67 kg 01/22/21 03:00 01/22/21 05:51
[2021-01-22] MEDS ORDERED: ASPIRIN 81 MG PO STA (10:41)
[2021-01-22] MEDS: LOSARTAN 25 MG TAB PO SCH (11:28)
[2021-01-22] MEDS ORDERED: IV FLUID CONTINUATION 900 ML IV ONE (11:45)
[2021-01-22] MEDS ORDERED: VERAPAMIL 2.5 MG/ML 2 ML AMP ONE (11:50)
[2021-01-22] MEDS ORDERED: HEPARIN SODIUM 1,000 UN/ML (10ML VL) ONE (11:50)
[2021-01-22] MEDS ORDERED: LIDOCAINE 1% INJ 10MG/ML (20 ML MDV) ONE (11:50)
[2021-01-22] MEDS ORDERED: fentaNYL (PF) 50 MCG/ML 2 ML AMP ONE (11:50)
[2021-01-22] MEDS ORDERED: fentaNYL (PF) 50 MCG/ML 2 ML AMP IV ONE (12:13)
[2021-01-22] MEDS ORDERED: LIDOCAINE 1% INJ 10MG/ML (20 ML MDV) SQ ONE (12:20)
[2021-01-22] MEDS ORDERED: VERAPAMIL SYRINGE (5 MG/10 ML) INTRAARTER ONE (12:23)
[2021-01-22] MEDS ORDERED: HEPARIN SODIUM 1,000 UN/ML (10ML VL) IV ONE (12:25)
[2021-01-22] MEDS ORDERED: IOPAMIDOL-370 125ML BTL INJ ONE (12:33)
[2021-01-22] MEDS ORDERED: RX INFO: IV CONTRAST WAS GIVEN 1 EACH MISC MISCELLANE PRN (12:52)
[2021-01-22] MEDS ORDERED: SODIUM CHLORIDE 0.9% 1,000 ML IV SCH (13:00)
[2021-01-22] MEDS: FUROSEMIDE 20 MG TAB PO SCH (15:43)
--- NOTE | 2021-01-22 16:09 | ECHOF ---
Referral Reason:NSTEMI MEASUREMENTS -------- HEIGHT: 180.3 cm WEIGHT: 66.7 kg BP: IVSd: 0.7 cm (0.6 - 1.1) LVIDd: 5.4 cm (3.9 - 5.3) LVPWd: 0.8 cm (0.6 - 1.1) EDV(Teich): 143 ml IVSs: 0.9 cm LVIDs: 4.2 cm LVPWs: 1.0 cm %IVS Thck: 37 % ESV(Teich): 80 ml EF(Teich): 44 % %FS: 22 % SV(Teich): 63 ml IVC: 11.34 mm LVLd A4C: 8.7 cm LVEDV MOD A4C: 92 ml LVLs A4C: 8.3 cm LVESV MOD A4C: 51 ml LVEF MOD A4C: 45 % SV MOD A4C: 41 ml LALs A4C: 4.8 cm LAAs A4C: 13.8 cm LAESV A-L A4C: 33 ml LAESV MOD A4C: 30 ml LALs A2C: 4.1 cm LAAs A2C: 12.1 cm LAESV A-L A2C: 30 ml LAESV MOD A2C: 28 ml LAESV(A-L): 34 ml LAESV Index (A-L): 18.41 ml/m Ao Diam: 3.4 cm (2.0 - 3.7) LA Diam: 2.1 cm (2.7 - 3.8) AV Cusp: 1.9 cm (1.5 - 2.6) EPSS: 3.7 cm MV E Jake: 1.13 m/s MV DecT: 200 ms MV Dec [place]: 5.7 m/s MV A Jake: 0.58 m/s MV E/A Ratio: 1.95 MV PHT: 58 ms MR Vmax: 1.99 m/s MR maxP.82 mmHg AV Vmax: 1.24 m/s AV maxP.14 mmHg AR Vmax: 2.37 m/s AR maxP.41 mmHg AR PHT: 736 ms AR Dec Time: 2537 ms AR Dec [place]: 0.9 m/s TR Vmax: 0.77 m/s TR maxP.35 mmHg RAP: 5.00 mmHg RVSP: 7.35 mmHg MV EF SLOPE: 134.17 mm/s (70 - 150) MV EXCURSION: 14.75 mm (> 18.000) FINDINGS -------- This was a technically good study. The left ventricular size is normal. Left ventricular wall thickness is normal. Overall left vent ricular systolic function is mild-moderately impaired with, an EF between 40 - 45 %. Normal LAP Gra de 1 Diastolic Dysfunction. Mid anterior LV wall motion is hypokinetic. Mid inferior LV wall mot ion is hypokinetic. Mid inferoseptal LV wall motion is hypokinetic. Apical anterior LV wall mot ion is hypokinetic. Septal Hypokinesis The right ventricle is normal in size. The left atrial size is normal. Normal LA size by volume 22+/-6 ml/m2. The right atrial size is normal. The aortic valve is trileaflet and appears structurally normal. Trace amount of aortic regurgitatio n. The mitral valve is normal. Mild mitral regurgitation is present. The tricuspid valve appears structurally normal. Trace tricuspid regurgitation present. Right pily tricular systolic pressure is normal at < 35 mmHg. There is no pulmonic regurgitation present. The aortic root size is normal. Normal inferior vena cava with normal inspiratory collapse consistent with estimated right atrial pre ssure of 5 mmHg. There is no pericardial effusion. CONCLUSIONS -------- 1. The left ventricular size is normal. 2. Left ventricular wall thickness is normal. 3. Overall left ventricular systolic function is mild-moderately impaired with, an EF between 40 - 45 %. 4. Normal LAP Grade 1 Diastolic Dysfunction. 5. Mid anterior LV wall motion is hypokinetic. 6. Mid inferior LV wall motion is hypokinetic. 7. Mid inferoseptal LV wall motion is hypokinetic. 8. Apical anterior LV wall motion is hypokinetic. 9. Septal Hypokinesis 10. Trace amount of aortic regurgitation. 11. Mild mitral regurgitation is present. 12. Trace tricuspid regurgitation present. 13. There is no pericardial effusion. STRINGED INSTRUMENT TUNER: Leonila Liang, [facility]
--- NOTE | 2021-01-22 17:50 | CC ---
CARDIAC CATHETERIZATION REPORT DATE OF PROCEDURE: 01/22/2021 Mr. Bolton is a 60-year-old male with known history of coronary artery disease, status post stenting of the RCA in 2016, history of chronic tobacco use, hyperlipidemia, who presented to the hospital with symptoms of chest discomfort and he had mild troponin elevation. In view of that, recommendation was made regarding cardiac catheterization. The procedure as well as its risks and complications were discussed with the patient, who was in full understanding and agreement. PROCEDURE DESCRIPTION: Patient was brought to the director of cath lab in a fasting, semi-sedated state after receiving fentanyl and Benadryl and achieving a moderate conscious sedated state. Using Xylocaine anesthesia and Seldinger technique, a 6-Malaysian sheath was introduced in the right radial artery. Selective right and left coronary angiography was performed using 5-Malaysian, 3.5 bend right and left Jyotsna catheters. Multiple views were taken of the arteries, including hemiaxial views. Following that, a 5-Malaysian tight pigtail catheter was introduced into the left ventricle and a 30-degree CANTU view of the left ventricle was obtained. Following that, catheter and sheath were removed. Hemostasis was obtained with deployment of a TR band. There was no immediate complication. Patient was returned to his room in stable condition. Of note, the patient received 3500 units of intravenous heparin as well as intra-arterial verapamil. FINDINGS: FLUOROSCOPY: There was calcification involving the left anterior descending artery. LEFT MAIN: This is a short-sized vessel bifurcating into left circumflex and left anterior descending artery. Left main coronary artery has no evidence of high- grade stenosis. LEFT ANTERIOR DESCENDING ARTERY: This is a large-sized vessel reaching toward the apex with a wrap around the apex segment giving rise to a diagonal branch. The left anterior descending artery has mild plaque proximally of 10% to 20% without any evidence of high-grade stenosis. LEFT CIRCUMFLEX: This is a nondominant vessel giving rise to a large obtuse marginal branch. The left circumflex has mild intimal disease proximally of 10% to 20% without any evidence of high-grade stenosis. RIGHT CORONARY ARTERY: This is a large dominant vessel bifurcating into PDA and posterolateral segment and branches. The right coronary artery stented segment in the mid area is patent with 10% restenosis. The rest of the vessel has no high- grade stenosis. LEFT VENTRICULOGRAM: Left ventriculogram was performed in 30-degree CANUT view and revealed mid inferior wall mild hypokinesis. Ejection fraction is estimated at 55%. There was no significant mitral regurgitation. HEMODYNAMICS: There was no gradient across the aortic valve. The left ventricular end- diastolic pressure was 24-28 mmHg. CONCLUSION: 1. Patent stent in the RCA. 2. Mild triple-vessel coronary artery disease. 3. Preserved systolic function. RECOMMENDATIONS: In view of findings and anatomy, I have recommended continued medical therapy with the aggressive coronary risk modifications that have been initiated. Those findings and recommendations were discussed with the patient and his family, and they are in full understanding and agreement. Duration of sedation was 17 minutes. MMEDGARDOL / KARLAN: [id number] / [email or web address]
--- NOTE | 2021-01-22 17:55 | LTR ---
January 22, 2021 To: Dr. Reeves Re: Johnson Bolton (56) Dear Dr. Reeves, I had the pleasure of performing cardiac catheterization on Mr. Bolton at [facility] on January 22, and a full copy of the procedure note will be forwarded to you. In brief, he was found to have no evidence of significant restenosis in the stented segment of the RCA with multiple-vessel coronary artery disease. Based on those findings, I have recommended continued medical therapy with the aggressive coronary risk modifications being initiated. Thank you again for allowing me to participate in this patient's care. Please feel free to call with any questions. Sincerely, Gisela Connolly M.D. GERALD / RIKA: [id number] /
--- NOTE | 2021-01-22 18:55 | P.HPIM ---
History of Present Illness H&P Date: 01/22/21 Johnson is a 60-year-old male who presented to [facility] emergency room with a chief complaint of of chest pain patient describes a pressure sensation in the lower sternal area associated with nausea and vomiting he felt febrile and had some shaking chills. He was evaluated in the emergency room vital examination on presentation revealed a temperature of 98.1 pulse 77 respiration 18 blood pressure 164/84 pulse ox 98% on room air Laboratory data revealed a white blood count of 14.6 hemoglobin 12.5 lately it count 315 troponin level was 2.78 BUN 38 creatinine 1.27 patient was started on IV heparin and was admitted to telemetry floor cardiology consultation was requested Testing in the emergency room revealed EKG in the emergency room revealed normal sinus rhythm with nonspecific ST abnormalities, chest x-ray revealed no acute cardiopulmonary process, computed tomography scan of the abdomen and pelvis was done and did not reveal any significant abnormality. Patient was admitted to medical floor for further evaluation and treatment Past medical history is significant for coronary artery disease was previous history of myocardial infarction and angioplasty and stent placement On review of systems at this time Patient was seen and examined on the medical floor, he is alert and oriented x 3 in no distress, he denies any complaints there is no fever or chills no headache or dizziness no chest pain no shortness of breath no palpitation no cough no nausea or vomiting no abdominal pain no diarrhea no blood in the stools no burning with urination no frequency or urge ncy and no hematuria, there is no weakness or numbness in any of the extremities no change in vision speech or gait. Past Medical History Past Medical History: Diabetes Mellitus, Hyperlipidemia, Hypertension, Myocardial Infarction ([place]) Additional Past Medical History / Comment(s): pericarditis, left side carotid stenosis Last Myocardial Infarction Date:: 03/2016 History of Any Multi-Drug Resistant Organisms: None Reported Past Surgical History: Back Surgery, Heart Catheterization With Stent, Orthopedic Surgery Additional Past Surgical History / Comment(s): Bilat hip replacements, 1 cardiac stent, leaky valve per pt. Past Anesthesia/Blood Transfusion Reactions: No Reported Reaction Date of Last Stent Placement:: 03/2016 Past Psychological History: Anxiety, Depression Smoking Status: Current every day smoker Past Alcohol Use History: None Reported Past Drug Use History: None Reported - Past Family History Father History Unknown: Yes Mother Family Medical History: Diabetes Mellitus, Hypertension Additional Family Medical History / Comment(s): passed in ' from complications r/t DM Medications and Allergies Home Medications Medication Instructions Recorded Confirmed Type ALPRAZolam [Alprazolam] 0.25 mg PO Q6H PRN 03/25/16 01/21/21 History Aspirin EC [Ecotrin Low Dose] 81 mg PO DAILY 03/25/16 01/21/21 History Clopidogrel [Plavix] 75 mg PO DAILY #30 tab 06/02/18 01/21/21 Rx Furosemide [Lasix] 20 mg PO DAILY 30 Days #30 tab 06/02/18 01/21/21 Rx Metoprolol Tartrate [Lopressor] 50 mg PO BID 05/05/19 01/21/21 History Nitroglycerin Sl Tabs [Nitrostat] 0.4 mg PO Q5M PRN 05/05/19 01/21/21 History Atorvastatin Calcium [Lipitor] 80 mg PO HS 10/19/19 01/21/21 History HYDROcodone/APAP 10-325MG [[place] 1 tab PO Q6H PRN 10/19/19 01/21/21 History 10-325] metFORMIN HCL 1,000 mg PO BID 10/19/19 01/21/21 History Losartan [Cozaar] 25 mg PO DAILY tab 10/21/19 01/21/21 Rx Pantoprazole Sodium 40 mg PO DAILY 10/15/20 01/21/21 History Dicyclomine [Bentyl] 10 mg PO ACHS 01/21/21 01/21/21 History Allergies Allergy/AdvReac Type Severity Reaction Status Date / Time cephalexin [From Keflex] Allergy Unknown Verified 01/21/21 13:26 codeine Allergy Unknown Verified 01/21/21 13:26 meperidine [From Demerol] Allergy Unknown Verified 01/21/21 13:26 morphine Allergy Unknown Verified 01/21/21 13:26 Physical Exam Vitals: Vital Signs Temp Pulse Pulse Pulse Resp BP BP 01/22/21 08:10 86 18 110/58 01/22/21 08:05 87 18 109/71 01/22/21 08:00 97.4 F L 71 18 118/61 01/22/21 03:52 97.6 F 86 18 128/70 01/21/21 23:58 97.9 F 100 18 117/61 01/21/21 21:44 97.9 F 96 16 143/73 01/21/21 21:40 78 18 133/88 01/21/21 20:29 90 18 149/73 01/21/21 16:23 76 18 149/73 01/21/21 12:20 98.1 F 77 18 164/84 Pulse Ox 01/22/21 08:10 98 01/22/21 08:05 97 01/22/21 08:00 95 01/22/21 03:52 98 01/21/21 23:58 100 01/21/21 21:44 97 01/21/21 21:40 96 01/21/21 20:29 98 01/21/21 16:23 98 01/21/21 12:20 98 Intake and Output 01/21/21 01/22/21 01/22/21 22:59 06:59 14:59 Intake Total 412.786 10 Balance 412.786 10 Intake: IV 10 Invasive Line 1 10 Intake, IV Titration 412.786 Amount Heparin Sod,Pork in 0.45% 112.786 NaCl 25,000 unit In 0.45 % NaCl 1 250ml.bag @ 18 UNITS/KG/HR 13.064 mls/hr IV .[id number] [facility] Rx#: [id number] Sodium Chloride 0.9% 1, 300 000 ml @ 75 mls/hr IV . [id number] [facility] Rx#:[id number] Other: # Voids 2 Weight 72.575 kg 67 kg In general patient is alert and oriented x 3 in no distress HEENT head normocephalic and atraumatic Neck is supple no JVD no goiter no lymphadenopathy no carotid bruit Chest examination is clear to auscultation no crackles no wheezing Cardiac exam reveals regular heart sounds S1 and S2 no gallops no murmurs Abdomen is soft nontender no organomegaly with normal bowel sounds Extremity exam reveals no edema no cyanosis or clubbing Neurological examination reveals no gross focal deficits Results CBC & Chem 7: 01/22/21 03:00 01/22/21 05:51 Labs: Abnormal Lab Results - Last 24 Hours (Table) 01/21/21 01/21/21 01/21/21 Range/Units 12:45 12:45 12:45 WBC (3.8-10.6) k/uL RBC (4.30-5.90) m/uL Hgb (13.0-17.5) gm/dL Hct (39.0-53.0) % Neutrophils # (1.3-7.7) k/uL APTT 20.2 L (22.0-30.0) sec Potassium 5.2 H (3.5-5.1) mmol/L Chloride (98-107) mmol/L BUN 38 H (9-20) mg/dL Creatinine 1.27 H (0.66-1.25) mg/dL Glucose 178 H (74-99) mg/dL Plasma Lactic Acid [place] (0.7-2.0) mmol/L Magnesium 1.5 L (1.6-2.3) mg/dL Troponin I 0.112 H* (0.000-0.034) ng/mL Urine Protein (Negative) Urine Glucose (UA) (Negative) Urine Ketones (Negative) Urine Blood (Negative) Amorphous Sediment (None) /hpf Hyaline Casts (0-2) /lpf Urine Mucus (None) /hpf 01/21/21 01/21/21 01/21/21 Range/Units 12:46 12:58 19:49 WBC 14.6 H (3.8-10.6) k/uL RBC 3.92 L (4.30-5.90) m/uL Hgb 12.5 L (13.0-17.5) gm/dL Hct 37.7 L (39.0-53.0) % Neutrophils # 13.1 H (1.3-7.7) k/uL APTT (22.0-30.0) sec Potassium (3.5-5.1) mmol/L Chloride (98-107) mmol/L BUN (9-20) mg/dL Creatinine (0.66-1.25) mg/dL Glucose (74-99) mg/dL Plasma Lactic Acid [place] 2.9 H* (0.7-2.0) mmol/L Magnesium (1.6-2.3) mg/dL Troponin I (0.000-0.034) ng/mL Urine Protein 1+ H (Negative) Urine Glucose (UA) Trace H (Negative) Urine Ketones 1+ H (Negative) Urine Blood Trace H (Negative) Amorphous Sediment Rare H (None) /hpf Hyaline Casts 3 H (0-2) /lpf Urine Mucus Few H (None) /hpf 01/21/21 01/21/21 01/22/21 Range/Units 19:49 23:07 03:00 WBC 13.7 H (3.8-10.6) k/uL RBC 3.88 L (4.30-5.90) m/uL Hgb 12.3 L (13.0-17.5) gm/dL Hct 37.3 L (39.0-53.0) % Neutrophils # 10.6 H (1.3-7.7) k/uL APTT (22.0-30.0) sec Potassium (3.5-5.1) mmol/L Chloride (98-107) mmol/L BUN (9-20) mg/dL Creatinine (0.66-1.25) mg/dL Glucose (74-99) mg/dL Plasma Lactic Acid [place] (0.7-2.0) mmol/L Magnesium (1.6-2.3) mg/dL Troponin I 1.910 H* 2.780 H* (0.000-0.034) ng/mL Urine Protein (Negative) Urine Glucose (UA) (Negative) Urine Ketones (Negative) Urine Blood (Negative) Amorphous Sediment (None) /hpf Hyaline Casts (0-2) /lpf Urine Mucus (None) /hpf 01/22/21 01/22/21 01/22/21 Range/Units 03:00 05:51 05:51 WBC (3.8-10.6) k/uL RBC (4.30-5.90) m/uL Hgb (13.0-17.5) gm/dL Hct (39.0-53.0) % Neutrophils # (1.3-7.7) k/uL APTT 94.4 H (22.0-30.0) sec Potassium (3.5-5.1) mmol/L Chloride 108 H (98-107) mmol/L BUN 34 H (9-20) mg/dL Creatinine (0.66-1.25) mg/dL Glucose 147 H (74-99) mg/dL Plasma Lactic Acid [place] (0.7-2.0) mmol/L Magnesium (1.6-2.3) mg/dL Troponin I 2.300 H* (0.000-0.034) ng/mL Urine Protein (Negative) Urine Glucose (UA) (Negative) Urine Ketones (Negative) Urine Blood (Negative) Amorphous Sediment (None) /hpf Hyaline Casts (0-2) /lpf Urine Mucus (None) /hpf Thrombosis Risk Factor Assmnt - Choose All That Apply Any of the Below Risk Factors Present?: Yes Each Risk Factor Represents 2 Points: Age 61-74 years Thrombosis Risk Factor Assessment Total Risk Factor Score: 2 Thrombosis Risk Factor Assessment Level: Low Risk Assessment and Plan Plan: Acute non-ST elevation myocardial infarction Underlying history of coronary artery disease with previous history of angioplasty and stent placement to the right coronary artery Underlying history of hypertension Underlying history of hyperlipidemia Underlying history of diabetes mellitus Tobacco abuse At this time patient is admitted to telemetry floor he was started on IV heparin Home medications reviewed and reordered Cardiology consultation was requested Plan is to proceed with cardiac catheterization today Will follow closely
[2021-01-23] MEDS: HYDROmorphone 0.5 MG/0.5 ML SYRINGE IVP PRN ×2 (00:27→07:58)
[2021-01-23] MEDS: DICYCLOMINE 10 MG CAP PO SCH (06:44)
[2021-01-23] MEDS: NICOTINE 14MG/24HR PATCH TRANSDERM SCH (06:45)
[2021-01-23] MEDS: PANTOPRAZOLE SODIUM 40 MG GRANULE PKT PO SCH (06:45)
[2021-01-23] MEDS ORDERED: HEPARIN SODIUM,PORCINE 10,000 UNIT in SODIUM CHLORIDE 0.9% 1,000 ML IRRIGATION PRN (07:00)
[2021-01-23] MEDS ORDERED: HEPARIN SODIUM,PORCINE 2,500 UNIT in SODIUM CHLORIDE 0.9% 250 ML IRRIGATION PRN (07:00)
[2021-01-23] MEDS: METOPROLOL TARTRATE 50 MG TAB PO SCH (07:57)
[2021-01-23] MEDS: CLOPIDOGREL 75 MG TAB PO SCH (07:57)
[2021-01-23] MEDS: ASPIRIN 81 MG PO SCH (07:57)
[2021-01-23] MEDS: FUROSEMIDE 20 MG TAB PO SCH (07:57)
[2021-01-23] MEDS: LOSARTAN 25 MG TAB PO SCH (07:57)
[2021-01-23 08:00] LABS: Basophils % (A) 0 %; Eosinophils # (A) 0.3 k/uL (0-0.7); Eosinophils % (A) 3 %; HCT 33.9 % (39.0-53.0); HGB 11.6 gm/dL (13.0-17.5); Lymphocytes # (A) 2.4 k/uL (1.0-4.8); Lymphocytes % (A) 25 %; MCH 32.3 pg (25.0-35.0); MCHC 34.3 g/dL (31.0-37.0); Mean Platelet Volume 7.7; Monocytes # (A) 0.6 k/uL (0-1.0); Monocytes % (A) 7 %; Neutrophils % (A) 64 %; Platelet Count 270 k/uL (150-450); RBC 3.61 m/uL (4.30-5.90); RDW 14.2 % (11.5-15.5); WBC 9.5 k/uL (3.8-10.6)
[2021-01-23 08:05] LABS: Albumin 3.6 g/dL (3.5-5.0); Calcium 9.1 mg/dL (8.4-10.2); Potassium 3.7 mmol/L (3.5-5.1); Total Bilirubin 0.4 mg/dL (0.2-1.3); Total Protein 6.1 g/dL (6.3-8.2)
--- NOTE | 2021-01-23 10:26 | P.PN ---
Subjective Progress Note Date: 01/23/21 HISTORY OF PRESENT ILLNESS: This is a 60-year-old male with a past medical history significant for coronary artery disease with previous PCI to RCA, hypertension, hyperlipidemia, diabetes, and nicotine dependence, and daily marijuana use. Patient follows in the office with Dr. Connolly. We have been asked to see the patient in consultation for elevated troponins. Patient examined at the bedside. Patient states yesterday he developed nausea and vomiting and was on his way to the hospital to get evaluated when he developed chest pain. He states the pain felt like a pressure and was across his whole chest. His at the bedside reports that he looked very pale yesterday as well. He states the pain persisted for approximately 6 hours and was relieved with Dilaudid. He states he was comfortable overnight and then developed chest pain again this morning. He received 2 nitro with improvement in his chest pain which he currently rates a 2/10. The patient is a current smoker and states he is smoking 1 pack per day. He also reports smoking marijuana on a daily basis. EKG reveals sinus mechanism with ST depression in inferior leads CT abdomen pelvis: No bowel obstruction. No acute findings. Chest xray no acute cardiopulmonary process. Laboratory data: WBC 13.7. Hemoglobin 12.3. Platelet count 283. Sodium 140. Potassium 3.8. BUN 34. Creatinine 1.03. Magnesium 1.8. Lactic acid 1.5. Troponin 1.910. 2.780. 2.300. Current home cardiac medications include metoprolol tartrate 50 mg twice a day, losartan 25 mg daily, Lasix 20 mg daily, Plavix 75 mg daily, Lipitor 80 mg daily, aspirin 81 mg daily Most recent echocardiogram obtained in September 2019 revealed ejection fraction 60- 65%. Mild aortic regurgitation. Mild tricuspid regurgitation. Trace tricuspid regurgitation. Cardiac catheterization history: September 2019 revealing patent stent in the mid RCA. Mild disease involving the RCA distal to the stented segment. 01/23/2021 Patient underwent cardiac catheterization yesterday with Dr. Connolly revealing patent stent in the RCA. Mild triple vessel coronary artery disease. Preserved systolic function. Medical management was recommended. Echocardiogram completed revealed ejection fraction 40-45%. Mid anterior LV wall hypokinesis. Mid inferior LV wall hypokinesis. Mid inferior septal LV wall hypokinesis. Septal hypokinesis. Apical anterior LV wall hypokinesis. Trace aortic regurgitation. Mild mitral regurgitation. Trace tricuspid regurgitation. Patient examined this morning at the bedside. Patient denies chest pain or pressure. He denies shortness of breath. He has been up ambulating in his room. Vital signs are stable. PHYSICAL EXAM: VITAL SIGNS: Reviewed. GENERAL: Well-developed in no acute distress. HEENT: Head is normocephalic. Pupils are equal, round. Sclerae anicteric. Mucous membranes of the mouth are moist. Neck supple. No JVD or thyromegaly LUNGS: Respirations even and unlabored. Lungs essentially clear to auscultation bilaterally. HEART: Regular rate and rhythm. S1 and S2 heard. ABDOMEN: Soft. Nondistended. Nontender. EXTREMITIES: Normal range of motion. No clubbing or cyanosis. Peripheral pulses intact. No lower extremity edema. Right radial cath site with pulse present NEUROLOGIC: Awake and alert. Oriented x 3. ASSESSMENT: Non-STEMI Coronary artery disease with previous PCI to RCA Hypertension Hyperlipidemia Diabetes Nicotine dependence Daily marijuana use PLAN: Continue dual antiplatelet therapy Continue additional cardiac medications Patient is stable for discharge home today from a cardiac standpoint He is to follow up outpatient with Dr. Connolly Nurse practitioner note has been reviewed by physician. Signing provider agrees with the documented findings, assessment, and plan of care. Objective - Vital Signs Vital signs: Vital Signs Temp 97.9 F 01/23/21 03:56 Pulse 74 01/23/21 03:56 Resp 16 01/23/21 03:56 BP 108/51 01/23/21 03:56 Pulse Ox 98 01/23/21 03:56 Intake & Output 01/22/21 01/23/21 01/23/21 18:59 06:59 18:59 Intake Total 1332.797 710 Balance 1332.797 710 Weight 68.2 kg Intake: IV 720 10 Invasive Line 1 20 10 Sodium Chloride 0.9% 1, 600 000 ml @ 75 mls/hr IV . [id number] [facility] Rx#:[id number] Intake, IV Titration 52.797 Amount Heparin Sod,Pork in 0.45% 52.797 NaCl 25,000 unit In 0.45 % NaCl 1 250ml.bag @ 18 UNITS/KG/HR 13.064 mls/hr IV .Q19H9M [facility] Rx#: [id number] Oral 560 700 Other: # Voids 2 2 - Labs CBC & Chem 7: 01/23/21 07:10 01/23/21 07:10 Labs: Abnormal Lab Results - Last 24 Hours (Table) 01/23/21 01/23/21 Range/Units 07:10 07:10 RBC 3.61 L (4.30-5.90) m/uL Hgb 11.6 L (13.0-17.5) gm/dL Hct 33.9 L (39.0-53.0) % BUN 22 H (9-20) mg/dL Glucose 123 H (74-99) mg/dL Total Protein 6.1 L (6.3-8.2) g/dL Microbiology - Last 24 Hours (Table) 01/21/21 12:58 Blood Culture - Preliminary Blood No Growth after 24 hours 01/21/21 12:58 Blood Culture - Preliminary Blood No Growth after 24 hours
[2021-01-23 11:38] VITALS: TEMP 97.7
[2021-01-23 12:50] VITALS: BP 125/70; PULSE 82; RESP 18
--- NOTE | 2021-01-23 13:23 | P.DS ---
Providers Date of admission: 01/21/21 20:12 Expected date of discharge: 01/23/21 Attending physician: Ayush Reeves Consults: 01/21/21 23:20 Consult Physician Urgent Consulting Provider: Richard Tse Consult Reason/Comments: nstemi, elevated troponin Do you want consulting provider notified?: Already Contacted Primary care physician: Ayush Reeves [facility] Course: Discharge diagnosis Acute non-ST elevation myocardial infarction Underlying history of coronary artery disease with previous history of angioplasty and stent placement to the right coronary artery Underlying history of hypertension Underlying history of hyperlipidemia Underlying history of diabetes mellitus Tobacco abuse Hospital course Johnson is a 60-year-old male who presented to [facility] emergency room with a chief complaint of of chest pain patient describes a pressure sensation in the lower sternal area associated with nausea and vomiting he felt febrile and had some shaking chills. He was evaluated in the emergency room vital examination on presentation revealed a temperature of 98.1 pulse 77 respiration 18 blood pressure 164/84 pulse ox 98% on room air Laboratory data revealed a white blood count of 14.6 hemoglobin 12.5 lately it count 315 troponin level was 2.78 BUN 38 creatinine 1.27 patient was started on IV heparin and was admitted to telemetry floor cardiology consultation was requested Testing in the emergency room revealed EKG in the emergency room revealed normal sinus rhythm with nonspecific ST abnormalities, chest x-ray revealed no acute cardiopulmonary process, computed tomography scan of the abdomen and pelvis was done and did not reveal any significant abnormality. Patient was admitted to m edical floor for further evaluation and treatment Past medical history is significant for coronary artery disease was previous history of myocardial infarction and angioplasty and stent placement On review of systems at this time Patient was seen and examined on the medical floor, he is alert and oriented x 3 in no distress, he denies any complaints there is no fever or chills no headache or dizziness no chest pain no shortness of breath no palpitation no cough no nausea or vomiting no abdominal pain no diarrhea no blood in the stools no burning with urination no frequency or urgency and no hematuria, there is no weakness or numbness in any of the extremities no change in vision speech or gait. On 01/23/2021 status post cardiac catheterization yesterday with Drs. Moreno revealing patent stent in the RCA mild triple-vessel coronary artery disease with recommendations of continued dual antiplatelet therapy. Patient educated again on the importance of complete smoking cessation. At this time patient denies chest pain or shortness of breath. Patient denies nausea vomiting and diarrhea. Patient denies any urinary burning or frequency Patient Condition at Discharge: Stable Plan - Discharge Summary Discharge Rx Participant: No New Discharge Prescriptions: New Nicotine 14Mg/24Hr Patch [Habitrol] 1 patch TRANSDERM DAILY 7 Days #14 patch Continue Aspirin EC [Ecotrin Low Dose] 81 mg PO DAILY ALPRAZolam [Alprazolam] 0.25 mg PO Q6H PRN PRN Reason: Anxiety Clopidogrel [Plavix] 75 mg PO DAILY #30 tab Furosemide [Lasix] 20 mg PO DAILY 30 Days #30 tab Nitroglycerin Sl Tabs [Nitrostat] 0.4 mg PO Q5M PRN PRN Reason: Chest Pain Metoprolol Tartrate [Lopressor] 50 mg PO BID metFORMIN HCL 1,000 mg PO BID Atorvastatin Calcium [Lipitor] 80 mg PO HS Losartan [Cozaar] 25 mg PO DAILY tab HYDROcodone/APAP 10-325MG [[place] 10-325] 1 tab PO Q6H PRN 3 Days #12 tab PRN Reason: Pain Pantoprazole Sodium 40 mg PO DAILY Dicyclomine [Bentyl] 10 mg PO ACHS Discharge Medication List ALPRAZolam [Alprazolam] 0.25 mg PO Q6H PRN 03/25/16 [History] Aspirin EC [Ecotrin Low Dose] 81 mg PO DAILY 03/25/16 [History] Clopidogrel [Plavix] 75 mg PO DAILY #30 tab 06/02/18 [Rx] Furosemide [Lasix] 20 mg PO DAILY 30 Days #30 tab 06/02/18 [Rx] Metoprolol Tartrate [Lopressor] 50 mg PO BID 05/05/19 [History] Nitroglycerin Sl Tabs [Nitrostat] 0.4 mg PO Q5M PRN 05/05/19 [History] Atorvastatin Calcium [Lipitor] 80 mg PO HS 10/19/19 [History] metFORMIN HCL 1,000 mg PO BID 10/19/19 [History] Losartan [Cozaar] 25 mg PO DAILY tab 10/21/19 [Rx] Pantoprazole Sodium 40 mg PO DAILY 10/15/20 [History] Dicyclomine [Bentyl] 10 mg PO ACHS 01/21/21 [History] HYDROcodone/APAP 10-325MG [[place] 10-325] 1 tab PO Q6H PRN 3 Days #12 tab 01/23/21 [Rx] Nicotine 14Mg/24Hr Patch [Habitrol] 1 patch TRANSDERM DAILY 7 Days #14 patch 06/14 [Rx] Follow up Appointment(s)/Referral(s): Gisela Connolly MD [STAFF PHYSICIAN] - 1 Week Ayush Reeves MD [Primary Care Provider] - 1-2 days
[2021-01-23] MEDS ORDERED: ATORVASTATIN 80 MG TAB PO SCH (21:00)
== END 2021-01-23 14:25 | disposition home or self-care (01) ==
LOC: EC 12:16 → 3SCARD 20:12
PROVIDERS: ADMIT Internal Medicine; ATTEND Internal Medicine
CPT/HCPCS: 36415; 71046; 74176; 80053; 81001; 83605; 83735; 84484; 85025; 85610; 85730; 87040; 87635; 93005; 93306; 93458; 96365; 96374; 96375; 99285

== ENCOUNTER → 2021-03-01 | Outpatient (CLI) | payer MEDICARE, OTHER ==
--- NOTE | 2021-03-02 05:44 | MR ---
EXAMINATION TYPE: MR lumbar spine wo con DATE OF EXAM: 03/01/2021 COMPARISON: None HISTORY: low back pain, prior discectomy 24 years ago Lumbar vertebra have normal alignment. There is degenerative disc space narrowing throughout the lumb ar spine with decreased signal in the disks. There is no lumbar paraspinal mass. There is no compress ion fracture. There are mild posterior disc bulges from L1 to L4. There is some facet arthropathy and minimal lateral recess stenosis at L3-4. There is laminectomy defect at L5. I see no focal bone dest ruction. The sacroiliac joints are intact. Lumbar neural foramina are narrowed throughout the spine d ue to the disc space narrowing and facet arthropathy. IMPRESSION: Previous surgery. Multilevel spondylotic changes. Mild lateral recess stenosis at L3-4. Multilevel mi ld posterior disc bulging without significant spinal stenosis. There is multilevel neural foraminal n arrowing due to disc space narrowing and facet arthropathy.
== END | disposition home or self-care (01) ==
LOC: RADMRIMAIN 12:02
PROVIDERS: ATTEND Internal Medicine
DX: M54.5 Low back pain (principal)
CPT/HCPCS: 72148

== ENCOUNTER → 2021-08-19 | Outpatient (CLI) | payer MEDICARE, OTHER ==
--- NOTE | 2021-08-19 15:58 | XR ---
EXAMINATION TYPE: XR chest 2V DATE OF EXAM: 08/19/2021 COMPARISON: 01/21/2021 HISTORY: 60-year-old male with cough TECHNIQUE: Frontal and lateral views FINDINGS: Heart normal size. Aorta and pulmonary vasculature within normal limits. Increased retrosternal clear space and mild hyperinflation. No consolidation or pleural effusion. IMPRESSION: Hyperinflation suggesting underlying COPD. No acute process seen.
== END | disposition home or self-care (01) ==
LOC: RADXRMAIN 12:25
PROVIDERS: ATTEND Internal Medicine
DX: R05.9 Cough, unspecified (principal)
CPT/HCPCS: 71046

== ENCOUNTER 2022-01-01 14:49 | Inpatient (IN) | payer MEDICARE, OTHER ==
[2022-01-01] MEDS ORDERED: ONDANSETRON 4 MG/2 ML VIAL IVP STA (16:11)
[2022-01-01] MEDS ORDERED: HYDROmorphone 1 MG/ML 1 ML SYRINGE IVP STA (16:11)
[2022-01-01] MEDS ORDERED: SODIUM CHLORIDE 0.9% 1,000 ML IV STA (16:11)
[2022-01-01 16:54] LABS: Basophils # (A) 0.1 k/uL (0-0.2); Basophils % (A) 0 %; Eosinophils # (A) 0.1 k/uL (0-0.7); Eosinophils % (A) 0 %; HCT 41.7 % (39.0-53.0); HGB 13.6 gm/dL (13.0-17.5); Lymphocytes % (A) 5 %; MCH 30.6 pg (25.0-35.0); MCHC 32.5 g/dL (31.0-37.0); Mean Platelet Volume 7.6; Monocytes # (A) 0.5 k/uL (0-1.0); Monocytes % (A) 3 %; Neutrophils # (A) 16.9 k/uL (1.3-7.7); Neutrophils % (A) 91 %; Platelet Count 312 k/uL (150-450); RBC 4.43 m/uL (4.30-5.90); WBC 18.6 k/uL (3.8-10.6)
[2022-01-01 17:10] LABS: Albumin 4.9 g/dL (3.5-5.0); Calcium 9.7 mg/dL (8.4-10.2); Magnesium 1.5 mg/dL (1.6-2.3); Potassium 3.9 mmol/L (3.5-5.1); Total Bilirubin 0.6 mg/dL (0.2-1.3); Total Protein 7.8 g/dL (6.3-8.2)
--- NOTE | 2022-01-01 17:15 | XR ---
EXAMINATION TYPE: XR chest 2V DATE OF EXAM: 01/01/2022 5:12 PM COMPARISON: Chest radiographs from 08/19/2021 TECHNIQUE: XR chest 2V Frontal and lateral views of the chest. CLINICAL INDICATION:Male, 61 years old with history of Chest Pain; FINDINGS: Lungs/Pleura: There is no evidence of pleural effusion, focal consolidation, or pneumothorax. Pulmonary vascularity: Unremarkable. Heart/mediastinum: Cardiomediastinal silhouette is unremarkable. Musculoskeletal: No acute osseous pathology. IMPRESSION: No acute cardiopulmonary disease/process.
[2022-01-01 17:23] LABS: INR 0.9 (<1.2); Prothrombin Time 10.4 sec (9.0-12.0)
[2022-01-01 17:26] LABS: Partial Thromboplastin Time 20.3 sec (22.0-30.0)
--- NOTE | 2022-01-01 17:52 | ED ---
General Adult HPI - General Chief complaint: Chest Pain Stated complaint: Chest Pain Time Seen by Provider: 01/01/22 15:47 Source: patient Mode of arrival: ambulatory Limitations: no limitations - History of Present Illness Initial comments: 61-year-old male with past medical history of chronic back pain, coronary artery disease diabetes who presents emergency room with nausea vomiting chest pain that started earlier today. Patient called EMS as he had intractable nausea, vomiting and chest pain since 7:00 this morning. Pain is described as subste rnal pressure radiating into his back. Also has bilateral flank pain and generalized anterior abdominal pain. No diarrhea. Chills without fevers. No sick contacts. He does have a history of cardiac disease. No other alleviating, precipitating or modifying factors - Related Data Home Medications Medication Instructions Recorded Confirmed ALPRAZolam [Alprazolam] 0.25 mg PO Q6H PRN 03/25/16 01/01/22 Aspirin EC [Ecotrin Low Dose] 81 mg PO DAILY 03/25/16 01/01/22 Metoprolol Tartrate [Lopressor] 50 mg PO BID 05/05/19 01/01/22 Nitroglycerin Sl Tabs [Nitrostat] 0.4 mg PO Q5M PRN 05/05/19 01/01/22 Atorvastatin Calcium [Lipitor] 80 mg PO HS 10/19/19 01/01/22 metFORMIN HCL 1,000 mg PO BID 10/19/19 01/01/22 Pantoprazole Sodium 40 mg PO DAILY 10/15/20 01/01/22 Dicyclomine [Bentyl] 10 mg PO ACHS 01/21/21 01/01/22 Albuterol Sulfate [Ventolin HFA] 2 puff INHALATION RT-Q6H PRN 01/01/22 01/01/22 Ergocalciferol (Vitamin D2) 1,250 mcg PO FR 01/01/22 01/01/22 [Drisdol (50,000 Iu)] Levothyroxine Sodium [Synthroid] 25 mcg PO DAILY 01/01/22 01/01/22 Losartan Potassium 50 mg PO DAILY 01/01/22 01/01/22 Nicotine 21Mg/24Hr Patch [Habitrol] 1 patch TRANSDERM DAILY 01/01/22 01/01/22 Previous Rx's Medication Instructions Recorded Clopidogrel [Plavix] 75 mg PO DAILY #30 tab 06/02/18 Furosemide [Lasix] 20 mg PO DAILY 30 Days #30 tab 06/02/18 HYDROcodone/APAP 10-325MG [[place] 1 tab PO Q6H PRN 3 Days #12 tab 01/23/21 10-325] Potassium Chloride ER [K-Dur 10] 10 meq PO DAILY 30 Days #30 tab 01/02/22 Allergies Allergy/AdvReac Type Severity Reaction Status Date / Time cephalexin [From Keflex] Allergy Unknown Verified 01/01/22 20:23 codeine Allergy Unknown Verified 01/01/22 20:23 meperidine [From Demerol] Allergy Unknown Verified 01/01/22 20:23 morphine Allergy Unknown Verified 01/01/22 20:23 Review of Systems ROS Statement: Those systems with pertinent positive or pertinent negative responses have been documented in the HPI. ROS Other: All systems not noted in ROS Statement are negative. Past Medical History Past Medical History: Diabetes Mellitus, Hyperlipidemia, Hypertension, Myocardial Infarction (VT) Additional Past Medical History / Comment(s): pericarditis, left side carotid stenosis Last Myocardial Infarction Date:: 03/2016 History of Any Multi-Drug Resistant Organisms: None Reported Past Surgical History: Back Surgery, Heart Catheterization With Stent, Orthopedic Surgery Additional Past Surgical History / Comment(s): Bilat hip replacements, 1 cardiac stent, leaky valve per pt. Past Anesthesia/Blood Transfusion Reactions: No Reported Reaction Date of Last Stent Placement:: 03/2016 Past Psychological History: Anxiety, Depression Smoking Status: Current every day smoker Past Alcohol Use History: None Reported Past Drug Use History: None Reported - Past Family History Father History Unknown: Yes Mother Family Medical History: Diabetes Mellitus, Hypertension Additional Family Medical History / Comment(s): passed in from complications r/t DM General Exam Limitations: no limitations General appearance: alert, in distress, other (diaphoretic, pale) Head exam: Present: atraumatic, normocephalic, normal inspection Eye exam: Present: normal appearance, PERRL, EOMI. Absent: scleral icterus, conjunctival injection, periorbital swelling ENT exam: Present: normal exam, mucous membranes moist Neck exam: Present: normal inspection. Absent: tenderness, meningismus, lymphadenopathy Respiratory exam: Present: normal lung sounds bilaterally. Absent: respiratory distress, wheezes, rales, rhonchi, stridor Cardiovascular Exam: Present: regular rate, normal rhythm, normal heart sounds. Absent: systolic murmur, diastolic murmur, rubs, gallop, clicks GI/Abdominal exam: Present: soft, tenderness (periumbilical), normal bowel sounds. Absent: distended, guarding, rebound, rigid Extremities exam: Present: normal inspection, full ROM, normal capillary refill. Absent: tenderness, pedal edema, joint swelling, calf tenderness Back exam: Present: normal inspection Neurological exam: Present: alert, oriented X3, CN II-XII intact Psychiatric exam: Present: normal affect, anxious Skin exam: Present: warm, diaphoretic, pallor. Absent: rash Course Vital Signs 01/01/22 01/01/22 01/01/22 14:55 16:56 20:34 Temperature 97.4 F L 98.5 F Pulse Rate 86 90 97 Pulse Rate [ Pulse Oximetery ] Respiratory 20 20 16 Rate Blood Pressure 160/68 187/88 133/84 Blood Pressure [Right Arm] O2 Sat by Pulse 100 98 Oximetry 01/01/22 21:16 Temperature 97.7 F Pulse Rate Pulse Rate [ 99 Pulse Oximetery ] Respiratory 16 Rate Blood Pressure Blood Pressure 148/68 [Right Arm] O2 Sat by Pulse 96 Oximetry EKG Findings - EKG Comments: EKG Findings:: EKG demonstrates sinus rhythm with a rate of 90. [place] interval 161. QRS 83. QTC of 456. No acute ST segment elevations or depressions Medical Decision Making - Medical Decision Making Upon arrival the patient is placed in room 15. History and physical exam was performed. IV access was established. Patient given pain and nausea medications. Laboratory studies were conducted which demonstrated a white count 18.6. Creatinine 1.2. Troponin less than 0.012. Covid and influenza not d etected. Chest x-ray demonstrates no acute process. CT of the abdomen and pelvis demonstrates no acute process. I did reevaluate the patient's he feels much improved. I did recommend admitting him for serial troponins and cardio eval. Patient was agreeable to this. He was given an aspirin and patient was admitted in stable condition - Lab Data Result diagrams: 01/02/22 06:00 01/02/22 16:21 Lab Results 01/01/22 01/01/22 01/01/22 Range/Units 16:32 16:32 16:32 WBC 18.6 H (3.8-10.6) k/uL RBC 4.43 (4.30-5.90) m/uL Hgb 13.6 (13.0-17.5) gm/dL Hct 41.7 (39.0-53.0) % MCV 94.0 (80.0-100.0) fL MCH 30.6 (25.0-35.0) pg MCHC 32.5 (31.0-37.0) g/dL RDW 13.0 (11.5-15.5) % Plt Count 312 (150-450) k/uL MPV 7.6 Neutrophils % 91 % Lymphocytes % 5 % Monocytes % 3 % Eosinophils % 0 % Basophils % 0 % Neutrophils # 16.9 H (1.3-7.7) k/uL Lymphocytes # 1.0 (1.0-4.8) k/uL Monocytes # 0.5 (0-1.0) k/uL Eosinophils # 0.1 (0-0.7) k/uL Basophils # 0.1 (0-0.2) k/uL PT 10.4 (9.0-12.0) sec INR 0.9 (<1.2) APTT 20.3 L (22.0-30.0) sec Sodium 143 (137-145) mmol/L Potassium 3.9 (3.5-5.1) mmol/L Chloride 104 (98-107) mmol/L Carbon Dioxide 23 (22-30) mmol/L Anion Gap 16 mmol/L BUN 29 H (9-20) mg/dL Creatinine 1.28 H (0.66-1.25) mg/dL Est GFR (CKD-EPI)AfAm 69 (>60 ml/min/1.73 sqM) Est GFR (CKD-EPI)NonAf 59 (>60 ml/min/1.73 sqM) BUN/Creatinine Ratio (12.00-20.00) Ratio Glucose 207 H (74-99) mg/dL POC Glucose (mg/dL) (70-110) mg/dL POC Glu Renal Dietitian ID Calcium 9.7 (8.4-10.2) mg/dL Magnesium 1.5 L (1.6-2.3) mg/dL Total Bilirubin 0.6 (0.2-1.3) mg/dL AST 26 (17-59) U/L ALT 18 (4-49) U/L Alkaline Phosphatase 76 (38-126) U/L Troponin I (0.000-0.034) ng/mL NT-Pro-B Natriuret Pep pg/mL Total Protein 7.8 (6.3-8.2) g/dL Albumin 4.9 (3.5-5.0) g/dL Lipase 62 (23-300) U/L Urine Color Urine Appearance (Clear) Urine pH (5.0-8.0) Ur Specific [place] (1.001-1.035) Urine Protein (Negative) Urine Glucose (UA) (Negative) Urine Ketones (Negative) Urine Blood (Negative) Urine Nitrite (Negative) Urine Bilirubin (Negative) Urine Urobilinogen (<2.0) mg/dL Ur Leukocyte Esterase (Negative) Urine RBC (0-5) /hpf Urine WBC (0-5) /hpf Urine Mucus (None) /hpf Coronavirus (PCR) (Not Detectd) Influenza Type A RNA (Not Detectd) Influenza Type B (PCR) (Not Detectd) 01/01/22 01/01/22 01/01/22 Range/Units 16:32 16:32 17:01 WBC (3.8-10.6) k/uL RBC (4.30-5.90) m/uL Hgb (13.0-17.5) gm/dL Hct (39.0-53.0) % MCV (80.0-100.0) fL MCH (25.0-35.0) pg MCHC (31.0-37.0) g/dL RDW (11.5-15.5) % Plt Count (150-450) k/uL MPV Neutrophils % % Lymphocytes % % Monocytes % % Eosinophils % % Basophils % % Neutrophils # (1.3-7.7) k/uL Lymphocytes # (1.0-4.8) k/uL Monocytes # (0-1.0) k/uL Eosinophils # (0-0.7) k/uL Basophils # (0-0.2) k/uL PT (9.0-12.0) sec INR (<1.2) APTT (22.0-30.0) sec Sodium (137-145) mmol/L Potassium (3.5-5.1) mmol/L Chloride (98-107) mmol/L Carbon Dioxide (22-30) mmol/L Anion Gap mmol/L BUN (9-20) mg/dL Creatinine (0.66-1.25) mg/dL Est GFR (CKD-EPI)AfAm (>60 ml/min/1.73 sqM) Est GFR (CKD-EPI)NonAf (>60 ml/min/1.73 sqM) BUN/Creatinine Ratio (12.00-20.00) Ratio Glucose (74-99) mg/dL POC Glucose (mg/dL) (70-110) mg/dL POC Glu Renal Dietitian ID Calcium (8.4-10.2) mg/dL Magnesium (1.6-2.3) mg/dL Total Bilirubin (0.2-1.3) mg/dL AST (17-59) U/L ALT (4-49) U/L Alkaline Phosphatase (38-126) U/L Troponin I <0.012 (0.000-0.034) ng/mL NT-Pro-B Natriuret Pep 789 pg/mL Total Protein (6.3-8.2) g/dL Albumin (3.5-5.0) g/dL Lipase (23-300) U/L Urine Color Urine Appearance (Clear) Urine pH (5.0-8.0) Ur Specific [place] (1.001-1.035) Urine Protein (Negative) Urine Glucose (UA) (Negative) Urine Ketones (Negative) Urine Blood (Negative) Urine Nitrite (Negative) Urine Bilirubin (Negative) Urine Urobilinogen (<2.0) mg/dL Ur Leukocyte Esterase (Negative) Urine RBC (0-5) /hpf Urine WBC (0-5) /hpf Urine Mucus (None) /hpf Coronavirus (PCR) Not Detected (Not Detectd) Influenza Type A RNA (Not Detectd) Influenza Type B (PCR) (Not Detectd) 01/01/22 01/01/22 01/01/22 Range/Units 17:01 20:24 20:50 WBC (3.8-10.6) k/uL RBC (4.30-5.90) m/uL Hgb (13.0-17.5) gm/dL Hct (39.0-53.0) % MCV (80.0-100.0) fL MCH (25.0-35.0) pg MCHC (31.0-37.0) g/dL RDW (11.5-15.5) % Plt Count (150-450) k/uL MPV Neutrophils % % Lymphocytes % % Monocytes % % Eosinophils % % Basophils % % Neutrophils # (1.3-7.7) k/uL Lymphocytes # (1.0-4.8) k/uL Monocytes # (0-1.0) k/uL Eosinophils # (0-0.7) k/uL Basophils # (0-0.2) k/uL PT (9.0-12.0) sec INR (<1.2) APTT (22.0-30.0) sec Sodium (137-145) mmol/L Potassium (3.5-5.1) mmol/L Chloride (98-107) mmol/L Carbon Dioxide (22-30) mmol/L Anion Gap mmol/L BUN (9-20) mg/dL Creatinine (0.66-1.25) mg/dL Est GFR (CKD-EPI)AfAm (>60 ml/min/1.73 sqM) Est GFR (CKD-EPI)NonAf (>60 ml/min/1.73 sqM) BUN/Creatinine Ratio (12.00-20.00) Ratio Glucose (74-99) mg/dL POC Glucose (mg/dL) (70-110) mg/dL POC Glu Renal Dietitian ID Calcium (8.4-10.2) mg/dL Magnesium (1.6-2.3) mg/dL Total Bilirubin (0.2-1.3) mg/dL AST (17-59) U/L ALT (4-49) U/L Alkaline Phosphatase (38-126) U/L Troponin I 0.051 H* (0.000-0.034) ng/mL NT-Pro-B Natriuret Pep pg/mL Total Protein (6.3-8.2) g/dL Albumin (3.5-5.0) g/dL Lipase (23-300) U/L Urine Color Yellow Urine Appearance Clear (Clear) Urine pH 5.5 (5.0-8.0) Ur Specific [place] 1.030 (1.001-1.035) Urine Protein 1+ H (Negative) Urine Glucose (UA) 2+ H (Negative) Urine Ketones 2+ H (Negative) Urine Blood Negative (Negative) Urine Nitrite Negative (Negative) Urine Bilirubin Negative (Negative) Urine Urobilinogen <2.0 (<2.0) mg/dL Ur Leukocyte Esterase Negative (Negative) Urine RBC 2 (0-5) /hpf Urine WBC <1 (0-5) /hpf Urine Mucus Moderate H (None) /hpf Coronavirus (PCR) (Not Detectd) Influenza Type A RNA Not Detected (Not Detectd) Influenza Type B (PCR) Not Detected (Not Detectd) 01/01/22 01/02/22 01/02/22 Range/Units 22:16 00:36 06:00 WBC 14.0 H (3.8-10.6) k/uL RBC 3.67 L (4.30-5.90) m/uL Hgb 11.5 L (13.0-17.5) gm/dL Hct 34.5 L (39.0-53.0) % MCV 94.0 (80.0-100.0) fL MCH 31.4 (25.0-35.0) pg MCHC 33.4 (31.0-37.0) g/dL RDW 13.1 (11.5-15.5) % Plt Count 260 (150-450) k/uL MPV 7.9 Neutrophils % 79 % Lymphocytes % 14 % Monocytes % 6 % Eosinophils % 0 % Basophils % 0 % Neutrophils # 11.0 H (1.3-7.7) k/uL Lymphocytes # 2.0 (1.0-4.8) k/uL Monocytes # 0.8 (0-1.0) k/uL Eosinophils # 0.0 (0-0.7) k/uL Basophils # 0.0 (0-0.2) k/uL PT (9.0-12.0) sec INR (<1.2) APTT (22.0-30.0) sec Sodium (137-145) mmol/L Potassium (3.5-5.1) mmol/L Chloride (98-107) mmol/L Carbon Dioxide (22-30) mmol/L Anion Gap mmol/L BUN (9-20) mg/dL Creatinine (0.66-1.25) mg/dL Est GFR (CKD-EPI)AfAm (>60 ml/min/1.73 sqM) Est GFR (CKD-EPI)NonAf (>60 ml/min/1.73 sqM) BUN/Creatinine Ratio (12.00-20.00) Ratio Glucose (74-99) mg/dL POC Glucose (mg/dL) 299 H (70-110) mg/dL POC Glu Renal Dietitian ID Johnnie Bone Calcium (8.4-10.2) mg/dL Magnesium (1.6-2.3) mg/dL Total Bilirubin (0.2-1.3) mg/dL AST (17-59) U/L ALT (4-49) U/L Alkaline Phosphatase (38-126) U/L Troponin I 0.060 H* (0.000-0.034) ng/mL NT-Pro-B Natriuret Pep pg/mL Total Protein (6.3-8.2) g/dL Albumin (3.5-5.0) g/dL Lipase (23-300) U/L Urine Color Urine Appearance (Clear) Urine pH (5.0-8.0) Ur Specific [place] (1.001-1.035) Urine Protein (Negative) Urine Glucose (UA) (Negative) Urine Ketones (Negative) Urine Blood (Negative) Urine Nitrite (Negative) Urine Bilirubin (Negative) Urine Urobilinogen (<2.0) mg/dL Ur Leukocyte Esterase (Negative) Urine RBC (0-5) /hpf Urine WBC (0-5) /hpf Urine Mucus (None) /hpf Coronavirus (PCR) (Not Detectd) Influenza Type A RNA (Not Detectd) Influenza Type B (PCR) (Not Detectd) 01/02/22 01/02/22 Range/Units 06:08 08:37 WBC (3.8-10.6) k/uL RBC (4.30-5.90) m/uL Hgb (13.0-17.5) gm/dL Hct (39.0-53.0) % MCV (80.0-100.0) fL MCH (25.0-35.0) pg MCHC (31.0-37.0) g/dL RDW (11.5-15.5) % Plt Count (150-450) k/uL MPV Neutrophils % % Lymphocytes % % Monocytes % % Eosinophils % % Basophils % % Neutrophils # (1.3-7.7) k/uL Lymphocytes # (1.0-4.8) k/uL Monocytes # (0-1.0) k/uL Eosinophils # (0-0.7) k/uL Basophils # (0-0.2) k/uL PT (9.0-12.0) sec INR (<1.2) APTT (22.0-30.0) sec Sodium 146 H (137-145) mmol/L Potassium 2.4 L* (3.5-5.1) mmol/L Chloride 122 H (98-107) mmol/L Carbon Dioxide 13.2 L (22-30) mmol/L Anion Gap 10.80 mmol/L BUN 19.3 (9-20) mg/dL Creatinine 0.8 (0.66-1.25) mg/dL Est GFR (CKD-EPI)AfAm 110.2 (>60 ml/min/1.73 sqM) Est GFR (CKD-EPI)NonAf 95.1 (>60 ml/min/1.73 sqM) BUN/Creatinine Ratio 24.13 H (12.00-20.00) Ratio Glucose 92 (74-99) mg/dL POC Glucose (mg/dL) 149 H (70-110) mg/dL POC Glu Renal Dietitian ID Burdick, Leidy Calcium 5.2 L* (8.4-10.2) mg/dL Magnesium (1.6-2.3) mg/dL Total Bilirubin (0.2-1.3) mg/dL AST (17-59) U/L ALT (4-49) U/L Alkaline Phosphatase (38-126) U/L Troponin I (0.000-0.034) ng/mL NT-Pro-B Natriuret Pep pg/mL Total Protein (6.3-8.2) g/dL Albumin (3.5-5.0) g/dL Lipase (23-300) U/L Urine Color Urine Appearance (Clear) Urine pH (5.0-8.0) Ur Specific [place] (1.001-1.035) Urine Protein (Negative) Urine Glucose (UA) (Negative) Urine Ketones (Negative) Urine Blood (Negative) Urine Nitrite (Negative) Urine Bilirubin (Negative) Urine Urobilinogen (<2.0) mg/dL Ur Leukocyte Esterase (Negative) Urine RBC (0-5) /hpf Urine WBC (0-5) /hpf Urine Mucus (None) /hpf Coronavirus (PCR) (Not Detectd) Influenza Type A RNA (Not Detectd) Influenza Type B (PCR) (Not Detectd) Disposition Clinical Impression: Chest pain, Nausea and vomiting, Abdominal pain Disposition: ADMITTED IP TO THIS HOSP Condition: Stable Is patient prescribed a controlled substance at d/c from ED?: No Time of Disposition: 19:29 Decision to Admit Reason: Admit from EC Decision Date: 01/01/22 Decision Time: 19:29
--- NOTE | 2022-01-01 18:05 | CT ---
EXAMINATION TYPE: CT abdomen pelvis w con CT DLP: 837.1 mGycm, Automated exposure control for dose reduction was used. DATE OF EXAM: 01/01/2022 5:30 PM COMPARISON: 01/21/2021 CLINICAL INDICATION:Male, 61 years old with history of pain; Abdominal pain TECHNIQUE: Axial CT of the abdomen and pelvis. Sagittal and coronal reformats were created on a [employer] workstation. Contrast used:80 mL of Isovue 300 with IV Contrast, Oral contrast used: without Oral Contrast FINDINGS: LOWER CHEST: Unremarkable ABDOMEN LIVER: Diffusely hypoattenuating parenchyma. GALLBLADDER AND BILE DUCTS: Unremarkable. PANCREAS: Unremarkable. SPLEEN: Small splenule is present. ADRENAL GLANDS: Unremarkable. KIDNEYS AND URETERS: No evidence of hydronephrosis or renal calculus. The ureters are unremarkable. PELVIS Streak artifact limits evaluation. BLADDER: Unremarkable REPRODUCTIVE: Unremarkable. ABDOMEN & PELVIS STOMACH AND BOWEL: The colon is nondistended. There is minimal small bowel feces seen in the anterior abdomen. No evidence of bowel obstruction. Appendix is normal. PERITONEUM: No evidence of pneumoperitoneum or free fluid. VASCULATURE: Moderate atherosclerotic calcifications are present throughout the abdominal aorta and i ts branches. No evidence of aortic aneurysm. MUSCULOSKELETAL: No acute osseous abnormalities. Bilateral hip arthroplasty changes with cystic valente es around the left anterior acetabular cup measuring at least 4.9 x 2.5 x 1.5 cm. Degeneration change s throughout the visualized spine. LYMPH NODES: No gross evidence for lymphadenopathy. SOFT TISSUE/ABDOMINAL WALL: Unremarkable IMPRESSION: 1. No definitive evidence for acute intraluminal process. There is nondistention pseudothickening of the colon wall throughout the colon which is felt to be due to nondistention. 2. Hepatic steatosis. 3. Multilevel disc degeneration changes. 4. Interosseous cystic changes around the left acetabular cup.
[2022-01-01] MEDS ORDERED: NALOXONE 0.4 MG/ML 1 ML VIAL IV PRN (19:29)
[2022-01-01] MEDS ORDERED: ONDANSETRON 4 MG/2 ML VIAL IVP PRN (19:29)
[2022-01-01] MEDS ORDERED: ASPIRIN 81 MG PO STA (19:36)
[2022-01-01 20:44] LABS: Appearance,Urine Clear (Clear); Bilirubin,Urine Negative (Negative); Blood,Urine Negative (Negative); Color,Urine Yellow; Glucose,Urine (UA) 2+ (Negative); Leukocyte Esterase,Urine Negative (Negative); Mucus,Urine Moderate /hpf; Nitrite,Urine Negative (Negative); PH, Urine 5.5 (5.0-8.0); Protein,Urine 1+ (Negative); RBC,Urine 2 /hpf (0-5); Urobilinogen,Urine <2.0 mg/dL (<2.0); WBC,Urine <1 /hpf (0-5)
[2022-01-01 20:46] LABS: Ketones,Urine 2+ (Negative)
[2022-01-01 22:18] LABS: Glucose,Whole Blood 299 mg/dL (70-110)
[2022-01-01] MEDS: SODIUM CHLORIDE 0.9% 1,000 ML IV SCH (22:50)
[2022-01-01] MEDS: ALPRAZolam 0.25 MG TAB PO PRN (22:56)
[2022-01-01] MEDS: INSULIN ASPART (NovoLOG) 100 UNIT/ML VIAL SQ SCH (22:57)
[2022-01-02] MEDS ORDERED: MAGNESIUM SULFATE-D5W PMX 1 GM in DEXTROSE/WATER 1 100ML.BAG IVPB ONE (01:37)
[2022-01-02] MEDS ORDERED: ALPRAZolam 0.25 MG TAB PO PRN (01:48)
[2022-01-02] MEDS ORDERED: ALBUTEROL NEBULIZED 2.5 MG/3 ML INHALATION PRN (01:48)
[2022-01-02] MEDS ORDERED: LEVOTHYROXINE 25 MCG TAB PO SCH (06:30)
[2022-01-02 06:46] LABS: Basophils % (A) 0 %; Eosinophils % (A) 0 %; HCT 34.5 % (39.0-53.0); HGB 11.5 gm/dL (13.0-17.5); Lymphocytes % (A) 14 %; MCH 31.4 pg (25.0-35.0); MCHC 33.4 g/dL (31.0-37.0); Mean Platelet Volume 7.9; Monocytes # (A) 0.8 k/uL (0-1.0); Monocytes % (A) 6 %; Neutrophils % (A) 79 %; Platelet Count 260 k/uL (150-450); RBC 3.67 m/uL (4.30-5.90); RDW 13.1 % (11.5-15.5)
[2022-01-02] MEDS ORDERED: PANTOPRAZOLE SODIUM 40 MG GRANULE PKT PO SCH (07:30)
[2022-01-02] MEDS: DICYCLOMINE 10 MG CAP PO SCH ×2 (08:29→12:21)
[2022-01-02 08:39] LABS: Glucose,Whole Blood 149 mg/dL (70-110)
[2022-01-02] MEDS: ALPRAZolam 0.25 MG TAB PO PRN ×2 (08:39→16:08)
[2022-01-02] MEDS: HYDROcodone/APAP 10-325MG 1 EACH TAB PO PRN ×2 (08:39→16:08)
[2022-01-02] MEDS: INSULIN ASPART (NovoLOG) 100 UNIT/ML VIAL SQ SCH ×2 (08:41→12:54)
[2022-01-02] MEDS ORDERED: ASPIRIN 81 MG PO SCH (09:00)
[2022-01-02] MEDS ORDERED: PANTOPRAZOLE 40 MG/10 ML VIAL IV SCH (09:00)
[2022-01-02] MEDS ORDERED: LOSARTAN 50 MG TAB PO SCH (09:00)
[2022-01-02] MEDS ORDERED: FUROSEMIDE 20 MG TAB PO SCH (09:00)
[2022-01-02] MEDS ORDERED: NICOTINE 21MG/24HR PATCH TRANSDERM SCH (09:00)
[2022-01-02] MEDS ORDERED: CLOPIDOGREL 75 MG TAB PO SCH (09:00)
[2022-01-02] MEDS ORDERED: METOPROLOL TARTRATE 50 MG TAB PO SCH (09:00)
[2022-01-02 10:22] LABS: African American GFR (CKD) 110.2 (60.0-200.0); Anion Gap 10.8 mmol/L (10.00-18.00); BUN/Creat Ratio 24.13 Ratio (12.00-20.00); Blood Urea Nitrogen 19.3 mg/dL (9.0-27.0); Calcium 5.2 mg/dL (8.7-10.3); Carbon Dioxide 13.2 mmol/L (20.0-27.5); Non-African American GFR(CKD) 95.1 (60.0-200.0); Potassium 2.4 mmol/L (3.5-5.5)
[2022-01-02] MEDS: SODIUM CHLORIDE 0.9% 1,000 ML IV SCH (10:35)
[2022-01-02] MEDS ORDERED: Potassium Replacement Protocol 1 EACH MISC MISCELLANE PRN (10:47)
[2022-01-02] MEDS: POTASSIUM CHLORIDE ER 20 MEQ TAB.ER PO SCH ×3 (11:00→13:54)
--- NOTE | 2022-01-02 11:18 | CA ---
Transthoracic Echo Report Name: Johnson Bolton Age: 61 Gender: M : 1960 Exam Date: 01/02/2022 08:06 Exam Location: [facility] Ht (in): 68 Wt (lb): 158 Ordering Physician: Francisco Gómez MD ([id number]) Attending/Referring Phys: Rico MC Marketing Manager Leonila Guevara RDCS Procedure CPT: Indications: CP Cardiac Hx: Technical Quality: Good Contrast 1: Total Dose (mL): Contrast 2: Total Dose (mL): MEASUREMENTS (Male / Female) Normal Values 2D ECHO LV Diastolic Diameter PLAX 4.5 cm 4.2 - 5.9 / 3.9 - 5.3 cm LV Systolic Diameter PLAX 2.4 cm IVS Diastolic Thickness 0.7 cm 0.6 - 1.0 / 0.6 - 0.9 cm LVPW Diastolic Thickness 0.9 cm 0.6 - 1.0 / 0.6 - 0.9 cm LV Relative Wall Thickness 0.4 RV Internal Dim ED PLAX 3.0 cm LA Volume 57.5 cm??? 18 - 58 / 22 - 52 cm??? M-MODE Aortic Root Diameter MM 3.0 cm LA Systolic Diameter MM 2.0 cm LA Ao Ratio MM 0.7 MV E Point Septal Separation 1.1 cm AV Cusp Separation MM 1.5 cm DOPPLER AV Peak Velocity 151.7 cm/s AV Peak Gradient 9.2 mmHg MV Area PHT 3.4 cm??? MR Peak Velocity 224.2 cm/s MR Peak Gradient 20.1 mmHg Mitral E Point Velocity 109.6 cm/s Mitral A Point Velocity 103.1 cm/s Mitral E to A Ratio 1.1 MV Deceleration Time 226.1 ms MV E' Velocity 9.7 cm/s Mitral E to MV E' Ratio 11.3 TR Peak Velocity 176.7 cm/s TR Peak Gradient 12.5 mmHg Right Ventricular Systolic Press 16.5 mmHg FINDINGS Left Ventricle Left ventricular ejection fraction is estimated at 55-60 %. Normal Left ventricular size, wall thickness, systolic function with no obvious regional wall motion abnormalities. Normal Left ventricular diastolic filling pattern. Left ventricular cavity size normal. Right Ventricle The right ventricle is normal in size and function. Right Atrium The right atrium is normal in size. Left Atrium The left atrium is normal in size. Mitral Valve Structurally normal mitral valve without significant stenosis or prolapse. There is trace mitral regurgitation. Mitral valve thickened. Aortic Valve Structurally normal aortic valve without significant sclerosis or stenosis. There is no aortic regurgitation. Tricuspid Valve Structurally normal tricuspid valve without significant stenosis. Pulmonary artery systolic pressure is normal. Trace tricuspid regurgitation. Pulmonic Valve Structurally normal pulmonic valve without significant stenosis. There is no pulmonic regurgitation. Pericardium Normal pericardium without effusion. Aorta Normal aortic root dimension. CONCLUSIONS Normal LV systolic function Previewed by: Dr. Francisco Gómez MD (Electronically Signed) Final Date: 02 January 2022 11:18
[2022-01-02] MEDS ORDERED: NITROGLYCERIN OINT 1 INCH/GM PACKET TOPICAL SCH (12:00)
[2022-01-02 12:04] LABS: Glucose,Whole Blood 167 mg/dL (70-110)
--- NOTE | 2022-01-02 12:33 | CONS ---
CONSULTATION CHIEF COMPLAINT: Nausea, vomiting, and abdominal discomfort. REASON FOR CONSULTATION: Elevated troponin. HISTORY OF PRESENT ILLNESS: Mr. Bolton is a 61-year-old gentleman with history of hypertension, diabetes, dyslipidemia, and known CAD, status post prior angioplasty of right coronary artery, who presents to the hospital primarily with abdominal symptoms. He had mild troponin elevation, for which Cardiology has been consulted. The patient had a cardiac catheterization last year that revealed patent stent within the right coronary artery with normal LV function with mild diffuse multivessel coronary artery disease. At the time of my evaluation this morning, the patient is chest pain-free, hemodynamically stable, and even the abdominal symptoms have resolved. His troponins are slightly elevated at 0.05 and 0.06. EKG showed sinus rhythm without significant ST-T wave changes. I believe the patient's troponin is related to the mild bump in his renal functions and the diabetic ketoacidosis that he presented with. His blood sugars were elevated and the urine ketones were positive. PAST MEDICAL HISTORY: Significant for coronary artery disease, status post angioplasty; hypertension; diabetes; dyslipidemia. MEDICATIONS AT HOME: Include, 1. Lipitor 80 daily. 2. Aspirin. 3. Xanax. 4. Lasix 20 daily. 5. Bentyl. 6. NicoDerm. 7. Metformin. 8. Albuterol. ALLERGIES: To codeine, Demerol, morphine, and Keflex. FAMILY HISTORY: Negative for premature coronary artery disease. SOCIAL HISTORY: Significant for smoking. There is no history of EtOH abuse or drug abuse. REVIEW OF SYSTEMS: 14 out of 14 review of systems has been performed. Pertinents include abdominal discomfort and vague atypical chest pain. PHYSICAL EXAMINATION: GENERAL: Comfortable at rest. VITAL SIGNS: Stable. NECK: There is no jugular venous distention. Carotid upstroke is normal. There is no bruit. CHEST: Good air entry bilaterally. HEART: First and second heart sounds. No gallop. No murmur. No rub. ABDOMEN: Soft, nontender. EXTREMITIES: Did not reveal any edema. Peripheral pulses are felt. LABORATORY DATA: Labs are as described above. ASSESSMENT: 1. Diabetic ketoacidosis. 2. Elevated troponin, probably related to the mild renal insufficiency with a creatinine of 1.2 and the underlying diabetic ketoacidosis. It is not consistent with a diagnosis of myocardial infarction. BNP is 789, but the patient is not in congestive heart failure. 3. Coronary artery disease, status post prior angioplasty. PLAN: I am going to obtain a 2D echo to assess his LV function and wall motion. If these are normal, we can treat him with optimal medical therapy, treat the underlying uncontrolled blood sugars and, when stable, discharge home and consider an outpatient stress test through our office. He sees Dr. Young in the office. MMESTUARDO / RIKA: [id number] /
[2022-01-02 13:04] VITALS: BP 155/71; PULSE 83; RESP 14; TEMP 97.9
[2022-01-02 16:30] LABS: Glucose,Whole Blood 140 mg/dL (70-110)
[2022-01-02 16:42] LABS: African American GFR (CKD) 70 (>60 ml/min/1.73 sqM); Anion Gap 9 mmol/L; Blood Urea Nitrogen 25 mg/dL (9-20); Calcium 8.5 mg/dL (8.4-10.2); Carbon Dioxide 24 mmol/L (22-30); Chloride 107 mmol/L (98-107); Glucose 129 mg/dL (74-99); Magnesium 1.9 mg/dL (1.6-2.3); Non-African American GFR(CKD) 60 (>60 ml/min/1.73 sqM); Potassium 3.7 mmol/L (3.5-5.1); Sodium 140 mmol/L (137-145)
--- NOTE | 2022-01-02 17:44 | P.HPIM ---
History of Present Illness H&P Date: 01/02/22 Hoang is a 61-year-old male who presented to [facility] emergency room with a chief complaint of chest pain, nausea, vomiting, abdominal pain, and sweating He was evaluated in the emergency room vital examination on presentation revealed a temperature of 97.4 pulse 86 respiration 20 blood pressure 160/68 pulse ox 100% on room air Laboratory data reveals a white blood count of 18.6 hemoglobin 13.6 platelet count 312 BUN 29 creatinine 1.28 glucose 207 troponin level 0.051 Testing in the emergency room revealed computed tomography scan of the abdomen and pelvis did not reveal any evidence of acute intra-abdominal abnormality Patient was admitted to medical floor for further evaluation and treatment Past medical history is significant for history of hypertension, hyperlipidemia, diabetes mellitus, coronary artery disease with history of angioplasty and stent placement in the RCA 1 year ago, Past Medical History Past Medical History: Diabetes Mellitus, Hyperlipidemia, Hypertension, Myocardial Infarction (NV) Additional Past Medical History / Comment(s): pericarditis, left side carotid stenosis Last Myocardial Infarction Date:: 03/2016 History of Any Multi-Drug Resistant Organisms: None Reported Past Surgical History: Back Surgery, Heart Catheterization With Stent, Orthopedic Surgery Additional Past Surgical History / Comment(s): Bilat hip replacements, 1 cardiac stent, leaky valve per pt. Past Anesthesia/Blood Transfusion Reactions: No Reported Reaction Date of Last Stent Placement:: 03/2016 Past Psychological History: Anxiety, Depression Smoking Status: Current every day smoker Past Alcohol Use History: None Reported Past Drug Use History: None Reported - Past Family History Father History Unknown: Yes Mother Family Medical History: Diabetes Mellitus, Hypertension Additional Family Medical History / Comment(s): passed in from complications r/t DM Medications and Allergies Home Medications Medication Instructions Recorded Confirmed Type ALPRAZolam [Alprazolam] 0.25 mg PO Q6H PRN 03/25/16 01/01/22 History Aspirin EC [Ecotrin Low Dose] 81 mg PO DAILY 03/25/16 01/01/22 History Clopidogrel [Plavix] 75 mg PO DAILY #30 tab 06/02/18 01/01/22 Rx Furosemide [Lasix] 20 mg PO DAILY 30 Days #30 tab 06/02/18 01/01/22 Rx Metoprolol Tartrate [Lopressor] 50 mg PO BID 05/05/19 01/01/22 History Nitroglycerin Sl Tabs [Nitrostat] 0.4 mg PO Q5M PRN 05/05/19 01/01/22 History Atorvastatin Calcium [Lipitor] 80 mg PO HS 10/19/19 01/01/22 History metFORMIN HCL 1,000 mg PO BID 10/19/19 01/01/22 History Pantoprazole Sodium 40 mg PO DAILY 10/15/20 01/01/22 History Dicyclomine [Bentyl] 10 mg PO ACHS 01/21/21 01/01/22 History HYDROcodone/APAP 10-325MG [[place] 1 tab PO Q6H PRN 3 Days #12 tab 01/23/21 01/01/22 Rx 10-325] Albuterol Sulfate [Ventolin HFA] 2 puff INHALATION RT-Q6H PRN 01/01/22 01/01/22 History Ergocalciferol (Vitamin D2) 1,250 mcg PO FR 01/01/22 01/01/22 History [Drisdol (50,000 Iu)] Levothyroxine Sodium [Synthroid] 25 mcg PO DAILY 01/01/22 01/01/22 History Losartan Potassium 50 mg PO DAILY 01/01/22 01/01/22 History Nicotine 21Mg/24Hr Patch [Habitrol] 1 patch TRANSDERM DAILY 01/01/22 01/01/22 History Allergies Allergy/AdvReac Type Severity Reaction Status Date / Time cephalexin [From Keflex] Allergy Unknown Verified 01/01/22 20:23 codeine Allergy Unknown Verified 01/01/22 20:23 meperidine [From Demerol] Allergy Unknown Verified 01/01/22 20:23 morphine Allergy Unknown Verified 01/01/22 20:23 Physical Exam Vitals: Vital Signs Temp Pulse Pulse Resp BP BP Pulse Ox 01/02/22 07:00 97.4 F L 80 12 139/52 98 01/02/22 01:07 98.9 F 80 16 117/63 98 01/01/22 21:16 97.7 F 99 16 148/68 96 01/01/22 20:34 98.5 F 97 16 133/84 01/01/22 16:56 90 20 187/88 98 01/01/22 14:55 97.4 F L 86 20 160/68 100 Intake and Output 01/01/22 01/02/22 01/02/22 22:59 06:59 14:59 Intake Total 550 240 Balance 550 240 Intake: IV 550 Magnesium Sulfate-D5w Pmx 100 1 gm In Dextrose/Water 1 100ml.bag @ 100 mls/hr IVPB ONCE ONE Rx#: [id number] Sodium Chloride 0.9% 1, 450 000 ml @ 75 mls/hr IV . [id number] ESPERANZA Rx#:[id number] Oral 240 Other: # Voids 1 2 Weight 71.668 kg In general patient is alert and oriented x 3 in no distress HEENT head normocephalic and atraumatic Neck is supple no JVD no goiter no lymphadenopathy no carotid bruit Chest examination is clear to auscultation no crackles no wheezing Cardiac exam reveals regular heart sounds S1 and S2 no gallops no murmurs Abdomen is soft nontender no organomegaly with normal bowel sounds Extremity exam reveals no edema no cyanosis or clubbing Neurological examination reveals no gross focal deficits Results CBC & Chem 7: 01/02/22 06:00 01/01/22 16:32 Labs: Abnormal Lab Results - Last 24 Hours (Table) 01/01/22 01/01/22 01/01/22 Range/Units 16:32 16:32 16:32 WBC 18.6 H (3.8-10.6) k/uL RBC (4.30-5.90) m/uL Hgb (13.0-17.5) gm/dL Hct (39.0-53.0) % Neutrophils # 16.9 H (1.3-7.7) k/uL APTT 20.3 L (22.0-30.0) sec BUN 29 H (9-20) mg/dL Creatinine 1.28 H (0.66-1.25) mg/dL Glucose 207 H (74-99) mg/dL POC Glucose (mg/dL) (70-110) mg/dL Magnesium 1.5 L (1.6-2.3) mg/dL Troponin I (0.000-0.034) ng/mL Urine Protein (Negative) Urine Glucose (UA) (Negative) Urine Ketones (Negative) Urine Mucus (None) /hpf 01/01/22 01/01/22 01/01/22 Range/Units 20:24 20:50 22:16 WBC (3.8-10.6) k/uL RBC (4.30-5.90) m/uL Hgb (13.0-17.5) gm/dL Hct (39.0-53.0) % Neutrophils # (1.3-7.7) k/uL APTT (22.0-30.0) sec BUN (9-20) mg/dL Creatinine (0.66-1.25) mg/dL Glucose (74-99) mg/dL POC Glucose (mg/dL) 299 H (70-110) mg/dL Magnesium (1.6-2.3) mg/dL Troponin I 0.051 H* (0.000-0.034) ng/mL Urine Protein 1+ H (Negative) Urine Glucose (UA) 2+ H (Negative) Urine Ketones 2+ H (Negative) Urine Mucus Moderate H (None) /hpf 01/02/22 01/02/22 01/02/22 Range/Units 00:36 06:00 08:37 WBC 14.0 H (3.8-10.6) k/uL RBC 3.67 L (4.30-5.90) m/uL Hgb 11.5 L (13.0-17.5) gm/dL Hct 34.5 L (39.0-53.0) % Neutrophils # 11.0 H (1.3-7.7) k/uL APTT (22.0-30.0) sec BUN (9-20) mg/dL Creatinine (0.66-1.25) mg/dL Glucose (74-99) mg/dL POC Glucose (mg/dL) 149 H (70-110) mg/dL Magnesium (1.6-2.3) mg/dL Troponin I 0.060 H* (0.000-0.034) ng/mL Urine Protein (Negative) Urine Glucose (UA) (Negative) Urine Ketones (Negative) Urine Mucus (None) /hpf Thrombosis Risk Factor Assmnt - Choose All That Apply Each Factor Represents 1 point: Abnormal pulmonary function (COPD), Acute NV Each Risk Factor Represents 2 Points: Age 61-74 years Thrombosis Risk Factor Assessment Total Risk Factor Score: 4 Thrombosis Risk Factor Assessment Level: Moderate Risk Assessment and Plan Plan: Episode of chest pain with slight elevation in troponin on presentation Leukocytosis without clear site of infection Evidence of dehydration with acute kidney injury with elevated BUN and creatinine on presentation Abdominal pain with nausea and vomiting Underlying history of diabetes mellitus Underlying history of hypertension Underlying history of hyperlipidemia Underlying history of coronary artery disease, with history of angioplasty and stent placement 1 year ago At this time patient is admitted to telemetry floor Serial troponin levels ordered Echocardiogram was ordered cardiology consultation requested Will follow closely
--- NOTE | 2022-01-02 17:47 | P.DS ---
Providers Date of admission: 01/02/22 11:56 Expected date of discharge: 01/02/22 Attending physician: Ayush Reeves Consults: 01/01/22 19:29 Consult Physician Urgent Consulting Provider: [facility] Consult Reason/Comments: acute chest pain, possible acs, hx ascad Do you want consulting provider notified?: Yes Primary care physician: Ayush Reeves [facility] Hospital Course: Diagnosis on discharge: Episode of chest pain with slight elevation in troponin on presentation Hypokalemia likely related to nausea and vomiting Leukocytosis without clear site of infection Evidence of dehydration with acute kidney injury with elevated BUN and creatinine on presentation Abdominal pain with nausea and vomiting Underlying history of diabetes mellitus Underlying history of hypertension Underlying history of hyperlipidemia Underlying history of coronary artery disease, with history of angioplasty and stent placement 1 year ago Hospital course: Hoang is a 61-year-old male who presented to [facility] emergency room with a chief complaint of chest pain, nausea, vomiting, abdominal pain, and sweating He was evaluated in the emergency room vital examination on presentation revealed a temperature of 97.4 pulse 86 respiration 20 blood pressure 160/68 pulse ox 100% on room air Laboratory data reveals a white blood count of 18.6 hemoglobin 13.6 platelet count 312 BUN 29 creatinine 1.28 glucose 207 troponin level 0.051 Testing in the emergency room revealed computed tomography scan of the abdomen and pelvis did not reveal any evidence of acute intra-abdominal abnormality Patient was admitted to medical floor for further evaluation and treatment Past medical history is significant for history of hypertension, hyperlipidemia, diabetes mellitus, coronary artery disease with history of angioplasty and stent placement in the RCA 1 year ago, Patient was seen and examined on the telemetry floor he was evaluated by cardiology and was cleared for discharge with plans to proceed with a stress test as outpatient Patient had significant hypokalemia likely related to nausea and vomiting, this was corrected during this admission, potassium chloride 10 mEq by mouth daily was added to her medication regimen Patient will be discharged home today he will be followed in our office in 3-4 days Patient Condition at Discharge: Stable Plan - Discharge Summary New Discharge Prescriptions: New Potassium Chloride ER [K-Dur 10] 10 meq PO DAILY 30 Days #30 tab Continue Aspirin EC [Ecotrin Low Dose] 81 mg PO DAILY ALPRAZolam [Alprazolam] 0.25 mg PO Q6H PRN PRN Reason: Anxiety Clopidogrel [Plavix] 75 mg PO DAILY #30 tab Furosemide [Lasix] 20 mg PO DAILY 30 Days #30 tab Nitroglycerin Sl Tabs [Nitrostat] 0.4 mg PO Q5M PRN PRN Reason: Chest Pain Metoprolol Tartrate [Lopressor] 50 mg PO BID metFORMIN HCL 1,000 mg PO BID Atorvastatin Calcium [Lipitor] 80 mg PO HS HYDROcodone/APAP 10-325MG [[place] 10-325] 1 tab PO Q6H PRN 3 Days #12 tab PRN Reason: Pain Albuterol Sulfate [Ventolin HFA] 2 puff INHALATION RT-Q6H PRN PRN Reason: Shortness Of Breath Ergocalciferol (Vitamin D2) [Drisdol (50,000 Iu)] 1,250 mcg PO FR Levothyroxine Sodium [Synthroid] 25 mcg PO DAILY Nicotine 21Mg/24Hr Patch [Habitrol] 1 patch TRANSDERM DAILY Pantoprazole Sodium 40 mg PO DAILY Dicyclomine [Bentyl] 10 mg PO ACHS Losartan Potassium 50 mg PO DAILY Discharge Medication List ALPRAZolam [Alprazolam] 0.25 mg PO Q6H PRN 03/25/16 [History] Aspirin EC [Ecotrin Low Dose] 81 mg PO DAILY 03/25/16 [History] Clopidogrel [Plavix] 75 mg PO DAILY #30 tab 06/02/18 [Rx] Furosemide [Lasix] 20 mg PO DAILY 30 Days #30 tab 06/02/18 [Rx] Metoprolol Tartrate [Lopressor] 50 mg PO BID 05/05/19 [History] Nitroglycerin Sl Tabs [Nitrostat] 0.4 mg PO Q5M PRN 05/05/19 [History] Atorvastatin Calcium [Lipitor] 80 mg PO HS 10/19/19 [History] metFORMIN HCL 1,000 mg PO BID 10/19/19 [History] Pantoprazole Sodium 40 mg PO DAILY 10/15/20 [History] Dicyclomine [Bentyl] 10 mg PO ACHS 01/21/21 [History] HYDROcodone/APAP 10-325MG [[place] 10-325] 1 tab PO Q6H PRN 3 Days #12 tab 01/23/21 [Rx] Albuterol Sulfate [Ventolin HFA] 2 puff INHALATION RT-Q6H PRN 01/01/22 [History] Ergocalciferol (Vitamin D2) [Drisdol (50,000 Iu)] 1,250 mcg PO FR 01/01/22 [History] Levothyroxine Sodium [Synthroid] 25 mcg PO DAILY 01/01/22 [History] Losartan Potassium 50 mg PO DAILY 01/01/22 [History] Nicotine 21Mg/24Hr Patch [Habitrol] 1 patch TRANSDERM DAILY 01/01/22 [History] Potassium Chloride ER [K-Dur 10] 10 meq PO DAILY 30 Days #30 tab 01/02/22 [Rx] Follow up Appointment(s)/Referral(s): Ayush Reeves MD [Primary Care Provider] - 1-2 days Patient Instructions/Handouts: Chest Pain (DC), Hypokalemia (DC) Discharge Disposition: HOME SELF-CARE
[2022-01-02] MEDS ORDERED: ATORVASTATIN 80 MG TAB PO SCH (21:00)
[2022-01-03] MEDS ORDERED: ERGOCALCIFEROL 1,250 MCG (50,000 IU) CAPSULE PO SCH (09:00)
== END 2022-01-02 17:41 | disposition home or self-care (01) | DRG 638 ==
LOC: EC 14:49 → 6NMEDSUR 19:30 → OBSVTOIN 01-02 11:56
PROVIDERS: ADMIT Internal Medicine; ATTEND Internal Medicine
DX: E11.10 Type 2 diabetes mellitus with ketoacidosis without coma (principal); N17.9 Acute kidney failure, unspecified; Z20.822 Contact with and (suspected) exposure to COVID-19; E86.0 Dehydration; E87.6 Hypokalemia; F17.200 Nicotine dependence, unspecified, uncomplicated; E78.5 Hyperlipidemia, unspecified; I10 Essential (primary) hypertension; I25.10 Atherosclerotic heart disease of native coronary artery without angina pectoris; F32.A Depression, unspecified; F41.9 Anxiety disorder, unspecified; Z96.643 Presence of artificial hip joint, bilateral; I25.2 Old myocardial infarction; Z95.5 Presence of coronary angioplasty implant and graft; Z83.3 Family history of diabetes mellitus; Z79.84 Long term (current) use of oral hypoglycemic drugs; Z79.82 Long term (current) use of aspirin; Z79.02 Long term (current) use of antithrombotics/antiplatelets; Z79.890 Hormone replacement therapy; Z79.899 Other long term (current) drug therapy; Z88.1 Allergy status to other antibiotic agents; Z88.5 Allergy status to narcotic agent
CPT/HCPCS: 36415; 71046; 74177; 80048; 80053; 81001; 83690; 83735; 83880; 84484; 85025; 85610; 85730; 87502; 87635; 93005; 93306; 96361; 96374; 96375; 99285

== ENCOUNTER → 2023-05-20 | Outpatient (CLI) | payer MEDICARE ==
--- NOTE | 2023-05-21 14:24 | US ---
EXAMINATION TYPE: US kidneys/renal and bladder DATE OF EXAM: 05/20/2023 COMPARISON: None CLINICAL INDICATION: Male, 62 years old with history of N18.30 CHRONIC KIDNEY DISEASE, STAGE 3 UNSPEC IFIED; patient states having back pain/right lower pain at [place] area EXAM MEASUREMENTS: Right Kidney: 10.0 x 4.9 x 5.5 cm Left Kidney: 10.8 x 4.5 x 5.2 cm Right Kidney: No hydronephrosis or masses seen, cortex appear lobular, mild cortical thinning. Left Kidney: No hydronephrosis or masses seen, cortex appear lobular, mild cortical thinning. Bladder: No gross abnormality of the partially distended bladder. Left jet seen IMPRESSION: Changes of chronic medical renal disease. No hydronephrosis.
== END | disposition home or self-care (01) ==
LOC: RADUSWWP 16:11
PROVIDERS: ATTEND Internal Medicine Nephrology
DX: N18.30 Chronic kidney disease, stage 3 unspecified (principal); N28.89 Other specified disorders of kidney and ureter
CPT/HCPCS: 76770

== ENCOUNTER → 2023-09-14 | Outpatient (CLI) | payer MEDICARE ==
[2023-09-14 18:20] LABS: Basophils # (A) 0.06 X 10*3/uL (0.00-0.10); Basophils % (A) 0.6 %; Eosinophils % (A) 3.9 %; HCT 34.7 % (39.6-50.0); HGB 11.5 g/dL (13.0-17.0); Lymphocytes # (A) 2.33 X 10*3/uL (0.90-5.00); Lymphocytes % (A) 22.8 %; MCH 31.6 pg (27.0-32.0); MCHC 33.1 g/dL (32.0-37.0); MCV 95.3 FL (80.0-97.0); Mean Platelet Volume 10.4 FL (9.5-12.2); Monocytes # (A) 0.66 X 10*3/uL (0.20-1.00); Monocytes % (A) 6.4 %; NRBC Per 100 WBC 0 X 10*3/uL (0.00-0.01); Neutrophils # (A) 6.76 X 10*3/uL (1.80-7.70); Platelet Count 333 X 10*3/uL (140-440); RBC 3.64 X 10*6/uL (4.40-5.60); RDW 13.2 % (11.5-14.5); WBC 10.24 X 10*3/uL (4.50-10.00)
[2023-09-14 19:47] LABS: % Iron Saturation 11.86 (15.00-50.00); Albumin 4.5 g/dL (3.8-4.9); BUN/Creat Ratio 18.94 Ratio (12.00-20.00); Blood Urea Nitrogen 34.1 mg/dL (9.0-27.0); Calcium 9.9 mg/dL (8.7-10.3); Carbon Dioxide 25.5 mmol/L (21.6-31.8); Chloride 103 mmol/L (96-109); Ferritin 32.1 ng/mL (22.0-322.0); Glucose 141 mg/dL (70-110); Iron 37 UG/DL (65-175); Phosphorus 3.6 mg/dL (2.4-5.1); Potassium 5.3 mmol/L (3.5-5.5); Sodium 141 mmol/L (135-145); Total Iron Binding Capacity 312 UG/DL (228-460); Uric Acid 6.3 mg/dL (3.7-8.7)
[2023-09-15 03:54] LABS: Appearance,Urine Clear (Clear); Bilirubin,Urine Negative (Negative); Blood,Urine Negative (Negative); Color,Urine Yellow (Yellow); Ketones,Urine Negative (Negative); Nitrite,Urine Negative (Negative); PH, Urine 5.5; Specific Gravity,Urine 1.015 (1.001-1.030); Urobilinogen,Urine 0.2 E.U./DL
[2023-09-15 04:28] LABS: Urine Creatinine 89.7 mg/dL (39.0-259.0)
== END | disposition home or self-care (01) ==
LOC: LABWHC1 13:35
PROVIDERS: ATTEND Internal Medicine Nephrology
DX: E55.9 Vitamin D deficiency, unspecified (principal); N18.30 Chronic kidney disease, stage 3 unspecified; N25.81 Secondary hyperparathyroidism of renal origin; M10.9 Gout, unspecified; D63.1 Anemia in chronic kidney disease; N39.0 Urinary tract infection, site not specified; R80.9 Proteinuria, unspecified
CPT/HCPCS: 36415; 80048; 81003; 82040; 82043; 82306; 82570; 82728; 83540; 83550; 83735; 83970; 84100; 84550; 85025; 86334; 86335